=== PATIENT | male | born 1965 | race Caucasian/White ===

== ENCOUNTER 2016-08-01 14:42 | Emergency (ER) | payer OTHER ==
[~2016-08-01 14:42] MED LIST: ASPI1TAB PO; ASPI325T PO; AUGM875T27 PO; BACT2OIN2 TOP; BAYE325T12 PO; CEFA1INJ5 IV; DICL500C PO; DOKTAB2 PO; DRIS50002 PO; INSUDET SC; INSUH10VL INJ; INSUH10VL SC; INSULADS SC; JANU100T PO; KEFL500C7 PO; KEFLEX IV; LEVE1INJ5 SC; LISI-542 PO; LISI2.5T PO; LISI2.5T3 GT; LISI2.5T3 PO; NIAC1TAB PO; NICO21PAT EXT; NOVOINJ3 SC; PERCOCET PO; SALI0.9I2 IV; TRIC145T PO; TYLE325T5 PO; ZETI10TA2 PO
--- NOTE | 2016-08-01 15:43 | REP ---
CT Head without contrast HISTORY: Head injury COMPARISON: None There is no intraparenchymal hemorrhage, acute infarct, mass or midline shift. The ventricular system is normal in appearance. There is no extra cerebral collection. There is no fracture. Mucosal thickening is present in the right ethmoid and sphenoid sinuses. IMPRESSION: There is no intracranial lesion. Signed by Wilmer Rapp MD 08/01/2016 03:35 P
--- NOTE | 2016-08-01 16:04 | EDDOCDS ---
Physician Documentation [facility] Name: Kelby Rojo Age: 51 yrs Sex: Male : 1965 Arrival Date: 08/01/2016 Time: 14:42 Bed TR7 Private MD: Unknown, Family Dr Disposition: 08/01/16 15:40 Discharged to Home/Self Care. Impression: Superficial injury of head. - Condition is Stable. - Discharge Instructions: Head Injury, Adult. - Medication Reconciliation, Local Pharmacy Hours form. - Follow up: Emergency Department; When: As needed; Reason: Worsening of conditions. Follow [facility]: [facility]; When: Call to arrange an appointment; Reason: Recheck today's complaints, Continuance of care, To establish care. - Problem is new. - Symptoms are unchanged. Historical: - Allergies: No known drug Allergies; - Home Meds: 1. aspirin 81 mg oral tab once daily 2. Onglyza 5 mg oral tab 1 tab once daily 3. Toujeo SoloStar 300 unit/mL (1.5 mL) subcutaneous inpn 90 unit 4. lisinopril 2.5 mg oral tab 1 tab once daily - PMHx: Diabetes - IDDM: controlled; Hypertension; - PSHx: Hernia repair- Umbilical; right middle finger; - Social history: Smoking status: Patient uses tobacco products, light tobacco smoker. - : The pt / caregiver states he / she is not on anticoagulants. Home medication list is obtained from the patient, [employer] import data. - Exposure Risk Screening:: None identified. Vital Signs: 08/01 14:43 BP 144 / 70; Pulse 91; Resp 18; Temp 97.1; Pulse Ox 97% ; Weight 95.25 kg / 209.99 lbs; cmb Height 5 ft. 6 in. (167.64 cm); Pain 0/10; 14:43 Body Mass Index 33.89 (95.25 kg, 167.64 cm) cmb Funmilayo Coma Score: 14:48 Eye Response: spontaneous(4). Verbal Response: oriented(5). Motor Response: obeys kcs commands(6). Total: 15. MDM: 15:25 CT Head Without Contrast Ordered. EDMS 15:33 Financial registration complete. lg Signatures: Dispatcher [employer] EDMS Sleeman, ShantelleGREGG jorgensen RN, LoriLee, Reg Reg lg Dwight,GREGG Bansal RN rs3 Guerline Walker RN RN mk4 Elvia Rodrigues PA-C PA-C dt4 The chart was reviewed and I authenticate all verbal orders and agree with the evaluation and treatment provided.Corrections: (The following items were deleted from the chart) 15:01 14:52 Home Meds: Novolog 100 unit/mL Sub-Q soln 100 unit twice a day; heydi rs3 MTDD
--- NOTE | 2016-08-01 16:04 | EDDOCDS ---
Nurse's Notes [facility] Name: Kelby Rojo Age: 51 yrs Sex: Male : 1965 Arrival Date: 08/01/2016 Time: 14:42 Bed TR7 Private MD: Unknown, Family Dr Diagnosis: Superficial injury of head Presentation: 08/01 14:48 Presenting complaint: Patient states: he slipped on the sidewalk about 40 minutes ago kcs and hit his head - no loss of consciousness. Feels ok now. This patient has no additional risk factors. Mechanism of Injury: resulted from a fall. Adult Sepsis Screening: The patient does not have new or worsening altered mentation. Patient's respiratory rate is less than 22. Systolic blood pressure is greater than 100. Patient has a qSOFA score of 0- Negative Sepsis Screen. Suicide/Homicide risk assessment- the patient denies having any suicidal and/or homicidal ideations and does not present with any other emotional, behavioral or mental health complaints. 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 Transition of care: patient was not received from another setting of care. 14:48 Acuity: JOHN PAUL Level 4 kcs 14:48 Method Of Arrival: Walkin/Carried/Asstd kcs Triage Assessment: 14:52 General: Appears comfortable, obese, unkempt, well developed, well nourished, Behavior kcs is cooperative, pleasant. Pain: Denies pain. Location: head. HIV screening NA for this visit Offered previously. Neurological: Level of Consciousness is awake, alert. Respiratory: Airway is patent Respiratory effort is even, unlabored, Respiratory pattern is regular, symmetrical. Derm: Skin is intact, is healthy with good turgor, Skin is dry, Skin is normal. Historical: - Allergies: No known drug Allergies; - Home Meds: 1. aspirin 81 mg oral tab once daily 2. Onglyza 5 mg oral tab 1 tab once daily 3. Toujeo SoloStar 300 unit/mL (1.5 mL) subcutaneous inpn 90 unit 4. lisinopril 2.5 mg oral tab 1 tab once daily - PMHx: Diabetes - IDDM: controlled; Hypertension; - PSHx: Hernia repair- Umbilical; right middle finger; - Social history: Smoking status: Patient uses tobacco products, light tobacco smoker. - : The pt / caregiver states he / she is not on anticoagulants. Home medication list is obtained from the patient, [employer] import data. - Exposure Risk Screening:: None identified. Vital Signs: 14:43 BP 144 / 70; Pulse 91; Resp 18; Temp 97.1; Pulse Ox 97% ; Weight 95.25 kg; Height 5 ft. cmb 6 in. (167.64 cm); Pain 0/10; 14:43 Body Mass Index 33.89 (95.25 kg, 167.64 cm) cmb Vitals: 14:43 Log In Time: August 01, 2016 at 14:42. cmb Funmilayo Coma Score: 14:48 Eye Response: spontaneous(4). Verbal Response: oriented(5). Motor Response: obeys kcs commands(6). Total: 15. ED Course: 14:42 Patient visited by Jeana Guthrie. cmb 14:42 Patient moved to Waiting cmb 14:43 Unknown, Family Dr is Private Physician. cmb 14:43 Patient moved to Pre RCE cmb 14:50 Triage Initiated kcs 15:09 Patient moved to Triage 1 jrd 15:13 [facility] dt4 15:13 Jaspreet Miller MD is Attending Physician. dt4 15:13 Patient visited by Elvia Rodrigues PA-C. dt4 15:28 Patient moved to TR2 mk4 15:40 [facility] is Referral Physician. dt4 15:42 Patient moved to PR2 / 26 jrd 15:45 Patient moved to TR7 mk4 15:59 CT Head Without Contrast Returned. EDMS Order Results: Radiology Order: CT Head Without Contrast Test: CT Head Without Contrast REASON FOR EXAMINATION: HEAD INJURY, ON ASA; CT Head without contrast; ; HISTORY: Head injury; ; COMPARISON: None; ; There is no intraparenchymal hemorrhage, acute infarct, mass or midline shift.; The ventricular system is normal in appearance. There is no extra cerebral; collection. There is no fracture. Mucosal thickening is present in the right; ethmoid and sphenoid sinuses.; ; IMPRESSION: There is no intracranial lesion.; ; ; ; ; Signed by; Wilmer Rapp MD 08/01/2016 03:35 P; Outcome: 15:40 Discharge ordered by Provider. dt4 16:03 Patient left the ED. mk4 Signatures: Dispatcher [employer] EDMS Shantelle Wilson RN RN kcs Nimisha Quintanilla RN RN rs3 Jeana Guthrie Margaret, RN RN mk4 Elvia Rodrigues, PA-C PA-C dt4 Justin Hinojosa PCA HAM STRIPPER jrd Corrections: (The following items were deleted from the chart) 15:01 14:52 Home Meds: Novolog 100 unit/mL Sub-Q soln 100 unit twice a day; heydi rs3 MTDD
--- NOTE | 2016-08-03 17:04 | EDDOCDS ---
Nurse's Notes [facility] Name: Kelby Rojo Age: 51 yrs Sex: Male : 1965 Arrival Date: 08/01/2016 Time: 14:42 Bed TR7 Private MD: Unknown, Family Dr Diagnosis: Superficial injury of head Presentation: 08/01 14:48 Presenting complaint: Patient states: he slipped on the sidewalk about 40 minutes ago kcs and hit his head - no loss of consciousness. Feels ok now. This patient has no additional risk factors. Mechanism of Injury: resulted from a fall. Adult Sepsis Screening: The patient does not have new or worsening altered mentation. Patient's respiratory rate is less than 22. Systolic blood pressure is greater than 100. Patient has a qSOFA score of 0- Negative Sepsis Screen. Suicide/Homicide risk assessment- the patient denies having any suicidal and/or homicidal ideations and does not present with any other emotional, behavioral or mental health complaints. 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 Transition of care: patient was not received from another setting of care. 14:48 Acuity: JOHN PAUL Level 4 kcs 14:48 Method Of Arrival: Walkin/Carried/Asstd kcs Triage Assessment: 14:52 General: Appears comfortable, obese, unkempt, well developed, well nourished, Behavior kcs is cooperative, pleasant. Pain: Denies pain. Location: head. HIV screening NA for this visit Offered previously. Neurological: Level of Consciousness is awake, alert. Respiratory: Airway is patent Respiratory effort is even, unlabored, Respiratory pattern is regular, symmetrical. Derm: Skin is intact, is healthy with good turgor, Skin is dry, Skin is normal. Historical: - Allergies: No known drug Allergies; - Home Meds: 1. aspirin 81 mg oral tab once daily 2. Onglyza 5 mg oral tab 1 tab once daily 3. Toujeo SoloStar 300 unit/mL (1.5 mL) subcutaneous inpn 90 unit 4. lisinopril 2.5 mg oral tab 1 tab once daily - PMHx: Diabetes - IDDM: controlled; Hypertension; - PSHx: Hernia repair- Umbilical; right middle finger; - Social history: Smoking status: Patient uses tobacco products, light tobacco smoker. No barriers to communication noted, The patient speaks fluent American. - Family history: Not pertinent. - : The pt / caregiver states he / she is not on anticoagulants. Home medication list is obtained from the patient, [employer] import data. - Exposure Risk Screening:: None identified. Screenin:28 Screening information is obtained from the patient. Fall risk: No risks identified. mk4 Assistance ADL's: requires no assistance with activities of daily living. Abuse/DV Screen: The patient / caregiver reports he/she is: not in a situation that causes fear, pain or injury. Nutritional screening: No deficits noted. Advance Directives: Currently, there is no health care proxy. There is no active DNR order. There is no living will. There is no Power of Ethylbenzene Cracking Supervisor. Advance directive information has not previously been placed in an [facility] medical record. Further advance directive information is declined. home support is adequate. Assessment: 15:28 General: Appears in no apparent distress, Behavior is cooperative. Neurological: Level mk4 of Consciousness is awake, alert, Oriented to person, place, time, Reports no additional symptoms. Vital Signs: 14:43 BP 144 / 70; Pulse 91; Resp 18; Temp 97.1; Pulse Ox 97% ; Weight 95.25 kg; Height 5 ft. cmb 6 in. (167.64 cm); Pain 0/10; 14:43 Body Mass Index 33.89 (95.25 kg, 167.64 cm) cmb Vitals: 14:43 Log In Time: August 01, 2016 at 14:42. cmb Funmilayo Coma Score: 14:48 Eye Response: spontaneous(4). Verbal Response: oriented(5). Motor Response: obeys kcs commands(6). Total: 15. ED Course: 14:42 Patient visited by Jeana Guthrie. cmb 14:42 Patient moved to Waiting cmb 14:43 Unknown, Family Dr is Private Physician. cmb 14:43 Patient moved to Pre RCE cmb 14:50 Triage Initiated kcs 15:09 Patient moved to Triage 1 jrd 15:13 Elvia Rodrigues [facility]-C [facility] dt4 15:13 Jaspreet Miller MD is Attending Physician. dt4 15:13 Patient visited by Elvia Rodrigues PA-C. dt4 15:28 Patient moved to TR2 mk4 15:28 The patient / caregiver is instructed regarding the plan of care and ED course. mk4 15:28 No IV's were initiated during this patient's visit. No procedures done that require mk4 assistance. 15:40 [facility] is Referral Physician. dt4 15:42 Patient moved to PR2 / 26 jrd 15:45 Patient moved to TR7 mk4 15:59 CT Head Without Contrast Returned. EDWA 16:31 [facility] Payment Agreement was scanned into [employer] and attached to record. 08/02 11:14 T-Sheet-- Draft Copy was scanned into [employer] and attached to record. gb Order Results: Radiology Order: CT Head Without Contrast Test: CT Head Without Contrast REASON FOR EXAMINATION: HEAD INJURY, ON ASA; CT Head without contrast; ; HISTORY: Head injury; ; COMPARISON: None; ; There is no intraparenchymal hemorrhage, acute infarct, mass or midline shift.; The ventricular system is normal in appearance. There is no extra cerebral; collection. There is no fracture. Mucosal thickening is present in the right; ethmoid and sphenoid sinuses.; ; IMPRESSION: There is no intracranial lesion.; ; ; ; ; Signed by; Wilmer Rapp MD 08/01/2016 03:35 P; Outcome: 08/01 15:40 Discharge ordered by Provider. dt4 16:03 Patient left the ED. mk4 16:08 Discharge Assessment: Patient awake, alert and oriented x 3. No cognitive and/or mk4 functional deficits noted. Patient verbalized understanding of disposition instructions. Patient awake and alert. patient administered narcotics - no. The following High Risk Discharge criteria are identified: None. Condition: good Condition: stable. CT Study completed. Property sent home with patient. Signatures: Dispatcher [employer] EDWA Shantelle Wilson RN RN kcs Britta Martinez, Reg Reg gb Jose Roberto Mo, Reg Reg lg Nimisha Quintanilla RN RN rs3 Jeana Guthrie Margaret, RN RN mk4 Elvia Rodrigues, PA-C PA-C dt4 Justin Hinojosa PCA PROCEDURES RN jrd Corrections: (The following items were deleted from the chart) 15:01 14:52 Home Meds: Novolog 100 unit/mL Sub-Q soln 100 unit twice a day; kcs rs3 Chart Complete MTDD
--- NOTE | 2016-08-03 17:04 | EDDOCDS ---
Physician Documentation [facility] Name: Kelby Rojo Age: 51 yrs Sex: Male : 1965 Arrival Date: 08/01/2016 Time: 14:42 Bed TR7 Private MD: Unknown, Family Disposition: 08/01/16 15:40 Discharged to Home/Self Care. Impression: Superficial injury of head. - Condition is Stable. - Discharge Instructions: Head Injury, Adult. - Medication Reconciliation, Local Pharmacy Hours form. - Follow up: Emergency Department; When: As needed; Reason: Worsening of conditions. Follow up: [facility]; When: Call to arrange an appointment; Reason: Recheck today's complaints, Continuance of care, To establish care. - Problem is new. - Symptoms are unchanged. Historical: - Allergies: No known drug Allergies; - Home Meds: 1. aspirin 81 mg oral tab once daily 2. Onglyza 5 mg oral tab 1 tab once daily 3. Toujeo SoloStar 300 unit/mL (1.5 mL) subcutaneous inpn 90 unit 4. lisinopril 2.5 mg oral tab 1 tab once daily - PMHx: Diabetes - IDDM: controlled; Hypertension; - PSHx: Hernia repair- Umbilical; right middle finger; - Social history: Smoking status: Patient uses tobacco products, light tobacco smoker. No barriers to communication noted, The patient speaks fluent Emirati. - Family history: Not pertinent. - : The pt / caregiver states he / she is not on anticoagulants. Home medication list is obtained from the patient, [employer] import data. - Exposure Risk Screening:: None identified. Vital Signs: 08/01 14:43 BP 144 / 70; Pulse 91; Resp 18; Temp 97.1; Pulse Ox 97% ; Weight 95.25 kg / 209.99 lbs; cmb Height 5 ft. 6 in. (167.64 cm); Pain 0/10; 14:43 Body Mass Index 33.89 (95.25 kg, 167.64 cm) cmb [place] Coma Score: 14:48 Eye Response: spontaneous(4). Verbal Response: oriented(5). Motor Response: obeys kcs commands(6). Total: 15. MDM: 15:25 CT Head Without Contrast Ordered. EDMS 15:33 Financial registration complete. lg 16:31 [facility] Payment Agreement was scanned into [employer] and attached to record. lg 08/02 11:14 T-Sheet-- Draft Copy was scanned into [employer] and attached to record. gb Signatures: Dispatcher [employer] EDShantelle Duncan, RN RN kcs Britta Martinez, Reg Reg gb Jose Roberto Mo, Reg Reg lg Nimisha Quintanilla RN RN rs3 Guerline Walker RN RN mk4 Elvia Rodrigues, PANaomi PANaomi dt4 The chart was reviewed and I authenticate all verbal orders and agree with the evaluation and treatment provided.Corrections: (The following items were deleted from the chart) 08/01 15:01 14:52 Home Meds: Novolog 100 unit/mL Sub-Q soln 100 unit twice a day; heydi rs3 Attachments: 16:31 [facility] Payment Agreement lg 08/02 11:14 T-Sheet-- Draft Copy gb Chart Complete MTDD
--- NOTE | 2016-08-03 17:04 | EDDOCDS ---
Physician Documentation [facility] Name: Kelby Rojo Age: 51 yrs Sex: Male : 1965 Arrival Date: 08/01/2016 Time: 14:42 Bed TR7 Private MD: Unknown, Family Disposition: 08/01/16 15:40 Discharged to Home/Self Care. Impression: Superficial injury of head. - Condition is Stable. - Discharge Instructions: Head Injury, Adult. - Medication Reconciliation, Local Pharmacy Hours form. - Follow up: Emergency Department; When: As needed; Reason: Worsening of conditions. Follow up: [facility]; When: Call to arrange an appointment; Reason: Recheck today's complaints, Continuance of care, To establish care. - Problem is new. - Symptoms are unchanged. Historical: - Allergies: No known drug Allergies; - Home Meds: 1. aspirin 81 mg oral tab once daily 2. Onglyza 5 mg oral tab 1 tab once daily 3. Toujeo SoloStar 300 unit/mL (1.5 mL) subcutaneous inpn 90 unit 4. lisinopril 2.5 mg oral tab 1 tab once daily - PMHx: Diabetes - IDDM: controlled; Hypertension; - PSHx: Hernia repair- Umbilical; right middle finger; - Social history: Smoking status: Patient uses tobacco products, light tobacco smoker. No barriers to communication noted, The patient speaks fluent Armenian. - Family history: Not pertinent. - : The pt / caregiver states he / she is not on anticoagulants. Home medication list is obtained from the patient, [email or web address] import data. - Exposure Risk Screening:: None identified. Vital Signs: 08/01 14:43 BP 144 / 70; Pulse 91; Resp 18; Temp 97.1; Pulse Ox 97% ; Weight 95.25 kg / 209.99 lbs; cmb Height 5 ft. 6 in. (167.64 cm); Pain 0/10; 14:43 Body Mass Index 33.89 (95.25 kg, 167.64 cm) cmb [place] Coma Score: 14:48 Eye Response: spontaneous(4). Verbal Response: oriented(5). Motor Response: obeys kcs commands(6). Total: 15. MDM: 15:25 CT Head Without Contrast Ordered. EDMS 15:33 Financial registration complete. lg 16:31 [facility] Payment Agreement was scanned into [employer] and attached to record. lg 08/02 11:14 T-Sheet-- Draft Copy was scanned into [employer] and attached to record. gb Signatures: Dispatcher [employer] EDShantelle Duncan, RN RN kcs Britta Martinez, Reg Reg gb Jose Roberto Mo, Reg Reg lg Nimisha Quintanilla RN RN rs3 Guerline Walker RN RN mk4 Elvia Rodrigues, PANaomi PANaomi dt4 The chart was reviewed and I authenticate all verbal orders and agree with the evaluation and treatment provided.Corrections: (The following items were deleted from the chart) 08/01 15:01 14:52 Home Meds: Novolog 100 unit/mL Sub-Q soln 100 unit twice a day; heydi rs3 Attachments: 16:31 [facility] Payment Agreement lg 08/02 11:14 T-Sheet-- Draft Copy gb Chart Complete MTDD
== END 2016-08-01 16:03 | disposition home or self-care (01) ==
LOC: M ED 14:42
DX: S00.90XA Unspecified superficial injury of unspecified part of head, initial encounter (principal); W01.198A Fall on same level from slipping, tripping and stumbling with subsequent striking against other object, initial encounter; Y92.480 Sidewalk as the place of occurrence of the external cause; Y93.89 Activity, other specified; Y99.8 Other external cause status; I10 Essential (primary) hypertension; E10.9 Type 1 diabetes mellitus without complications; Z79.899 Other long term (current) drug therapy; F17.200 Nicotine dependence, unspecified, uncomplicated

== ENCOUNTER → 2016-08-07 | Outpatient (CLI) | payer OTHER | LOC: M HL 14:22 | PROVIDERS: ATTEND Family Medicine | DX: Z71.3 Dietary counseling and surveillance (principal); E11.29 Type 2 diabetes mellitus with other diabetic kidney complication ==

== ENCOUNTER → 2016-09-11 | Outpatient (REF) | payer OTHER ==
[2016-09-11 13:02] LABS: BASO # 0.1 K/mm3 (0.0-0.2); BASO % 0.9 % (0.0-1.0); EOS # 0.4 K/mm3 (0.0-0.50); EOS % 4.7 % (0.0-3.0); LARGE UNSTAINED CELL # 0.3 K/mm3 (0.0-0.4); LARGE UNSTAINED CELL % 2.8 % (0.0-4.0); LYMPH # 2.1 K/mm3 (1.5-4.5); LYMPH % 23.1 % (24.0-44.0); MEAN CORPUSCULAR HEMOGLOBIN 28.9 pg (27.0-33.0); MEAN CORPUSCULAR HGB CONC 33.1 g/dl (32.0-36.5); MEAN CORPUSCULAR VOLUME 87.3 fl (80.0-96.0); MONO # 0.5 K/mm3 (0.0-0.8); NEUTROPHILS # 5.7 K/mm3 (1.8-7.7); NEUTROPHILS % 63.5 % (36.0-66.0); PLATELET COUNT, AUTOMATED 188 k/mm3 (150-450); RED CELL DISTRIBUTION WIDTH 12.8 % (11.5-14.5)
[2016-09-11 13:50] LABS: ALBUMIN 3.7 GM/DL (3.2-5.2); BILIRUBIN,TOTAL 0.3 MG/DL (0.2-1.0); CALCIUM LEVEL 9.2 MG/DL (8.5-10.1); CREATININE FOR GFR 1.78 MG/DL (0.70-1.30); GLOMERULAR FILTRATION RATE 43.3 (>56); POTASSIUM SERUM 4.7 MEQ/L (3.5-5.1); TOTAL PROTEIN 7.4 GM/DL (6.4-8.2)
== END ==
LOC: M SFHCPLAZ 11:41
PROVIDERS: ATTEND Family Medicine
DX: E11.22 Type 2 diabetes mellitus with diabetic chronic kidney disease (principal)

== ENCOUNTER 2016-10-12 21:41 | Emergency (ER) | payer OTHER ==
[~2016-10-12] VITALS: Ht 167.6 cm; Wt 122.5 kg
[2016-10-13 02:15] VITALS: BP 123/77
[2016-10-13] MEDS ORDERED: TOUJ1.2I SC (15:05)
[2016-10-13] MEDS ORDERED: COLA100C PO (15:05)
[2016-10-13] MEDS ORDERED: ONGL1TAB9 PO (15:05)
[2016-10-13] MEDS ORDERED: LOSA25TA8 PO (15:05)
== END 2016-10-13 03:34 | disposition left against medical advice (07) ==
LOC: M ED 22:27
DX: R21 Rash and other nonspecific skin eruption (principal); Z53.21 Procedure and treatment not carried out due to patient leaving prior to being seen by health care provider

== ENCOUNTER 2016-10-13 10:33 | Inpatient (IN) | payer OTHER ==
[~2016-10-13] VITALS: Ht 167.6 cm; Wt 122.5 kg
[2016-10-13 13:01] LABS: BASO # 0.1 K/mm3 (0.0-0.2); BASO % 0.3 % (0.0-1.0); EOS # 0.1 K/mm3 (0.0-0.50); EOS % 0.4 % (0.0-3.0); LARGE UNSTAINED CELL # 0.1 K/mm3 (0.0-0.4); LARGE UNSTAINED CELL % 0.6 % (0.0-4.0); LYMPH % 4.1 % (24.0-44.0); MEAN CORPUSCULAR HEMOGLOBIN 28.7 pg (27.0-33.0); MEAN CORPUSCULAR HGB CONC 31.9 g/dl (32.0-36.5); MONO # 1.3 K/mm3 (0.0-0.8); NEUTROPHILS % 88.6 % (36.0-66.0); PLATELET COUNT, AUTOMATED 177 k/mm3 (150-450); RED CELL DISTRIBUTION WIDTH 12.4 % (11.5-14.5); WHITE BLOOD COUNT 21.4 K/mm3 (4.0-10.0)
[2016-10-13 13:09] LABS: ALBUMIN 2.8 GM/DL (3.2-5.2); ALBUMIN/GLOBULIN RATIO 0.57 (1.00-1.93); BILIRUBIN,DIRECT 0.2 MG/DL (0.0-0.2); BILIRUBIN,TOTAL 0.9 MG/DL (0.2-1.0); CALCIUM LEVEL 8.2 MG/DL (8.5-10.1); CREATININE FOR GFR 2.15 MG/DL (0.70-1.30); GLOMERULAR FILTRATION RATE 34.8 (>56); POTASSIUM SERUM 4.4 MEQ/L (3.5-5.1); TOTAL PROTEIN 7.7 GM/DL (6.4-8.2)
[2016-10-13] MEDS ORDERED: NS 1,000 ML IV ONE (13:30)
--- NOTE | 2016-10-13 13:39 | REP ---
Clinical: Right gluteal lesion. Evaluate for abscess. Technique: Real time dasilva scale and color evaluation using curved array transducer. Findings: Ultrasound examination of the right gluteal region demonstrates subcutaneous edema with a central 2.9 x 2.5 x 2.2 cm central hypoechoic area which may reflect phlegmon/forming abscess. Impression: Hypoechoic collection may represent phlegmon/forming abscess. Signed by Addy Roman MD 10/13/2016 01:31 P
[2016-10-13] MEDS ORDERED: PIPERACILLIN/TAZOBACTAM SOD 4.5 GM in D5W MINI-BAG PLUS 50 ML IV ONE (13:45)
--- NOTE | 2016-10-13 14:12 | REP ---
Clinical: Fever. Technique: PA and lateral. Comparison: 07/12/2014. Findings: Mediastinum and cardiac silhouette are normal. Lung root are relatively clear without focal consolidation, effusion, or pneumothorax. Trace basilar atelectasis cannot be excluded. Skeletal structures intact. Impression: No focal consolidation. Cannot exclude trace left basilar atelectasis. Signed by Addy Roman MD 10/13/2016 02:03 P
[2016-10-13] MEDS ORDERED: ACETAMINOPHEN 325 MG TAB PO ONE (15:00)
[2016-10-13] MEDS ORDERED: COLA100C PO (15:05)
[2016-10-13] MEDS ORDERED: LOSA25TA8 PO (15:05)
[2016-10-13] MEDS ORDERED: ONGL1TAB9 PO (15:05)
[2016-10-13] MEDS ORDERED: TOUJ1.2I SC (15:05)
[2016-10-13] MEDS ORDERED: VANCOMYCIN HCL 1,000 MG, VIAL MATE ADAPTER 1 EACH in D5W 250 ML IV ONE (15:15)
[2016-10-13] MEDS ORDERED: ONDANSETRON 4MG/2ML VIAL (J2405) IV PRN (15:45)
[2016-10-13] MEDS ORDERED: GLUCOSE 4 GM CHEW TABLET PO PRN (15:45)
[2016-10-13] MEDS ORDERED: DEXTROSE 50% 50 ML SYRINGE IV PRN (15:45)
[2016-10-13] MEDS ORDERED: GLUCAGON FOR INJ 1 MG VIAL (J1610) SC PRN (15:45)
--- NOTE | 2016-10-13 16:29 | HPEPDOC ---
General Date of Admission Oct 13, 2016 at 15:44 Chief Complaint The patient is a 51-year-old male admitted with a reason for visit of Abscess Of Skin And Subcutaneous Tissue. 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 The patient presents to the ER after he noticed an increase in pain and tenderness in the right buttock region. The patient states that this developed 2 days ago, and has persisted. He also notes associated subjective fevers, lethargy, and fatigue. He does report some drainage of blood noted on his clothing from the site. He denies any complaints of lightheadedness, dizziness, chest pain, shortness of breath, palpitations, abdominal pain, or any nausea/vomiting/ diarrhea. In the ER, an ultrasound of the right buttock was obtained which revealed a hypoechoic collection measuring 2.9 x 2.5 x 2.2 cm representing possible phlegmon versus forming abscess. Surgery was contacted in the ER, and has recommended antibiotic therapy at this time. The patient will be admitted under the service of Dr. Blanco for further evaluation and management. Home Medications Scheduled (Sarahi Junior) 300 Unit/Ml Inj 90 UNIT SC BID (Reported) Aspirin (Aspirin) 325 Mg Tab 325 MG PO DAILY (Reported) Docusate Sodium (Colace) 100 Mg Cap 100 MG PO BID (Reported) Losartan Potassium (Losartan Potassium) 25 Mg Tab 25 MG PO DAILY (Reported) Saxagliptin Hydrochloride (Onglyza) 5 Mg Tab 5 MG PO DAILY (Reported) Allergies Coded Allergies: No Known Drug Allergy (Verified Allergy, Unknown, 10/12/16) Past Medical History Medical History As noted in HPI. 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 Family History Significant for diabetes mellitus in multiple family members Social History * Smoker: other (smoked 1 pack per day for 30+ years, quit 2 years ago) Alcohol: Denies Drugs: denies Review of Symptoms Other systems 10 point review of systems negative unless otherwise specified in HPI. Physical Examination General Exam: Positive: Alert, Cooperative, No Acute Distress ENT Exam: Positive: Atraumatic, Mucous membr. moist/pink Neck Exam: Negative: JVD Chest Exam: Positive: Clear to auscultation, Normal air movement Heart Exam: Positive: Normal S1, Normal S2, Rate Normal, Regular Rhythm Telemetry: Positive: Sinus Abdomen Exam: Positive: Soft, Negative: Tenderness Extremity Exam: Positive: Other (patient noted to have amputation of the middle finger of the right hand, distal aspect of left greater toe) Skin Exam: Positive: Other skin issue (patient noted to have cellulitic changes on the inner side of the right buttock. No purulent or bloody discharge noted. Mild induration of the area. Mild tenderness to palpation.) Vital Signs As noted in EMR Laboratory Data Labs 24H Laboratory Tests 2 10/13/16 10:57: Aspartate Amino Transf (AST/SGOT) 27, Alanine Aminotransferase (ALT/SGPT) 44, Alkaline Phosphatase 90, Total Bilirubin 0.9, Direct Bilirubin 0.2, Albumin 2.8L , Albumin/Globulin Ratio 0.57L, Anion Gap 11, White Blood Count 21.4H, Red Blood Count 4.96, Hemoglobin 14.2, Hematocrit 44.6, Mean Corpuscular Volume 90.0 , Mean Corpuscular Hemoglobin 28.7, Mean Corpuscular Hemoglobin Concent 31.9L, Red Cell Distribution Width 12.4, Platelet Count 177, Neutrophils (%) (Auto) 88.6H, Lymphocytes (%) (Auto) 4.1L, Monocytes (%) (Auto) 6.0H, Eosinophils (%) ( Auto) 0.4, Basophils (%) (Auto) 0.3, Neutrophils # (Auto) 19.0H, Lymphocytes # ( Auto) 1.0L, Monocytes # (Auto) 1.3H, Eosinophils # (Auto) 0.1, Basophils # (Auto ) 0.1, Calcium Level 8.2L, Glomerular Filtration Rate 34.8L, Lactic Acid Level 2.4*H, Large Unclassified Cells # 0.1, Large Unclassified Cells % 0.6, Total Protein 7.7 CBC/BMP Laboratory Tests 10/13/16 10:57 Red Blood Count 4.96, Mean Corpuscular Volume 90.0, Mean Corpuscular Hemoglobin 28.7, Mean Corpuscular Hemoglobin Concent 31.9 L, Red Cell Distribution Width 12.4, Neutrophils (%) (Auto) 88.6 H, Lymphocytes (%) (Auto) 4.1 L, Monocytes (% ) (Auto) 6.0 H, Eosinophils (%) (Auto) 0.4, Basophils (%) (Auto) 0.3, Neutrophils # (Auto) 19.0 H, Lymphocytes # (Auto) 1.0 L, Monocytes # (Auto) 1.3 H, Eosinophils # (Auto) 0.1, Basophils # (Auto) 0.1 Microbiology Microbiology 10/13/16 Blood Culture, Received Pending Plan / VTE VTE Prophylaxis Ordered?: Yes Plan Plan Sepsis secondary to Right buttock phlegmon versus early abscess formation Admitted to the med/surge unit Ultrasound of the right buttock notable for 2.9 x 2.5 x 2.2 cm central hypoechoic area suggestive of possible phlegmon versus forming abscess Blood cultures, wound cultures ordered Patient empirically started on Cefaroline and Zosyn Surgery contacted in the ER, continue IV antibiotics for now, Dr. Gomes will see the patient in consultation for further delineation of management in the a.m. We will continue to monitor the patient's progress Lactic acidosis, Leukocytosis likely secondary to above Patient noted to be hemodynamically stable here IV fluid hydration Blood cultures ordered Empiric antibiotics ordered We'll follow-up with repeat lactic acid level Trend white blood cell count, ESR, CRP levels Acute kidney injury superimposed on chronic kidney injury Patient's baseline serum creatinine noted to be between 1.6 and 1.8 Serum creatinine on admission 2.15 Likely secondary to underlying sepsis Hold nephrotoxins IV fluid hydration We will recheck BMP in the a.m. Diabetes mellitus Hemoglobin A1c noted to be 10.0 last month 90 units of Toujeo subcutaneous twice a day at home, we will start him on 50 units of Levemir twice a day and supplement with insulin sliding scale Uptitrate Levemir dosing as needed Dyslipidemia Patient not on any statin therapy We will defer this to the patient's PCP DVT prophylaxis-heparin subcutaneous The patient will be admitted under the service of Dr. Blanco, who will begin to follow the patient on 10/14. FLACA DELUCA MD Oct 13, 2016 16:29
[2016-10-13] MEDS: HumaLOG INSULIN (NovoLOG) PER UNIT SC SCH ×2 (17:30→21:00)
[2016-10-13] MEDS: NS 1,000 ML IV SCH (18:52)
[2016-10-13] MEDS: CEFTAROLINE FOSAMIL 600 MG in D5W MINI-BAG PLUS 50 ML IV SCH (18:52)
[2016-10-13] MEDS: LEVEMIR (INSULIN DETEMIR) 1 UNITS/0.01ML SC SCH (21:00)
[2016-10-13] MEDS: HEPARIN SOD (PORCINE) 5000 UNITS/ML VIAL SC SCH (21:13)
[2016-10-13] MEDS: PIPERACILLIN/TAZOBACTAM SOD 3.375 GM in D5W MINI-BAG PLUS 50 ML IV SCH (21:13)
[2016-10-13] MEDS: ACETAMINOPHEN TAB 650MG DOSE (2X325MG) PO PRN (21:54)
[2016-10-13 22:00] VITALS: BP 142/63
[2016-10-14] MEDS: PIPERACILLIN/TAZOBACTAM SOD 3.375 GM in D5W MINI-BAG PLUS 50 ML IV SCH ×4 (02:09→20:06)
[2016-10-14] MEDS: ACETAMINOPHEN TAB 650MG DOSE (2X325MG) PO PRN ×2 (02:10→12:58)
[2016-10-14] MEDS: NS 1,000 ML IV SCH (02:10)
[2016-10-14 06:00] VITALS: BP 154/70
[2016-10-14] MEDS: CEFTAROLINE FOSAMIL 600 MG in D5W MINI-BAG PLUS 50 ML IV SCH ×2 (06:22→17:18)
[2016-10-14] MEDS: HEPARIN SOD (PORCINE) 5000 UNITS/ML VIAL SC SCH ×3 (06:22→21:02)
[2016-10-14 06:47] LABS: MEAN CORPUSCULAR HEMOGLOBIN 28.9 pg (27.0-33.0); MEAN CORPUSCULAR HGB CONC 33.5 g/dl (32.0-36.5); MEAN CORPUSCULAR VOLUME 86.2 fl (80.0-96.0); RED CELL DISTRIBUTION WIDTH 12.1 % (11.5-14.5)
[2016-10-14 07:08] LABS: CALCIUM LEVEL 7.5 MG/DL (8.5-10.1); CREATININE FOR GFR 1.88 MG/DL (0.70-1.30); GLOMERULAR FILTRATION RATE 40.6 (>56); MAGNESIUM LEVEL 2.2 MG/DL (1.8-2.4); POTASSIUM SERUM 3.8 MEQ/L (3.5-5.1)
[2016-10-14] MEDS: HumaLOG INSULIN (NovoLOG) PER UNIT SC SCH ×4 (07:44→21:00)
[2016-10-14] MEDS: LEVEMIR (INSULIN DETEMIR) 1 UNITS/0.01ML SC SCH ×2 (08:35→21:00)
[2016-10-14] MEDS ORDERED: LIDOCAINE 1% MDV 20ML VIAL As Ordered ONE (10:32)
[2016-10-14 12:45] VITALS: BP 157/68
[2016-10-14 14:00] VITALS: BP 121/56
--- NOTE | 2016-10-14 17:28 | REP ---
ULTRASOUND GUIDED RIGHT BUTTOCK ABSCESS DRAIN: The procedure was performed under the direct supervision of Dr. Vizcarra. The right buttock abscess was localized using ultrasound guidance. The skin was prepped and draped in a sterile fashion. 1% Xylocaine was used as a local anesthetic. Using ultrasound guidance a 5-[place] Skater centesis catheter was inserted using trocar technique. A few drops of red tinged fluid was withdrawn and sent to the lab. The patient tolerated the procedure well and there were no immediate complications. Reviewed by STEPHANIE David 10/15/2016 08:17 AEdited and Signed by Warner Vizcarra MD 10/15/2016 02:47 P
--- NOTE | 2016-10-14 19:48 | IPNPDOC ---
Date Seen The patient was seen on 10/14/16. Progress Note SUBJECTIVE: Mr. Rojo is a 51-year-old male was admitted to the hospital for a cutaneous abscess. Upon evaluation this morning he appears somewhat uncomfortable and after evaluation and physical exam patient is tearful. He reports no acute events. Denies chest pain, shortness of breath, nausea, vomiting, abdominal pain. Reports pain to his buttock area. Patient did have a febrile episode overnight with a temperature as high as 104. Was given Tylenol and packed with ice. Temperature resolved quickly. No febrile episodes since then. OBJECTIVE PHYSICAL EXAMINATION: VITAL SIGNS: Please see below. GENERAL: Obese male lying in the hospital bed, appears stated age, appears to be in a mild amount of distress, is tearful HEENT: Atraumatic, normocephalic, PERRL, EOMI, oral mucosa appears pink and moist, nasal septum appears midline, nares are patent CARDIOVASCULAR: Regular rate and rhythm, normal S1 and S2, no murmur, click, rub RESPIRATORY: Clear to auscultation bilaterally, adequate inspiratory and extremity airway excursion, no wheeze, rhonchi, crackles ABDOMINAL: Round, soft, nontender, nondistended EXTREMITIES: Peripheral pulses appreciated bilaterally in upper and lower extremities, equal, symmetrical, +2/4; induration and diffuse erythema noted around the right intergluteal cleft of the right buttock, several cream colored pustules noted in a linear distribution along the medial side of the intergluteal cleft of the right buttock, exquisitely tender to palpation, no visible drainage noted, nonfluctuant NEUROLOGICAL: Cranial nerves II through XII grossly intact, moving all four extremities appropriately PSYCHOLOGICAL: Quite tearful LABORATORY DATA: Please see below. MICROBIOLOGY: Please see below. IMAGING: Vascular ultrasound of the right buttock IMPRESSION: Hypoechoic collection may represent phlegmon/forming abscess. Chest x-ray IMPRESSION: No focal consolidation. Cannot exclude trace left basilar atelectasis. Ultrasound guided right buttock drain DVT prophylaxis ordered?: Heparin 5000 units subcutaneously every 8 hours ASSESSMENT AND PLAN: This is a 51-year-old male who presents with cutaneous abscess. PROBLEMS: 1. Right buttock cutaneous abscess: Patient has a white count of 20, ESR 66, CRP 22.9. Blood cultures are pending, but have been negative over the past 24 hours. General surgery was consulted. A drain was placed under ultrasound guidance this afternoon. Patient remains on Zosyn and Ceftaroline for broad- spectrum coverage. Culture of abscess initially reports gram-positive cocci, gram-positive rods, and gram-negative rods. 2. Febrile episode: Patient had a temperature of 104 overnight. Was given Tylenol and packed with ice. She resolved quickly. No further events since then. We'll monitor with vital signs. 3. Diabetes mellitus: Patient is on 50 units of Levemir twice a day, sliding scale insulin as needed, and hypoglycemic protocol. Blood glucose was 138. 4. Chronic kidney disease: Patient's BUN and creatinine are 24 and 1.88, respectively. Appears to be improving. We'll monitor with daily BMP. DISPOSITION: Patient did have a fever last evening of 104. Was given Tylenol and packed with ice. Temperature quickly resolved. No febrile episodes since then. Patient is currently admitted to the medical surgical unit. Vital signs have remained stable. Patient continues to have a white count secondary to cutaneous abscess of the right buttock. Ultrasound-guided drain draining. Broad- spectrum antibody coverage with Zosyn and Ceftaroline. [facility]/I&O Vital Signs Date Time Temp Pulse Resp B/P Pulse Ox O2 Delivery O2 Flow Rate FiO2 10/14/16 14:00 97.3 90 18 121/56 97 Room Air I&O- Last 24 Hours up to 6 AM 10/14/16 06:00 Intake Total 1240 ml Output Total 0 ml Balance 1240 ml Laboratory Data 24H LABS Laboratory Tests 2 10/13/16 18:52: Lactic Acid Followup at 4 Hours 1.1 10/13/16 21:34: Bedside Glucose (Misc Panel) 227H 10/14/16 06:21: Anion Gap 10, C-Reactive Protein, Quantitative 22.90H, Blood Urea Nitrogen 24H, Creatinine 1.88H, Sodium Level 137, Potassium Level 3.8, Chloride Level 106, Carbon Dioxide Level 21, Calcium Level 7.5L, Erythrocyte Sedimentation Rate 66H , Glomerular Filtration Rate 40.6L, Magnesium Level 2.2 10/14/16 12:51: Bedside Glucose (Misc Panel) 159H 10/14/16 16:45: Bedside Glucose (Misc Panel) 97 CBC/BMP Laboratory Tests 10/14/16 06:21 Calcium Level 7.5 L, Red Blood Count 4.97, Mean Corpuscular Volume 86.2, Mean Corpuscular Hemoglobin 28.9, Mean Corpuscular Hemoglobin Concent 33.5, Red Cell Distribution Width 12.1 Microbiology Microbiology 10/13/16 Blood Culture, Received Pending 10/13/16 Blood Culture - Preliminary, Resulted No growth after 24 hours . All specim... 10/14/16 Gram Stain - Final, Resulted 10/14/16 Abscess Culture, Resulted Pending 10/14/16 Anaerobic Culture, Resulted Pending AYAD BARDALES-Andry Oct 14, 2016 18:49
[2016-10-14 22:00] VITALS: BP 129/59
[2016-10-15] MEDS: ACETAMINOPHEN TAB 650MG DOSE (2X325MG) PO PRN ×2 (02:55→20:47)
[2016-10-15] MEDS: PIPERACILLIN/TAZOBACTAM SOD 3.375 GM in D5W MINI-BAG PLUS 50 ML IV SCH ×3 (02:55→17:38)
[2016-10-15] MEDS: CEFTAROLINE FOSAMIL 600 MG in D5W MINI-BAG PLUS 50 ML IV SCH (05:22)
[2016-10-15] MEDS: HEPARIN SOD (PORCINE) 5000 UNITS/ML VIAL SC SCH ×3 (05:23→20:45)
[2016-10-15 06:00] VITALS: BP 103/54
[2016-10-15 07:15] LABS: MEAN CORPUSCULAR HEMOGLOBIN 29.1 pg (27.0-33.0); MEAN CORPUSCULAR HGB CONC 33.3 g/dl (32.0-36.5); MEAN CORPUSCULAR VOLUME 87.4 fl (80.0-96.0); RED CELL DISTRIBUTION WIDTH 12.3 % (11.5-14.5)
[2016-10-15 07:41] LABS: CALCIUM LEVEL 7.6 MG/DL (8.5-10.1); CREATININE FOR GFR 2.16 MG/DL (0.70-1.30); GLOMERULAR FILTRATION RATE 34.6 (>56); POTASSIUM SERUM 3.9 MEQ/L (3.5-5.1)
[2016-10-15] MEDS: HumaLOG INSULIN (NovoLOG) PER UNIT SC SCH ×4 (07:48→20:48)
[2016-10-15] MEDS ORDERED: SODIUM CHLORIDE 0.9% 1000 ML IV ONE (08:00)
--- NOTE | 2016-10-15 08:06 | IPNPDOC ---
Date Seen The patient was seen on 10/15/16. Progress Note SUBJECTIVE: Mr. Rojo is a 51-year-old male who is evaluated bedside this morning. He denies chest pain, shortness of breath, nausea, vomiting. Has no acute complaints overnight. Denies fever overnight. Reports that his pain is currently 2/10. Ultrasound guided drainage of right buttock abscess was performed yesterday, but very minimal fluid was expressed. Abscess culture initially shows gram-positive rods, gram-positive cocci, and gram-negative rods. Patient remains on Zosyn and Ceftaroline. Patient reports that he has some mild discomfort to his right buttock. Reports that he did not sleep at all last night. Has no questions at the current time OBJECTIVE PHYSICAL EXAMINATION: VITAL SIGNS: Please see below. GENERAL: Obese male resting on his left side on the hospital bed upon evaluation this morning, appears stated age, appears tired, but in no apparent distress HEENT: Atraumatic, normocephalic, PERRL, EOMI, oral mucosa appears pink and moist, nasal septum is midline, nares are patent CARDIOVASCULAR: Regular rate and rhythm, normal S1 and S2, no murmur, rub, click RESPIRATORY: Clear to auscultation bilaterally, adequate inspiratory and expiratory airway excursion, no wheeze, crackle, rhonchi ABDOMINAL: Round, soft, nontender, nondistended, bowel sounds diminished throughout EXTREMITIES: Excoriations noted on upper extremities and lower extremities, third right digit amputation at the DIP, yellow discoloration of the fingertips the left hand; indurated and effusively erythematous right buttock with several yellow pustules noted along the medial intergluteal cleft, no drainage noted, 2 x 2 noted on the right buttock proximal to the gluteal sulcus NEUROLOGICAL: Cranial nerves II through XII grossly intact, moving all four extremities appropriately PSYCHOLOGICAL: Mood and affect appears appropriate, appears tired LABORATORY DATA: Please see below. MICROBIOLOGY: Please see below. DVT prophylaxis ordered?: Heparin 5000 units subcutaneously every 8 hours ASSESSMENT AND PLAN: This is a 51-year-old male who presents with cutaneous abscess. PROBLEMS: 1. Right buttock cutaneous abscess: We'll cut this morning is 18. CRP is 24.9. Blood cultures have been negative as a 4 hours. Abscess culture initially reveals gram-positive cocci, gram-positive rods, and gram-negative rods. Patient remains on Zosyn and Ceftaroline. 2. Acute kidney injury on top of chronic kidney disease: Patient's BUN and creatinine are 25 and 2.16, respectively. Patient's creatinine has increased from 1.88 yesterday. Have given patient 1L bolus of normal saline. Patient's blood pressure was also this morning of 103/54. Continue to monitor vital signs and BMP. 3. Diabetes mellitus: Patient is on 50 units of Levemir twice a day, sliding scale insulin as needed, and hypoglycemic protocol. Blood glucose was 103. DISPOSITION: Patient remains on Zosyn and Ceftaroline for cutaneous abscess. White count is improving and is 18 this morning. CRP is 24.9. Patient did appear to have a bump in his creatinine to 2.16. Have provided a 1 L normal saline bolus. Culture of abscess and she reports gram-positive cocci, gram- positive rods, and gram-negative rods. Blood cultures have remained negative after 24 hours. PFS recommended the patient can be discharged home once medically cleared. Anticipated discharge tomorrow. VS, I&O, 24H, [facility] Vital Signs/I&O Vital Signs Date Time Temp Pulse Resp B/P Pulse Ox O2 Delivery O2 Flow Rate FiO2 10/15/16 06:00 98.8 81 18 103/54 93 Room Air I&O- Last 24 Hours up to 6 AM 10/15/16 06:00 Intake Total 3450 ml Output Total 1100 ml Balance 2350 ml Laboratory Data 24H LABS Laboratory Tests 2 10/14/16 12:51: Bedside Glucose (Misc Panel) 159H 10/14/16 16:45: Bedside Glucose (Misc Panel) 97 10/14/16 20:03: Bedside Glucose (Misc Panel) 139H 10/15/16 06:29: Anion Gap 9, C-Reactive Protein, Quantitative 24.90H, Blood Urea Nitrogen 25H, Creatinine 2.16H, Sodium Level 137, Potassium Level 3.9, Chloride Level 104, Carbon Dioxide Level 24, Calcium Level 7.6L, Glomerular Filtration Rate 34.6L CBC/BMP Laboratory Tests 10/15/16 06:29 Calcium Level 7.6 L, Red Blood Count 4.47, Mean Corpuscular Volume 87.4, Mean Corpuscular Hemoglobin 29.1, Mean Corpuscular Hemoglobin Concent 33.3, Red Cell Distribution Width 12.3 Microbiology Microbiology 10/13/16 Blood Culture - Preliminary, Resulted No growth after 24 hours . All specim... 10/13/16 Blood Culture - Preliminary, Resulted No growth after 24 hours . All specim... 10/14/16 Gram Stain - Final, Resulted 10/14/16 Abscess Culture, Resulted Pending 10/14/16 Anaerobic Culture, Resulted Pending AYAD BARDALES-Andry Oct 15, 2016 08:06
[2016-10-15] MEDS: LEVEMIR (INSULIN DETEMIR) 1 UNITS/0.01ML SC SCH ×2 (08:12→20:48)
[2016-10-15] MEDS ORDERED: LEVEMIR (INSULIN DETEMIR) 1 UNITS/0.01ML SC ONE (08:15)
[2016-10-15] MEDS ORDERED: NS 1,000 ML IV ONE (08:15)
[2016-10-15] MEDS ORDERED: VANCOMYCIN HCL 750 MG, VIAL MATE ADAPTER 1 EACH in D5W 250 ML IV SCH (13:45)
[2016-10-15 14:00] VITALS: BP 132/60
--- NOTE | 2016-10-15 15:37 | PHACANCOPD ---
PHARMACY VANCOMYCIN DOSING Pt Demographics Demographics Patient Age:51 , Weight:122.470 , Gender: male Adjusted Body Weight Date: 10/15/16, Adjusted Body Weight: [87.68] Kg Events Past 24 Hours Events Past 24 Hours: NO: Change in CrCl, Dialysis, Diuretic Therapy, Elevation in WBC, Fever, Other, Pending Diagnostics, Pending Procedures Vancomycin Vancomycin indication: SEVERE SEPSIS, PNEUMONIA Vancomycin Target Ranges: 15-20 mcg/ml Vancomycin Load Y/N: Yes Load Dose Date Time Vancomycin Load Dose: 2G Date: 10/15/16 Time: 15:30 Vancomycin Dose Date: 10/15/16. Current Vancomycin Dose: [1G q24H] Intermittent Dosing?: No Labs Labs Item Value Date Time White Blood Count 20.0 K/mm3 H 10/14/16 0621 White Blood Count 18.0 K/mm3 H 10/15/16 0629 White Blood Count 21.4 K/mm3 H 10/13/16 1057 Creatinine 1.88 MG/DL H 10/14/16 0621 Creatinine 2.16 MG/DL H 10/15/16 0629 Vital Signs Label Value Date Time Patient Temperature 99.7 degrees F 10/14/16 2200 Temperature Source Skin 10/14/16 2200 Patient Temperature 99.7 degrees F 10/15/16 1400 Temperature Source Skin 10/15/16 1400 Micro Microbiology 10/13/16 Blood Culture - Preliminary, Resulted No growth after 24 hours . All specim... 10/13/16 Blood Culture - Preliminary, Resulted No Growth after 48 hours. All Specime... 10/14/16 Gram Stain - Final, Resulted 10/14/16 Abscess Culture, Resulted Pending 10/14/16 Anaerobic Culture, Resulted Pending Creatinine Clearance Date:10/15/16. Creatinine Clearance: [36.9ML/MIN.]. Assessment and Plan Maintaining Current Dose?: Yes Reason for dose change: No Dose Change Pharmacist Note Pharmacist Note Date: 10/15/16. Pharmacist note: PT is a 51 y/o male being treated for severe sepsis goal trough 15-20mcg/ml. Pt has a history of vancomycin therapy here at [facility] in the past. Pt adjusted body weight is 87.68. To achieve goal a 2g loading dose will be gave at 1600, maintenance therapy will begin tomorrow @16:00 with 1g q24h. We will continue to monitor and adjust dose as needed. ESPINOZA PARDO [facility]ARM[facility] Oct 15, 2016 15:37
[2016-10-15] MEDS: VANCOMYCIN HCL 1,000 MG, VIAL MATE ADAPTER 1 EACH in D5W 250 ML IV SCH (15:51)
[2016-10-15] MEDS ORDERED: VANCOMYCIN HCL 1,000 MG, VIAL MATE ADAPTER 1 EACH in D5W 250 ML IV ONE (17:00)
[2016-10-15 22:00] VITALS: BP 133/60
[2016-10-16] MEDS: PIPERACILLIN/TAZOBACTAM SOD 3.375 GM in D5W MINI-BAG PLUS 50 ML IV SCH ×3 (00:15→20:25)
[2016-10-16 06:00] VITALS: BP 127/69
[2016-10-16 06:23] LABS: MEAN CORPUSCULAR HGB CONC 33.5 g/dl (32.0-36.5); MEAN CORPUSCULAR VOLUME 86.8 fl (80.0-96.0); RED CELL DISTRIBUTION WIDTH 12.4 % (11.5-14.5); WHITE BLOOD COUNT 15.1 K/mm3 (4.0-10.0)
[2016-10-16] MEDS: HEPARIN SOD (PORCINE) 5000 UNITS/ML VIAL SC SCH ×3 (06:28→20:25)
[2016-10-16 06:33] LABS: CALCIUM LEVEL 7.4 MG/DL (8.5-10.1); CREATININE FOR GFR 1.73 MG/DL (0.70-1.30); GLOMERULAR FILTRATION RATE 44.7 (>56)
[2016-10-16] MEDS: HumaLOG INSULIN (NovoLOG) PER UNIT SC SCH ×4 (07:30→21:00)
[2016-10-16] MEDS: LACTOBACILLUS ACIDOPHILUS CAP (BACID) PO SCH ×3 (09:06→17:53)
[2016-10-16] MEDS: LEVEMIR (INSULIN DETEMIR) 1 UNITS/0.01ML SC SCH ×2 (09:06→20:26)
[2016-10-16] MEDS ORDERED: diphenhydrAMINE 25 MG CAP PO PRN (09:15)
--- NOTE | 2016-10-16 09:19 | IPNPDOC ---
Date Seen The patient was seen on 10/16/16. Progress Note SUBJECTIVE: Mr. Rojo is evaluated at bedside this morning. He is laying on his right side upon evaluation this morning. His quite frustrated with having to remain in the hospital. Patient did have a low-grade fever overnight of 100.3. Discussed with general surgery who recommended a follow-up ultrasound and possible ultrasound-guided needle drainage as they think that abscess is "coming to a head". Patient denies chest pain, nausea, vomiting, abdominal pain. Recommended that patient ambulates today. Patient does state that he had an episode of watery, nonbloody diarrhea this morning. This is new for him and has prior bowel movements have been hard and pebble-like. Patient also reports that he is not sleeping well. He reports that he did not sleep well two nights ago or last night. OBJECTIVE PHYSICAL EXAMINATION: VITAL SIGNS: Please see below. GENERAL: Obese male evaluated at bedside this morning, but his stated age, is frustrated with situation and needing to remain in the hospital HEENT: Atraumatic, normocephalic, PERRL, EOMI, oral mucosa appears pink and moist, nasal septum is midline CARDIOVASCULAR: Regular rate and rhythm, normal S1 and S2, no murmur, rub, click RESPIRATORY: Clear to auscultation bilaterally, adequate inspiratory and expiratory airway excursion, no wheeze, rhonchi, crackles ABDOMINAL: Round, soft, nontender, nondistended, bowel sounds appreciated EXTREMITIES: Amputated third digit on the right hand at the DIP, digits appear grubby, peripheral pulses appreciated bilaterally in upper extremities, equal, symmetrical, +2/4, peripheral pulses difficult to appreciated in lower extremities, no edema appreciated in lower extremities, no pain to palpation of the lower extremities NEUROLOGICAL: Cranial nerves II through XII grossly intact, moving all four extremities appropriately PSYCHOLOGICAL: Frustrated LABORATORY DATA: Please see below. MICROBIOLOGY: Please see below. DVT prophylaxis ordered?: Heparin subcutaneous every 8 hours ASSESSMENT AND PLAN: This is a 51-year-old male who presents with cutaneous abscess of the right intergluteal region. PROBLEMS: 1. Cutaneous abscess of the right into her gluteal region: Patient remains on vancomycin and Zosyn. White count continues to decrease and is 15.1 this morning. ESR is 69 and CRP is 23.6. Blood cultures have remained negative. Awaiting for abscess culture results. Discussed with general surgery and their recommendation is to repeat ultrasound with potential ultrasound-guided needle drainage. Tylenol for pain. 2. Diarrhea: Patient experienced an episode of watery, nonbloody diarrhea. Could likely be secondary to antibiotics. Started patient on probiotic, obtaining stool occult blood, and obtaining a gastrointestinal panel. Patient had low-grade fever of 100.3 last evening. 3. Acute renal failure superimposed on chronic kidney disease: Patient's BUN and creatinine 23 and 1.72, respectively. 4. Diabetes mellitus: Patient's blood glucose was 101. Continue patient on sliding scale insulin. DISPOSITION: She remains admitted to the medical surgical unit. Spearings in episode of watery, nonbloody diarrhea. Started patient on lactobacillus, obtaining stool occult blood and gastrointestinal panel. White count, ESR, and CRP decreasing appropriately. Patient remains on vancomycin and Zosyn. General surgery is recommended to repeat ultrasound with potential ultrasound-guided needle drainage of abscess. VS, I&O, 24H, [facility] Vital Signs/I&O Vital Signs Date Time Temp Pulse Resp B/P Pulse Ox O2 Delivery O2 Flow Rate FiO2 10/16/16 06:00 99.1 84 18 127/69 100 Room Air I&O- Last 24 Hours up to 6 AM 10/16/16 06:00 Intake Total 3300 ml Output Total 700 ml Balance 2600 ml Laboratory Data 24H LABS Laboratory Tests 2 10/15/16 11:49: Bedside Glucose (Misc Panel) 159H 10/15/16 16:37: Bedside Glucose (Misc Panel) 145H 10/15/16 19:42: Bedside Glucose (Misc Panel) 208H 10/16/16 06:03: Anion Gap 7L, C-Reactive Protein, Quantitative 23.60H, Blood Urea Nitrogen 23H, Creatinine 1.73H, Sodium Level 138, Potassium Level 4.0, Chloride Level 106, Carbon Dioxide Level 25, Calcium Level 7.4L, Erythrocyte Sedimentation Rate 69H , Glomerular Filtration Rate 44.7L CBC/BMP Laboratory Tests 10/16/16 06:03 Calcium Level 7.4 L, Red Blood Count 4.49, Mean Corpuscular Volume 86.8, Mean Corpuscular Hemoglobin 29.0, Mean Corpuscular Hemoglobin Concent 33.5, Red Cell Distribution Width 12.4 Microbiology Microbiology 10/13/16 Blood Culture - Preliminary, Resulted No Growth after 48 hours. All Specime... 10/13/16 Blood Culture - Preliminary, Resulted No Growth after 48 hours. All Specime... 10/14/16 Gram Stain - Final, Resulted 10/14/16 Abscess Culture, Resulted Pending 10/14/16 Anaerobic Culture, Resulted Pending AYAD BARDALES-Andry Oct 16, 2016 09:19
[2016-10-16] MEDS ORDERED: LIDOCAINE 1% MDV 20ML VIAL As Ordered ONE (13:39)
--- NOTE | 2016-10-16 16:07 | REP ---
SOFT-TISSUE ULTRASOUND RIGHT BUTTOCK AND ANTERIOR GLUTEAL CLEFT REGION: 10/16/2016. Comparison: 10/13/2016. Clinical history: Abscess or phlegmon, reevaluate and drain if appropriate. The gluteal cleft region on the right buttock there is a 2.2 x 0.9 x 10 cm subcutaneous hypoechoic heterogeneous focus with shadowing and "dirty" echoes. This has a very similar appearance to the previous study in its echogenic appearance represents a phlegmon and on previous attempts at aspiration/drainage 2 days ago, only trace amount of fluid obtained. Accordingly, this is phlegmon and not yet formal drainable abscess. Impression: 1. Large phlegmonous region in the right buttock and gluteal cleft about 10 x 2.2 x 0.9 cm, not a drainable collection at this time. Findings discussed by phone with our radiology special orthodontist assistant and the requesting physician. Signed by Warner Vizcarra MD 10/16/2016 05:14 P
[2016-10-16] MEDS: VANCOMYCIN HCL 1,000 MG, VIAL MATE ADAPTER 1 EACH in D5W 250 ML IV SCH (17:53)
[2016-10-16] MEDS: ACETAMINOPHEN TAB 650MG DOSE (2X325MG) PO PRN (20:25)
[2016-10-16 22:00] VITALS: BP 135/60
[2016-10-17] MEDS: PIPERACILLIN/TAZOBACTAM SOD 3.375 GM in D5W MINI-BAG PLUS 50 ML IV SCH ×2 (00:31→07:36)
[2016-10-17] MEDS: HEPARIN SOD (PORCINE) 5000 UNITS/ML VIAL SC SCH (05:10)
[2016-10-17 06:00] VITALS: BP 136/68
[2016-10-17 06:48] LABS: MEAN CORPUSCULAR VOLUME 87.9 fl (80.0-96.0); RED CELL DISTRIBUTION WIDTH 12.2 % (11.5-14.5); WHITE BLOOD COUNT 12.8 K/mm3 (4.0-10.0)
[2016-10-17 07:14] LABS: CALCIUM LEVEL 7.7 MG/DL (8.5-10.1); CREATININE FOR GFR 1.65 MG/DL (0.70-1.30); GLOMERULAR FILTRATION RATE 47.2 (>56)
[2016-10-17] MEDS: HumaLOG INSULIN (NovoLOG) PER UNIT SC SCH (07:30)
[2016-10-17] MEDS: LEVEMIR (INSULIN DETEMIR) 1 UNITS/0.01ML SC SCH (09:00)
[2016-10-17] MEDS: LACTOBACILLUS ACIDOPHILUS CAP (BACID) PO SCH (10:30)
[2016-10-17] MEDS ORDERED: FLAG500T PO (11:07)
[2016-10-17] MEDS ORDERED: CEFD300CAP PO (11:07)
--- NOTE | 2016-10-17 19:22 | DS.PDOC ---
Discharge Summary General Date of Admission Oct 13, 2016 at 15:44 Date of Discharge Oct 17, 2016 at 12:50 Primary Care Physician: PAOLA LONDON DO Attending Physician: YURY CURTIS MD Specialist/Consultants Involve: Gerardo Gomes Jr Specialist/Consultants Involve General surgery Discharge Summary PROCEDURES PERFORMED DURING STAY: None ADMITTING DIAGNOSES: 1. Sepsis 2. Leukocytosis 3. Acute kidney injury superimposed on chronic kidney disease 4. Diabetes mellitus 5. Dyslipidemia DISCHARGE DIAGNOSES: 1. Abscess of skin and subcutaneous tissue 2. Acute kidney failure superimposed on chronic kidney disease COMPLICATIONS/CHIEF COMPLAINT: Abscess Of Skin And Subcutaneous Tissue. HISTORY OF PRESENT ILLNESS: Mr. Rojo is a 51 year old male who presents to [facility]'s emergency department with increased pain and tenderness in the right buttock region. He states that this developed 2 days ago and has persisted. He also notes associated subjective fevers, lethargy , and fatigue. He does report some drainage of blood noted on his clothing from the site. He denies any complaints of lightheadedness, dizziness, chest pain, shortness of breath, palpitations, abdominal pain, or any nausea/vomiting/ diarrhea. The ED obtained an ultrasound which revealed a hypoechoic collection measuring 2.9 x 2.5 x 2.2 cm representing possible phlegmon versus forming abscess. Surgery was contacted and they recommended antibiotic therapy. Hospitalist service was consulted and patient was subsequently admitted for further medical management. 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 HOSPITAL COURSE: Patient was admitted to the medial-surgical unit, intravenous fluid resuscitation was initiated, blood and wound cultures were obtained, empiric antibiotic therapy was started with Ceftaroline and Zosyn, labs were monitored, nephrotoxins were held, and chronic underlying medical conditions were adequately controlled. Ultrasound guided drainage was performed, but did not yield much fluid. Patient developed a fever overnight which was controlled. A mild worsening of kidney function along with some hypotension occurred during the hospitalization, but it was corrected with intravenous fluid. Patient developed one episode of diarrhea during his hospitalization. A probiotic was added to his regimen. A low grade temperature developed and was adequately treated. A repeat ultrasound was performed, per general surgery' s request, as there was a question about the evolution of the abscess. Ultrasound revealed no significant change from prior study. General surgery recommended sitz baths for symptomatic relief. Abscess started freely draining after repeat ultrasound. Blood cultures remained negative. Wound culture returned Streptococcus pyogenes group A with anaerobic culture pending. Patient expressed his displeasure with having to remain in the hospital. Advised patient that secondary to abscess drainage and pending culture results it would be in the best interest of the patient to remain hospitalized for one more day. Patient adamantly refused repeated requests to remain in the hospital and insisted on leaving AGAINST MEDICAL ADVICE. Discussed with the patient the implications and consequences of leaving AGAINST MEDICAL ADVICE, but he continued to insist that he should "never have come to the hospital", he was "warned not to come to the hospital", and that he "should've gone to [facility]: as they are "much better than us." DISCHARGE MEDICATIONS: Please see below. ALLERGIES: Please see below. PHYSICAL EXAMINATION ON DISCHARGE: VITAL SIGNS: Please see below. GENERAL: Obese male sitting in a chair in his hospital room, not making eye contact, still in hospital gown, appears stated age, appears a little angry HEENT: Atraumatic, normocephalic, PERRL, EOMI, nasal septum appears midline, nares are patent NECK: Supple, trachea appears midline CARDIOVASCULAR EXAMINATION: Regular rate and rhythm, normal S1 and S2, no murmur , click, rub RESPIRATORY EXAMINATION: Clear to auscultation bilaterally, adequate inspiratory and expiratory airway excursion, no wheeze, rhonchi, crackles ABDOMINAL EXAMINATION: Round, soft, non-tender, non-distended EXTREMITIES: Moving all four extremities equally and appropriately, third digit on right hand amputated above DIP SKIN: Multiple healed excoriations noted on lower extremities bilaterally NEUROLOGICAL EXAMINATION: Cranial nerves II-XII appear grossly intact PSYCHIATRIC EXAMINATION: Angry, frustrated LABORATORY DATA: Please see below. IMAGING: Right extremity non-vascular ultrasound IMPRESSION: Hypoechoic collection may represent phlegmon/forming abscess. Chest x-ray IMPRESSION: No focal consolidation. Cannot exclude trace left basilar atelectasis. Ultrasound guided right buttock drain Right extremity non-vascular ultrasound IMPRESSION: 1. Large phlegmonous region in the right buttock and gluteal cleft about 10 x 2.2 x 0.9 cm, not a drainable collection at this time. Findings discussed by phone with our radiology special assistant pastry chef and the requesting physician. PROGNOSIS: Leaving AGAINST MEDICAL ADVICE ACTIVITY: As tolerated DIET: Consistent carbohydrate DISCHARGE PLAN: Leaving AGAINST MEDICAL ADVICE DISPOSITION: 07 Against Medical Advice. DISCHARGE INSTRUCTIONS: 1. Follow-up with Dr. Gomes on 10/23/16 at 1:10pm 2. Follow-up with Dr. London on 11/10/16 at 3:30pm ITEMS TO FOLLOWUP ON ON OUTPATIENT: 1. Continue antibiotic therapy for two weeks 2. Sitz baths for symptomatic relief 3. Return to ED if increased pain, swelling, or redness; temperature > 100.4 DISCHARGE CONDITION: AGAINST MEDICAL ADVICE TIME SPENT ON DISCHARGE: Greater than 30 minutes. Vital Signs/I&Os Vital Signs Date Time Temp Pulse Resp B/P Pulse Ox O2 Delivery O2 Flow Rate FiO2 10/17/16 07:18 Room Air 10/17/16 06:00 98.1 75 18 136/68 94 I&O- Last 24 Hours up to 6 AM 10/17/16 06:00 Intake Total 130 ml Output Total 200 ml Balance -70 ml Laboratory Data Labs 24H Laboratory Tests 2 10/16/16 19:55: Bedside Glucose (Misc Panel) 193H 10/17/16 06:39: Anion Gap 7L, C-Reactive Protein, Quantitative 18.30H, Blood Urea Nitrogen 20H, Creatinine 1.65H, Sodium Level 140, Potassium Level 4.0, Chloride Level 106, Carbon Dioxide Level 27, Calcium Level 7.7L, Erythrocyte Sedimentation Rate 93H , Glomerular Filtration Rate 47.2L CBC/BMP Laboratory Tests 10/17/16 06:39 Calcium Level 7.7 L, Red Blood Count 4.53, Mean Corpuscular Volume 87.9, Mean Corpuscular Hemoglobin 29.0, Mean Corpuscular Hemoglobin Concent 33.0, Red Cell Distribution Width 12.2 FSBS Laboratory Tests Test 10/16/16 19:55 Range/Units Bedside Glucose (Misc Panel) 193 70-105 MG/DL Microbiology Microbiology 10/13/16 Blood Culture - Preliminary, Resulted No Growth after 72 hours. All specime... 10/13/16 Blood Culture - Preliminary, Resulted No Growth after 72 hours. All specime... 10/14/16 Gram Stain - Final, Resulted 10/14/16 Abscess Culture - Preliminary, Resulted Streptococcus Pyogenes Grp A 10/14/16 Anaerobic Culture, Resulted Pending Discharge Medications Scheduled (Sarahi Junior) 300 Unit/Ml Inj 90 UNIT SC BID (Reported) Aspirin (Aspirin) 325 Mg Tab 325 MG PO DAILY (Reported) Cefdinir (Cefdinir) 300 Mg Cap 300 MG PO BID Docusate Sodium (Colace) 100 Mg Cap 100 MG PO BID (Reported) Losartan Potassium (Losartan Potassium) 25 Mg Tab 25 MG PO DAILY (Reported) Metronidazole (Flagyl) 500 Mg Tab 500 MG PO Q6H FOR 10 DAYS Saxagliptin Hydrochloride (Onglyza) 5 Mg Tab 5 MG PO DAILY (Reported) Allergies Coded Allergies: No Known Drug Allergy (Verified Allergy, Unknown, 10/12/16) AYAD BARDALES-Andry Oct 17, 2016 19:22
== END 2016-10-17 12:50 | disposition left against medical advice (07) | DRG 720 ==
LOC: EDBD 10:33 → M ED 12:32 → M ED INP 15:44 → M MS5PR 16:34 → UNDODISIN 10-17 11:30
PROVIDERS: ADMIT Internal Medicine; ATTEND General Practice
PROC: 0H98XZZ Drainage of Buttock Skin, External Approach (ICD-10-PCS; principal; 2016-10-14)
DX: A41.9 Sepsis, unspecified organism (principal); E87.2 Acidosis; N17.9 Acute kidney failure, unspecified; L02.31 Cutaneous abscess of buttock; E11.9 Type 2 diabetes mellitus without complications; E78.5 Hyperlipidemia, unspecified; E66.9 Obesity, unspecified; R19.7 Diarrhea, unspecified; N18.9 Chronic kidney disease, unspecified; Z89.021 Acquired absence of right finger(s); Z87.891 Personal history of nicotine dependence; Z89.422 Acquired absence of other left toe(s); Z79.82 Long term (current) use of aspirin; Z79.899 Other long term (current) drug therapy; Z79.4 Long term (current) use of insulin; B95.5 Unspecified streptococcus as the cause of diseases classified elsewhere; R65.20 Severe sepsis without septic shock

== ENCOUNTER → 2016-12-20 | Outpatient (CLI) | payer OTHER ==
[~2016-12-20] MED LIST changes: +ASPI81TA7 PO; +CEFD300CAP PO; +COLA100C3 PO; +FLAG500T PO; +LOSA25TA8 PO; +NOVOINJ3; +ONGL1TAB9 PO; +SILV50CR TOP; +TOUJ1.2I SC
== END ==
LOC: M LAB 10:39
PROVIDERS: ATTEND Family Medicine
DX: E11.8 Type 2 diabetes mellitus with unspecified complications (principal)

== ENCOUNTER → 2016-12-30 | Outpatient (CLI) | payer OTHER ==
--- NOTE | 2016-12-31 01:45 | REP ---
Clinical: Chronic ulceration. Technique: AP, lateral, bilateral oblique views left fourth digit. Findings: Subtle soft tissue abnormality overlies the distal phalanx and consistent with area of ulceration. No subcutaneous emphysema or radiodense foreign body. The osseous structures and joint spaces are intact and normal. There is no evidence for acute fracture or dislocation. Impression: Soft tissue injury without subcutaneous emphysema. Underlying osseous structures appear normal. Signed by Addy Roman MD 12/31/2016 01:37 A
== END ==
LOC: M RAD 14:22
PROVIDERS: ATTEND Surgery
DX: M79.645 Pain in left finger(s) (principal); L98.499 Non-pressure chronic ulcer of skin of other sites with unspecified severity

== ENCOUNTER → 2017-01-09 | Outpatient (CLI) | payer OTHER ==
[~2017-01-09] VITALS: Ht 167.6 cm; Wt 112.0 kg
[~2017-01-09] MED LIST changes: +NS 1,000 ML IV ONE; +PROPOFOL 200 MG/20 ML VIAL As Ordered ONE
--- NOTE | 2017-01-09 12:29 | ROOR ---
Patient Name: Kelby Rojo Procedure Date: 01/09/2017 12:06 PM Date of : 1965 Age: 51 Room: [facility] Gender: Male Note Status: Finalized Procedure: Colonoscopy Indications: Screening for colorectal malignant neoplasm Providers: Gerardo Gomes Jr, MD Referring MD: Juliet Weston [facility] Requesting Provider: Medicines: Propofol per Anesthesia Complications: No immediate complications. Procedure: Pre-Anesthesia Assessment: - Prior to the procedure, a History and Physical was performed, and patient medications and allergies were reviewed. The patient is competent. The risks and benefits of the procedure and the sedation options and risks were discussed with the patient. All questions were answered and informed consent was obtained. Patient identification and proposed procedure were verified by the physician and the nurse in the pre-procedure area and in the procedure room. Mental Status Examination: alert and oriented. Airway Examination: normal oropharyngeal airway and neck mobility. Respiratory Examination: clear to auscultation. CV Examination: normal. ASA Grade Assessment: II - A patient with mild systemic disease. After reviewing the risks and benefits, the patient was deemed in satisfactory condition to undergo the procedure. The anesthesia plan was to use moderate sedation / analgesia (conscious sedation). Immediately prior to administration of medications, the patient was re-assessed for adequacy to receive sedatives. The heart rate, respiratory rate, oxygen saturations, blood pressure, adequacy of pulmonary ventilation, and response to care were monitored throughout the procedure. The physical status of the patient was re-assessed after the procedure. The Colonoscope was introduced through the anus and advanced to the cecum, identified by appendiceal orifice and ileocecal valve. The colonoscopy was performed without difficulty. The patient tolerated the procedure well. The quality of the bowel preparation was adequate and fair. Findings: The perianal exam findings include non-thrombosed external hemorrhoids, non-thrombosed internal hemorrhoids, internal hemorrhoids that prolapse with straining, but spontaneously regress to the resting position (Grade II) and internal hemorrhoids that prolapse with straining, but require manual replacement into the anal canal (Grade III). A diminutive polyp was found in the rectum. The polyp was removed with a jumbo cold forceps. Resection and retrieval were complete. The recto-sigmoid colon, sigmoid colon, descending colon, transverse colon, ascending colon, cecum, appendiceal orifice and ileocecal valve appeared normal. Impression: - Preparation of the colon was fair. - Non-thrombosed external hemorrhoids, non-thrombosed internal hemorrhoids, internal hemorrhoids that prolapse with straining, but spontaneously regress to the resting position (Grade II) and internal hemorrhoids that prolapse with straining, but require manual replacement into the anal canal (Grade III) found on perianal exam. - One diminutive polyp in the rectum, removed with a jumbo cold forceps. Resected and retrieved. - The recto-sigmoid colon, sigmoid colon, descending colon, transverse colon, ascending colon, cecum, appendiceal orifice and ileocecal valve are normal. Recommendation: - Discharge patient to home (ambulatory). - Repeat colonoscopy in 5-10 years for surveillance based on pathology results. Gerardo Gomes MD Gerardo Gomes Jr, MD 01/09/2017 12:29:13 PM This report has been signed electronically. Number of Addenda: 0 Note Initiated On: 01/09/2017 12:06 PM Estimated Blood Loss: Estimated blood loss: none.
[2017-01-09 12:45] VITALS: BP 149/73
== END | disposition home or self-care (01) ==
LOC: M OPP 11:15
PROVIDERS: ATTEND Surgery
DX: Z12.11 Encounter for screening for malignant neoplasm of colon (principal); K64.8 Other hemorrhoids; K64.4 Residual hemorrhoidal skin tags; K64.1 Second degree hemorrhoids; K64.2 Third degree hemorrhoids; K62.1 Rectal polyp; E11.9 Type 2 diabetes mellitus without complications; M86.9 Osteomyelitis, unspecified; F17.210 Nicotine dependence, cigarettes, uncomplicated; Z79.82 Long term (current) use of aspirin; Z79.4 Long term (current) use of insulin

== ENCOUNTER → 2017-04-07 | Outpatient (CLI) | payer OTHER ==
[~2017-04-07] MED LIST changes: +ASPI1TAB15 PO; -ASPI81TA7 PO; +BACT2OIN10 TOP; -BACT2OIN2 TOP; -COLA100C3 PO; +COLA100C5 PO; +KEFL500C17 PO; -KEFL500C7 PO; -NS 1,000 ML IV ONE; -PROPOFOL 200 MG/20 ML VIAL As Ordered ONE; -TRIC145T PO; +TRIC145T22 PO; -ZETI10TA2 PO; +ZETI10TA30 PO
[2017-04-07 17:24] LABS: CALCIUM LEVEL 8.9 MG/DL (8.5-10.1); CREATININE FOR GFR 1.94 MG/DL (0.70-1.30); GLOMERULAR FILTRATION RATE 39.2 (>56); POTASSIUM SERUM 4.6 MEQ/L (3.5-5.1)
== END ==
LOC: M WUC 12:18
PROVIDERS: ATTEND Family Medicine
DX: E11.8 Type 2 diabetes mellitus with unspecified complications (principal)

== ENCOUNTER → 2017-06-30 | Outpatient (CLI) | payer OTHER | LOC: M LAB 10:19 | PROVIDERS: ATTEND Nurse Practitioner Women's Health | DX: R31.29 Other microscopic hematuria (principal) ==

== ENCOUNTER → 2017-07-07 | Outpatient (REF) | payer OTHER | LOC: M SMT 16:59 | PROVIDERS: ATTEND Urology | DX: R31.29 Other microscopic hematuria (principal) ==

== ENCOUNTER → 2017-07-09 | Outpatient (CLI) | payer OTHER ==
[~2017-07-09] MED LIST changes: +ISOVUE-370 76% 100ML VIAL (Q9967) As Ordered ONE
[2017-07-09 13:16] LABS: CREATININE FOR GFR 1.65 MG/DL (0.70-1.30); GLOMERULAR FILTRATION RATE 47.1 (>56); POTASSIUM SERUM 4.5 MEQ/L (3.5-5.1)
--- NOTE | 2017-07-09 19:18 | REP ---
Clinical: Microscopic hematuria. Technique: Axial precontrast, contrast enhanced, and delayed images of the abdomen and pelvis using 100 ml Isovue 370 intravenous contrast material with coronal and sagittal re-formations as well as CT MIP urogram. Findings: Moderate chronic-appearing perinephric stranding is appreciated bilaterally without evidence for nephroureterolithiasis, hydroureteronephrosis, cystic or renal mass lesion. Symmetric enhancement to the renal parenchyma as well as symmetric excretion into normal collecting system is appreciated. The bladder is under distended and may warrant cystoscopy for further evaluation if necessary. Liver, spleen, pancreas, gallbladder, and bilateral adrenal glands are normal. The enteric system is without obstruction or acute inflammatory process. Few scattered sigmoid diverticula noted without acute diverticulitis. Small hiatal hernia cannot be excluded at the gastroesophageal junction. Pelvis demonstrates collapsed bladder and age appropriate prostate/seminal vesicles. No ascites. No adenopathy. No obvious mass lesion. Abdominal aorta and vasculature without aneurysm or dissection. Surrounding musculoskeletal structures demonstrate age-related changes without focal osseous abnormality. Lung bases are clear. Impression: 1. Moderate chronic-appearing perinephric stranding without further urinary tract pathology appreciated. The bladder is under distended and further investigation including cystoscopy may be warranted if necessary. 2. Small hiatal hernia and few scattered sigmoid diverticula. 3. No further acute abdominopelvic pathology appreciated. Signed by Addy Roman MD 07/09/2017 04:10 P
== END ==
LOC: M RAD 12:42
PROVIDERS: ATTEND Nurse Practitioner Women's Health
DX: R31.29 Other microscopic hematuria (principal); K44.9 Diaphragmatic hernia without obstruction or gangrene
CPT/HCPCS: 36415; 74178; 80048; Q9967

== ENCOUNTER → 2017-07-25 | Outpatient (CLI) | payer OTHER ==
[2017-07-25 18:20] LABS: APPEARANCE, URINE CLEAR (CLEAR); BACTERIA, URINE AUTO NEGATIVE (NEGATIVE); BILIRUBIN, URINE AUTO NEGATIVE (NEGATIVE); BLOOD, URINE BLOOD 1+ (NEGATIVE); COLOR, URINE YELLOW (YELLOW); GLUCOSE, URINE (UA) AUTO NEGATIVE (NEGATIVE); KETONE, URINE AUTO NEGATIVE (NEGATIVE); LEUKOCYTE ESTERASE, URINE AUTO NEGATIVE (NEGATIVE); MUCUS, URINE SMALL (NEGATIVE); NITRITE, URINE AUTO NEGATIVE (NEGATIVE); PROTEIN, URINE AUTO 2+ mg/dL (NEGATIVE); RBC, URINE AUTO 5 /HPF (0-3); SPECIFIC GRAVITY URINE AUTO 1.018 (1.002-1.035); SQUAMOUS EPITHELIAL CELL UR AU 1 /HPF (0-6); UROBILINOGEN, URINE AUTO 0.2 mg/dL (0.0-2.0); WBC, URINE AUTO 1 /HPF (0-3)
[2017-07-29 08:10] LABS: PSA TOTAL 0.3 ng/mL (0.0-4.0)
== END ==
LOC: M SMT 11:31
DX: R31.29 Other microscopic hematuria (principal)
CPT/HCPCS: 84154

== ENCOUNTER → 2017-08-22 | Outpatient (REF) | payer OTHER ==
[2017-08-22 18:13] LABS: APPEARANCE, URINE HAZY (CLEAR); BACTERIA, URINE AUTO NEGATIVE (NEGATIVE); BILIRUBIN, URINE AUTO NEGATIVE (NEGATIVE); BLOOD, URINE BLOOD 2+ (NEGATIVE); COLOR, URINE YELLOW (YELLOW); GLUCOSE, URINE (UA) AUTO 2+ mg/dL (NEGATIVE); KETONE, URINE AUTO NEGATIVE (NEGATIVE); LEUKOCYTE ESTERASE, URINE AUTO NEGATIVE (NEGATIVE); MUCUS, URINE SMALL (NEGATIVE); NITRITE, URINE AUTO NEGATIVE (NEGATIVE); PROTEIN, URINE AUTO 3+ mg/dL (NEGATIVE); RBC, URINE AUTO 4 /HPF (0-3); SPECIFIC GRAVITY URINE AUTO 1.027 (1.002-1.035); SQUAMOUS EPITHELIAL CELL UR AU 2 /HPF (0-6); UROBILINOGEN, URINE AUTO 0.2 mg/dL (0.0-2.0); WBC, URINE AUTO 2 /HPF (0-3)
[2017-08-22 18:35] LABS: ANION GAP 6 MEQ/L (8-16); BLOOD UREA NITROGEN 28 MG/DL (7-18); CALCIUM LEVEL 8.5 MG/DL (8.5-10.1); CARBON DIOXIDE LEVEL 25 MEQ/L (21-32); CHLORIDE LEVEL 111 MEQ/L (98-107); CREATININE FOR GFR 1.82 MG/DL (0.70-1.30); GLUCOSE, FASTING 101 MG/DL (70-100); POTASSIUM SERUM 4.5 MEQ/L (3.5-5.1); SODIUM LEVEL 142 MEQ/L (136-145)
[2017-08-22 19:30] LABS: MAU/CREAT RATIO 1068.4 MCG/MG (0.0-30.0)
[2017-08-22 19:35] LABS: ESTIMATED AVERAGE GLUCOSE 229 MG/DL (60-110); HEMOGLOBIN A1c 9.6 %
== END ==
LOC: M SFHCPLAZ 15:14
DX: E11.8 Type 2 diabetes mellitus with unspecified complications (principal)

== ENCOUNTER → 2017-11-26 | Outpatient (REF) | payer OTHER ==
[2017-11-26 13:13] LABS: ESTIMATED AVERAGE GLUCOSE 237 MG/DL (60-110); HEMOGLOBIN A1c 9.9 %
== END ==
LOC: M SFHCPLAZ 09:26
DX: E11.8 Type 2 diabetes mellitus with unspecified complications (principal)

== ENCOUNTER 2018-02-19 16:40 | Inpatient (IN) | payer OTHER ==
[2018-02-19] MEDS: ONDANSETRON 4MG/2ML VIAL (J2405) IV (18:11)
[2018-02-19] MEDS: NS 1,000 ML IV ×2 (18:11→23:21)
[2018-02-19] MEDS: ACETAMINOPHEN 325 MG TAB PO (18:11)
[2018-02-19 18:15] LABS: BASO % 0.2 % (0.0-1.0); EOS # 0.2 10^3/uL (0.0-0.50); HEMATOCRIT 45.6 % (42.0-52.0); HEMOGLOBIN 15.2 g/dl (13.5-17.5); IMMATURE GRANULOCYTE % 0.8 % (0-3.0); LYMPH # 0.8 10^3/uL (1.5-4.5); MEAN CORPUSCULAR HEMOGLOBIN 29.5 pg (27.0-33.0); MEAN CORPUSCULAR HGB CONC 33.3 g/dl (32.0-36.5); MEAN CORPUSCULAR VOLUME 88.4 fl (80.0-96.0); MONO # 1.3 10^3/uL (0.0-0.8); MONO % 7.7 % (0.0-5.0); NEUTROPHILS # 14.3 10^3/uL (1.8-7.7); NEUTROPHILS % 85.3 % (36.0-66.0); PLATELET COUNT, AUTOMATED 181 10^3/uL (150-450); RED BLOOD COUNT 5.16 10^6/uL (4.30-6.10); RED CELL DISTRIBUTION WIDTH 13.2 % (11.5-14.5); WHITE BLOOD COUNT 16.8 10^3/uL (4.0-10.0)
[2018-02-19] MEDS: MORPHINE 4 MG/ML 1ML VIAL/SYRINGE (J2270) IV (18:17)
[2018-02-19 18:24] LABS: VENOUS BASE EXCESS 0.2 (-2.0-2.0); VENOUS HCO3 25.6 MEQ/L (23.0-27.0); VENOUS O2 SATURATION 52.4 % (60.0-80.0); VENOUS PARTIAL PRESSURE O2 28.2 mmHg (30.0-50.0); VENOUS PH 7.383 UNITS (7.330-7.430); VENOUS STANDARD HCO3 23.5 MEQ/L
[2018-02-19 18:27] LABS: INR 1.19; PROTHROMBIN TIME 15.2 SECONDS (12.1-14.4)
[2018-02-19 18:28] LABS: PARTIAL THROMBOPLASTIN TIME 31.7 SECONDS (25.4-37.6)
[2018-02-19 18:47] LABS: LACTIC ACID SEPSIS PROTOCOL 2.6 MMOL/L (0.4-2.0)
[2018-02-19 18:49] LABS: ESTIMATED AVERAGE GLUCOSE 186 MG/DL (60-110); HEMOGLOBIN A1c 8.1 %
[2018-02-19 19:14] LABS: ACETONE/KETONE 0.76 MG/DL (<2.81); ALBUMIN 2.8 GM/DL (3.2-5.2); ALBUMIN/GLOBULIN RATIO 0.64 (1.00-1.93); ALT/SGPT 54 U/L (12-78); ANION GAP 12 MEQ/L (8-16); AST/SGOT 45 U/L (7-37); BILIRUBIN,DIRECT 0.6 MG/DL (0.0-0.2); BILIRUBIN,TOTAL 1.1 MG/DL (0.2-1.0); BLOOD UREA NITROGEN 39 MG/DL (7-18); CALCIUM LEVEL 8.2 MG/DL (8.5-10.1); CARBON DIOXIDE LEVEL 24 MEQ/L (21-32); CHLORIDE LEVEL 99 MEQ/L (98-107); CREATININE FOR GFR 2.41 MG/DL (0.70-1.30); GLOMERULAR FILTRATION RATE 30.4 (>56); GLUCOSE, FASTING 167 MG/DL (70-100); LIPASE 84 U/L (73-393); MAGNESIUM LEVEL 1.7 MG/DL (1.8-2.4); PHOSPHORUS LEVEL 1.9 MG/DL (2.5-4.9); POTASSIUM SERUM 3.9 MEQ/L (3.5-5.1); SODIUM LEVEL 135 MEQ/L (136-145); TOTAL PROTEIN 7.2 GM/DL (6.4-8.2); TROPONIN I < 0.02 NG/ML (< 0.10)
[2018-02-19 19:15] LABS: ALKALINE PHOSPHATASE 95 U/L (45-117); CK-MB VALUE MASS 1.8 NG/ML (<3.6); CPK CREATINE PHOSPHOKINASE 250 U/L (39-308); MB/CK RELATIVE INDEX 0.72 (< OR =4)
[2018-02-19 19:23] LABS: OSMOLALITY SERUM 296 MOSM/KG (275-295)
[2018-02-19] MEDS: DILUENT IV (19:23)
[2018-02-19] MEDS: NS IV (19:23)
[2018-02-19 21:24] LABS: PROTEIN, URINE MANUAL REFLEX 3+ mg/dL (NEGATIVE)
[2018-02-19 21:25] LABS: BILIRUBIN, URINE MANUAL NEGATIVE (NEGATIVE); BLOOD URINE MANUAL RFX POSITIVE (NEGATIVE); GLUCOSE, URINE (UA) MANUAL NEGATIVE (NEGATIVE); KETONE, URINE MANUAL NEGATIVE (NEGATIVE); MICROSCOPIC INDICATED? RFX YES (NO); NITRITE, URINE MANUAL RFX NEGATIVE (NEGATIVE); UROBILINOGEN, URINE MANUAL 4 MG mg/dl (NORMAL)
[2018-02-19 21:46] LABS: RBC, URINE TNTC /hpf (0-3); WBC, URINE MAN RFX 15-20 /hpf (0-3)
[2018-02-19 21:47] LABS: BACTERIA, URINE SMALL AMOUNT; SQUAMOUS EPITHELIAL CELL URINE LARGE AMOUNT /hpf (SMALL AMT); TRANSITIONAL EPI CELLS, URINE MOD AMOUNT /hpf
[2018-02-19 21:48] LABS: RENAL EPITHELIAL CELLS, URINE SMALL AMOUNT /hpf
[2018-02-19 21:49] LABS: WHITE BLOOD CELL CAST, URINE 0-1 /lpf
[2018-02-19 21:50] LABS: AMORPHOUS SEDIMENT, URINE SMALL AMOUNT (NEGATIVE); HYALINE CAST, URINE 0-1 /lpf (0-1); MUCUS, URINE MOD AMOUNT (NEGATIVE)
[2018-02-19 21:51] LABS: MICROSCOPIC EXAM PERFORMED
[2018-02-19] MEDS ORDERED: GLUCAGON FOR INJ 1 MG VIAL (J1610) SC (23:30)
[2018-02-19] MEDS ORDERED: DOCUSATE SODIUM 100 MG CAP PO (23:30)
[2018-02-19] MEDS ORDERED: ONDANSETRON 4 MG TAB (S0181) PO (23:30)
[2018-02-19] MEDS ORDERED: GLUCOSE 4 GM CHEW TABLET PO (23:30)
[2018-02-19] MEDS ORDERED: DEXTROSE 50% 50 ML SYRINGE IV (23:30)
[2018-02-19] MEDS ORDERED: BISACODYL 10 MG SUPP PR (23:30)
[2018-02-19] MEDS: LEVEMIR (INSULIN DETEMIR) 1 UNITS/0.01ML SC (23:38)
[2018-02-19] MEDS: cefTRIAXone SOD 2 GM in D5W MINI-BAG PLUS 50 ML IV (23:38)
[2018-02-19 23:43] LABS: BEDSIDE GLUCOSE 141 MG/DL (70-105)
[2018-02-20] MEDS: NS 1,000 ML IV ×2 (00:44→13:57)
[2018-02-20] MEDS: VANCOMYCIN HCL 1,000 MG, VIAL MATE ADAPTER 1 EACH in D5W 250 ML IV ×4 (02:21→22:38)
[2018-02-20 05:51] LABS: HEMATOCRIT 40.9 % (42.0-52.0); HEMOGLOBIN 13.5 g/dl (13.5-17.5); MEAN CORPUSCULAR HEMOGLOBIN 29.1 pg (27.0-33.0); MEAN CORPUSCULAR VOLUME 88.1 fl (80.0-96.0); PLATELET COUNT, AUTOMATED 160 10^3/uL (150-450); RED BLOOD COUNT 4.64 10^6/uL (4.30-6.10); RED CELL DISTRIBUTION WIDTH 13.3 % (11.5-14.5); WHITE BLOOD COUNT 15.6 10^3/uL (4.0-10.0)
[2018-02-20] MEDS: HEPARIN SOD (PORCINE) 5000 UNITS/ML VIAL SC (06:00)
[2018-02-20 06:10] LABS: ESTIMATED AVERAGE GLUCOSE 197 MG/DL (60-110); HEMOGLOBIN A1c 8.5 %
[2018-02-20 06:11] LABS: LACTIC ACID SEPSIS PROTOCOL 1.8 MMOL/L (0.4-2.0)
[2018-02-20 06:16] LABS: ALBUMIN 2.2 GM/DL (3.2-5.2); ALBUMIN/GLOBULIN RATIO 0.45 (1.00-1.93); ALKALINE PHOSPHATASE 79 U/L (45-117); ALT/SGPT 40 U/L (12-78); ANION GAP 9 MEQ/L (8-16); AST/SGOT 27 U/L (7-37); BILIRUBIN,TOTAL 0.9 MG/DL (0.2-1.0); BLOOD UREA NITROGEN 40 MG/DL (7-18); CALCIUM LEVEL 7.7 MG/DL (8.5-10.1); CARBON DIOXIDE LEVEL 26 MEQ/L (21-32); CHLORIDE LEVEL 103 MEQ/L (98-107); GLOMERULAR FILTRATION RATE 32.1 (>56); GLUCOSE, FASTING 166 MG/DL (70-100); POTASSIUM SERUM 4.2 MEQ/L (3.5-5.1); SODIUM LEVEL 138 MEQ/L (136-145); TOTAL PROTEIN 7.1 GM/DL (6.4-8.2)
[2018-02-20] MEDS: HumaLOG INSULIN (NovoLOG) PER UNIT SC ×4 (08:45→21:20)
[2018-02-20] MEDS: ATORVASTATIN 20 MG TAB PO (08:46)
[2018-02-20] MEDS: ASPIRIN 81 MG ENTERIC TAB PO (08:46)
[2018-02-20] MEDS: LEVEMIR (INSULIN DETEMIR) 1 UNITS/0.01ML SC ×2 (08:46→20:48)
[2018-02-20] MEDS: metroNIDAZOLE 500 MG in APPROPRIATE DILUENT 1 EA IV ×2 (08:46→15:49)
[2018-02-20 11:54] LABS: BEDSIDE GLUCOSE 94 MG/DL (70-105)
[2018-02-20] MEDS: ACETAMINOPHEN TAB 650MG DOSE (2X325MG) PO ×2 (12:06→21:20)
[2018-02-20 14:25] LABS: BEDSIDE GLUCOSE 186 MG/DL (70-105)
[2018-02-20] MEDS: MEROPENEM INJ 1 GM in APPROPRIATE DILUENT 1 EA IV (17:25)
[2018-02-20 17:58] LABS: BEDSIDE GLUCOSE 108 MG/DL (70-105)
[2018-02-20 21:27] LABS: BEDSIDE GLUCOSE 123 MG/DL (70-105)
[2018-02-20 21:41] LABS: VANCOMYCIN LEVEL TROUGH 18.1 UG/ML (10.0-20.0)
[2018-02-21] MEDS: NS 1,000 ML IV ×2 (00:26→17:39)
[2018-02-21] MEDS: MEROPENEM INJ 1 GM in APPROPRIATE DILUENT 1 EA IV ×2 (04:31→17:39)
[2018-02-21] MEDS: ACETAMINOPHEN TAB 650MG DOSE (2X325MG) PO (04:32)
[2018-02-21 05:38] LABS: HEMATOCRIT 36.4 % (42.0-52.0); MEAN CORPUSCULAR HEMOGLOBIN 28.8 pg (27.0-33.0); MEAN CORPUSCULAR VOLUME 87.3 fl (80.0-96.0); PLATELET COUNT, AUTOMATED 153 10^3/uL (150-450); RED BLOOD COUNT 4.17 10^6/uL (4.30-6.10); RED CELL DISTRIBUTION WIDTH 13.1 % (11.5-14.5)
[2018-02-21 06:01] LABS: ANION GAP 9 MEQ/L (8-16); BLOOD UREA NITROGEN 29 MG/DL (7-18); CALCIUM LEVEL 7.3 MG/DL (8.5-10.1); CARBON DIOXIDE LEVEL 23 MEQ/L (21-32); CHLORIDE LEVEL 107 MEQ/L (98-107); CREATININE FOR GFR 1.75 MG/DL (0.70-1.30); GLUCOSE, FASTING 57 MG/DL (70-100); POTASSIUM SERUM 3.6 MEQ/L (3.5-5.1); SODIUM LEVEL 139 MEQ/L (136-145)
[2018-02-21] MEDS: VANCOMYCIN HCL 1,000 MG, VIAL MATE ADAPTER 1 EACH in D5W 250 ML IV ×3 (06:06→21:30)
[2018-02-21 08:41] LABS: BEDSIDE GLUCOSE 77 MG/DL (70-105)
[2018-02-21] MEDS: HumaLOG INSULIN (NovoLOG) PER UNIT SC ×4 (08:55→21:00)
[2018-02-21] MEDS: LEVEMIR (INSULIN DETEMIR) 1 UNITS/0.01ML SC ×2 (09:00→21:31)
[2018-02-21 09:39] LABS: MAGNESIUM LEVEL 1.9 MG/DL (1.8-2.4)
[2018-02-21] MEDS ORDERED: LIDOCAINE 2% INJ 100 MG/5 ML SDV (FOR ANES.) As Ordered (09:41)
[2018-02-21] MEDS ORDERED: fentaNYL 100 MCG/2 ML INJECTION (J3010) As Ordered (09:41)
[2018-02-21] MEDS ORDERED: PROPOFOL 200 MG/20 ML VIAL As Ordered (09:41)
[2018-02-21] MEDS ORDERED: MIDAZOLAM INJ 2 MG/2 ML VIAL (J2250) As Ordered (09:42)
[2018-02-21] MEDS: LIDOCAINE 2% MDV 20 ML VIAL As Ordered (10:11)
[2018-02-21] MEDS: BUPIVACAINE HCL 0.5% 30 ML VIAL As Ordered (10:11)
[2018-02-21] MEDS: GENTAMICIN SULF INJ 80MG/2ML VIAL (J1580) As Ordered (10:20)
[2018-02-21] MEDS ORDERED: KETOROLAC 60 MG/2 ML VIAL (J1885) As Ordered (10:38)
[2018-02-21] MEDS ORDERED: ONDANSETRON 4MG/2ML VIAL (J2405) As Ordered (10:38)
[2018-02-21 11:11] LABS: BEDSIDE GLUCOSE 68 MG/DL (70-105)
[2018-02-21] MEDS ORDERED: ONDANSETRON 4MG/2ML VIAL (J2405) IV (11:15)
[2018-02-21] MEDS ORDERED: MEPERIDINE INJ 25 MG/ML VIAL (J2175) IV (11:15)
[2018-02-21] MEDS ORDERED: fentaNYL 100 MCG/2 ML INJECTION (J3010) IV (11:15)
[2018-02-21] MEDS: ATORVASTATIN 20 MG TAB PO (12:50)
[2018-02-21] MEDS: ASPIRIN 81 MG ENTERIC TAB PO (12:50)
[2018-02-21 17:58] LABS: BEDSIDE GLUCOSE 199 MG/DL (70-105)
[2018-02-21 20:32] LABS: BEDSIDE GLUCOSE 231 MG/DL (70-105)
[2018-02-22] MEDS: NS 1,000 ML IV ×2 (03:15→13:15)
[2018-02-22] MEDS: MEROPENEM INJ 1 GM in APPROPRIATE DILUENT 1 EA IV ×2 (04:03→16:28)
[2018-02-22] MEDS: VANCOMYCIN HCL 1,000 MG, VIAL MATE ADAPTER 1 EACH in D5W 250 ML IV ×2 (05:01→18:16)
[2018-02-22] MEDS: ACETAMINOPHEN TAB 650MG DOSE (2X325MG) PO (05:01)
[2018-02-22 05:24] LABS: HEMATOCRIT 34.9 % (42.0-52.0); HEMOGLOBIN 11.4 g/dl (13.5-17.5); MEAN CORPUSCULAR HEMOGLOBIN 28.9 pg (27.0-33.0); MEAN CORPUSCULAR HGB CONC 32.7 g/dl (32.0-36.5); MEAN CORPUSCULAR VOLUME 88.4 fl (80.0-96.0); PLATELET COUNT, AUTOMATED 166 10^3/uL (150-450); RED BLOOD COUNT 3.95 10^6/uL (4.30-6.10); RED CELL DISTRIBUTION WIDTH 13.3 % (11.5-14.5); WHITE BLOOD COUNT 10.5 10^3/uL (4.0-10.0)
[2018-02-22 05:41] LABS: ANION GAP 7 MEQ/L (8-16); BLOOD UREA NITROGEN 34 MG/DL (7-18); CALCIUM LEVEL 7.2 MG/DL (8.5-10.1); CARBON DIOXIDE LEVEL 25 MEQ/L (21-32); CHLORIDE LEVEL 107 MEQ/L (98-107); GLOMERULAR FILTRATION RATE 37.7 (>56); GLUCOSE, FASTING 156 MG/DL (70-100); POTASSIUM SERUM 3.6 MEQ/L (3.5-5.1); SODIUM LEVEL 139 MEQ/L (136-145)
[2018-02-22 06:07] LABS: VANCOMYCIN LEVEL TROUGH 27.2 UG/ML (10.0-20.0)
[2018-02-22] MEDS: HumaLOG INSULIN (NovoLOG) PER UNIT SC ×4 (09:33→21:00)
[2018-02-22] MEDS: LEVEMIR (INSULIN DETEMIR) 1 UNITS/0.01ML SC ×2 (09:34→21:41)
[2018-02-22] MEDS: ASPIRIN 81 MG ENTERIC TAB PO (09:34)
[2018-02-22 12:21] LABS: BEDSIDE GLUCOSE 130 MG/DL (70-105)
[2018-02-22 17:29] LABS: VANCOMYCIN LEVEL TROUGH 19.2 UG/ML (10.0-20.0)
[2018-02-22 17:57] LABS: BEDSIDE GLUCOSE 138 MG/DL (70-105)
[2018-02-22 20:25] LABS: BEDSIDE GLUCOSE 118 MG/DL (70-105)
[2018-02-22] MEDS: ATORVASTATIN 20 MG TAB PO (21:40)
[2018-02-22] MEDS: HEPARIN SOD (PORCINE) 5000 UNITS/ML VIAL SC (22:25)
[2018-02-23] MEDS: ACETAMINOPHEN TAB 650MG DOSE (2X325MG) PO (00:47)
[2018-02-23] MEDS: MEROPENEM INJ 1 GM in APPROPRIATE DILUENT 1 EA IV ×2 (04:19→16:53)
[2018-02-23] MEDS: HEPARIN SOD (PORCINE) 5000 UNITS/ML VIAL SC ×3 (05:04→21:18)
[2018-02-23] MEDS: VANCOMYCIN HCL 1,000 MG, VIAL MATE ADAPTER 1 EACH in D5W 250 ML IV ×2 (05:05→17:36)
[2018-02-23 07:23] LABS: BEDSIDE GLUCOSE 97 MG/DL (70-105)
[2018-02-23] MEDS: HumaLOG INSULIN (NovoLOG) PER UNIT SC ×4 (07:26→21:00)
[2018-02-23 08:52] LABS: HEMATOCRIT 37.6 % (42.0-52.0); HEMOGLOBIN 12.3 g/dl (13.5-17.5); MEAN CORPUSCULAR HEMOGLOBIN 28.8 pg (27.0-33.0); MEAN CORPUSCULAR HGB CONC 32.7 g/dl (32.0-36.5); MEAN CORPUSCULAR VOLUME 88.1 fl (80.0-96.0); PLATELET COUNT, AUTOMATED 220 10^3/uL (150-450); RED BLOOD COUNT 4.27 10^6/uL (4.30-6.10); RED CELL DISTRIBUTION WIDTH 13.5 % (11.5-14.5); WHITE BLOOD COUNT 9.6 10^3/uL (4.0-10.0)
[2018-02-23] MEDS: ASPIRIN 81 MG ENTERIC TAB PO (09:19)
[2018-02-23] MEDS: LEVEMIR (INSULIN DETEMIR) 1 UNITS/0.01ML SC ×2 (09:21→21:19)
[2018-02-23 09:27] LABS: ANION GAP 8 MEQ/L (8-16); BLOOD UREA NITROGEN 25 MG/DL (7-18); CALCIUM LEVEL 7.6 MG/DL (8.5-10.1); CARBON DIOXIDE LEVEL 26 MEQ/L (21-32); CHLORIDE LEVEL 110 MEQ/L (98-107); CREATININE FOR GFR 1.65 MG/DL (0.70-1.30); GLOMERULAR FILTRATION RATE 47.1 (>56); GLUCOSE, FASTING 119 MG/DL (70-100); POTASSIUM SERUM 4.3 MEQ/L (3.5-5.1); SODIUM LEVEL 144 MEQ/L (136-145)
[2018-02-23 11:39] LABS: BEDSIDE GLUCOSE 139 MG/DL (70-105)
[2018-02-23] MEDS: SLF 3 ML SYR IV ×3 (14:37→21:19)
[2018-02-23 16:52] LABS: BEDSIDE GLUCOSE 228 MG/DL (70-105)
[2018-02-23] MEDS: amLODIPine 5 MG TAB PO (17:33)
[2018-02-23] MEDS: **hydrALAZINE HCL** 25 MG TAB PO (17:35)
[2018-02-23 20:01] LABS: BEDSIDE GLUCOSE 208 MG/DL (70-105)
[2018-02-23] MEDS: ATORVASTATIN 20 MG TAB PO (21:18)
[2018-02-24] MEDS: **hydrALAZINE HCL** 25 MG TAB PO ×4 (00:10→17:23)
[2018-02-24] MEDS: MEROPENEM INJ 1 GM in APPROPRIATE DILUENT 1 EA IV ×2 (04:33→16:39)
[2018-02-24] MEDS: VANCOMYCIN HCL 1,000 MG, VIAL MATE ADAPTER 1 EACH in D5W 250 ML IV (05:29)
[2018-02-24] MEDS: HEPARIN SOD (PORCINE) 5000 UNITS/ML VIAL SC ×4 (05:30→23:55)
[2018-02-24] MEDS: SLF 3 ML SYR IV ×4 (05:33→21:19)
[2018-02-24 05:41] LABS: HEMATOCRIT 36.4 % (42.0-52.0); MEAN CORPUSCULAR HEMOGLOBIN 29.2 pg (27.0-33.0); MEAN CORPUSCULAR VOLUME 88.6 fl (80.0-96.0); PLATELET COUNT, AUTOMATED 242 10^3/uL (150-450); RED BLOOD COUNT 4.11 10^6/uL (4.30-6.10); RED CELL DISTRIBUTION WIDTH 13.6 % (11.5-14.5); WHITE BLOOD COUNT 10.6 10^3/uL (4.0-10.0)
[2018-02-24 06:01] LABS: ANION GAP 8 MEQ/L (8-16); BLOOD UREA NITROGEN 20 MG/DL (7-18); C REACTIVE PROTEIN QUANTITATIV 9.68 MG/DL (0.00-0.30); CALCIUM LEVEL 7.8 MG/DL (8.5-10.1); CARBON DIOXIDE LEVEL 22 MEQ/L (21-32); CHLORIDE LEVEL 112 MEQ/L (98-107); CREATININE FOR GFR 1.34 MG/DL (0.70-1.30); GLOMERULAR FILTRATION RATE 59.8 (>56); GLUCOSE, FASTING 61 MG/DL (70-100); POTASSIUM SERUM 3.8 MEQ/L (3.5-5.1); SODIUM LEVEL 142 MEQ/L (136-145); VANCOMYCIN LEVEL TROUGH 16.4 UG/ML (10.0-20.0)
[2018-02-24 06:57] LABS: BEDSIDE GLUCOSE 86 MG/DL (70-105)
[2018-02-24] MEDS: HumaLOG INSULIN (NovoLOG) PER UNIT SC ×4 (07:30→21:00)
[2018-02-24] MEDS: LEVEMIR (INSULIN DETEMIR) 1 UNITS/0.01ML SC ×3 (09:00→21:19)
[2018-02-24] MEDS: ASPIRIN 81 MG ENTERIC TAB PO (09:01)
[2018-02-24] MEDS: amLODIPine 5 MG TAB PO (09:01)
[2018-02-24 09:12] LABS: BEDSIDE GLUCOSE 96 MG/DL (70-105)
[2018-02-24 11:34] LABS: BEDSIDE GLUCOSE 65 MG/DL (70-105)
[2018-02-24 17:03] LABS: BEDSIDE GLUCOSE 266 MG/DL (70-105)
[2018-02-24 20:29] LABS: BEDSIDE GLUCOSE 235 MG/DL (70-105)
[2018-02-24] MEDS: ATORVASTATIN 20 MG TAB PO (21:18)
[2018-02-25] MEDS: **hydrALAZINE HCL** 25 MG TAB PO ×4 (00:42→18:00)
[2018-02-25] MEDS: SLF 3 ML SYR IV ×3 (05:37→22:03)
[2018-02-25] MEDS: LevoFLOXacin 750 MG TABLET PO (05:37)
[2018-02-25 06:45] LABS: HEMATOCRIT 38.1 % (42.0-52.0); HEMOGLOBIN 12.5 g/dl (13.5-17.5); MEAN CORPUSCULAR HEMOGLOBIN 28.9 pg (27.0-33.0); MEAN CORPUSCULAR HGB CONC 32.8 g/dl (32.0-36.5); PLATELET COUNT, AUTOMATED 281 10^3/uL (150-450); RED BLOOD COUNT 4.33 10^6/uL (4.30-6.10); RED CELL DISTRIBUTION WIDTH 13.2 % (11.5-14.5); WHITE BLOOD COUNT 12.2 10^3/uL (4.0-10.0)
[2018-02-25 07:16] LABS: ANION GAP 7 MEQ/L (8-16); BLOOD UREA NITROGEN 19 MG/DL (7-18); C REACTIVE PROTEIN QUANTITATIV 7.83 MG/DL (0.00-0.30); CALCIUM LEVEL 8.2 MG/DL (8.5-10.1); CARBON DIOXIDE LEVEL 28 MEQ/L (21-32); CHLORIDE LEVEL 106 MEQ/L (98-107); CREATININE FOR GFR 1.45 MG/DL (0.70-1.30); GLOMERULAR FILTRATION RATE 54.6 (>56); GLUCOSE, FASTING 51 MG/DL (70-100); POTASSIUM SERUM 3.3 MEQ/L (3.5-5.1); SODIUM LEVEL 141 MEQ/L (136-145)
[2018-02-25] MEDS: HumaLOG INSULIN (NovoLOG) PER UNIT SC ×4 (07:30→21:00)
[2018-02-25 07:48] LABS: BEDSIDE GLUCOSE 75 MG/DL (70-105)
[2018-02-25] MEDS: LEVEMIR (INSULIN DETEMIR) 1 UNITS/0.01ML SC ×2 (07:50→23:26)
[2018-02-25] MEDS: amLODIPine 5 MG TAB PO (09:01)
[2018-02-25] MEDS: ASPIRIN 81 MG ENTERIC TAB PO (09:02)
[2018-02-25] MEDS: D5W/0.9% SODIUM CHLORIDE 1,000 ML IV ×2 (10:30→22:02)
[2018-02-25 12:00] LABS: BEDSIDE GLUCOSE 163 MG/DL (70-105)
[2018-02-25] MEDS: HEPARIN SOD (PORCINE) 5000 UNITS/ML VIAL SC ×2 (14:00→22:02)
[2018-02-25] MEDS ORDERED: PROPOFOL 200 MG/20 ML VIAL As Ordered ×4 (17:02→18:27)
[2018-02-25] MEDS ORDERED: LIDOCAINE 2% INJ 100 MG/5 ML SDV (FOR ANES.) As Ordered (17:04)
[2018-02-25] MEDS ORDERED: MIDAZOLAM INJ 2 MG/2 ML VIAL (J2250) As Ordered (17:04)
[2018-02-25] MEDS ORDERED: fentaNYL 100 MCG/2 ML INJECTION (J3010) As Ordered (17:05)
[2018-02-25] MEDS: LIDOCAINE 2% MDV 20 ML VIAL As Ordered (17:53)
[2018-02-25] MEDS: BUPIVACAINE HCL 0.5% 30 ML VIAL As Ordered (17:53)
[2018-02-25] MEDS: TOBRAMYCIN SULF 1.2 GM VIAL As Ordered (18:26)
[2018-02-25 18:58] LABS: BEDSIDE GLUCOSE 92 MG/DL (70-105)
[2018-02-25] MEDS ORDERED: PERCOCET 5MG/325MG TAB PO (19:15)
[2018-02-25] MEDS ORDERED: fentaNYL 100 MCG/2 ML INJECTION (J3010) IV (19:15)
[2018-02-25] MEDS ORDERED: ONDANSETRON 4MG/2ML VIAL (J2405) IV (19:15)
[2018-02-25] MEDS ORDERED: LR 1,000 ML IV (19:15)
[2018-02-25 21:35] LABS: BEDSIDE GLUCOSE 139 MG/DL (70-105)
[2018-02-25] MEDS: ATORVASTATIN 20 MG TAB PO (22:03)
[2018-02-26 01:47] LABS: BEDSIDE GLUCOSE 254 MG/DL (70-105)
[2018-02-26] MEDS: LEVEMIR (INSULIN DETEMIR) 1 UNITS/0.01ML SC ×5 (02:31→21:24)
[2018-02-26] MEDS: **hydrALAZINE HCL** 25 MG TAB PO ×4 (06:00→18:00)
[2018-02-26 06:10] LABS: HEMATOCRIT 34.5 % (42.0-52.0); HEMOGLOBIN 11.2 g/dl (13.5-17.5); MEAN CORPUSCULAR HEMOGLOBIN 29.1 pg (27.0-33.0); MEAN CORPUSCULAR HGB CONC 32.5 g/dl (32.0-36.5); MEAN CORPUSCULAR VOLUME 89.6 fl (80.0-96.0); PLATELET COUNT, AUTOMATED 265 10^3/uL (150-450); RED BLOOD COUNT 3.85 10^6/uL (4.30-6.10); RED CELL DISTRIBUTION WIDTH 13.5 % (11.5-14.5); WHITE BLOOD COUNT 9.7 10^3/uL (4.0-10.0)
[2018-02-26 06:26] LABS: ANION GAP 9 MEQ/L (8-16); BLOOD UREA NITROGEN 21 MG/DL (7-18); C REACTIVE PROTEIN QUANTITATIV 6.24 MG/DL (0.00-0.30); CALCIUM LEVEL 7.7 MG/DL (8.5-10.1); CARBON DIOXIDE LEVEL 25 MEQ/L (21-32); CHLORIDE LEVEL 108 MEQ/L (98-107); CREATININE FOR GFR 1.43 MG/DL (0.70-1.30); GLOMERULAR FILTRATION RATE 55.5 (>56); GLUCOSE, FASTING 274 MG/DL (70-100); POTASSIUM SERUM 4.1 MEQ/L (3.5-5.1); SODIUM LEVEL 142 MEQ/L (136-145)
[2018-02-26] MEDS: LevoFLOXacin 750 MG TABLET PO (06:32)
[2018-02-26] MEDS: HEPARIN SOD (PORCINE) 5000 UNITS/ML VIAL SC ×3 (06:32→21:25)
[2018-02-26] MEDS: SLF 3 ML SYR IV ×3 (06:33→21:25)
[2018-02-26] MEDS: ASPIRIN 81 MG ENTERIC TAB PO (08:05)
[2018-02-26] MEDS: HumaLOG INSULIN (NovoLOG) PER UNIT SC ×4 (08:06→21:25)
[2018-02-26] MEDS: amLODIPine 5 MG TAB PO (08:06)
[2018-02-26 11:52] LABS: BEDSIDE GLUCOSE 149 MG/DL (70-105)
[2018-02-26 16:31] LABS: BEDSIDE GLUCOSE 199 MG/DL (70-105)
[2018-02-26 20:45] LABS: BEDSIDE GLUCOSE 191 MG/DL (70-105)
[2018-02-26] MEDS: ATORVASTATIN 20 MG TAB PO (21:24)
[2018-02-27] MEDS: **hydrALAZINE HCL** 25 MG TAB PO ×5 (00:18→23:27)
[2018-02-27] MEDS: HEPARIN SOD (PORCINE) 5000 UNITS/ML VIAL SC ×3 (05:24→21:15)
[2018-02-27] MEDS: LevoFLOXacin 750 MG TABLET PO (05:24)
[2018-02-27] MEDS: SLF 3 ML SYR IV ×3 (05:25→21:16)
[2018-02-27 06:07] LABS: HEMATOCRIT 34.7 % (42.0-52.0); HEMOGLOBIN 11.3 g/dl (13.5-17.5); MEAN CORPUSCULAR HGB CONC 32.6 g/dl (32.0-36.5); PLATELET COUNT, AUTOMATED 288 10^3/uL (150-450); RED CELL DISTRIBUTION WIDTH 13.5 % (11.5-14.5)
[2018-02-27 06:28] LABS: ANION GAP 8 MEQ/L (8-16); BLOOD UREA NITROGEN 21 MG/DL (7-18); CALCIUM LEVEL 8.1 MG/DL (8.5-10.1); CARBON DIOXIDE LEVEL 28 MEQ/L (21-32); CHLORIDE LEVEL 108 MEQ/L (98-107); CREATININE FOR GFR 1.48 MG/DL (0.70-1.30); GLOMERULAR FILTRATION RATE 53.3 (>56); GLUCOSE, FASTING 63 MG/DL (70-100); SODIUM LEVEL 144 MEQ/L (136-145)
[2018-02-27] MEDS: HumaLOG INSULIN (NovoLOG) PER UNIT SC ×4 (07:30→21:07)
[2018-02-27] MEDS: ASPIRIN 81 MG ENTERIC TAB PO (08:04)
[2018-02-27] MEDS: amLODIPine 5 MG TAB PO (08:07)
[2018-02-27] MEDS: LEVEMIR (INSULIN DETEMIR) 1 UNITS/0.01ML SC ×2 (08:24→21:16)
[2018-02-27 11:39] LABS: BEDSIDE GLUCOSE 190 MG/DL (70-105)
[2018-02-27 20:47] LABS: BEDSIDE GLUCOSE 195 MG/DL (70-105)
[2018-02-27 20:47] LABS: BEDSIDE GLUCOSE 244 MG/DL (70-105)
[2018-02-27] MEDS: ATORVASTATIN 20 MG TAB PO (21:14)
[2018-02-28] MEDS: **hydrALAZINE HCL** 25 MG TAB PO ×4 (05:35→23:37)
[2018-02-28] MEDS: LevoFLOXacin 750 MG TABLET PO (05:37)
[2018-02-28] MEDS: HEPARIN SOD (PORCINE) 5000 UNITS/ML VIAL SC ×3 (05:37→21:29)
[2018-02-28] MEDS: SLF 3 ML SYR IV ×4 (05:38→22:00)
[2018-02-28 06:14] LABS: BEDSIDE GLUCOSE 204 MG/DL (70-105)
[2018-02-28] MEDS: HumaLOG INSULIN (NovoLOG) PER UNIT SC ×4 (08:18→21:28)
[2018-02-28] MEDS: ASPIRIN 81 MG ENTERIC TAB PO (08:19)
[2018-02-28] MEDS: LEVEMIR (INSULIN DETEMIR) 1 UNITS/0.01ML SC ×2 (08:19→21:29)
[2018-02-28] MEDS: amLODIPine 5 MG TAB PO (08:19)
[2018-02-28 12:00] LABS: BEDSIDE GLUCOSE 147 MG/DL (70-105)
[2018-02-28 20:52] LABS: BEDSIDE GLUCOSE 228 MG/DL (70-105)
[2018-02-28 20:52] LABS: BEDSIDE GLUCOSE 170 MG/DL (70-105)
[2018-02-28] MEDS: ATORVASTATIN 20 MG TAB PO (21:28)
[2018-03-01] MEDS: LevoFLOXacin 750 MG TABLET PO (05:31)
[2018-03-01] MEDS: **hydrALAZINE HCL** 25 MG TAB PO ×3 (05:31→16:56)
[2018-03-01] MEDS: SLF 3 ML SYR IV ×3 (05:32→20:49)
[2018-03-01] MEDS: HEPARIN SOD (PORCINE) 5000 UNITS/ML VIAL SC ×3 (05:32→20:48)
[2018-03-01 06:01] LABS: BEDSIDE GLUCOSE 130 MG/DL (70-105)
[2018-03-01 06:19] LABS: BASO % 0.5 % (0.0-1.0); EOS # 0.4 10^3/uL (0.0-0.50); EOS % 4.3 % (0.0-3.0); HEMATOCRIT 33.8 % (42.0-52.0); HEMOGLOBIN 11.2 g/dl (13.5-17.5); IMMATURE GRANULOCYTE % 0.8 % (0-3.0); LYMPH # 1.6 10^3/uL (1.5-4.5); LYMPH % 18.1 % (24.0-44.0); MEAN CORPUSCULAR HEMOGLOBIN 29.3 pg (27.0-33.0); MEAN CORPUSCULAR HGB CONC 33.1 g/dl (32.0-36.5); MEAN CORPUSCULAR VOLUME 88.5 fl (80.0-96.0); MONO # 0.5 10^3/uL (0.0-0.8); MONO % 5.6 % (0.0-5.0); NEUTROPHILS # 6.1 10^3/uL (1.8-7.7); NEUTROPHILS % 70.7 % (36.0-66.0); PLATELET COUNT, AUTOMATED 301 10^3/uL (150-450); RED BLOOD COUNT 3.82 10^6/uL (4.30-6.10); RED CELL DISTRIBUTION WIDTH 13.2 % (11.5-14.5); WHITE BLOOD COUNT 8.6 10^3/uL (4.0-10.0)
[2018-03-01 06:28] LABS: ANION GAP 7 MEQ/L (8-16); BLOOD UREA NITROGEN 23 MG/DL (7-18); CALCIUM LEVEL 8.1 MG/DL (8.5-10.1); CARBON DIOXIDE LEVEL 29 MEQ/L (21-32); CHLORIDE LEVEL 107 MEQ/L (98-107); CREATININE FOR GFR 1.49 MG/DL (0.70-1.30); GLOMERULAR FILTRATION RATE 52.9 (>56); GLUCOSE, FASTING 143 MG/DL (70-100); POTASSIUM SERUM 4.1 MEQ/L (3.5-5.1); SODIUM LEVEL 143 MEQ/L (136-145)
[2018-03-01] MEDS: HumaLOG INSULIN (NovoLOG) PER UNIT SC ×4 (07:36→20:48)
[2018-03-01] MEDS: LEVEMIR (INSULIN DETEMIR) 1 UNITS/0.01ML SC ×2 (08:43→20:49)
[2018-03-01] MEDS: amLODIPine 5 MG TAB PO (08:43)
[2018-03-01] MEDS: ASPIRIN 81 MG ENTERIC TAB PO (08:43)
[2018-03-01 11:51] LABS: BEDSIDE GLUCOSE 155 MG/DL (70-105)
[2018-03-01 16:35] LABS: BEDSIDE GLUCOSE 192 MG/DL (70-105)
[2018-03-01 20:34] LABS: BEDSIDE GLUCOSE 261 MG/DL (70-105)
[2018-03-01] MEDS: ATORVASTATIN 20 MG TAB PO (20:47)
[2018-03-02] MEDS: **hydrALAZINE HCL** 25 MG TAB PO ×2 (00:08→06:00)
[2018-03-02] MEDS: SLF 3 ML SYR IV ×2 (06:00→06:08)
[2018-03-02] MEDS: LevoFLOXacin 750 MG TABLET PO (06:07)
[2018-03-02] MEDS: HEPARIN SOD (PORCINE) 5000 UNITS/ML VIAL SC (06:07)
[2018-03-02 06:14] LABS: BASO % 0.3 % (0.0-1.0); EOS # 0.4 10^3/uL (0.0-0.50); EOS % 3.8 % (0.0-3.0); HEMATOCRIT 35.1 % (42.0-52.0); HEMOGLOBIN 11.5 g/dl (13.5-17.5); IMMATURE GRANULOCYTE % 0.5 % (0-3.0); LYMPH # 1.7 10^3/uL (1.5-4.5); LYMPH % 16.6 % (24.0-44.0); MEAN CORPUSCULAR HGB CONC 32.8 g/dl (32.0-36.5); MEAN CORPUSCULAR VOLUME 88.4 fl (80.0-96.0); MONO # 0.5 10^3/uL (0.0-0.8); MONO % 4.8 % (0.0-5.0); NEUTROPHILS # 7.4 10^3/uL (1.8-7.7); PLATELET COUNT, AUTOMATED 290 10^3/uL (150-450); RED BLOOD COUNT 3.97 10^6/uL (4.30-6.10); RED CELL DISTRIBUTION WIDTH 13.2 % (11.5-14.5)
[2018-03-02 06:29] LABS: ANION GAP 6 MEQ/L (8-16); BLOOD UREA NITROGEN 24 MG/DL (7-18); CALCIUM LEVEL 8.1 MG/DL (8.5-10.1); CARBON DIOXIDE LEVEL 30 MEQ/L (21-32); CHLORIDE LEVEL 108 MEQ/L (98-107); CREATININE FOR GFR 1.47 MG/DL (0.70-1.30); GLOMERULAR FILTRATION RATE 53.8 (>56); GLUCOSE, FASTING 93 MG/DL (70-100); POTASSIUM SERUM 4.1 MEQ/L (3.5-5.1); SODIUM LEVEL 144 MEQ/L (136-145)
[2018-03-02] MEDS: HumaLOG INSULIN (NovoLOG) PER UNIT SC (07:30)
[2018-03-02] MEDS: ASPIRIN 81 MG ENTERIC TAB PO (08:31)
[2018-03-02] MEDS: amLODIPine 5 MG TAB PO (08:34)
[2018-03-02] MEDS: LEVEMIR (INSULIN DETEMIR) 1 UNITS/0.01ML SC (08:35)
[2018-03-02 11:41] LABS: BEDSIDE GLUCOSE 138 MG/DL (70-105)
== END 2018-03-02 12:26 | disposition home health service (06) | DRG 710 ==
LOC: M PCU 02-20 00:24 → M MS4PR 02-24 22:46 → M MSPAV 02-25 15:54 → M ED 16:40 → M ED INP 23:21
PROVIDERS: Internal Medicine
PROC: 0Y6R0Z0 Detachment at Right 2nd Toe, Complete, Open Approach (ICD-10-PCS; principal; 2018-02-21 10:04)
PROC: 0LDV0ZZ Extraction of Right Foot Tendon, Open Approach (ICD-10-PCS; 2018-02-21 10:04)
PROC: 0KDV0ZZ Extraction of Right Foot Muscle, Open Approach (ICD-10-PCS; 2018-02-21 10:04)
DX: A41.9 Sepsis, unspecified organism (principal); E87.2 Acidosis; E11.52 Type 2 diabetes mellitus with diabetic peripheral angiopathy with gangrene; N17.9 Acute kidney failure, unspecified; E11.22 Type 2 diabetes mellitus with diabetic chronic kidney disease; N18.3 Chronic kidney disease, stage 3 (moderate); E11.621 Type 2 diabetes mellitus with foot ulcer; E11.40 Type 2 diabetes mellitus with diabetic neuropathy, unspecified; L97.519 Non-pressure chronic ulcer of other part of right foot with unspecified severity; E66.01 Morbid (severe) obesity due to excess calories; N39.0 Urinary tract infection, site not specified; I12.9 Hypertensive chronic kidney disease with stage 1 through stage 4 chronic kidney disease, or unspecified chronic kidney disease; L02.611 Cutaneous abscess of right foot; E78.5 Hyperlipidemia, unspecified; F17.210 Nicotine dependence, cigarettes, uncomplicated; Z79.4 Long term (current) use of insulin; Z79.82 Long term (current) use of aspirin; Z79.899 Other long term (current) drug therapy; Z89.422 Acquired absence of other left toe(s); B95.61 Methicillin susceptible Staphylococcus aureus infection as the cause of diseases classified elsewhere; B95.2 Enterococcus as the cause of diseases classified elsewhere; B96.4 Proteus (mirabilis) (morganii) as the cause of diseases classified elsewhere; B96.1 Klebsiella pneumoniae [K. pneumoniae] as the cause of diseases classified elsewhere; B96.89 Other specified bacterial agents as the cause of diseases classified elsewhere

== ENCOUNTER → 2018-04-06 | Outpatient (REF) | payer OTHER | LOC: M LAB REF 16:45 | DX: E11.621 Type 2 diabetes mellitus with foot ulcer (principal) | CPT/HCPCS: 88304 ==

== ENCOUNTER → 2018-04-15 | Outpatient (REF) | payer OTHER ==
[2018-04-15 18:59] LABS: HEMATOCRIT 41.3 % (42.0-52.0); HEMOGLOBIN 13.2 g/dl (13.5-17.5); MEAN CORPUSCULAR HEMOGLOBIN 28.9 pg (27.0-33.0); MEAN CORPUSCULAR VOLUME 90.4 fl (80.0-96.0); PLATELET COUNT, AUTOMATED 238 10^3/uL (150-450); RED BLOOD COUNT 4.57 10^6/uL (4.30-6.10); RED CELL DISTRIBUTION WIDTH 13.5 % (11.5-14.5); WHITE BLOOD COUNT 9.3 10^3/uL (4.0-10.0)
[2018-04-15 19:22] LABS: ALBUMIN 2.9 GM/DL (3.2-5.2); ALBUMIN/GLOBULIN RATIO 0.74 (1.00-1.93); ALKALINE PHOSPHATASE 85 U/L (45-117); ALT/SGPT 17 U/L (12-78); ANION GAP 12 MEQ/L (8-16); AST/SGOT 12 U/L (7-37); BILIRUBIN,TOTAL 0.4 MG/DL (0.2-1.0); BLOOD UREA NITROGEN 23 MG/DL (7-18); CALCIUM LEVEL 8.8 MG/DL (8.5-10.1); CARBON DIOXIDE LEVEL 24 MEQ/L (21-32); CHLORIDE LEVEL 106 MEQ/L (98-107); GLOMERULAR FILTRATION RATE 45.5 (>56); GLUCOSE, FASTING 156 MG/DL (70-100); POTASSIUM SERUM 4.5 MEQ/L (3.5-5.1); SODIUM LEVEL 142 MEQ/L (136-145); TOTAL PROTEIN 6.8 GM/DL (6.4-8.2)
== END ==
LOC: M LAB REF 17:19
DX: E11.621 Type 2 diabetes mellitus with foot ulcer (principal)
CPT/HCPCS: 80053

== ENCOUNTER → 2018-05-15 | Outpatient (REF) | payer OTHER ==
[2018-05-15 16:47] LABS: ESTIMATED AVERAGE GLUCOSE 189 MG/DL (60-110); HEMOGLOBIN A1c 8.2 %
== END ==
LOC: M SFHCPLAZ 13:00
DX: E11.22 Type 2 diabetes mellitus with diabetic chronic kidney disease (principal)
CPT/HCPCS: 83036

== ENCOUNTER → 2018-06-26 | Outpatient (CLI) | payer OTHER ==
[2018-06-26 10:23] LABS: VITAMIN B12 LEVEL 277 PG/ML (247-911)
== END ==
LOC: M LAB 07:48
DX: E11.22 Type 2 diabetes mellitus with diabetic chronic kidney disease (principal); N18.3 Chronic kidney disease, stage 3 (moderate); Z79.4 Long term (current) use of insulin
CPT/HCPCS: 82607

== ENCOUNTER → 2018-08-07 | Outpatient (REF) | payer OTHER ==
[~2018-08-07] MED LIST changes: +ADME100I SC; +AMLO5TAB6 PO; +ASPI81TAEC PO; +ATOR80TA59; +ATOR80TA59 PO; +CEFD1CAP8 PO; +CRES20TA PO; +DOCU100C16; +DOCU100C16 PO; -DRIS50002 PO; +DRIS50003 PO; +GLIP5TAB8; +GLIP5TAB8 PO; -ISOVUE-370 76% 100ML VIAL (Q9967) As Ordered ONE; +LEVA750T7 PO; -LISI2.5T3 GT; -LISI2.5T3 PO; +LISI2.5T5 GT; +LISI2.5T5 PO; +LOSA25TA14 PO; -LOSA25TA8 PO; +METF-877 PO; +METF500T13; +METF500T13 PO; -NIAC1TAB PO; +NIAC500T64 PO; +PATIENT COMMENTS; +TAB-TAB PO; +TOUJ300I2; +TOUJ300I2 SC; +VITA-122 PO; +[UNRECOGNIZED DRUG - CODE] PO; +patient comments
== END ==
LOC: M SFHCPLAZ 11:23
PROVIDERS: ATTEND Family Medicine
DX: E11.22 Type 2 diabetes mellitus with diabetic chronic kidney disease (principal)

== ENCOUNTER 2018-08-09 23:45 | Inpatient (IN) | payer OTHER ==
[~2018-08-09] VITALS: Ht 167.6 cm; Wt 110.9 kg
[~2018-08-09 23:45] MED LIST changes: -ADME100I SC; -CEFD1CAP8 PO; -CRES20TA PO; -METF-877 PO; -PATIENT COMMENTS; -TAB-TAB PO; -VITA-122 PO; -[UNRECOGNIZED DRUG - CODE] PO; -patient comments
[2018-08-10] MEDS ORDERED: NS 500 ML IV ONE ×3 (00:30→08:00)
[2018-08-10] MEDS ORDERED: ACETAMINOPHEN 325 MG TAB PO ONE (00:30)
[2018-08-10 00:37] LABS: BASO # 0.1 10^3/uL (0.0-0.2); BASO % 0.4 % (0.0-1.0); EOS # 0.1 10^3/uL (0.0-0.50); EOS % 0.6 % (0.0-3.0); HEMATOCRIT 51.5 % (42.0-52.0); LYMPH # 0.4 10^3/uL (1.5-4.5); LYMPH % 3.3 % (24.0-44.0); MEAN CORPUSCULAR HEMOGLOBIN 28.5 pg (27.0-33.0); MEAN CORPUSCULAR VOLUME 86.3 fl (80.0-96.0); MONO # 0.6 10^3/uL (0.0-0.8); MONO % 4.3 % (0.0-5.0); NEUTROPHILS % 91.1 % (36.0-66.0); PLATELET COUNT, AUTOMATED 156 10^3/uL (150-450); RED BLOOD COUNT 5.97 10^6/uL (4.30-6.10); WHITE BLOOD COUNT 13.1 10^3/uL (4.0-10.0)
[2018-08-10 01:08] LABS: ALBUMIN 3.2 GM/DL (3.2-5.2); ALT/SGPT 26 U/L (12-78); BILIRUBIN,DIRECT < 0.1 MG/DL (0.0-0.2); BILIRUBIN,TOTAL 0.5 MG/DL (0.2-1.0); BLOOD UREA NITROGEN 26 MG/DL (7-18); CALCIUM LEVEL 8.3 MG/DL (8.5-10.1); CARBON DIOXIDE LEVEL 18 MEQ/L (21-32); CHLORIDE LEVEL 102 MEQ/L (98-107); GLOMERULAR FILTRATION RATE 37.5 (>56); GLUCOSE, FASTING 238 MG/DL (70-100); LIPASE 179 U/L (73-393); POTASSIUM SERUM 5.3 MEQ/L (3.5-5.1); SODIUM LEVEL 134 MEQ/L (136-145); TOTAL PROTEIN 7.5 GM/DL (6.4-8.2)
[2018-08-10] MEDS ORDERED: HumuLIN R (REGULAR) INSULIN (NovoLIN R) **100U/ML** PER UNIT IV ONE (01:30)
[2018-08-10] MEDS ORDERED: METOCLOPRAMIDE INJ 10MG/2ML VIAL (J2765) IV ONE (01:30)
[2018-08-10] MEDS ORDERED: PIPERACILLIN/TAZOBACTAM SOD 3.375 GM in D5W MINI-BAG PLUS 50 ML IV ONE (01:45)
[2018-08-10 01:47] LABS: INFLUENZA A AMPLIFICATION NEGATIVE (NEGATIVE); INFLUENZA B AMPLIFICATION NEGATIVE (NEGATIVE)
[2018-08-10] MEDS ORDERED: ASPI1TAB PO (02:37)
[2018-08-10] MEDS ORDERED: METF500T13 PO (02:37)
[2018-08-10] MEDS ORDERED: TOUJ300I2 SC (02:37)
[2018-08-10] MEDS ORDERED: CRES20TA PO (02:44)
[2018-08-10] MEDS ORDERED: LISI2.5T5 PO (02:44)
[2018-08-10] MEDS ORDERED: [UNRECOGNIZED DRUG - CODE] PO (02:44)
[2018-08-10] MEDS ORDERED: TRIC145T22 PO (02:44)
[2018-08-10] MEDS ORDERED: patient comments (02:47)
[2018-08-10] MEDS ORDERED: PATIENT COMMENTS (02:47)
--- NOTE | 2018-08-10 03:28 | REPVR ---
EXAM: CT Abdomen and Pelvis Without Contrast EXAM DATE/TIME: 08/10/2018 2:11 AM CLINICAL HISTORY: 53 years old, male; Pain and abnormal findings; Abnormal lab test; Abnormal kidney function lab tests; Abdominal pain; Generalized; Additional info: Pain / creat elev TECHNIQUE: Axial computed tomography images of the abdomen and pelvis without contrast. All CT scans at this facility use at least one of these dose optimization techniques: automated exposure control; mA and/or kV adjustment per patient size (includes targeted exams where dose is matched to clinical indication); or iterative reconstruction. Coronal and sagittal reformatted images were created and reviewed. COMPARISON: CT ABD PELVIS W/O CONTRAST 02/19/2018 7:18 PM FINDINGS: Limitations: Examination is limited by motion artifact. Lower thorax: No acute findings. ABDOMEN: Liver: Normal. No mass. Gallbladder and bile ducts: Normal. No calcified stones. No biliary ductal dilatation. Pancreas: Normal. No ductal dilation. Spleen: Normal. No splenomegaly. Adrenals: Normal. No mass. Kidneys and ureters: Nonspecific perinephric stranding bilaterally. No hydronephrosis bilaterally. No renal stones. Stomach and bowel: Diffuse thickening of the distal ileum. Diffuse thickening of the right colon and proximal transverse colon. No abnormal bowel dilatation. Appendix: Appendix is normal. PELVIS: Bladder: Unremarkable as visualized. Reproductive: Prostate is normal in size. ABDOMEN and PELVIS: Intraperitoneal space: Normal. No free air. No significant fluid collection. Bones/joints: No acute fracture. No dislocation. Mild degenerative spine. Soft tissues: Status post ventral abdominal surgery. Findings consistent with subcutaneous injections. Vasculature: Mild calcified atherosclerotic disease. No aortic aneurysm. Lymph nodes: Normal. No enlarged lymph nodes. IMPRESSION: No hydronephrosis bilaterally. Nonspecific perinephric stranding bilaterally. Diffuse thickening of the distal ileum and colon as described. Suspicious for enterocolitis. Additional findings as described. Electronically signed by: Wilfrido Sam On 08/10/2018 03:27:22 AM
--- NOTE | 2018-08-10 03:48 | REP ---
Clinical: Fever . Comparison: 02/19/2018 . Technique: PA and lateral. Findings: The mediastinum and cardiac silhouette are normal. Right basilar atelectasis noted. No effusion or pneumothorax. The skeletal structures are intact and normal. Impression: 1. Mild right basilar atelectasis. Electronically Signed by Addy Roman MD 08/10/2018 03:39 A
[2018-08-10 04:19] LABS: APPEARANCE, URINE HAZY (CLEAR); BACTERIA, URINE AUTO NEGATIVE (NEGATIVE); BILIRUBIN, URINE AUTO NEGATIVE (NEGATIVE); BLOOD, URINE BLOOD 1+ (NEGATIVE); COLOR, URINE YELLOW (YELLOW); GLUCOSE, URINE (UA) AUTO NEGATIVE (NEGATIVE); KETONE, URINE AUTO NEGATIVE (NEGATIVE); LEUKOCYTE ESTERASE, URINE AUTO NEGATIVE (NEGATIVE); MUCUS, URINE SMALL (NEGATIVE); NITRITE, URINE AUTO NEGATIVE (NEGATIVE); PROTEIN, URINE AUTO 3+ mg/dL (NEGATIVE); RBC, URINE AUTO 7 /HPF (0-3); SPECIFIC GRAVITY URINE AUTO 1.019 (1.002-1.035); SQUAMOUS EPITHELIAL CELL UR AU 1 /HPF (0-6); UROBILINOGEN, URINE AUTO 0.2 mg/dL (0.0-2.0); WBC, URINE AUTO 2 /HPF (0-3)
[2018-08-10] MEDS ORDERED: ONDANSETRON 4MG/2ML VIAL (J2405) IV PRN (05:00)
[2018-08-10] MEDS ORDERED: GLUCOSE 4 GM CHEW TABLET PO PRN (05:00)
[2018-08-10] MEDS ORDERED: DEXTROSE 50% 50 ML SYRINGE IV PRN (05:00)
[2018-08-10] MEDS ORDERED: GLUCAGON FOR INJ 1 MG VIAL (J1610) SC PRN (05:00)
[2018-08-10] MEDS: NS 1,000 ML IV SCH ×2 (05:34→17:21)
[2018-08-10] MEDS: metroNIDAZOLE 500 MG in APPROPRIATE DILUENT 1 EA IV SCH ×3 (06:10→21:48)
[2018-08-10] MEDS: HEPARIN SOD (PORCINE) 5000 UNITS/ML VIAL SC SCH ×3 (06:13→21:48)
--- NOTE | 2018-08-10 06:38 | ECGEPIP ---
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
[2018-08-10 07:10] LABS: C REACTIVE PROTEIN QUANTITATIV 8.22 MG/DL (0.00-0.30); CALCIUM LEVEL 8.1 MG/DL (8.5-10.1); CREATININE FOR GFR 3.06 MG/DL (0.70-1.30); POTASSIUM SERUM 4.9 MEQ/L (3.5-5.1)
[2018-08-10] MEDS: HumaLOG INSULIN (NovoLOG) PER UNIT SC SCH ×3 (07:30→17:22)
[2018-08-10 08:00] VITALS: BP 130/65
[2018-08-10] MEDS ORDERED: LevoFLOXacin IV 500 MG in APPROPRIATE DILUENT 1 EA IV ONE (08:00)
[2018-08-10] MEDS: ATORVASTATIN 20 MG TAB PO SCH (10:29)
[2018-08-10] MEDS: ROSUVASTATIN 10 MG TAB (CRESTOR) PO SCH (10:29)
[2018-08-10] MEDS: FENOFIBRATE 145 MG TAB (TRICOR) PO SCH (10:29)
[2018-08-10] MEDS: ASPIRIN 81 MG ENTERIC TAB PO SCH (10:32)
--- NOTE | 2018-08-10 11:05 | HPE ---
DATE OF ADMISSION: 08/10/2018 CHIEF COMPLAINT: Diarrhea, vomiting abdominal pain. HISTORY OF PRESENT ILLNESS: Patient is a 53-year-old male with significant past medical history of diabetes, hypertension, hyperlipidemia, obesity, chronic kidney disease (CKD), chronic lower extremity wound on the great right toe, which he follows at the wound care center. He presented to the emergency room with a 1-day history of multiple episodes of nonbloody, nonbilious vomiting, nonbloody, non-mucoid diarrhea, three loose stools and some diffuse lower crampy abdominal pain. He denies any history of recent hospitalizations or antibiotic use. He denies any cough, fevers, chills, chest pain, shortness of breath, urinary symptoms. The wound on his right great toe; no foul smell, no drainage, no surrounding erythema. On admission, he creatinine is slightly elevated from his baseline and he has a potassium of 5.3 with no EKG changes. PAST MEDICAL HISTORY: See history of present illness (HPI). PAST SURGICAL HISTORY: Amputation of the toe and finger. Hernia repair. Appendectomy. HOME MEDICATIONS INCLUDE: - Toujeo - Crestor - metformin - lisinopril - fenofibrate - Lipitor - aspirin - Colace ALLERGIES: No known drug allergies. SOCIAL HISTORY: His is current smoker. Smokes two cigarettes per day. Denies alcohol or illicit drug use. FAMILY HISTORY: Hypertension, diabetes and heart disease. REVIEW OF SYSTEMS: 12-point review of system was completed. All are negative except those listed in the HPI. ADMISSION VITAL SIGNS: Temperature 101.4, pulse 122, respirations 20, saturating at 90% in room air, blood pressure 134/72. PHYSICAL EXAMINATION: GENERAL: He is disheveled but in no apparent distress. HEAD: Normocephalic, atraumatic. EYES: Extraocular movements are intact. Pupils equal, round, and reactive to light. NECK: Supple. No jugular venous pulse (JVP). LUNGS: Good air entry in the anterior chest. No crackles or wheezing. CARDIOVASCULAR: Regular rate and rhythm. Normal S1, S2. No murmurs, gallops or rubs. ABDOMEN: Soft, nontender , nondistended. Positive bowel sounds. No rebound or guarding. EXTREMITIES: No edema. On the right great toe, there is an ulceration on the lateral aspect as well as the medial aspect, approximately 3 x 3 cm. No erythema, no foul drainage. Not painful. Not warm. He follows with the wound care center. NEURO: Alert and oriented times three. No focal deficit appreciated on exam. LABS AND IMAGING DONE IN THE EMERGENCY ROOM: White count 13.1, hemoglobin and hematocrit 17/51, platelet count 156. Chemistry shows a sodium of 134, potassium 5.2, with no EKG changes. BUN and creatinine of 26/2. Baseline creatinine around 1.7. True baseline not known as no creatinine over the last 3 months. Lactate 3.1. Imaging: CT of the abdomen and pelvis shows no hydronephrosis, nonspecific perinephric stranding bilaterally. Diffuse thickening of the distal ilium in the colon. Chest x-ray shows mild right basilar atelectasis. UA is also unremarkable. Rapid flu was negative. Fingerstick is 187. ASSESSMENT/PLAN: Sepsis secondary to colitis likely infectious colitis. Much less likely inflammatory. Will send stool workup culture, C difficile, the entire GI panel. Will send an ESR, CRP. Will also do a x-ray of the foot, however, the ulceration on the toe does not appear to be the source of infection, so daily wound dressing changes as per nursing. Zofran as needed nausea. Repeat the BMP to ensure resolution of his hyperkalemia. IV fluids. Hold all nephrotoxic medications. The patient to be on Levaquin and Flagyl. Acute kidney injury (ONEAL): Likely on chronic kidney disease (CKD). Fluid hydration. Hold nephrotoxic medications. Trend renal function. Hypertension: Hold lisinopril it the setting of ONEAL. Diabetes: Hold oral hypoglycemics. Insulin sliding scale. Hyperlipidemia: Continue Crestor. Obesity: Patient was consulted. Supportive deep venous thrombosis (DVT) prophylaxis: Heparin subcutaneous. Gastrointestinal (GI) prophylaxis: Not indicated. DIET: Cardiac/diabetic diet.
[2018-08-10 12:13] LABS: BASO % 0.3 % (0.0-1.0); EOS % 0.1 % (0.0-3.0); HEMATOCRIT 42.1 % (42.0-52.0); LYMPH # 0.5 10^3/uL (1.5-4.5); LYMPH % 4.4 % (24.0-44.0); MEAN CORPUSCULAR HEMOGLOBIN 28.6 pg (27.0-33.0); MEAN CORPUSCULAR HGB CONC 33.5 g/dl (32.0-36.5); MEAN CORPUSCULAR VOLUME 85.4 fl (80.0-96.0); MONO # 0.5 10^3/uL (0.0-0.8); MONO % 4.7 % (0.0-5.0); NEUTROPHILS # 9.3 10^3/uL (1.8-7.7); NEUTROPHILS % 90.1 % (36.0-66.0); PLATELET COUNT, AUTOMATED 140 10^3/uL (150-450); RED BLOOD COUNT 4.93 10^6/uL (4.30-6.10); WHITE BLOOD COUNT 10.3 10^3/uL (4.0-10.0)
[2018-08-10 12:21] LABS: HEMOGLOBIN 14.1 g/dl (13.5-17.5)
[2018-08-10 12:44] LABS: ALBUMIN 2.7 GM/DL (3.2-5.2); BILIRUBIN,TOTAL 0.5 MG/DL (0.2-1.0); CALCIUM LEVEL 7.6 MG/DL (8.5-10.1); CREATININE FOR GFR 2.4 MG/DL (0.70-1.30); GLOMERULAR FILTRATION RATE 30.4 (>56); POTASSIUM SERUM 4.5 MEQ/L (3.5-5.1); TOTAL PROTEIN 5.9 GM/DL (6.4-8.2)
[2018-08-10 14:00] VITALS: BP 132/63
[2018-08-10] MEDS ORDERED: ACETAMINOPHEN TAB 650MG DOSE (2X325MG) PO PRN (14:00)
[2018-08-10 20:00] VITALS: BP 152/86
[2018-08-11] MEDS: NS 1,000 ML IV SCH (03:14)
[2018-08-11] MEDS: HEPARIN SOD (PORCINE) 5000 UNITS/ML VIAL SC SCH ×3 (05:23→22:26)
[2018-08-11] MEDS: metroNIDAZOLE 500 MG in APPROPRIATE DILUENT 1 EA IV SCH ×3 (05:23→22:27)
[2018-08-11 06:00] VITALS: BP 126/74
[2018-08-11 06:17] LABS: HEMATOCRIT 40.9 % (42.0-52.0); HEMOGLOBIN 13.8 g/dl (13.5-17.5); MEAN CORPUSCULAR HEMOGLOBIN 28.8 pg (27.0-33.0); MEAN CORPUSCULAR HGB CONC 33.7 g/dl (32.0-36.5); MEAN CORPUSCULAR VOLUME 85.2 fl (80.0-96.0); PLATELET COUNT, AUTOMATED 114 10^3/uL (150-450); WHITE BLOOD COUNT 6.9 10^3/uL (4.0-10.0)
[2018-08-11 06:40] LABS: CALCIUM LEVEL 7.6 MG/DL (8.5-10.1); CREATININE FOR GFR 1.97 MG/DL (0.70-1.30); GLOMERULAR FILTRATION RATE 38.2 (>56); POTASSIUM SERUM 3.8 MEQ/L (3.5-5.1)
--- NOTE | 2018-08-11 07:55 | IPNPDOC ---
Date Seen The patient was seen on 08/11/18. Progress Note SUBJECTIVE: Patient is a 53-year-old male was seen and examined this morning laying at bedside. His diarrhea has gotten better for they are less frequent. They will sent a stool sample after his next bowl movement. He does not appear in acute distress and states that he is feeling better this AM. His abdominal pain has gotten better as well. OBJECTIVE PHYSICAL EXAMINATION: VITAL SIGNS: Please see below. GENERAL: no apparent distress. disheveled HEENT: : Normocephalic, atraumatic. Extraocular movements are intact. Pupils equal, round, and reactive to light. CARDIOVASCULAR: Regular rate and rhythm. Normal S1, S2. No murmurs, gallops or rubs. RESPIRATORY: Good air entry in the anterior chest. No crackles or wheezing. ABDOMINAL: Soft, nontender , nondistended. Positive bowel sounds. No rebound or guarding. EXTREMITIES: No edema. Right great toe is covered with a dressing and gauze. No erythema, no foul drainage. Not painful. Not warm. He follows with the wound care center. NEUROLOGICAL: : Alert and oriented times three. No focal deficit appreciated LABORATORY DATA, IMAGING STUDIES, MICROBIOLOGY: Please see below. DVT prophylaxis ordered?: Yes. 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 He presented to the emergency room with a 1-day history of multiple episodes of nonbloody, nonbilious vomiting, nonbloody, non-mucoid diarrhea, three loose stools and some diffuse lower crampy abdominal pain PROBLEMS: 1. Sepsis secondary to colitis likely infectious colitis. -symptoms improving -CT abdomen and pelvis: Diffuse thickening of the distal ilium in the colon -GI panel pending -Trend CRP -c/w Zofran, Levaquin and Flagyl. 2. Acute kidney injury (ONEAL) on CKD Stage 3?. -Baseline creatine 1.4-1.6 -Improving -Continue with IV fluids -Continue to hold nephrotoxic medications (Home lisinopril) 3. Hypertension: -Currently stable -will continue to monitor and hold lisnopril. 4. Diabetes - held home oral hypoglycemics - Held home 65 units toujeo - will monitor and if need will add levemir? -c/w Insulin sliding scale. 5. Hyperlipidemia -c/w Home Crestor Liptor and Tricor 6. Obesity -BMI:39.6 7. DVT prophylaxis: Heparin subcutaneous. 8. DIET: Cardiac/diabetic diet. Disposition possible D.C in the AM. VS, I&O, 24H, Fishbone Vital Signs/I&O Vital Signs Date Time Temp Pulse Resp B/P (MAP) Pulse Ox O2 Delivery O2 Flow Rate FiO2 08/10/18 20:00 98.9 112 18 152/86 (108) 92 Room Air I&O- Last 24 Hours up to 6 AM 08/11/18 06:00 Intake Total 3320 ml Output Total 0 ml Balance 3320 ml Laboratory Data 24H LABS Laboratory Tests 2 08/10/18 07:49: Bedside Glucose (Misc Panel) 197H 08/10/18 11:14: Bedside Glucose (Misc Panel) 191H 08/10/18 11:57: Immature Granulocyte % (Auto) 0.4, White Blood Count 10.3H, Red Blood Count 4.93, Hemoglobin 14.1#, Hematocrit 42.1, Mean Corpuscular Volume 85.4, Mean Corpuscular Hemoglobin 28.6, Mean Corpuscular Hemoglobin Concent 33.5, Red Cell Distribution Width 13.1, Platelet Count 140L, Neutrophils (%) (Auto) 90.1H, Lymphocytes (%) (Auto) 4.4L, Monocytes (%) (Auto) 4.7, Eosinophils (%) (Auto) 0.1, Basophils (%) (Auto) 0.3, Neutrophils # (Auto) 9.3H, Lymphocytes # (Auto) 0.5L, Monocytes # (Auto) 0.5, Eosinophils # (Auto) 0.0, Basophils # (Auto) 0.0, Nucleated Red Blood Cells % (auto) 0.0, Anion Gap 8, Glomerular Filtration Rate 30.4L, Blood Urea Nitrogen 31H, Creatinine 2.40H, Sodium Level 134L, Potassium Level 4.5, Chloride Level 104, Carbon Dioxide Level 22, Calcium Level 7.6L, Aspartate Amino Transf (AST/SGOT) 23, Alanine Aminotransferase (ALT/SGPT) 25, Alkaline Phosphatase 62, Total Bilirubin 0.5, Total Protein 5.9#L, Albumin 2.7L, Albumin/Globulin Ratio 0.84L 08/10/18 16:47: Bedside Glucose (Misc Panel) 156H 08/10/18 20:54: Bedside Glucose (Misc Panel) 149H 08/11/18 05:37: Nucleated Red Blood Cells % (auto) 0.0, Anion Gap 9, Glomerular Filtration Rate 38.2L, Blood Urea Nitrogen 26H, Creatinine 1.97H, Sodium Level 135L, Potassium Level 3.8, Chloride Level 106, Carbon Dioxide Level 20L, Calcium Level 7.6L 08/11/18 06:19: Bedside Glucose (Misc Panel) 112H CBC/BMP Laboratory Tests 08/10/18 11:57 Red Blood Count 4.93, Mean Corpuscular Volume 85.4, Mean Corpuscular Hemoglobin 28.6, Mean Corpuscular Hemoglobin Concent 33.5, Red Cell Distribution Width 13.1, Neutrophils (%) (Auto) 90.1 H, Lymphocytes (%) (Auto) 4.4 L, Monocytes (%) (Auto) 4.7, Eosinophils (%) (Auto) 0.1, Basophils (%) (Auto) 0.3, Neutrophils # (Auto) 9.3 H, Lymphocytes # (Auto) 0.5 L, Monocytes # (Auto) 0.5, Eosinophils # (Auto) 0.0, Basophils # (Auto) 0.0, Calcium Level 7.6 L, Aspartate Amino Transf (AST/SGOT) 23, Alanine Aminotransferase (ALT/SGPT) 25, Alkaline Phosphatase 62, Total Bilirubin 0.5, Total Protein 5.9 #L, Albumin 2.7 L 08/11/18 05:37 Red Blood Count 4.80, Mean Corpuscular Volume 85.2, Mean Corpuscular Hemoglobin 28.8, Mean Corpuscular Hemoglobin Concent 33.7, Red Cell Distribution Width 13.2, Calcium Level 7.6 L Microbiology Microbiology 08/10/18 Blood Culture, Received Pending 08/10/18 Blood Culture - Preliminary, Resulted No growth after 24 hours . All specim... 08/10/18 Urine Culture, Received Pending GME ATTESTATION GME ATTESTATION My faculty preceptor for this patient encounter was physically present during the encounter and was fully available. All aspects of the patient interview, examination, medical decision making process, and medical care plan development were reviewed and approved by the faculty preceptor. The faculty preceptor is aware and concurs with the plan as stated in the body of this note and will attest to such by his/her cosignature. TRUMAN BULL DO Aug 11, 2018 07:55
[2018-08-11 08:15] LABS: C REACTIVE PROTEIN QUANTITATIV 16.5 MG/DL (0.00-0.30)
[2018-08-11] MEDS: LevoFLOXacin IV 250 MG in APPROPRIATE DILUENT 1 EA IV SCH (08:39)
[2018-08-11] MEDS: FENOFIBRATE 145 MG TAB (TRICOR) PO SCH (08:40)
[2018-08-11] MEDS: ROSUVASTATIN 10 MG TAB (CRESTOR) PO SCH (08:40)
[2018-08-11] MEDS: ASPIRIN 81 MG ENTERIC TAB PO SCH (08:40)
[2018-08-11] MEDS: HumaLOG INSULIN (NovoLOG) PER UNIT SC SCH ×3 (08:40→17:57)
[2018-08-11] MEDS: ATORVASTATIN 20 MG TAB PO SCH (08:40)
[2018-08-11 14:00] VITALS: BP 122/72
[2018-08-11 22:00] VITALS: BP 128/69
[2018-08-12] MEDS: HEPARIN SOD (PORCINE) 5000 UNITS/ML VIAL SC SCH (05:42)
[2018-08-12] MEDS: metroNIDAZOLE 500 MG in APPROPRIATE DILUENT 1 EA IV SCH (05:42)
[2018-08-12 06:00] VITALS: BP 117/63
[2018-08-12 06:20] LABS: HEMATOCRIT 40.9 % (42.0-52.0); HEMOGLOBIN 13.4 g/dl (13.5-17.5); MEAN CORPUSCULAR HEMOGLOBIN 28.6 pg (27.0-33.0); MEAN CORPUSCULAR HGB CONC 32.8 g/dl (32.0-36.5); MEAN CORPUSCULAR VOLUME 87.2 fl (80.0-96.0); PLATELET COUNT, AUTOMATED 108 10^3/uL (150-450); RED BLOOD COUNT 4.69 10^6/uL (4.30-6.10); WHITE BLOOD COUNT 5.1 10^3/uL (4.0-10.0)
[2018-08-12 06:36] LABS: CREATININE FOR GFR 1.58 MG/DL (0.70-1.30); GLOMERULAR FILTRATION RATE 49.3 (>56); POTASSIUM SERUM 3.9 MEQ/L (3.5-5.1)
[2018-08-12] MEDS ORDERED: FLAG500T PO (07:48)
[2018-08-12] MEDS ORDERED: CEFD300CAP PO (07:48)
--- NOTE | 2018-08-12 08:30 | REP ---
Clinical: Ulceration first toe.' Technique: AP and Lateral views of the right foot. Comparison: Findings: Postopertaive changes related to partial amputation of the second midmetatarsal bone appears smooth and well healed. There has been subsequent resorbtive changes involving the third metatarsophalangeal level. Osseous structures of the first toe appear intact and without perisoteal reaction or fracture. Impression: 1. Osseous structures of the first toe appear intact and relatively normal / stable without radiographic evidence to suggest osteomyelitis. The overlying soft tissues demonstrate subtle irregularity and vague density consistent with a history of nonhealing ulceration. 2. Partial amputation to the second toe without obvious acute process. 3. Resorptive changes involving the osseous structures of the third MTP joint including the head of the third metatarsal and base of the proximal phalanx represent an obvious change when compared to 02/22/2018 and require correlation. Electronically Signed by Addy Roman MD 08/12/2018 08:22 A
--- NOTE | 2018-08-12 08:49 | REP ---
Right foot series: Two views. History: Ulcer left great toe. Comparison study: August 10, 2018. Findings: The soft tissues both medially and laterally about the great toe distal phalanx are irregular. There is some opaque debris along the medial side and volar aspect, similar to the earlier study. There is no evidence of soft tissue gas elsewhere in the forefoot. There are large plantar and Achilles calcaneal spurs. The second digit has been amputated at the level of the distal diaphysis of the metatarsal. The third digit shows old bony changes consistent with resection of the distal third metatarsal and a portion of the proximal phalanx of the third digit. No acute bony erosive abnormality. Impression: No acute bony erosion. Irregularity of the soft tissues about the great toe. Similar findings from August 10, 2018. Electronically Signed by Mac Erickson MD 08/12/2018 09:37 A
[2018-08-12] MEDS: ROSUVASTATIN 10 MG TAB (CRESTOR) PO SCH (09:06)
[2018-08-12] MEDS: FENOFIBRATE 145 MG TAB (TRICOR) PO SCH (09:06)
[2018-08-12] MEDS: ATORVASTATIN 20 MG TAB PO SCH (09:06)
[2018-08-12] MEDS: LevoFLOXacin IV 250 MG in APPROPRIATE DILUENT 1 EA IV SCH (09:06)
[2018-08-12] MEDS: HumaLOG INSULIN (NovoLOG) PER UNIT SC SCH (09:06)
[2018-08-12] MEDS: ASPIRIN 81 MG ENTERIC TAB PO SCH (09:06)
--- NOTE | 2018-08-12 11:32 | DS.PDOC ---
Discharge Summary General Date of Admission Aug 10, 2018 at 04:49 Date of Discharge 08/12/18 Discharge Summary PROCEDURES PERFORMED DURING STAY: None. ADMITTING/DISCHARGE DIAGNOSES: Acute kidney injury (ONEAL) on CKD Stage 3?. Hypertension: Diabetes Hyperlipidemia Obesity: BMI:39.6 COMPLICATIONS/CHIEF COMPLAINT: Colitis,Sepsis. 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 He presented to the emergency room with a 1-day history of multiple episodes of nonbloody, nonbilious vomiting, nonbloody, non-mucoid diarrhea, three loose stools and some diffuse lower crampy abdominal pain. He denies any history of recent hospitalizations or antibiotic use. He denies any cough, fevers, chills, chest pain, shortness of breath, urinary symptoms. The wound on his right great toe; no foul smell, no drainage, no surrounding erythema. On admission, he creatinine is slightly elevated from his baseline and he has a potassium of 5.3 with no EKG changes. He was admitted to med/surg and was started on IV antibiotics as well as fluids. Symptoms improved with medical therapy. He was adviced to follow up with his PCP in 7-10 days. And to keep his appointment with wound care this upcoming Friday. DISCHARGE MEDICATIONS: Please see below. ALLERGIES: Please see below. PHYSICAL EXAMINATION ON DISCHARGE: VITAL SIGNS: Please see below. GENERAL: no apparent distress. disheveled HEENT: Normocephalic, atraumatic. Extraocular movements are intact. Pupils equal, round, and reactive to light. CARDIOVASCULAR: Regular rate and rhythm. Normal S1, S2. No murmurs, gallops or rubs. RESPIRATORY: Good air entry in the anterior chest. No crackles or wheezing. ABDOMINAL: Soft, nontender , nondistended. Positive bowel sounds. No rebound or guarding. EXTREMITIES: No edema. Right great toe is covered with a dressing and gauze. No erythema, no foul drainage. Not painful. Not warm. He follows with the wound care center. NEUROLOGICAL: : Alert and oriented times three. No focal deficit appreciated LABORATORY DATA: Please see below. IMAGING: Chest Xray- 08/10/18 Impression: 1. Mild right basilar atelectasis. Abdominal /Pelvis CT 08/10/18 : IMPRESSION: No hydronephrosis bilaterally. Nonspecific perinephric stranding bilaterally. Diffuse thickening of the distal ileum and colon as described. Suspicious for enterocolitis. PROGNOSIS: Fair ACTIVITY: As tolerated DIET: 2 GRAM Sodium + Consistent Carbohydrate DISPOSITION: Home DISCHARGE INSTRUCTIONS: 1. Follow with pcp in 7-10 days. 2. Complete antibiotics as proscribe. 3. Keep upcoming wound clinic appointment. 4. If symptoms return or worsen call PCP or return to the ER. DISCHARGE CONDITION: Stable. TIME SPENT ON DISCHARGE: Greater than 35 minutes. Vital Signs/I&Os Vital Signs Date Time Temp Pulse Resp B/P (MAP) Pulse Ox O2 Delivery O2 Flow Rate FiO2 08/12/18 06:00 97.7 74 18 117/63 (81) 96 Room Air I&O- Last 24 Hours up to 6 AM 08/12/18 06:00 Intake Total 1880 ml Output Total 1200 ml Balance 680 ml Laboratory Data Labs 24H Laboratory Tests 2 08/11/18 11:54: Bedside Glucose (Misc Panel) 177H 08/11/18 16:56: Bedside Glucose (Misc Panel) 157H 08/11/18 21:51: Bedside Glucose (Misc Panel) 157H 08/12/18 05:52: Nucleated Red Blood Cells % (auto) 0.0, Anion Gap 8, Glomerular Filtration Rate 49.3L, Blood Urea Nitrogen 22H, Creatinine 1.58H, Sodium Level 138, Potassium Le angus 3.9, Chloride Level 108H, Carbon Dioxide Level 22, Calcium Level 8.0L CBC/BMP Laboratory Tests 08/12/18 05:52 Red Blood Count 4.69, Mean Corpuscular Volume 87.2, Mean Corpuscular Hemoglobin 28.6, Mean Corpuscular Hemoglobin Concent 32.8, Red Cell Distribution Width 13.1, Calcium Level 8.0 L FSBS Laboratory Tests Test 08/11/18 11:54 08/11/18 16:56 08/11/18 21:51 Range/Units Bedside Glucose (Misc Panel) 177 157 157 70-105 MG/DL Microbiology Microbiology 08/10/18 Blood Culture - Preliminary, Resulted No growth after 24 hours . All specim... 08/10/18 Blood Culture - Preliminary, Resulted No Growth after 48 hours. All Specime... 08/11/18 Gastrointestinal Tract Panel (PCR) - Final, Complete 08/10/18 Urine Culture - Final, Complete Discharge Medications Scheduled (Sarahi Junior) 300 Unit/Ml Inj, 65 UNIT SC BID, (Reported) Aspirin (Aspirin 81) 81 Mg Tab, 81 MG PO DAILY, (Reported) Atorvastatin Calcium (Atorvastatin Calcium) 80 Mg Tab, 80 MG PO DAILY, (R eported) Cefdinir (Cefdinir) 300 Mg Cap, 1 CAP PO BID Fenofibrate (Tricor) 145 Mg Tab, 145 MG PO DAILY, (Reported) Lisinopril (Lisinopril) 2.5 Mg Tab, 2.5 MG PO DAILY, (Reported) Metformin Hydrochloride (Metformin HCl) 500 Mg Tab, 1,000 MG PO BID, (Reported) Metronidazole (Flagyl) 500 Mg Tab, 1 TAB PO BID Niacin (Niaspan) 750 Mg Tab, 750 MG PO DAILY, (Reported) Rosuvastatin Calcium (Crestor) 20 Mg Tab, 20 MG PO DAILY, (Reported) Scheduled PRN Docusate Sodium (Docusate Sodium) 100 Mg Cap, 100 MG PO BID PRN for CONSTIPATION, (Reported) Miscellaneous Medications [Patient Comments] , (Reported) UNABLE TO VERIFY SIGS ON LISINOPRIL, TRICOR, CRESTOR, AND NIASAN. WILL CALL PHARMACY WHEN IT OPENS. Allergies Coded Allergies: No Known Drug Allergy (Verified Allergy, Unknown, 10/12/16) GME ATTESTATION GME ATTESTATION My faculty preceptor for this patient encounter was physically present during the encounter and was fully available. All aspects of the patient interview, examination, medical decision making process, and medical care plan development were reviewed and approved by the faculty preceptor. The faculty preceptor is aware and concurs with the plan as stated in the body of this note and will attest to such by his/her cosignature. TRUMAN BULL DO Aug 12, 2018 07:51
== END 2018-08-12 11:50 | disposition home health service (06) | DRG 720 ==
LOC: M ED 23:45 → EDSEX 23:45 → EDBD 23:45 → M ED INP 08-10 04:49 → M MS5PR 08-10 08:05
PROVIDERS: ADMIT Internal Medicine; ATTEND Internal Medicine
DX: A41.9 Sepsis, unspecified organism (principal); E11.22 Type 2 diabetes mellitus with diabetic chronic kidney disease; N17.9 Acute kidney failure, unspecified; E87.5 Hyperkalemia; N18.3 Chronic kidney disease, stage 3 (moderate); A09 Infectious gastroenteritis and colitis, unspecified; I12.9 Hypertensive chronic kidney disease with stage 1 through stage 4 chronic kidney disease, or unspecified chronic kidney disease; E78.5 Hyperlipidemia, unspecified; E66.9 Obesity, unspecified; F17.210 Nicotine dependence, cigarettes, uncomplicated; Z90.49 Acquired absence of other specified parts of digestive tract; Z79.4 Long term (current) use of insulin; Z79.82 Long term (current) use of aspirin; Z79.899 Other long term (current) drug therapy; Z68.39 Body mass index [BMI] 39.0-39.9, adult

== ENCOUNTER → 2018-08-18 | Outpatient (REF) | payer OTHER ==
[~2018-08-18] MED LIST changes: +CRES20TA PO; +PATIENT COMMENTS; +[UNRECOGNIZED DRUG - CODE] PO; +patient comments
== END ==
LOC: M LAB REF 16:16
PROVIDERS: ATTEND Physician Assistant
DX: E11.621 Type 2 diabetes mellitus with foot ulcer (principal)

== ENCOUNTER → 2018-08-24 | Outpatient (REF) | payer OTHER ==
[2018-08-24 12:29] LABS: HEMATOCRIT 49.4 % (42.0-52.0); MEAN CORPUSCULAR HEMOGLOBIN 28.4 pg (27.0-33.0); MEAN CORPUSCULAR HGB CONC 32.4 g/dl (32.0-36.5); MEAN CORPUSCULAR VOLUME 87.7 fl (80.0-96.0); PLATELET COUNT, AUTOMATED 270 10^3/uL (150-450); RED BLOOD COUNT 5.63 10^6/uL (4.30-6.10); WHITE BLOOD COUNT 12.2 10^3/uL (4.0-10.0)
[2018-08-24 12:36] LABS: ALBUMIN 3.4 GM/DL (3.2-5.2); BILIRUBIN,TOTAL 0.4 MG/DL (0.2-1.0); C REACTIVE PROTEIN QUANTITATIV 1.6 MG/DL (0.00-0.30); CALCIUM LEVEL 9.3 MG/DL (8.5-10.1); CREATININE FOR GFR 1.8 MG/DL (0.70-1.30); GLOMERULAR FILTRATION RATE 42.4 (>56); POTASSIUM SERUM 5.2 MEQ/L (3.5-5.1); TOTAL PROTEIN 7.9 GM/DL (6.4-8.2)
[2018-08-24 13:24] LABS: ERYTHROCYTE SEDIMENTATION RATE 11 mm/hr (0-20)
== END ==
LOC: M LAB REF 11:53
PROVIDERS: ATTEND Surgery
DX: E11.621 Type 2 diabetes mellitus with foot ulcer (principal)

== ENCOUNTER → 2018-08-24 | Outpatient (REF) | payer OTHER ==
[2018-08-24 19:17] LABS: TOTAL PROTEIN,RANDOM URINE 173.5 MG/DL (0.0-12.0)
[2018-08-24 19:20] LABS: BACTERIA, URINE AUTO NEGATIVE (NEGATIVE); RBC, URINE AUTO 8 /HPF (0-3); SQUAMOUS EPITHELIAL CELL UR AU 2 /HPF (0-6); WBC, URINE AUTO 1 /HPF (0-3)
[2018-08-24 19:46] LABS: COMPLEMENT C3 120 MG/DL (90-180); COMPLEMENT C4 32 MG/DL (10-40); HEPATITIS B SURFACE ANTIGEN NEGATIVE (NEGATIVE)
[2018-08-24 20:14] LABS: HIV 1&2 SCREEN CENTAUR NEGATIVE (NEGATIVE)
[2018-08-26 09:46] LABS: HEPATITIS B SURFACE ANTIBODY NEGATIVE (POSITIVE)
[2018-08-28 00:07] LABS: ANCA-ATYPICAL <1:20 titer (Neg:<1:20); ANTI DOUBLE STRAND-DNA AB <1 IU/mL (0-9); ANTINUCLEAR ANTIBODIES DIRECT Negative (Negative); CYTOPLASMIC NEUTROP AB ANCA-C <1:20 titer (Neg:<1:20); PERINUCLEAR AB ANCA-P <1:20 titer (Neg:<1:20)
== END ==
LOC: M LAB REF 16:56
PROVIDERS: ATTEND Internal Medicine Nephrology
DX: R80.9 Proteinuria, unspecified (principal); N18.3 Chronic kidney disease, stage 3 (moderate); R31.9 Hematuria, unspecified; R31.29 Other microscopic hematuria

== ENCOUNTER 2018-08-28 15:29 | Inpatient (IN) | payer OTHER ==
[~2018-08-28] VITALS: Ht 175.3 cm; Wt 120.0 kg
[2018-08-28] MEDS ORDERED: VANCOMYCIN HCL 500 MG in D5W MINI-BAG PLUS 100 ML IV ONE (16:00)
[2018-08-28] MEDS ORDERED: NS 1,000 ML IV SCH ×2 (16:00→18:05)
[2018-08-28 16:24] LABS: HEMATOCRIT 44.9 % (42.0-52.0); HEMOGLOBIN 14.8 g/dl (13.5-17.5); MEAN CORPUSCULAR HEMOGLOBIN 28.5 pg (27.0-33.0); MEAN CORPUSCULAR VOLUME 86.3 fl (80.0-96.0); PLATELET COUNT, AUTOMATED 160 10^3/uL (150-450); WHITE BLOOD COUNT 8.7 10^3/uL (4.0-10.0)
[2018-08-28 16:59] LABS: BILIRUBIN,DIRECT 0.2 MG/DL (0.0-0.2); BILIRUBIN,TOTAL 0.8 MG/DL (0.2-1.0); CALCIUM LEVEL 8.1 MG/DL (8.5-10.1); CREATININE FOR GFR 1.95 MG/DL (0.70-1.30); GLOMERULAR FILTRATION RATE 38.7 (>56); POTASSIUM SERUM 4.9 MEQ/L (3.5-5.1); TOTAL PROTEIN 7.7 GM/DL (6.4-8.2)
--- NOTE | 2018-08-28 17:01 | REP ---
Right great toe series: Four views. History: Osteo. Findings: Four views right great toe demonstrate a soft tissue deficit extending apparently down to the bone along the medial aspect of the great toe. There is fragmentation of the proximal metaphysis of the distal phalanx of the great toe adjacent to this. There is some cortical erosion. Findings are indicative of osteomyelitis. No soft tissue gas is seen apart from this apparent deep ulcer. There is mild osteoarthritis at the first MTP joint. The second digit has been amputated across the mid metatarsal. There is evidence of a previous resection of the distal end of the third metatarsal and the proximal end of the proximal phalanx of the third toe. Impression: Osteomyelitis changes right great toe distal phalanx. Electronically Signed by Mac Erickson MD 08/28/2018 05:55 P
--- NOTE | 2018-08-28 18:04 | ER ---
DATE OF CONSULTATION: 08/28/2018 CHIEF COMPLAINT: Patient seen today for evaluation on referral from the emergency department for a wound on his right foot. Patient states he has been seeing Dr. Villalobos at the wound center for an ulceration on his right foot. He states that the wound has progressed and worsened since July, and he has had fever and chills and a red toe with drainage, and he presents today to the emergency room. PAST SURGICAL HISTORY: 1. Amputation of the 2nd ray on the right foot. 2. An amputation of finger. 3. Hernia repair. 4. Appendectomy. HOME MEDICATIONS: Include Toujeo, Crestor, metformin, lisinopril, fenofibrate, Lipitor, aspirin, and Colace. ALLERGIES: No known drug allergies. Evaluation of the patient's foot reveals erythema extending from his toe onto the dorsal aspect of his foot. There is an open wound with bone directly visible. This ulceration on the toe measures 3.5 cm from distal to proximal and 1.9 cm from dorsal to plantar. There are erosions of the distal phalanx and a pathologic fracture at the medial base of the distal phalanx. There has been a 2nd ray amputation in the past noted as well as some osteolysis of the 3rd metatarsal head and base of the proximal phalanx of the 2nd toe. The bone is dark along the medial cortex. There is an odor and discharge from the toe itself. The dorsalis pedis and posterior tibialis pulses are palpable. Patient does have neuropathy of the right foot. ASSESSMENT: Osteomyelitis, distal phalanx, right foot. PLAN: We discussed with the patient antibiotics and a partial right hallux amputation. This is tentatively scheduled for Friday. His questions were answered. Thank you for this consultation.
[2018-08-28] MEDS ORDERED: VITA-122 PO (18:13)
[2018-08-28] MEDS ORDERED: ADME100I SC (18:13)
[2018-08-28] MEDS ORDERED: TAB-TAB PO (18:13)
[2018-08-28] MEDS ORDERED: METF-877 PO (18:13)
[2018-08-28] MEDS ORDERED: GLUCAGON FOR INJ 1 MG VIAL (J1610) SC PRN (18:15)
[2018-08-28] MEDS ORDERED: DEXTROSE 50% 50 ML SYRINGE IV PRN (18:15)
[2018-08-28] MEDS ORDERED: GLUCOSE 4 GM CHEW TABLET PO PRN (18:15)
[2018-08-28] MEDS ORDERED: ONDANSETRON 4MG/2ML VIAL (J2405) IV PRN (18:15)
--- NOTE | 2018-08-28 18:29 | HPEPDOC ---
[facility] Medical History & Physical Date of Admission Aug 28, 2018 History and Physical PRIMARY CARE PROVIDER: Claudia Gross ATTENDING: Dr. Lamine López CHIEF COMPLAINT: Right toe wound HISTORY OF PRESENT ILLNESS: This is a 53-year-old male past medical history of insulin-dependent diabetes mellitus, hypertension, hyperlipidemia, morbid obesity, CKD stage III who presents complaining of right toe infection. Patient notes that he has been following with Dr. Villalobos for this chronic toe wound, and had recently seen Dr. Villalobos on Friday, who performed debridement, however notes that the toe looked much worse today when the home health aide came to check up on him. Patient has subjective fevers and chills. No nausea or vomiting. No abdominal pain. No chest shortness of breath. No diarrhea. No cough. Otherwise feels well. 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 He refused a tetanus shot. Otherwise, patient feels well. PAST MEDICAL HISTORY: As per HPI PAST SURGICAL HISTORY: Appendectomy, hernia repair, toe/finger amputation. SOCIAL HISTORY: Smokes 1-2 cigarettes daily. Denies any alcohol use. Counseled on tobacco cessation however states he would not like to quit at this time. He refuses nicotine patch. FAMILY HISTORY: Noncontributory ALLERGIES: Please see below. REVIEW OF SYSTEMS: HEENT: Denies sore throat/headache CARDIOVASCULAR: Denies chest pain/palpitations RESPIRATORY: Denies shortness of breath/cough GASTROINTESTINAL: denies nausea/vomiting GENITOURINARY: Denies dysuria/urinary urgency. MUSCULOSKELETAL: Denies myalgias/arthralgias NEUROLOGICAL: Denies any focal weakness HOME MEDICATIONS: Please see below. PHYSICAL EXAMINATION: Vitals: (see below) General: No acute distress, laying comfortably in bed. HEENT: Moist mucous membranes. Neck: No JVD or lymphadenopathy Cardiac: RRR, No murmurs Pulm: Clear to auscultation b/l. No wheezing, rhonchi Abd: NT/ND + BS. obese Ext: No edema or cyanosis. Distal pulses intact. Right great toe ulceration, mild drainage, foul-smelling. There does not appear to be extending cellulitis. LABORATORY DATA: See below. IMAGING: Right foot x-ray 08/28/18 Impression: Osteomyelitis changes right great toe distal phalanx. ASSESSMENT/PLAN: 1. Right great toe osteomyelitis, in a diabetic patient. Patient has been started on IV vancomycin, blood/wound culture pending. Gentle IV fluid hydration. No signs of sepsis at this time. Evaluated by Dr. Greer with plan for amputation. 2. Insulin-dependent diabetes mellitus- restarted on Levemir. Sliding scale insulin. Consistent carb diet. 3. Chronic kidney disease stage III. Mild elevation of creatinine likely secondary to the underlying infection. Started on IV fluids. We'll continue to monitor. Hold lisinopril for now. 4. Hypertension controlled 5. Tobacco abuse counseled cessation. Refuses nicotine patch. DVT prophylaxis heparin subcutaneous Vital Signs Vital Signs Date Time Temp Pulse Resp B/P (MAP) Pulse Ox O2 Delivery O2 Flow Rate FiO2 08/28/18 16:10 08/28/18 15:30 96.9 105 18 98 Room Air Laboratory Data Labs 24H Laboratory Tests 2 08/28/18 16:05: Nucleated Red Blood Cells % (auto) 0.0, Anion Gap 8, Glomerular Filtration Rate 38.7L, Calcium Level 8.1L, Aspartate Amino Transf (AST/SGOT) 32, Alanine Aminotransferase (ALT/SGPT) 38, Alkaline Phosphatase 74, Total Bilirubin 0.8, Direct Bilirubin 0.2, Total Protein 7.7, Albumin 3.0L, Albumin/Globulin Ratio 0.64L 08/28/18 16:27: Lactic Acid Level 2.1*H CBC/BMP Laboratory Tests 08/28/18 16:05 Red Blood Count 5.20, Mean Corpuscular Volume 86.3, Mean Corpuscular Hemoglobin 28.5, Mean Corpuscular Hemoglobin Concent 33.0, Red Cell Distribution Width 13.2 Microbiology Microbiology 08/28/18 Blood Culture, Received Pending 08/28/18 Wound Culture, Received Pending Home Medications Scheduled (Sarahi Junior) 300 Unit/Ml Inj, 65 UNIT SC BID (Metformin Hydrochloride) 1,000 Mg Tab, 1,000 MG PO BID (Admelog) 100 Unit/Ml Inj, 20 UNIT SC ACHS (Tab-A-Derik) 1 Tab Tab, 1 TAB PO DAILY Aspirin (Aspirin 81) 81 Mg Tab, 81 MG PO DAILY Atorvastatin Calcium (Atorvastatin Calcium) 80 Mg Tab, 80 MG PO DAILY LAST FILLED 05/27/18 FOR 30 DAY Cholecalciferol (Vitamin D3) 1,000 Unit Tab, 1,000 UNIT PO DAILY Fenofibrate (Tricor) 145 Mg Tab, 145 MG PO DAILY Lisinopril (Lisinopril) 2.5 Mg Tab, 2.5 MG PO DAILY Scheduled PRN Docusate Sodium (Docusate Sodium) 100 Mg Cap, 100 MG PO BID PRN for CONSTIPATION Allergies Coded Allergies: No Known Drug Allergy (Verified Allergy, Unknown, 10/12/16) LAMINE LÓPEZ MD Aug 28, 2018 18:29
[2018-08-28] MEDS ORDERED: DOCUSATE SODIUM 100 MG CAP PO PRN (18:30)
[2018-08-28] MEDS: ACETAMINOPHEN TAB 650MG DOSE (2X325MG) PO PRN (18:58)
[2018-08-28 20:25] VITALS: BP 116/66
--- NOTE | 2018-08-28 20:38 | PHACANCOPD ---
PHARMACY VANCOMYCIN DOSING Pt Demographics Demographics Patient Age:53 , Weight:115.450 , Gender: male Adjusted Body Weight Date: 08/28/18, Adjusted Body Weight: [88.6] Kg Events Past 24 Hours Events Past 24 Hours: YES: Fever Vancomycin Vancomycin indication: osteomyelitis Vancomycin Target Ranges: 15-20 mcg/ml Vancomycin Load Y/N: Yes Load Dose Date Time Vancomycin Load Dose: 500mg Date: 08/28 Time: ~16:30 Vancomycin Dose Date: 08/28/18. Current Vancomycin Dose: [1g IV q12h @21] Intermittent Dosing?: No Labs Labs Item Value Date Time Creatinine 1.95 MG/DL H 08/28/18 1605 Vital Signs Label Value Date Time Patient Temperature 101.5 degrees F 08/28/18 1940 Temperature Source Oral 08/28/181939 Patient Temperature 101.7 degrees F 08/28/18 184 Temperature Source Oral 08/28/181848 Micro Microbiology 08/28/18 Blood Culture, Received Pending 08/28/18 Wound Culture, Received Pending Creatinine Clearance Date:08/28/18. Creatinine Clearance: [55 ml/min]. Assessment and Plan Maintaining Current Dose?: Yes Reason for dose change: No Dose Change Pharmacist Note Pharmacist Note Date: 08/28/18. Pharmacist note: pt has been started on vancomycin for osteomyelitis of the R great toe. He received vancomycin IV 500mg in the ER this afternoon, followed by 1g IV q12h to begin ~4.5 hours later. He was last on vancomycin here in February 2018, SCr is about at his baseline and I have resumed similar dosing. Previous cultures notable for MSSA and Strep grp B, current cultures are pending. Pt was evaluated by Dr. Villalobos with plans for likely amputation. We will continue to monitor and follow up with a level in a few days. Graham Baker Pharm.D. Aug 28, 2018 20:38
[2018-08-28] MEDS: VANCOMYCIN HCL 1,000 MG, VIAL MATE ADAPTER 1 EACH in D5W 250 ML IV SCH (21:33)
[2018-08-28] MEDS: HumaLOG INSULIN (NovoLOG) PER UNIT SC SCH (22:25)
[2018-08-28] MEDS: HEPARIN SOD (PORCINE) 5000 UNITS/ML VIAL SQ SCH (22:26)
[2018-08-28] MEDS: LEVEMIR (INSULIN DETEMIR) 1 UNITS/0.01ML SC SCH (22:26)
[2018-08-29 02:00] VITALS: BP 118/67
[2018-08-29] MEDS: HEPARIN SOD (PORCINE) 5000 UNITS/ML VIAL SQ SCH ×3 (05:07→20:55)
[2018-08-29 06:00] VITALS: BP 130/75
[2018-08-29 06:26] LABS: BASO % 0.5 % (0.0-1.0); EOS # 0.2 10^3/uL (0.0-0.50); EOS % 2.6 % (0.0-3.0); HEMATOCRIT 37.9 % (42.0-52.0); LYMPH # 1.5 10^3/uL (1.5-4.5); LYMPH % 17.7 % (24.0-44.0); MEAN CORPUSCULAR HEMOGLOBIN 28.3 pg (27.0-33.0); MEAN CORPUSCULAR VOLUME 85.7 fl (80.0-96.0); MONO % 12.2 % (0.0-5.0); NEUTROPHILS # 5.7 10^3/uL (1.8-7.7); NEUTROPHILS % 66.6 % (36.0-66.0); PLATELET COUNT, AUTOMATED 153 10^3/uL (150-450); RED BLOOD COUNT 4.42 10^6/uL (4.30-6.10); WHITE BLOOD COUNT 8.5 10^3/uL (4.0-10.0)
[2018-08-29 06:38] LABS: HEMOGLOBIN 12.5 g/dl (13.5-17.5)
[2018-08-29 06:49] LABS: ALBUMIN 2.4 GM/DL (3.2-5.2); BILIRUBIN,TOTAL 0.6 MG/DL (0.2-1.0); C REACTIVE PROTEIN QUANTITATIV 17.8 MG/DL (0.00-0.30); CALCIUM LEVEL 7.3 MG/DL (8.5-10.1); CREATININE FOR GFR 1.88 MG/DL (0.70-1.30); GLOMERULAR FILTRATION RATE 40.3 (>56); POTASSIUM SERUM 3.9 MEQ/L (3.5-5.1); TOTAL PROTEIN 6.2 GM/DL (6.4-8.2)
[2018-08-29] MEDS: ASPIRIN 81 MG ENTERIC TAB PO SCH (09:12)
[2018-08-29] MEDS: LEVEMIR (INSULIN DETEMIR) 1 UNITS/0.01ML SC SCH (09:12)
[2018-08-29] MEDS: HumaLOG INSULIN (NovoLOG) PER UNIT SC SCH ×4 (09:12→20:29)
[2018-08-29] MEDS: VITAMIN D 1,000 INTERNATIONAL UNITS TABLET PO SCH (09:12)
[2018-08-29] MEDS: VANCOMYCIN HCL 1,000 MG, VIAL MATE ADAPTER 1 EACH in D5W 250 ML IV SCH ×2 (09:13→20:54)
[2018-08-29 10:00] VITALS: BP 103/52
--- NOTE | 2018-08-29 11:39 | IPNPDOC ---
Text Note Date of Service The patient was seen on 08/29/18. NOTE Subjective: Feels well. denies any complaints. Had fevers overnight. PHYSICAL EXAMINATION: Vitals: (see below) General: No acute distress, laying comfortably in bed. HEENT: Moist mucous membranes. Neck: No JVD or lymphadenopathy Cardiac: RRR, No murmurs Pulm: Clear to auscultation b/l. No wheezing, rhonchi Abd: NT/ND + BS. obese Ext: No edema or cyanosis. Distal pulses intact. Right great toe ulceration, mild drainage, foul-smelling. There does not appear to be extending cellulitis. LABORATORY DATA: See below. IMAGING: Right foot x-ray 08/28/18 Impression: Osteomyelitis changes right great toe distal phalanx. ASSESSMENT/PLAN: 1. Right great toe osteomyelitis, in a diabetic patient. Patient has been started on IV vancomycin, blood/wound culture pending. Gentle IV fluid hydration. No signs of sepsis at this time. Evaluated by Dr. Greer with plan for amputation, likely Friday. 2. Insulin-dependent diabetes mellitus- restarted on Levemir. Sliding scale ins ulin. Consistent carb diet. 3. Chronic kidney disease stage III. Mild elevation of creatinine likely secondary to the underlying infection. Started on IV fluids. We'll continue to monitor. Hold lisinopril for now. 4. Hypertension controlled 5. Tobacco abuse counseled cessation. Refuses nicotine patch. DVT prophylaxis heparin subcutaneous VS,Fishbone, I+O VS, Fishbone, I+O Laboratory Tests 08/28/18 16:05 Red Blood Count 5.20, Mean Corpuscular Volume 86.3, Mean Corpuscular Hemoglobin 28.5, Mean Corpuscular Hemoglobin Concent 33.0, Red Cell Distribution Width 13.2 08/29/18 05:32 Red Blood Count 4.42, Mean Corpuscular Volume 85.7, Mean Corpuscular Hemoglobin 28.3, Mean Corpuscular Hemoglobin Concent 33.0, Red Cell Distribution Width 13.2, Neutrophils (%) (Auto) 66.6 H, Lymphocytes (%) (Auto) 17.7 L, Monocytes (%) (Auto) 12.2 H, Eosinophils (%) (Auto) 2.6, Basophils (%) (Auto) 0.5, Neutrophils # (Auto) 5.7, Lymphocytes # (Auto) 1.5, Monocytes # (Auto) 1.0 H, Eosinophils # (Auto) 0.2, Basophils # (Auto) 0.0, Calcium Level 7.3 L, Aspartate Amino Transf (AST/SGOT) 22, Alanine Aminotransferase (ALT/SGPT) 32, Alkaline Phosphatase 61, Total Bilirubin 0.6, Total Protein 6.2 L, Albumin 2.4 L Vital Signs Date Time Temp Pulse Resp B/P (MAP) Pulse Ox O2 Delivery O2 Flow Rate FiO2 08/29/18 10:00 98.9 68 24 103/52 (69) 93 08/28/18 20:18 Room Air I&O- Last 24 Hours up to 6 AM 08/29/18 06:00 Intake Total 1520 ml Output Total 400 ml Balance 1120 ml LAMINE SIEGEL MD Aug 29, 2018 11:39
[2018-08-29 14:00] VITALS: BP 126/68
[2018-08-29 18:00] VITALS: BP 166/62
[2018-08-29] MEDS ORDERED: LEVEMIR (INSULIN DETEMIR) 1 UNITS/0.01ML SC ONE (20:45)
[2018-08-29] MEDS: ACETAMINOPHEN TAB 650MG DOSE (2X325MG) PO PRN (21:14)
[2018-08-29 22:00] VITALS: BP 143/61
[2018-08-30 02:00] VITALS: BP 140/67
[2018-08-30 06:00] VITALS: BP 140/80
[2018-08-30] MEDS: HEPARIN SOD (PORCINE) 5000 UNITS/ML VIAL SQ SCH ×3 (06:20→20:49)
[2018-08-30 06:32] LABS: BASO % 0.5 % (0.0-1.0); EOS # 0.3 10^3/uL (0.0-0.50); EOS % 5.2 % (0.0-3.0); HEMOGLOBIN 12.9 g/dl (13.5-17.5); LYMPH # 1.6 10^3/uL (1.5-4.5); LYMPH % 23.7 % (24.0-44.0); MEAN CORPUSCULAR HEMOGLOBIN 28.2 pg (27.0-33.0); MEAN CORPUSCULAR HGB CONC 32.3 g/dl (32.0-36.5); MEAN CORPUSCULAR VOLUME 87.5 fl (80.0-96.0); MONO # 0.7 10^3/uL (0.0-0.8); MONO % 10.2 % (0.0-5.0); NEUTROPHILS % 60.2 % (36.0-66.0); PLATELET COUNT, AUTOMATED 142 10^3/uL (150-450); RED BLOOD COUNT 4.57 10^6/uL (4.30-6.10); WHITE BLOOD COUNT 6.6 10^3/uL (4.0-10.0)
[2018-08-30 06:50] LABS: ALBUMIN 2.2 GM/DL (3.2-5.2); BILIRUBIN,TOTAL 0.3 MG/DL (0.2-1.0); C REACTIVE PROTEIN QUANTITATIV 15.5 MG/DL (0.00-0.30); CALCIUM LEVEL 7.8 MG/DL (8.5-10.1); CREATININE FOR GFR 1.75 MG/DL (0.70-1.30); GLOMERULAR FILTRATION RATE 43.8 (>56); MAGNESIUM LEVEL 2.4 MG/DL (1.8-2.4); POTASSIUM SERUM 3.9 MEQ/L (3.5-5.1)
[2018-08-30] MEDS: VITAMIN D 1,000 INTERNATIONAL UNITS TABLET PO SCH (08:46)
[2018-08-30] MEDS: ASPIRIN 81 MG ENTERIC TAB PO SCH (08:46)
[2018-08-30] MEDS: VANCOMYCIN HCL 1,000 MG, VIAL MATE ADAPTER 1 EACH in D5W 250 ML IV SCH ×2 (08:47→20:48)
[2018-08-30] MEDS: HumaLOG INSULIN (NovoLOG) PER UNIT SC SCH ×4 (08:47→21:05)
[2018-08-30] MEDS: LEVEMIR (INSULIN DETEMIR) 1 UNITS/0.01ML SC SCH ×2 (08:48→21:05)
--- NOTE | 2018-08-30 09:01 | PHACANCOPD ---
PHARMACY VANCOMYCIN DOSING Pt Demographics Demographics Patient Age:53 , Weight:121.900 , Gender: male Adjusted Body Weight Date: 08/28/18, Adjusted Body Weight: [88.6] Kg Events Past 24 Hours Events Past 24 Hours: YES: Change in CrCl, Fever; NO: Dialysis, Diuretic Therapy, Elevation in WBC, Pending Diagnostics, Pending Procedures, Other Vancomycin Vancomycin indication: osteomyelitis Vancomycin Target Ranges: 15-20 mcg/ml Vancomycin Load Y/N: Yes Load Dose Date Time Vancomycin Load Dose: 500mg Date: 08/28 Time: ~16:30 Vancomycin Dose Date: 08/28/18. Current Vancomycin Dose: [1g IV q12h @21] Intermittent Dosing?: No Labs Labs Vital Signs Label Value Date Time Patient Temperature 96.5 degrees F 08/30/18 0600 Temperature Source Temporal 08/30/18 0600 Patient Temperature 97.5 degrees F 08/30/18 0200 Temperature Source Temporal 08/30/18 0200 Patient Temperature 97.6 degrees F 08/29/18 2330 Temperature Source Temporal 08/29/18 2330 Patient Temperature 100.2 degrees F 08/29/18 2200 Temperature Source Temporal 08/29/18 2200 Item Value Date Time White Blood Count 6.6 10^3/uL 08/30/18 0541 White Blood Count 8.5 10^3/uL 08/29/18 0532 White Blood Count 8.7 10^3/uL 08/28/18 1605 Creatinine 1.75 MG/DL H 08/30/18 0541 Creatinine 1.88 MG/DL H 08/29/18 0532 Creatinine 1.95 MG/DL H 08/28/18 1605 Lactic Acid Level 2.1 MMOL/L *H 08/28/18 1627 C-Reactive Protein, Quantitative 15.50 MG/DL H 08/30/18 0541 C-Reactive Protein, Quantitative 17.80 MG/DL H 08/29/18 0532 Vancomycin Level Trough 13.8 UG/ML 08/30/18 0754 Micro Microbiology 08/28/18 Blood Culture - Preliminary, Resulted No growth after 24 hours . All specim... 08/28/18 Wound Culture - Preliminary, Resulted Staphylococcus Aureus Strep Agalactiae Group B Creatinine Clearance Date:08/28/18. Creatinine Clearance: [55 ml/min]. Assessment and Plan Maintaining Current Dose?: Yes Reason for dose change: No Dose Change Pharmacist Note Pharmacist Note 08/29/18: Trough today resulted at 13.8mcg/ml. This pt has a hx of his CRCL fluctuating. He also will likely continue to accumulate. At this time we will continue the current dose of Vanco 1G IV Q12H@21. We will continue to monitor and adjust dose as needed. Date: 08/28/18. Pharmacist note: pt has been started on vancomycin for osteomyelitis of the R great toe. He received vancomycin IV 500mg in the ER this afternoon, followed by 1g IV q12h to begin ~4.5 hours later. He was last on vancomycin here in February 2018, SCr is about at his baseline and I have resumed similar dosing. Previous cultures notable for MSSA and Strep grp B, current cultures are pending. Pt was evaluated by Dr. Villalobos with plans for likely amputation. We will continue to monitor and follow up with a level in a few days. [facility]OR[facility] Aug 30, 2018 09:01
[2018-08-30 10:00] VITALS: BP 131/73
--- NOTE | 2018-08-30 10:32 | IPNPDOC ---
Text Note Date of Service The patient was seen on 08/30/18. NOTE Subjective: No fevers overnight. No CP/SOB/palpitations. Looking forward for OR tomorrow. PHYSICAL EXAMINATION: Vitals: (see below) General: No acute distress, laying comfortably in bed. HEENT: Moist mucous membranes. Neck: No JVD or lymphadenopathy Cardiac: RRR, No murmurs Pulm: Clear to auscultation b/l. No wheezing, rhonchi Abd: NT/ND + BS. obese Ext: No edema or cyanosis. Distal pulses intact. Right great toe ulceration, mild drainage, foul-smelling. There does not appear to be extending cellulitis. LABORATORY DATA: See below. IMAGING: Right foot x-ray 08/28/18 Impression: Osteomyelitis changes right great toe distal phalanx. ASSESSMENT/PLAN: 1. Right great toe osteomyelitis, in a diabetic patient. Patient has been started on IV vancomycin, blood/wound culture final pending; preliminary with staph and strep agal. Gentle IV fluid hydration. No signs of sepsis at this time. Evaluated by Dr. Greer with plan for amputation, likely Friday. 2. Insulin-dependent diabetes mellitus- restarted on Levemir. Sliding scale insulin. Consistent carb diet. 3. Chronic kidney disease stage III. Cr improving s/p IVF. We'll continue to monitor. Hold lisinopril for now. 4. Hypertension controlled 5. Tobacco abuse counseled cessation. Refuses nicotine patch. DVT prophylaxis heparin subcutaneous VS,Fishbone, I+O VS, Fishbone, I+O Laboratory Tests 08/30/18 05:41 Red Blood Count 4.57, Mean Corpuscular Volume 87.5, Mean Corpuscular Hemoglobin 28.2, Mean Corpuscular Hemoglobin Concent 32.3, Red Cell Distribution Width 13.0, Neutrophils (%) (Auto) 60.2, Lymphocytes (%) (Auto) 23.7 L, Monocytes (%) (Auto) 10.2 H, Eosinophils (%) (Auto) 5.2 H, Basophils (%) (Auto) 0.5, Neutrophils # (Auto) 4.0, Lymphocytes # (Auto) 1.6, Monocytes # (Auto) 0.7, Eosinophils # (Auto) 0.3, Basophils # (Auto) 0.0, Calcium Level 7.8 L, Aspartate Amino Transf (AST/SGOT) 33, Alanine Aminotransferase (ALT/SGPT) 48, Alkaline Phosphatase 79, Total Bilirubin 0.3, Total Protein 7.0, Albumin 2.2 L Vital Signs Date Time Temp Pulse Resp B/P (MAP) Pulse Ox O2 Delivery O2 Flow Rate FiO2 08/30/18 06:00 96.5 63 17 140/80 (100) 99 08/28/18 20:18 Room Air I&O- Last 24 Hours up to 6 AM 08/30/18 06:00 Intake Total 1770 ml Output Total 800 ml Balance 970 ml LAMINE SIEGEL MD Aug 30, 2018 10:32
[2018-08-30 14:00] VITALS: BP 131/67
[2018-08-30 18:00] VITALS: BP 129/70
[2018-08-30 22:00] VITALS: BP 157/66
[2018-08-31] VITALS (10 sets, daily range): BP systolic 108–146; BP diastolic 55–78
[2018-08-31] MEDS: HEPARIN SOD (PORCINE) 5000 UNITS/ML VIAL SQ SCH ×2 (05:30→12:57)
[2018-08-31 06:08] LABS: BASO % 0.5 % (0.0-1.0); EOS # 0.5 10^3/uL (0.0-0.50); EOS % 6.2 % (0.0-3.0); HEMATOCRIT 37.7 % (42.0-52.0); HEMOGLOBIN 12.4 g/dl (13.5-17.5); LYMPH # 1.6 10^3/uL (1.5-4.5); LYMPH % 22.4 % (24.0-44.0); MEAN CORPUSCULAR HEMOGLOBIN 28.5 pg (27.0-33.0); MEAN CORPUSCULAR HGB CONC 32.9 g/dl (32.0-36.5); MEAN CORPUSCULAR VOLUME 86.7 fl (80.0-96.0); MONO # 0.6 10^3/uL (0.0-0.8); MONO % 7.5 % (0.0-5.0); NEUTROPHILS # 4.6 10^3/uL (1.8-7.7); NEUTROPHILS % 63.1 % (36.0-66.0); PLATELET COUNT, AUTOMATED 170 10^3/uL (150-450); RED BLOOD COUNT 4.35 10^6/uL (4.30-6.10); WHITE BLOOD COUNT 7.3 10^3/uL (4.0-10.0)
[2018-08-31 06:36] LABS: ALBUMIN 2.2 GM/DL (3.2-5.2); BILIRUBIN,TOTAL 0.2 MG/DL (0.2-1.0); C REACTIVE PROTEIN QUANTITATIV 11.4 MG/DL (0.00-0.30); CALCIUM LEVEL 8.1 MG/DL (8.5-10.1); CREATININE FOR GFR 1.56 MG/DL (0.70-1.30); MAGNESIUM LEVEL 2.1 MG/DL (1.8-2.4); POTASSIUM SERUM 3.8 MEQ/L (3.5-5.1); TOTAL PROTEIN 6.8 GM/DL (6.4-8.2)
[2018-08-31] MEDS: HumaLOG INSULIN (NovoLOG) PER UNIT SC SCH ×4 (07:30→21:00)
[2018-08-31] MEDS: LEVEMIR (INSULIN DETEMIR) 1 UNITS/0.01ML SC SCH ×2 (09:00→21:18)
[2018-08-31] MEDS: ASPIRIN 81 MG ENTERIC TAB PO SCH (09:00)
[2018-08-31] MEDS: VITAMIN D 1,000 INTERNATIONAL UNITS TABLET PO SCH (09:20)
[2018-08-31] MEDS: VANCOMYCIN HCL 1,000 MG, VIAL MATE ADAPTER 1 EACH in D5W 250 ML IV SCH (09:21)
--- NOTE | 2018-08-31 14:13 | IPNPDOC ---
Text Note Date of Service The patient was seen on 08/31/18. NOTE Subjective: Denies any complaints overnight. Looking forward to go to the OR. PHYSICAL EXAMINATION: Vitals: (see below) General: No acute distress, laying comfortably in bed. HEENT: Moist mucous membranes. Neck: No JVD or lymphadenopathy Cardiac: RRR, No murmurs Pulm: Clear to auscultation b/l. No wheezing, rhonchi Abd: NT/ND + BS. obese Ext: No edema or cyanosis. Distal pulses intact. Right great toe ulceration, mild drainage, non foul-smelling. There does not appear to be extending cellulitis. LABORATORY DATA: See below. IMAGING: Right foot x-ray 08/28/18 Impression: Osteomyelitis changes right great toe distal phalanx. ASSESSMENT/PLAN: 1. Right great toe osteomyelitis, in a diabetic patient. Patient has been started on IV vancomycin, blood/wound culture final pending; preliminary with staph and strep agal. Gentle IV fluid hydration. No signs of sepsis at this time. Evaluated by Dr. Greer with plan for amputation, likely Today. 2. Insulin-dependent diabetes mellitus- restarted on Levemir. Sliding scale insulin. Consistent carb diet. 3. Chronic kidney disease stage III. Cr improving s/p IVF. We'll continue to monitor. Hold lisinopril for now. 4. Hypertension controlled 5. Tobacco abuse counseled cessation. Refuses nicotine patch. DVT prophylaxis heparin subcutaneous VS,Fishbone, I+O VS, Fishbone, I+O Laboratory Tests 08/31/18 05:39 Red Blood Count 4.35, Mean Corpuscular Volume 86.7, Mean Corpuscular Hemoglobin 28.5, Mean Corpuscular Hemoglobin Concent 32.9, Red Cell Distribution Width 12.8, Neutrophils (%) (Auto) 63.1, Lymphocytes (%) (Auto) 22.4 L, Monocytes (%) (Auto) 7.5 H, Eosinophils (%) (Auto) 6.2 H, Basophils (%) (Auto) 0.5, Neutrophils # (Auto) 4.6, Lymphocytes # (Auto) 1.6, Monocytes # (Auto) 0.6, Eosinophils # (Auto) 0.5, Basophils # (Auto) 0.0, Calcium Level 8.1 L, Aspartate Amino Transf (AST/SGOT) 34, Alanine Aminotransferase (ALT/SGPT) 51, Alkaline Phosphatase 78, Total Bilirubin 0.2, Total Protein 6.8, Albumin 2.2 L Vital Signs Date Time Temp Pulse Resp B/P (MAP) Pulse Ox O2 Delivery O2 Flow Rate FiO2 08/31/18 14:00 97.1 60 18 128/72 (90) 96 08/28/18 20:18 Room Air I&O- Last 24 Hours up to 6 AM 08/31/18 06:00 Intake Total 2655 ml Output Total 2250 ml Balance 405 ml LAMINE SIEGEL MD Aug 31, 2018 14:13
[2018-08-31] MEDS ORDERED: PROPOFOL 200 MG/20 ML VIAL As Ordered ONE (17:38)
[2018-08-31] MEDS ORDERED: fentaNYL 100 MCG/2 ML INJECTION (J3010) As Ordered ONE (17:38)
[2018-08-31] MEDS ORDERED: MIDAZOLAM INJ 2 MG/2 ML VIAL (J2250) As Ordered ONE (17:39)
[2018-08-31] MEDS ORDERED: LIDOCAINE 2% INJ 100 MG/5 ML SDV (FOR ANES.) As Ordered ONE (17:40)
--- NOTE | 2018-08-31 18:06 | IPN ---
DATE: 08/30/2018 CHIEF COMPLAINT: Patient seen today for evaluation of an infected right big toe with osteomyelitis of the distal phalanx. The patient states he feels better today. He is not having any fever or chills. No shortness of breath or chest pain. There is a bandage present on the patient's right foot. Review of x-rays is positive for osteomyelitis. His wound cultures are pending. Pedal pulses are palpable to his right foot. ASSESSMENT: Osteomyelitis of the right big toe. PLAN: We discussed a partial right hallux amputation of the right foot tomorrow. The patient is to be nothing by mouth (n.p.o.) after breakfast. The patient can have his 6:00 a.m. heparin dose and then hold after that for surgery. His questions were answered.
[2018-08-31] MEDS ORDERED: BUPIVACAINE HCL 0.5% 30 ML VIAL As Ordered ONE (18:10)
[2018-08-31] MEDS ORDERED: GENTAMICIN SULF INJ 80MG/2ML VIAL (J1580) As Ordered ONE (18:10)
[2018-08-31] MEDS ORDERED: LIDOCAINE 2% MDV 20 ML VIAL As Ordered ONE (18:10)
[2018-08-31] MEDS ORDERED: PERCOCET 5MG/325MG TAB PO PRN (20:00)
[2018-08-31] MEDS ORDERED: LR 1,000 ML IV SCH (20:00)
[2018-08-31] MEDS ORDERED: ONDANSETRON 4MG/2ML VIAL (J2405) IV PRN (20:00)
[2018-09-01] VITALS (7 sets, daily range): BP systolic 120–139; BP diastolic 63–75
[2018-09-01] MEDS: HEPARIN SOD (PORCINE) 5000 UNITS/ML VIAL SQ SCH ×3 (06:17→21:55)
[2018-09-01 06:59] LABS: BASO % 0.5 % (0.0-1.0); EOS # 0.4 10^3/uL (0.0-0.50); EOS % 6.4 % (0.0-3.0); HEMOGLOBIN 12.6 g/dl (13.5-17.5); LYMPH # 1.1 10^3/uL (1.5-4.5); LYMPH % 18.8 % (24.0-44.0); MEAN CORPUSCULAR HEMOGLOBIN 28.4 pg (27.0-33.0); MEAN CORPUSCULAR HGB CONC 32.3 g/dl (32.0-36.5); MEAN CORPUSCULAR VOLUME 87.8 fl (80.0-96.0); MONO # 0.4 10^3/uL (0.0-0.8); MONO % 7.9 % (0.0-5.0); NEUTROPHILS # 3.7 10^3/uL (1.8-7.7); PLATELET COUNT, AUTOMATED 189 10^3/uL (150-450); RED BLOOD COUNT 4.44 10^6/uL (4.30-6.10); WHITE BLOOD COUNT 5.6 10^3/uL (4.0-10.0)
--- NOTE | 2018-09-01 07:20 | REP ---
Right foot three views post foot surgery: The great toe as been amputated at the base of the proximal phalange . The second digit has been amputated at the midshaft of the metatarsal. There is a fracture of the third digit proximal phalange. The base of the third digit proximal phalange appears fused to the head of the metatarsal. No fracture, dislocation or amputation of the fourth or fifth digits are identified. There are large calcaneal plantar and Achilles spurs. Electronically Signed by Rd Mcgowan MD 09/01/2018 07:12 A
[2018-09-01 07:27] LABS: ALBUMIN 2.1 GM/DL (3.2-5.2); BILIRUBIN,TOTAL 0.3 MG/DL (0.2-1.0); C REACTIVE PROTEIN QUANTITATIV 10.3 MG/DL (0.00-0.30); CREATININE FOR GFR 1.63 MG/DL (0.70-1.30); GLOMERULAR FILTRATION RATE 47.5 (>56); MAGNESIUM LEVEL 1.9 MG/DL (1.8-2.4); POTASSIUM SERUM 4.4 MEQ/L (3.5-5.1); TOTAL PROTEIN 6.7 GM/DL (6.4-8.2)
[2018-09-01] MEDS: ASPIRIN 81 MG ENTERIC TAB PO SCH (08:24)
[2018-09-01] MEDS: LEVEMIR (INSULIN DETEMIR) 1 UNITS/0.01ML SC SCH ×2 (08:24→21:55)
[2018-09-01] MEDS: VITAMIN D 1,000 INTERNATIONAL UNITS TABLET PO SCH (08:24)
[2018-09-01] MEDS: HumaLOG INSULIN (NovoLOG) PER UNIT SC SCH ×4 (08:24→21:55)
--- NOTE | 2018-09-01 19:19 | IPN ---
DATE: 09/01/2018 Patient seen and examined status-post right big toe hallux amputation of right foot. Currently comfortable and afebrile. Denies any chest pain, pressure or discomfort. Denies any fevers or chills. VITAL SIGNS: Temperature 97.4, pulse 62, respirations 17, blood pressure 137/68, pulse ox 95% on room air. LABORATORY: WBC 5.6, hemoglobin and hematocrit 12.6 over 39, platelets 189. Chemistry: Sodium 135, potassium 4.4, chloride 102, bicarbonate 26, BUN 20, creatine 1.6, C-reactive protein 10.3. PHYSICAL EXAMINATION: GENERAL: Patient is comfortable in no acute distress. HEENT: Moist mucous membranes. NECK: Supple. CARDIAC: Regular S1, S2. PULMONARY: Bilateral clear. No wheeze, rales or rhonchi. ABDOMEN: Soft, obese and nontender. Positive bowel sounds. EXTREMITIES: Right lower extremity, dressing clean, dry and intact. DP PT pulses intact. Left lower extremity history of old stump well healed, status-post first digit amputation. ASSESSMENT AND PLAN: This is a 53-year-old male patient with underlying medical history insulin dependant diabetes mellitus, hypertension, dyslipidemia, morbid obesity, CKD stage 3 who presented with right 1st toe infection. PROBLEMS: 1. Right 1st toe osteomyelitis status-post amputation by Dr. Greer. Currently on Ancef for antibiotics. Sending bone culture. Further recommendation and wound care as per podiatry. 2. Insulin dependant type 2 diabetes. Continue basal bolus insulin. Followup fingersticks. 3. Chronic kidney disease stage 3, currently at baseline, initially given IV fluids. We will continue to monitor. 4. Hypertension. Lisinopril on hold given elevated creatinine. Monitor blood pressure, adjust medication as needed. 5. Tobacco abuse, refused nicotine patch, counseling provided. 6. Obesity complicating care. 7. DVT prophylaxis. Heparin subcu. DISPOSITION: Pending cultures. We will get A1c to assess patient's diabetic control, pending bone cultures.
[2018-09-02 02:00] VITALS: BP 132/63
[2018-09-02] MEDS: HEPARIN SOD (PORCINE) 5000 UNITS/ML VIAL SQ SCH ×3 (05:50→21:34)
[2018-09-02 06:00] VITALS: BP 134/70
[2018-09-02 06:29] LABS: BASO % 0.6 % (0.0-1.0); EOS # 0.4 10^3/uL (0.0-0.50); EOS % 6.8 % (0.0-3.0); HEMATOCRIT 37.9 % (42.0-52.0); HEMOGLOBIN 12.7 g/dl (13.5-17.5); LYMPH # 1.2 10^3/uL (1.5-4.5); LYMPH % 22.2 % (24.0-44.0); MEAN CORPUSCULAR HEMOGLOBIN 28.7 pg (27.0-33.0); MEAN CORPUSCULAR HGB CONC 33.5 g/dl (32.0-36.5); MEAN CORPUSCULAR VOLUME 85.7 fl (80.0-96.0); MONO # 0.4 10^3/uL (0.0-0.8); NEUTROPHILS # 3.3 10^3/uL (1.8-7.7); PLATELET COUNT, AUTOMATED 206 10^3/uL (150-450); RED BLOOD COUNT 4.42 10^6/uL (4.30-6.10); WHITE BLOOD COUNT 5.3 10^3/uL (4.0-10.0)
[2018-09-02 06:47] LABS: HEMOGLOBIN A1c 9.9 %
[2018-09-02 06:54] LABS: ALBUMIN 2.3 GM/DL (3.2-5.2); BILIRUBIN,TOTAL 0.2 MG/DL (0.2-1.0); C REACTIVE PROTEIN QUANTITATIV 5.98 MG/DL (0.00-0.30); CALCIUM LEVEL 8.6 MG/DL (8.5-10.1); CREATININE FOR GFR 1.49 MG/DL (0.70-1.30); GLOMERULAR FILTRATION RATE 52.7 (>56); MAGNESIUM LEVEL 1.8 MG/DL (1.8-2.4); POTASSIUM SERUM 4.3 MEQ/L (3.5-5.1); TOTAL PROTEIN 6.7 GM/DL (6.4-8.2)
[2018-09-02] MEDS: HumaLOG INSULIN (NovoLOG) PER UNIT SC SCH ×4 (08:30→21:34)
[2018-09-02] MEDS: VITAMIN D 1,000 INTERNATIONAL UNITS TABLET PO SCH (08:31)
[2018-09-02] MEDS: ASPIRIN 81 MG ENTERIC TAB PO SCH (08:31)
[2018-09-02] MEDS: LEVEMIR (INSULIN DETEMIR) 1 UNITS/0.01ML SC SCH ×2 (08:31→21:34)
[2018-09-02 10:00] VITALS: BP 126/72
--- NOTE | 2018-09-02 11:06 | RO ---
DATE OF PROCEDURE: 08/31/2018 PREOPERATIVE DIAGNOSIS: Osteomyelitis, right big toe. POSTOPERATIVE DIAGNOSIS: Osteomyelitis, right big toe. SURGEON: Tyler Greer DPM TIME MOTION ANALYST: None. ANESTHESIA: Local monitored anesthesia care (MAC). IRRIGATION: DIlute gentamicin solution 1 liter low-pressure pulse lavage system. SURGERY PERFORMED: Partial right hallux amputation. ESTIMATED BLOOD LOSS: 10 mL. HEMOSTASIS: None. DESCRIPTION OF OPERATION: On 08/31/2018, this 53-year-old white male was taken from his hospital room to the operating room and placed on the operating table in a supine position. Following the induction of intravenous (IV) sedation and local and regional anesthesia, the right lower extremity was prepped and draped in the usual aseptic manner. Attention was directed to the patient's right foot, where there was noted to be drainage coming from the right hallux, a full-thickness ulceration down to bone, which was directly visible in the wound on the right foot. The following procedure was performed: RIGHT PARTIAL HALLUX AMPUTATION Attention was directed to the patient's right hallux, and a modified fishmouth incision was placed on the patient's right foot. Dissection was carried straight to bone. The toe was disarticulated. The distal phalanx was sent for aerobic and anaerobic culture. The skin flap was elevated in dorsal direction; and utilizing a power saw, an osteotomy was performed at the neck of the proximal phalanx from dorsal to plantar through and through and extirpated from the wound. All bleeders as encountered were electrocoagulated utilizing a low-pressure pulse lavage system. 1 liter of dilute gentamicin was irrigated through the wound. Utilizing 3-0 nylon, the wound was closed with simple interrupted and horizontal mattress-type sutures. A sterile dressing was applied to the patient's right foot, consisting of Adaptic, 4 x 4's, and Kerlix. The patient having apparently tolerated the surgical procedure well was taken from the operating room (OR) to the recovery room for further monitoring by the anesthesia department.
[2018-09-02 14:00] VITALS: BP 141/80
[2018-09-02 18:00] VITALS: BP 143/78
--- NOTE | 2018-09-02 19:52 | IPNPDOC ---
Text Note Date of Service The patient was seen on 09/02/18. NOTE Patient seen and examined. Currently comfortable and afebrile. Denies any chest pain, pressure or discomfort. Denies any fevers or chills. wanting to be discharged PHYSICAL EXAMINATION: GENERAL: Patient is comfortable in no acute distress. HEENT: Moist mucous membranes. NECK: Supple. CARDIAC: Regular S1, S2. PULMONARY: Bilateral clear. No wheeze, rales or rhonchi. ABDOMEN: Soft, obese and nontender. Positive bowel sounds. EXTREMITIES: Right lower extremity, dressing clean, dry and intact. DP PT pulses intact. Left lower extremity history of old stump well healed, status-post first digit amputation. ASSESSMENT AND PLAN: This is a 53-year-old male patient with underlying medical history insulin dependant diabetes mellitus, hypertension, dyslipidemia, morbid obesity, CKD stage 3 who presented with right 1st toe infection. PROBLEMS: 1. Right 1st toe osteomyelitis status-post amputation by Dr. Greer. Currently on Ancef for antibiotics. Sending bone culture. Further recommendation and wound care as per podiatry. 2. Insulin dependant type 2 diabetes. Continue basal bolus insulin. Followup fingersticks. insulin dose increased 3. Chronic kidney disease stage 3, currently at baseline, initially given IV fluids. We will continue to monitor. 4. Hypertension. Lisinopril on hold given elevated creatinine. Monitor blood pressure, adjust medication as needed. 5. Tobacco abuse, refused nicotine patch, counseling provided. 6. Obesity complicating care. 7. DVT prophylaxis. Heparin subcu. DISPOSITION: pending bone cultures. Passed PT VS,Fishbone, I+O VS, Fishbone, I+O Laboratory Tests 09/02/18 06:09 Red Blood Count 4.42, Mean Corpuscular Volume 85.7, Mean Corpuscular Hemoglobin 28.7, Mean Corpuscular Hemoglobin Concent 33.5, Red Cell Distribution Width 12.7, Neutrophils (%) (Auto) 63.0, Lymphocytes (%) (Auto) 22.2 L, Monocytes (%) (Auto) 7.0 H, Eosinophils (%) (Auto) 6.8 H, Basophils (%) (Auto) 0.6, Neutrophi ls # (Auto) 3.3, Lymphocytes # (Auto) 1.2 L, Monocytes # (Auto) 0.4, Eosinophils # (Auto) 0.4, Basophils # (Auto) 0.0, Calcium Level 8.6, Aspartate Amino Transf (AST/SGOT) 24, Alanine Aminotransferase (ALT/SGPT) 32, Alkaline Phosphatase 85, Total Bilirubin 0.2, Total Protein 6.7, Albumin 2.3 L Vital Signs Date Time Temp Pulse Resp B/P (MAP) Pulse Ox O2 Delivery O2 Flow Rate FiO2 09/02/18 18:00 97.1 64 17 143/78 (99) 98 08/31/18 19:58 Room Air I&O- Last 24 Hours up to 6 AM 09/02/18 06:00 Intake Total 3850 ml Output Total 2375 ml Balance 1475 ml YURY CURTIS MD Sep 02, 2018 19:52
[2018-09-02 22:00] VITALS: BP 154/87
[2018-09-03 02:00] VITALS: BP 137/79
[2018-09-03] MEDS: HEPARIN SOD (PORCINE) 5000 UNITS/ML VIAL SQ SCH (05:29)
[2018-09-03 06:00] VITALS: BP 139/89
[2018-09-03 06:23] LABS: BASO % 0.7 % (0.0-1.0); EOS # 0.3 10^3/uL (0.0-0.50); EOS % 5.8 % (0.0-3.0); HEMATOCRIT 38.4 % (42.0-52.0); HEMOGLOBIN 12.7 g/dl (13.5-17.5); LYMPH # 1.4 10^3/uL (1.5-4.5); LYMPH % 23.3 % (24.0-44.0); MEAN CORPUSCULAR HEMOGLOBIN 28.5 pg (27.0-33.0); MEAN CORPUSCULAR HGB CONC 33.1 g/dl (32.0-36.5); MEAN CORPUSCULAR VOLUME 86.3 fl (80.0-96.0); MONO # 0.4 10^3/uL (0.0-0.8); MONO % 7.5 % (0.0-5.0); NEUTROPHILS # 3.6 10^3/uL (1.8-7.7); NEUTROPHILS % 62.4 % (36.0-66.0); PLATELET COUNT, AUTOMATED 236 10^3/uL (150-450); RED BLOOD COUNT 4.45 10^6/uL (4.30-6.10); WHITE BLOOD COUNT 5.8 10^3/uL (4.0-10.0)
[2018-09-03 06:51] LABS: ALBUMIN 2.2 GM/DL (3.2-5.2); BILIRUBIN,TOTAL 0.1 MG/DL (0.2-1.0); C REACTIVE PROTEIN QUANTITATIV 3.01 MG/DL (0.00-0.30); CALCIUM LEVEL 8.3 MG/DL (8.5-10.1); CREATININE FOR GFR 1.42 MG/DL (0.70-1.30); GLOMERULAR FILTRATION RATE 55.7 (>56); MAGNESIUM LEVEL 1.8 MG/DL (1.8-2.4); POTASSIUM SERUM 3.9 MEQ/L (3.5-5.1); TOTAL PROTEIN 6.8 GM/DL (6.4-8.2)
[2018-09-03] MEDS: ASPIRIN 81 MG ENTERIC TAB PO SCH (08:22)
[2018-09-03] MEDS: VITAMIN D 1,000 INTERNATIONAL UNITS TABLET PO SCH (08:22)
[2018-09-03] MEDS: HumaLOG INSULIN (NovoLOG) PER UNIT SC SCH (08:23)
[2018-09-03] MEDS: LEVEMIR (INSULIN DETEMIR) 1 UNITS/0.01ML SC SCH (08:23)
[2018-09-03] MEDS ORDERED: HumaLOG INSULIN (NovoLOG) PER UNIT SC SCH (12:00)
[2018-09-03] MEDS ORDERED: CEFD1CAP8 PO (12:57)
[2018-09-03] MEDS ORDERED: TOUJ300I2 SC (12:57)
[2018-09-03 14:00] VITALS: BP 148/73
[2018-09-03] MEDS ORDERED: KEFL500C17 PO (14:09)
[2018-09-03] MEDS ORDERED: LEVEMIR (INSULIN DETEMIR) 1 UNITS/0.01ML SC SCH (21:00)
--- NOTE | 2018-09-03 21:45 | DSES ---
DATE OF ADMISSION: 08/28/2018 DATE OF DISCHARGE: 09/03/2018 PRIMARY CARE PROVIDER: Claudia Gross FORENSIC ARTIST: Dr. Greer FINAL DIAGNOSES: 1. Right first toe osteomyelitis, status post amputation. 2. Insulin dependent diabetes type 2, poorly controlled. 3. Chronic kidney disease, stage III. 4. Hypertension. 5. Tobacco abuse. 6. Obesity. HISTORY OF PRESENT ILLNESS: This is a 53-year-old male patient with underlying medical history of insulin-dependent diabetes type 2, hypertension, dyslipidemia, morbid obesity, chronic kidney disease stage III, who presented with complaints of right toe infection. The patient notes that he has been following with Dr. Villalobos for the chronic toe wound and had recently seen Dr. Villalobos on Friday, who performed debridement; however, notes that the toe looked much worse when the patient's home health aide came to assess the patient. Reports subjective fever and chills. No nausea or vomiting. No abdominal pain. No chest pain. HOSPITAL COURSE: The patient was admitted to the hospital and started on broad-spectrum antibiotics. Culture was sent. Status post right first toe amputation by Dr. Greer. Wound care as recommended by Dr. Greer. Basal bolus insulin provided for diabetes. Kidney function was monitored. Initially given IV fluids. Lisinopril was initially on hold given elevated kidney function and active infection. Counseling provided for smoking. The patient is currently tolerating oral and able to ambulate, participating with physical therapy (PT) with improving wounds. Ready to be discharged for further care as an outpatient. VITAL SIGNS: Temperature 96.3, pulse 66, respirations 17, blood pressure 148/73, pulse oximetry 99% on room air. GENERAL: The patient is alert, comfortable and in no acute distress. HEENT: Moist mucous membranes. NECK: Supple. CARDIAC: Regular. S1, S2. PULMONARY: Bilaterally clear. ABDOMEN: Soft and nontender. EXTREMITIES: Right lower extremity dressing is clean, dry and intact. Dorsalis pedis and posterior tibialis pulses intact. Left lower extremity first digit stump is well healed. DISCHARGE MEDICATIONS: - Keflex 500 mg by mouth three times a day times 14 days - Admelog 20 units subcutaneously before food and nightly - aspirin 81 mg by mouth daily - Lipitor 80 mg by mouth daily - vitamin D 1000 units by mouth daily - Colace 100 mg by mouth twice a day as needed - Tricor 145 mg by mouth daily - Lisinopril 2.5 mg by mouth daily - metformin 1000 mg by mouth twice a day - Toujeo 70 units subcutaneously twice a day DISCHARGE INSTRUCTIONS: Please followup with primary care provider in 7 days. Needs improved glycemic control. Adjust diuretic medications per primary. Please see Dr. Greer in 7 to 10 days. Return if symptoms worsen. Followup with Dr. Villalobos for further wound care.
== END 2018-09-03 15:07 | disposition home or self-care (01) | DRG 314 ==
LOC: M ED 15:29 → M ED INP 18:05 → M MSPAV 20:25
PROVIDERS: ADMIT Internal Medicine; ATTEND Hospitalist
PROC: 0Y6P0Z2 Detachment at Right 1st Toe, Mid, Open Approach (ICD-10-PCS; principal; 2018-08-31 17:30)
DX: E11.69 Type 2 diabetes mellitus with other specified complication (principal); E11.22 Type 2 diabetes mellitus with diabetic chronic kidney disease; N18.3 Chronic kidney disease, stage 3 (moderate); M86.671 Other chronic osteomyelitis, right ankle and foot; E66.01 Morbid (severe) obesity due to excess calories; E11.42 Type 2 diabetes mellitus with diabetic polyneuropathy; E11.621 Type 2 diabetes mellitus with foot ulcer; I12.9 Hypertensive chronic kidney disease with stage 1 through stage 4 chronic kidney disease, or unspecified chronic kidney disease; E78.5 Hyperlipidemia, unspecified; F17.210 Nicotine dependence, cigarettes, uncomplicated; Z79.4 Long term (current) use of insulin; Z79.82 Long term (current) use of aspirin; Z79.899 Other long term (current) drug therapy; Z89.421 Acquired absence of other right toe(s); Z90.49 Acquired absence of other specified parts of digestive tract; Z68.39 Body mass index [BMI] 39.0-39.9, adult

== ENCOUNTER → 2018-10-22 | Outpatient (REF) | payer OTHER ==
[~2018-10-22] MED LIST changes: +ADME100I SC; +ASPI-1 PO; -ASPI1TAB PO; -ASPI325T PO; +ASPI81TA26 PO; +CEFD1CAP8 PO; +CEFD300C41 PO; -CRES20TA PO; +CRES20TA2 PO; +LISI-1046 GT; +LISI-1046 PO; -LISI2.5T5 GT; -LISI2.5T5 PO; +METF-877 PO; +NICO21DI3 EXT; -NICO21PAT EXT; +TAB-TAB PO; +VITA-122 PO
[2018-10-22 17:46] LABS: HEMOGLOBIN A1c 7.9 %
== END ==
LOC: M SFHCPLAZ 12:55
PROVIDERS: ATTEND Student in an Organized Health Care Education/Training Program
DX: E11.8 Type 2 diabetes mellitus with unspecified complications (principal)

== ENCOUNTER → 2019-02-02 | Outpatient (REF) | payer OTHER ==
[~2019-02-02] MED LIST changes: -DOKTAB2 PO; +SENN1TAB84 PO; +ZETI10TA16 PO; -ZETI10TA30 PO
[2019-02-02 18:15] LABS: HEMOGLOBIN A1c 8.4 %
== END ==
LOC: M SFHCPLAZ 14:07
PROVIDERS: ATTEND Family Medicine
DX: E11.22 Type 2 diabetes mellitus with diabetic chronic kidney disease (principal)

== ENCOUNTER → 2019-04-27 | Outpatient (REF) | payer OTHER | LOC: M SFHCPLAZ 15:06 | PROVIDERS: ATTEND Family Medicine | DX: E11.22 Type 2 diabetes mellitus with diabetic chronic kidney disease (principal) ==

== ENCOUNTER 2019-07-06 18:32 | Emergency (ER) | payer OTHER ==
[~2019-07-06] VITALS: Ht 167.6 cm; Wt 105.9 kg
[2019-07-06 18:32] VITALS: BP 163/85
== END 2019-07-06 19:27 | disposition home or self-care (01) ==
LOC: M ED 18:32
DX: S76.111A Strain of right quadriceps muscle, fascia and tendon, initial encounter (principal); W18.49XA Other slipping, tripping and stumbling without falling, initial encounter; Y92.481 Parking lot as the place of occurrence of the external cause; I12.9 Hypertensive chronic kidney disease with stage 1 through stage 4 chronic kidney disease, or unspecified chronic kidney disease; N18.3 Chronic kidney disease, stage 3 (moderate); E11.9 Type 2 diabetes mellitus without complications; Z79.899 Other long term (current) drug therapy; Z79.82 Long term (current) use of aspirin; Z79.4 Long term (current) use of insulin

== ENCOUNTER → 2019-07-16 | Outpatient (CLI) | payer OTHER ==
[2019-07-16 17:27] LABS: HEMOGLOBIN A1c 8.6 %
== END ==
LOC: M WUC 13:38
PROVIDERS: ATTEND Student in an Organized Health Care Education/Training Program
DX: E11.22 Type 2 diabetes mellitus with diabetic chronic kidney disease (principal)

== ENCOUNTER → 2019-09-28 | Outpatient (REF) | payer OTHER ==
[2019-09-28 16:31] LABS: HEMOGLOBIN A1c 8.6 %
== END ==
LOC: M SFHCPLAZ 11:49
PROVIDERS: ATTEND Student in an Organized Health Care Education/Training Program
DX: E11.22 Type 2 diabetes mellitus with diabetic chronic kidney disease (principal)

== ENCOUNTER → 2020-01-21 | Outpatient (CLI) | payer OTHER ==
[~2020-01-21] MED LIST changes: -LISI-1046 GT; -LISI-1046 PO; +LISI2.5T2 GT; +LISI2.5T2 PO
[2020-01-21 16:17] LABS: HEMOGLOBIN A1c 9.5 %
== END ==
LOC: M WUC 13:42
PROVIDERS: ATTEND Student in an Organized Health Care Education/Training Program
DX: E11.22 Type 2 diabetes mellitus with diabetic chronic kidney disease (principal)

== ENCOUNTER → 2020-05-15 | Outpatient (REF) | payer OTHER ==
[~2020-05-15] MED LIST changes: +AMLO1TAB24 PO; -AMLO5TAB6 PO; +ASPI-546 PO; -ASPI1TAB15 PO; -TAB-TAB PO; +TAB-TAB2 PO
[2020-05-15 14:13] LABS: HEMATOCRIT 47.8 % (42.0-52.0); HEMOGLOBIN 15.1 g/dl (13.5-17.5); MEAN CORPUSCULAR HEMOGLOBIN 28.6 pg (27.0-33.0); MEAN CORPUSCULAR HGB CONC 31.6 g/dl (32.0-36.5); MEAN CORPUSCULAR VOLUME 90.5 fl (80.0-96.0); PLATELET COUNT, AUTOMATED 267 10^3/uL (150-450); RED BLOOD COUNT 5.28 10^6/uL (4.30-6.10); WHITE BLOOD COUNT 10.6 10^3/uL (4.0-10.0)
[2020-05-15 14:31] LABS: HEMOGLOBIN A1c 9.7 %
[2020-05-15 15:11] LABS: BILIRUBIN,TOTAL 0.3 MG/DL (0.2-1.0); CALCIUM LEVEL 8.6 MG/DL (8.5-10.1); CREATININE FOR GFR 1.59 MG/DL (0.70-1.30); GLOMERULAR FILTRATION RATE 48.7 (>56); PHOSPHORUS LEVEL 2.7 MG/DL (2.5-4.9); TOTAL PROTEIN 6.9 GM/DL (6.4-8.2)
[2020-05-15 15:15] LABS: MAU/CREAT RATIO 222.2 MCG/MG (0.0-30.0)
== END ==
LOC: M SFHCPLAZ 10:18
PROVIDERS: ATTEND Internal Medicine
DX: M79.662 Pain in left lower leg (principal); E11.22 Type 2 diabetes mellitus with diabetic chronic kidney disease

== ENCOUNTER → 2020-05-15 | Outpatient (CLI) | payer OTHER ==
--- NOTE | 2020-05-15 11:34 | REP ---
INDICATION: M79.662 PAIN LT LOWER LEG COMPARISON: None. TECHNIQUE: Real time compression and duplex Doppler interrogation of the left lower extremity deep venous system is performed. FINDINGS: The left common femoral, superficial femoral and popliteal veins are fully compressible with transducer pressure and demonstrate normal spontaneous and phasic flow, without evidence of deep venous thrombosis. IMPRESSION: No evidence of deep venous thrombosis of the left lower extremity femoral popliteal venous system. <Electronically signed by Rd Moreira > 05/15/20 [id number]
== END ==
LOC: M WHC 10:41
PROVIDERS: ATTEND Student in an Organized Health Care Education/Training Program
DX: M79.662 Pain in left lower leg (principal)

== ENCOUNTER → 2020-05-25 | Outpatient (REF) | payer OTHER | LOC: M LAB REF 15:30 | PROVIDERS: ATTEND Podiatrist | DX: L03.032 Cellulitis of left toe (principal); M79.672 Pain in left foot ==

== ENCOUNTER → 2020-08-16 | Outpatient (REF) | payer OTHER ==
[~2020-08-16] MED LIST changes: -LISI-542 PO; +LISI-898 PO
[2020-08-16 14:08] LABS: HEMATOCRIT 43.3 % (42.0-52.0); HEMOGLOBIN 13.6 g/dl (13.5-17.5); MEAN CORPUSCULAR HEMOGLOBIN 27.5 pg (27.0-33.0); MEAN CORPUSCULAR HGB CONC 31.4 g/dl (32.0-36.5); MEAN CORPUSCULAR VOLUME 87.5 fl (80.0-96.0); PLATELET COUNT, AUTOMATED 282 10^3/uL (150-450); RED BLOOD COUNT 4.95 10^6/uL (4.30-6.10); WHITE BLOOD COUNT 8.9 10^3/uL (4.0-10.0)
[2020-08-16 14:28] LABS: HEMOGLOBIN A1c 10.8 %
[2020-08-16 14:46] LABS: ALBUMIN 3.1 GM/DL (3.2-5.2); BILIRUBIN,TOTAL 0.4 MG/DL (0.2-1.0); CALCIUM LEVEL 9.5 MG/DL (8.5-10.1); CHOLESTEROL RISK RATIO 3.642 (<5); CREATININE FOR GFR 1.55 MG/DL (0.70-1.30); POTASSIUM SERUM 5.1 MEQ/L (3.5-5.1); TOTAL PROTEIN 7.3 GM/DL (6.4-8.2)
== END ==
LOC: M SFHCPLAZ 11:27
PROVIDERS: ATTEND Family Medicine
DX: E11.22 Type 2 diabetes mellitus with diabetic chronic kidney disease (principal); I10 Essential (primary) hypertension; N18.31 Chronic kidney disease, stage 3a; E78.2 Mixed hyperlipidemia

== ENCOUNTER → 2020-10-18 | Outpatient (REF) | payer OTHER ==
[~2020-10-18] MED LIST changes: +ASPI-569 PO; -ASPI81TAEC PO
== END ==
LOC: M LAB REF 15:13 → EEVIPCON 15:13
PROVIDERS: ATTEND Podiatrist
DX: L03.126 Acute lymphangitis of left lower limb (principal); M79.671 Pain in right foot

== ENCOUNTER 2020-11-03 16:51 | Inpatient (IN) | payer OTHER ==
[~2020-11-03] VITALS: Ht 167.6 cm; Wt 114.3 kg
[2020-11-03] MEDS ORDERED: SULF1TAB93 PO (17:30)
[2020-11-03] MEDS ORDERED: ONDANSETRON 4MG/2ML VIAL IV ONE (19:50)
[2020-11-03] MEDS ORDERED: NS 1,000 ML IV ONE (19:50)
[2020-11-03] MEDS ORDERED: PANTOPRAZOLE 40MG VIAL (C9113 PER 1) IV ONE (19:50)
[2020-11-03] MEDS ORDERED: ACETAMINOPHEN 325 MG TAB PO ONE (19:55)
[2020-11-03] MEDS ORDERED: TRUL10IN SC (20:12)
--- NOTE | 2020-11-03 20:49 | REPVR ---
PROCEDURE INFORMATION: Exam: XR Complete Acute Abdomen Series Exam date and time: 11/03/2020 8:33 PM Age: 55 years old Clinical indication: Abdominal pain TECHNIQUE: Imaging protocol: XR complete acute abdomen series, including 2 or more views of the abdomen and a single view chest. COMPARISON: CR Chest, 2 view PA, Lat 08/10/2018 12:47 AM FINDINGS: Lungs: Normal. No consolidation. Pleural spaces: Normal. No pleural effusions. No pneumothorax. Heart/Mediastinum: Normal. No cardiomegaly. Gastrointestinal tract: Mild dilatation of the right hemicolon. Otherwise unremarkable bowel gas pattern. Intraperitoneal space: Multiple surgical clips demonstrated in the right lower quadrant. Bones/joints: Normal. No acute fracture. Soft tissues: Normal. IMPRESSION: Mild dilatation of the right hemicolon. Otherwise unremarkable bowel gas pattern. Electronically signed by: Giovanni Pritchett On 11/03/2020 20:50:32 PM
[2020-11-03] MEDS ORDERED: VANCOMYCIN HCL 750 MG, VIAL MATE ADAPTER 1 EACH in NS 250 ML IV SCH (21:05)
[2020-11-03 21:06] LABS: BASO # 0.1 10^3/uL (0.0-0.2); BASO % 0.4 % (0.0-1.0); EOS # 0.2 10^3/uL (0.0-0.5); EOS % 1.8 % (0.0-3.0); HEMATOCRIT 39.5 % (42.0-52.0); HEMOGLOBIN 12.8 g/dl (13.5-17.5); LYMPH # 1.4 10^3/uL (1.5-5.0); LYMPH % 10.5 % (24.0-44.0); MEAN CORPUSCULAR HEMOGLOBIN 27.7 pg (27.0-33.0); MEAN CORPUSCULAR HGB CONC 32.4 g/dl (32.0-36.5); MEAN CORPUSCULAR VOLUME 85.5 fl (80.0-96.0); MONO # 0.6 10^3/uL (0.0-0.8); MONO % 4.8 % (2.0-8.0); NEUTROPHILS # 10.6 10^3/uL (1.5-8.5); NEUTROPHILS % 82.1 % (36.0-66.0); PLATELET COUNT, AUTOMATED 325 10^3/uL (150-450); RED BLOOD COUNT 4.62 10^6/uL (4.30-6.10); WHITE BLOOD COUNT 12.9 10^3/uL (4.0-10.0)
[2020-11-03] MEDS ORDERED: ACET1TAB55 PO (21:11)
[2020-11-03] MEDS ORDERED: TOUJ300I2 SC (21:11)
[2020-11-03 21:34] LABS: ALBUMIN 2.4 GM/DL (3.2-5.2); ALT/SGPT 80 U/L (12-78); AMYLASE 85 U/L (25-115); BILIRUBIN,DIRECT 0.2 MG/DL (0.0-0.2); BILIRUBIN,TOTAL 0.4 MG/DL (0.2-1.0); BLOOD UREA NITROGEN 35 MG/DL (7-18); CALCIUM LEVEL 8.7 MG/DL (8.5-10.1); CARBON DIOXIDE LEVEL 23 MEQ/L (21-32); CHLORIDE LEVEL 105 MEQ/L (98-107); CK-MB VALUE MASS 2.2 NG/ML (<3.6); CPK CREATINE PHOSPHOKINASE 93 U/L (39-308); CREATININE FOR GFR 2.02 MG/DL (0.70-1.30); GLOMERULAR FILTRATION RATE 36.8 (>56); GLUCOSE, FASTING 194 MG/DL (70-100); LIPASE 469 U/L (73-393); MB/CK RELATIVE INDEX 2.37 (< OR =4); POTASSIUM SERUM 5.6 MEQ/L (3.5-5.1); SODIUM LEVEL 134 MEQ/L (136-145); TOTAL PROTEIN 7.1 GM/DL (6.4-8.2); TROPONIN I < 0.02 NG/ML (< 0.10)
[2020-11-03] MEDS ORDERED: VANCOMYCIN HCL 1,000 MG, VIAL MATE ADAPTER 1 EACH in NS 250 ML IV ONE ×3 (22:00→23:00)
[2020-11-03] MEDS ORDERED: GLUCAGON INJ 1MG VIAL SC PRN (22:05)
[2020-11-03] MEDS ORDERED: VANCOMYCIN HCL 1,500 MG in D5W 250 ML IV SCH (22:05)
[2020-11-03] MEDS ORDERED: ACETAMINOPHEN TAB 650MG DOSE (2X325MG) PO PRN (22:05)
[2020-11-03] MEDS ORDERED: DEXTROSE 50% 50 ML SYRINGE IV PRN (22:05)
[2020-11-03] MEDS ORDERED: MAALOX 30 ML SUSP *UDC PO PRN (22:05)
[2020-11-03] MEDS ORDERED: GLUCOSE 4GM CHEW TABLET PO PRN (22:05)
[2020-11-03] MEDS ORDERED: MOM 30ML SUSPENSION UDC PO PRN (22:05)
--- NOTE | 2020-11-03 22:11 | HPEPDOC ---
[facility] Medical History & Physical Date of Admission Nov 04, 2020 Date of Service: Nov 04, 2020 Primary Care Physician: Chinmay Deutsch M.D. Attending Physician: ASIF VICTORIA MD History and Physical TIME OF SERVICE: 1140PM CHIEF COMPLAINT: weakness HISTORY OF PRESENT ILLNESS: This 55 yr old M was last admitted on Aug 2018 for right first toe amputation to manage osteomyelitis. Today he presented w c/o malaise, weakness, nausea, vomiting fever, chills and poor appetite. He denied having any chest pain, dyspnea, cough or abdominal pain. The patient was not concerned about his foot but Tino Tellez was concerned that the left foot had malodorous discharge and started abx for a possible infection. REVIEW OF SYSTEMS: 12-point review of systems negative except as listed in HPI PAST MEDICAL/ SURGICAL HISTORY: Insulin-dependent diabetes mellitus HTN DLP CKD stage III Class 3 obesity SOCIAL HISTORY: he smokes FAMILY HISTORY: HTN, DM, CAD ALLERGIES: Please see below. HOME MEDICATIONS: Please see below. PHYSICAL EXAMINATION: Vital Signs Date Time Temp Pulse Resp B/P (MAP) Pulse Ox O2 Delivery O2 Flow Rate FiO2 11/03/20 17:18 100.4 101 18 125/57 98 Room Air GENERAL APPEARANCE: well nourished and developed / NAD HEENT: EOMI CARDIOVASCULAR: RRR/NMRG LUNGS: CTAB on RA ABDOMEN: obese MUSCULOSKELETAL: NCAT / left lower foot wrapped in clean and dry bandages INTEGUMENT: he is not pale, flushed or diaphoretic/ extremities are warm and well perfused NEUROLOGICAL: CN 2-12 grossly intact /speech not dysarthric PSYCHIATRIC: A&Ox 3/ able to understand and follow all commands LABORATORY DATA: 11/03/20 20:45 11/03/20 20:45: Immature Granulocyte % (Auto) 0.4, Neutrophils (%) (Auto) 82.1H, Lymphocytes (%) (Auto) 10.5L, Monocytes (%) (Auto) 4.8, Eosinophils (%) (Auto) 1.8, Basophils (%) (Auto) 0.4, Neutrophils # (Auto) 10.6H, Lymphocytes # (Auto) 1.4L, Monocytes # (Auto) 0.6, Eosinophils # (Auto) 0.2, Basophils # (Auto) 0.1, Nucleated Red Blood Cells % (auto) 0.0, Anion Gap 6L, Glomerular Filtration Rate 36.8L, Lactic Acid Level 1.7, Calcium Level 8.7, Total Bilirubin 0.4, Direct Bilirubin 0.2, Aspartate Amino Transf (AST/SGOT) 51H, Alanine Aminotransferase (ALT/SGPT) 80H, Alkaline Phosphatase 96, Total Creatine Kinase 93, Creatine Kinase MB 2.2, Creatine Kinase MB Relative Index 2.37, Troponin I < 0.02, Total Protein 7.1, Albumin 2.4L, Albumin/Globulin Ratio 0.5, Amylase Level 85, Lipase 469H IMAGING: Abdominal xray IMPRESSION: Mild dilatation of the right hemicolon. Otherwise unremarkable bowel gas pattern. Foot xray IMPRESSION: Findings are suggestive of osteomyelitis involving the residual great toe proximal phalanx and probably the distal metatarsal of the great toe with overlying soft tissue defect extending down to bone MICROBIOLOGY: 11/03/20 Wound Culture, Received Pending 11/03/20 Respiratory Virus Panel (PCR) ([facility]) - Final, Complete 11/03/20 Blood Culture, Received Pending ASSESSMENT: is a 55 yr old m w a hx of insulin-dependent diabetes mellitus, hypertension, hyperlipidemia, morbid obesity, CKD stage III and recent right toe amputation who will be admitted for management of Sepsis 2/2 left toe osteomyelitis. PLAN: 1 Sepsis 2/2 left toe Osteomyelitis The patient has fever, tachycardia and xray findings c/w osteo Plan: admit to medical floor / f/u blood cx / start Vancomycin / will defer contacting to the daytime team 2 ONEAL on CKD 3 Plan: monitor UOP / IVF / f/u renal panel, Ulytes for FENa or FEUrea / renal US / hold nephrotoxic drugs Bacitracin, Lisinopril and metformin 3. Hyperkalemia 2/2 ONEAL Plan: Telemetry / repeat K / hold Lisinopril 4 NN Anemia Plan: f/u stool occult and iron panel /will need out pt GI eval for c-scope 5 Transaminitis Likely 2/2 fatty liver Plan: f/u liver US and Hepatitis panel 6 DM2 Plan: diabetic diet / f/u accuchecks / hypoglycemia protocol / c/w long acting insulin 60 units BID + sliding scale insulin (he also takes 20 units of short acting insulin TID & Trulicity)/ hold oral anti-glycemic / f/u A1C (target A1C is <7 to 6.5% 7. HTN Plan: Lisinopril on hold / the day time team may start amlodipine or another anti-HTN if needed 8 DLP Plan: Atorvastatin 9 Obesity -complicates care - since the patients BMI >35 with co-existing DM OR BMI > 40 s/he is a candidate for bariatric surgery Plan: the patient can f/u w his PCP for sleep apnea screening, transmission systems operator consult, to discuss staring Saxenda (or Victoza), which is indicated in patients with a BMI >27 with co-existing DM, HTN or dyslipidemia to help with weight control as an adjunct to exercise & referral to a Bariatric Surgeon / recommend cardiovascular exercise for 40 min 4-5 days a week DVT px w Heparin (can be held 6 hours before surgery) Dispo: home after at least 2 midnights stay Home Medications Scheduled Aspirin (Aspirin EC) 81 Mg Tab, 81 MG PO DAILY Atorvastatin Calcium (Atorvastatin Calcium) 80 Mg Tab, 80 MG PO DAILY Dulaglutide (Trulicity) 0.75 Mg/0.5 Ml Pen.injctr, 0.75 MG SC QWEEK FRIDAY Insulin Glargine,Hum.rec.anlog (Toujeo Max Solostar) 300 Unit/1 Ml Insuln.pen, 60 UNIT SC BID STATES TAKES IN AM AND AT NOON Insulin Lispro (Admelog) 100 Unit/Ml Inj, 20 UNIT SC TID TAKES BEFORE MEALS Lisinopril (Lisinopril) 2.5 Mg Tab, 2.5 MG PO DAILY Metformin HCl (Metformin HCl) 1,000 Mg Tab, 1,000 MG PO BID Sulfamethoxazole/Trimethoprim (Sulfamethoxazole-Tmp Ds Tablet) 1 Each Tablet, 1 TAB PO BID Scheduled PRN Acetaminophen (Acetaminophen) 325 Mg Tablet, 325 MG PO Q4-6HP PRN for PAIN / FEVER Docusate Sodium (Docusate Sodium) 100 Mg Cap, 100 MG PO BID PRN for CONSTIPATION Allergies Coded Allergies: No Known Allergies (Unverified , 07/06/19) A-FIB/CHADSVASC A-FIB History Current/History of A-Fib/PAF?: No Current PO Anticoag Therapy: No ASIF VICTORIA MD Nov 03, 2020 22:11
[2020-11-03 22:42] LABS: ERYTHROCYTE SEDIMENTATION RATE 75 mm/hr (0-20)
[2020-11-03] MEDS: NS 1,000 ML IV SCH (22:50)
[2020-11-03 22:54] LABS: HEMOGLOBIN A1c 8.8 %
[2020-11-03 22:56] LABS: FERRITIN 565 NG/ML (26-388); IRON (FE) 24 UG/DL (65-175); PERCENT SATURATION 12.6 % (19.7-50.0); TOTAL IRON BINDING CAPACITY 190 UG/DL (250-450)
[2020-11-03 23:30] VITALS: BP 125/61
--- NOTE | 2020-11-03 23:38 | REPVR ---
PROCEDURE INFORMATION: Exam: XR Left Foot Exam date and time: 11/03/2020 11:12 PM Age: 55 years old Clinical indication: Other: Cellulitia; Additional info: Cellulitis TECHNIQUE: Imaging protocol: XR Left foot. Views: 3 or more views. COMPARISON: CR Foot, complete 08/31/2018 8:06 PM FINDINGS: Soft tissue defect of the distal great toe is present and the patient has undergone prior partial amputation. There does appear to be osseous irregularity of the residual proximal phalanx, with exposed bone. Irregular margins suggest active osseous resorption. Osseous cortical irregularity of the distal aspect of the great toe metatarsal head is also present. Second through 5th rays appear intact. Mid foot alignment is maintained. Hindfoot is unremarkable aside from Achilles and plantar aponeurosis and these 0 fights. IMPRESSION: Findings are suggestive of osteomyelitis involving the residual great toe proximal phalanx and probably the distal metatarsal of the great toe with overlying soft tissue defect extending down to bone Electronically signed by: Carlito Wilson On 11/03/2020 23:38:36 PM
[2020-11-04] MEDS: HumaLOG INSULIN (NovoLOG) PER UNIT SC SCH ×4 (01:44→17:29)
[2020-11-04] MEDS ORDERED: DOCUSATE SODIUM 100MG CAPSULE PO PRN (03:55)
[2020-11-04 04:00] VITALS: BP 112/55
[2020-11-04] MEDS: HEPARIN SOD (PORCINE) 5000UNITS/ML 1ML VIAL/SYRINGE SC SCH ×3 (05:37→21:04)
[2020-11-04 06:41] LABS: HEMATOCRIT 40.5 % (42.0-52.0); HEMOGLOBIN 12.6 g/dl (13.5-17.5); MEAN CORPUSCULAR HEMOGLOBIN 27.2 pg (27.0-33.0); MEAN CORPUSCULAR HGB CONC 31.1 g/dl (32.0-36.5); MEAN CORPUSCULAR VOLUME 87.5 fl (80.0-96.0); PLATELET COUNT, AUTOMATED 266 10^3/uL (150-450); RED BLOOD COUNT 4.63 10^6/uL (4.30-6.10); WHITE BLOOD COUNT 8.9 10^3/uL (4.0-10.0)
[2020-11-04 06:59] LABS: HEMOGLOBIN A1c 8.7 %
[2020-11-04 07:15] LABS: BLOOD UREA NITROGEN 30 MG/DL (7-18); CALCIUM LEVEL 8.2 MG/DL (8.5-10.1); CARBON DIOXIDE LEVEL 24 MEQ/L (21-32); CHLORIDE LEVEL 110 MEQ/L (98-107); CREATININE FOR GFR 1.67 MG/DL (0.70-1.30); FERRITIN 582 NG/ML (26-388); GLOMERULAR FILTRATION RATE 45.9 (>56); GLUCOSE, FASTING 94 MG/DL (70-100); IRON (FE) 59 UG/DL (65-175); PERCENT SATURATION 33.3 % (19.7-50.0); POTASSIUM SERUM 4.6 MEQ/L (3.5-5.1); SODIUM LEVEL 140 MEQ/L (136-145); TOTAL IRON BINDING CAPACITY 177 UG/DL (250-450)
[2020-11-04] MEDS ORDERED: HumaLOG INSULIN (NovoLOG) PER UNIT SC SCH (07:30)
[2020-11-04 08:00] VITALS: BP 151/79
[2020-11-04] MEDS: LEVEMIR (INSULIN DETEMIR) 1 UNITS/0.01ML SC SCH ×2 (08:23→21:05)
[2020-11-04] MEDS: ASPIRIN 81MG ENTERIC TABLET PO SCH (08:27)
[2020-11-04] MEDS: ATORVASTATIN 20 MG TAB PO SCH (08:28)
--- NOTE | 2020-11-04 09:52 | REP ---
INDICATION: hosea and transamintis. COMPARISON: Comparison CT study August 10, 2018.. TECHNIQUE: Complete abdominal sonography. FINDINGS: Scanning through the right upper quadrant the abdomen demonstrates a normal sized and walled gallbladder without evidence of stone or polyp. Common bile duct is normal measuring 0.6 cm in greatest diameter. There is increased echogenicity in the liver consistent with fatty infiltration of the liver but no focal liver lesion is seen. Liver is not felt to be enlarged. Pancreas is obscured by abdominal gas. The spleen appears enlarged with a greatest transverse dimension of 15.4 cm. No focal splenic lesion is seen. No free fluid is noted. Renal cortical echogenicity pattern is normal in contours are smooth bilaterally. There is no evidence hydronephrosis, cyst or mass in either kidney. Right renal dimensions are 13.4 x 5.6 x 5.7 cm. Left kidney measures 13.2 by 5.0 x 5.3 cm. IMPRESSION: Evidence of fatty infiltration of the liver. Splenomegaly. Otherwise negative complete abdominal sonography. <Electronically signed by Brien Erickson > 11/04/20 0949
[2020-11-04] MEDS: VANCOMYCIN HCL 750 MG, VIAL MATE ADAPTER 1 EACH in NS 250 ML IV SCH ×2 (11:55→12:56)
[2020-11-04 12:00] VITALS: BP 141/84
--- NOTE | 2020-11-04 12:31 | IPNPDOC ---
Subjective Date Seen The patient was seen on 11/04/20. Subjective Chief Complaint/HPI Mr. Rojo is a 55 year old male with IDDM and amputation of right first toe in Aug 2018 who presents with malaise, nausea, vomiting, fever and chills. No events overnight, this morning, he denies any chest pain or dyspnea. Nausea improved. Imaging did demonstrate left osteomyelitis. Patient's previous ambulation was performed by Dr. Thayer, and his current podiatries is Dr. Thayer. He is out of town currently. Will reach out to him on Friday. Objective Physical Examination General Exam: Positive: Alert, Cooperative Eye Exam: Positive: EOMI; Negative: Sclera icteric ENT Exam: Positive: Atraumatic Neck Exam: Positive: Supple Chest Exam: Positive: Clear to auscultation; Negative: Rales, Rhonchi, Wheezing Heart Exam: Positive: Rate Normal, Regular Rhythm Abdomen Exam: Positive: Normal bowel sounds, Soft; Negative: Tenderness Extremity Exam: Negative: Edema Neuro Exam: Positive: Normal Speech Psych Exam: Positive: Mental status NL, Mood NL Assessment /Plan Assessment Mr. Rojo is a 55 year old male with IDDM and amputation of right first toe in Aug 2018 who is here with sepsis 2/2 left toe osteomyelitis. He is on Vancomycin for right toe osteomyelitis. His property site manager is Dr. Thayer, will reach out to him on Friday. Plan/VTE VTE Prophylaxis Ordered?: Yes Plan 1. Sepsis 2/2 left toe osteomyelitis -Met 2/4 SIRS criteria (Fever and tachycardia) -On IV vancomycin for left toe osteomyelitis -Pending blood culture and wound culture results 2. Left toe osteomyelitis -Seen on XR of left foot -Dr. Thayer is his property site manager and has worked on his feet in the past -Continue IV vancomycin -Pending wound culture results -Will reach out to Dr. Thayer on Friday 3. ONEAL on CKD -Improved -Baseline creatinine 1.59. On admission, creatinine 2 -Hold lisinopril and metformin -Supportive care -Monitor BMP 4. Normocytic anemia -Stable -Ferritin elevated. Possibly anemia of chronic disease 2/2 osteomyelitis and CKD -Monitor CBC 5. IDDM -HbA1c 8.7 (on 11/04/2020) -Hold metformin while inpatient -Continue Levemir and sliding scale insulin 6. Hypertension -Hold lisinopril -Cautious with antihypertensive due to sepsis -If blood continues to increase, can consider other BP med 7. Dyslipidemia -Continue atorvastatin 8. DVT ppx -Heparin Disposition: Pending recommendations from podiatry VS, I&O, 24H, Kemi Vital Signs/I&O Vital Signs Date Time Temp Pulse Resp B/P (MAP) Pulse Ox O2 Delivery O2 Flow Rate FiO2 11/04/20 08:00 98.7 67 17 151/79 (103) 96 Room Air I&O- Last 24 Hours up to 6 AM 11/04/20 06:00 Intake Total 1805 ml Output Total 0 ml Balance 1805 ml Laboratory Data 24H LABS Laboratory Tests 2 11/03/20 20:45: Immature Granulocyte % (Auto) 0.4, Neutrophils (%) (Auto) 82.1H, Lymphocytes (%) (Auto) 10.5L, Monocytes (%) (Auto) 4.8, Eosinophils (%) (Auto) 1.8, Basophils (%) (Auto) 0.4, Neutrophils # (Auto) 10.6H, Lymphocytes # (Auto) 1.4L, Monocytes # (Auto) 0.6, Eosinophils # (Auto) 0.2, Basophils # (Auto) 0.1, Nucleated Red Blood Cells % (auto) 0.0, Erythrocyte Sedimentation Rate 75H, Anion Gap 6L, Glomerular Filtration Rate 36.8L, Estimated Mean Plasma Glucose 206H, Hemoglobin A1c 8.8, Lactic Acid Level 1.7, Calcium Level 8.7, Iron Level 24L, Total Iron Binding Capacity 190L, Transferrin % Saturation 12.6L, Ferritin 565H, Total Bilirubin 0.4, Direct Bilirubin 0.2, Aspartate Amino Transf (AST/SGOT) 51H, Alanine Aminotransferase (ALT/SGPT) 80H, Alkaline Phosphatase 96, Total Creatine Kinase 93, Creatine Kinase MB 2.2, Creatine Kinase MB Relative Index 2.37, Troponin I < 0.02, C-Reactive Protein, Quantitative 12.70H, Total Protein 7.1, Albumin 2.4L, Albumin/Globulin Ratio 0.5, Amylase Level 85, Lipase 469H 11/04/20 01:40: Bedside Glucose (Misc Panel) 241H 11/04/20 05:36: Bedside Glucose (Misc Panel) 102 11/04/20 06:24: Nucleated Red Blood Cells % (auto) 0.0, Anion Gap 6L, Glomerular Filtration Rate 45.9L, Estimated Mean Plasma Glucose 203H, Hemoglobin A1c 8.7, Calcium Level 8.2L, Iron Level 59L, Total Iron Binding Capacity 177L, Transferrin % Saturation 33.3, Ferritin 582H 11/04/20 11:42: Bedside Glucose (Misc Panel) 241H CBC/BMP Laboratory Tests 11/03/20 20:45 11/04/20 06:24 Microbiology Microbiology 11/03/20 Wound Culture, Received Pending 11/03/20 Respiratory Virus Panel (PCR) ([facility]) - Final, Complete 11/03/20 Blood Culture, Received Pending LIZZY LOWRY DO Nov 04, 2020 12:31
[2020-11-04] MEDS: NS 1,000 ML IV SCH (12:56)
[2020-11-04 16:00] VITALS: BP 118/70
[2020-11-04 20:00] VITALS: BP 143/68
[2020-11-05] MEDS: HumaLOG INSULIN (NovoLOG) PER UNIT SC SCH ×4 (00:12→18:20)
[2020-11-05] MEDS: NS 1,000 ML IV SCH ×3 (02:50→23:16)
[2020-11-05 04:00] VITALS: BP 151/73
[2020-11-05] MEDS: VANCOMYCIN HCL 750 MG, VIAL MATE ADAPTER 1 EACH in NS 250 ML IV SCH ×3 (04:55→23:16)
[2020-11-05] MEDS: HEPARIN SOD (PORCINE) 5000UNITS/ML 1ML VIAL/SYRINGE SC SCH ×3 (05:03→21:59)
[2020-11-05 06:30] LABS: HEMATOCRIT 38.3 % (42.0-52.0); HEMOGLOBIN 12.3 g/dl (13.5-17.5); MEAN CORPUSCULAR HEMOGLOBIN 28.1 pg (27.0-33.0); MEAN CORPUSCULAR HGB CONC 32.1 g/dl (32.0-36.5); MEAN CORPUSCULAR VOLUME 87.6 fl (80.0-96.0); PLATELET COUNT, AUTOMATED 287 10^3/uL (150-450); RED BLOOD COUNT 4.37 10^6/uL (4.30-6.10)
[2020-11-05 06:56] LABS: ALBUMIN 2.1 GM/DL (3.2-5.2); ALT/SGPT 103 U/L (12-78); BILIRUBIN,DIRECT < 0.1 MG/DL (0.0-0.2); BILIRUBIN,TOTAL 0.2 MG/DL (0.2-1.0); BLOOD UREA NITROGEN 23 MG/DL (7-18); CALCIUM LEVEL 8.1 MG/DL (8.5-10.1); CARBON DIOXIDE LEVEL 24 MEQ/L (21-32); CHLORIDE LEVEL 108 MEQ/L (98-107); CREATININE FOR GFR 1.39 MG/DL (0.70-1.30); GLOMERULAR FILTRATION RATE 56.7 (>56); GLUCOSE, FASTING 195 MG/DL (70-100); POTASSIUM SERUM 4.7 MEQ/L (3.5-5.1); SODIUM LEVEL 137 MEQ/L (136-145); TOTAL PROTEIN 6.4 GM/DL (6.4-8.2)
[2020-11-05 08:00] VITALS: BP 137/77
[2020-11-05] MEDS: ASPIRIN 81MG ENTERIC TABLET PO SCH (09:22)
[2020-11-05] MEDS: LEVEMIR (INSULIN DETEMIR) 1 UNITS/0.01ML SC SCH ×2 (09:22→21:59)
[2020-11-05] MEDS: ATORVASTATIN 20 MG TAB PO SCH (09:22)
--- NOTE | 2020-11-05 11:49 | IPNPDOC ---
Subjective Date Seen The patient was seen on 11/05/20. Subjective Chief Complaint/HPI Mr. Rojo is a 55 year old male with IDDM and amputation of right first toe in Aug 2018 who presents with malaise, nausea, vomiting, fever and chills. No fever overnight. Denies any chest pain or dyspnea this morning. Objective Physical Examination General Exam: Positive: Alert, Cooperative Eye Exam: Positive: EOMI; Negative: Sclera icteric ENT Exam: Positive: Atraumatic Neck Exam: Positive: Supple Chest Exam: Positive: Clear to auscultation; Negative: Rales, Rhonchi, Wheezing Heart Exam: Positive: Rate Normal, Regular Rhythm Abdomen Exam: Positive: Normal bowel sounds, Soft; Negative: Tenderness Extremity Exam: Negative: Edema Neuro Exam: Positive: Normal Speech Psych Exam: Positive: Mental status NL, Mood NL Assessment /Plan Assessment Mr. Rojo is a 55 year old male with IDDM and amputation of right first toe in Aug 2018 who is here with sepsis 2/2 left toe osteomyelitis. He is on Vancomycin for right toe osteomyelitis. His director of regional sales is Dr. Thayer, will reach out to him on Friday. Plan/VTE VTE Prophylaxis Ordered?: Yes Plan 1. Sepsis 2/2 left toe osteomyelitis -Met 2/4 SIRS criteria (Fever and tachycardia) -On IV vancomycin for left toe osteomyelitis -Pending blood culture and wound culture results 2. Left toe osteomyelitis -Seen on XR of left foot -Dr. Thayer is his director of regional sales and has worked on his feet in the past -Continue IV vancomycin -Pending wound culture results -Will reach out to Dr. Thayer on Friday 3. ONEAL on CKD -Improved -Baseline creatinine 1.59. On admission, creatinine 2 -Hold lisinopril and metformin -Supportive care -Monitor BMP 4. Normocytic anemia -Stable -Ferritin elevated. Possibly anemia of chronic disease 2/2 osteomyelitis and CKD -Monitor CBC 5. IDDM -HbA1c 8.7 (on 11/04/2020) -Hold metformin while inpatient -Continue Levemir and sliding scale insulin 6. Hypertension -Hold lisinopril -Cautious with antihypertensive due to sepsis -If blood continues to increase, can consider other BP med 7. Dyslipidemia -Continue atorvastatin 8. DVT ppx -Heparin Disposition: Pending recommendations from podiatry VS, I&O, 24H, Fishbone Vital Signs/I&O Vital Signs Date Time Temp Pulse Resp B/P (MAP) Pulse Ox O2 Delivery O2 Flow Rate FiO2 11/05/20 08:00 97.8 71 18 137/77 (97) 99 Room Air I&O- Last 24 Hours up to 6 AM 11/05/20 05:59 Intake Total 1860 ml Output Total 0 ml Balance 1860 ml Laboratory Data 24H LABS Laboratory Tests 2 11/04/20 17:18: Bedside Glucose (Misc Panel) 228H 11/05/20 00:07: Bedside Glucose (Misc Panel) 399H 11/05/20 05:05: Bedside Glucose (Misc Panel) 205H 11/05/20 05:40: Nucleated Red Blood Cells % (auto) 0.0, Anion Gap 5L, Glomerular Filtration Rate 56.7, Calcium Level 8.1L, Total Bilirubin 0.2, Direct Bilirubin < 0.1, Aspartate Amino Transf (AST/SGOT) 79H, Alanine Aminotransferase (ALT/SGPT) 103H, Alkaline Phosphatase 94, Total Protein 6.4, Albumin 2.1L, Albumin/Globulin Ratio 0.5 CBC/BMP Laboratory Tests 11/05/20 05:40 Microbiology Microbiology 11/03/20 Wound Culture, Received Pending 11/03/20 Respiratory Virus Panel (PCR) ([facility]) - Final, Complete 11/03/20 Blood Culture - Preliminary, Resulted No growth after 24 hours . All specim... LIZZY LOWRY DO Nov 05, 2020 11:49
[2020-11-05 12:00] VITALS: BP 131/73
[2020-11-05 16:00] VITALS: BP 134/65
[2020-11-05 17:25] VITALS: BP 154/84
[2020-11-05 22:00] VITALS: BP 142/78
[2020-11-06] VITALS (8 sets, daily range): BP systolic 130–151; BP diastolic 72–87
[2020-11-06] MEDS: VANCOMYCIN HCL 750 MG, VIAL MATE ADAPTER 1 EACH in NS 250 ML IV SCH ×4 (00:10→23:19)
[2020-11-06] MEDS: HumaLOG INSULIN (NovoLOG) PER UNIT SC SCH ×5 (00:26→21:35)
[2020-11-06] MEDS: HEPARIN SOD (PORCINE) 5000UNITS/ML 1ML VIAL/SYRINGE SC SCH ×3 (06:18→21:35)
[2020-11-06 06:23] LABS: HEMATOCRIT 36.8 % (42.0-52.0); HEMOGLOBIN 11.6 g/dl (13.5-17.5); MEAN CORPUSCULAR HEMOGLOBIN 27.5 pg (27.0-33.0); MEAN CORPUSCULAR HGB CONC 31.5 g/dl (32.0-36.5); MEAN CORPUSCULAR VOLUME 87.2 fl (80.0-96.0); PLATELET COUNT, AUTOMATED 259 10^3/uL (150-450); RED BLOOD COUNT 4.22 10^6/uL (4.30-6.10)
[2020-11-06 06:26] LABS: CALCIUM LEVEL 8.6 MG/DL (8.5-10.1); CREATININE FOR GFR 1.35 MG/DL (0.70-1.30); GLOMERULAR FILTRATION RATE 58.6 (>56); POTASSIUM SERUM 4.1 MEQ/L (3.5-5.1)
[2020-11-06] MEDS: LEVEMIR (INSULIN DETEMIR) 1 UNITS/0.01ML SC SCH ×2 (08:24→21:35)
[2020-11-06] MEDS: ASPIRIN 81MG ENTERIC TABLET PO SCH (08:24)
[2020-11-06] MEDS: ATORVASTATIN 20 MG TAB PO SCH (08:33)
--- NOTE | 2020-11-06 09:23 | IPN ---
PROGRESS NOTE DATE: 11/06/2020 TIME: Approximately 8:45 a.m. CHIEF COMPLAINT: Patient is seen for evaluation of an infection of his left foot. SUBJECTIVE: The patient has had a longstanding ulceration of his left foot, he initially had a left hallux amputation in the past which healed well and then most recently he had an ulceration form and has been treated several times with oral antibiotics which resolved his infection. He has gotten worse, weak and presented to the hospital for infection of his left foot and he is seen today at bedside. PAST MEDICAL HISTORY: Hypertension, insulin dependent diabetes, Stage III kidney disease, obesity. SOCIAL HISTORY: Patient is a smoker. HOME MEDICATIONS: Aspirin 81 mg p.o. daily, atorvastatin 80 mg p.o. daily, Trulicity 0.75 mg subcutaneously q. week, insulin Toujeo 80 units subcutaneously b.i.d., Lisinopril 20 units subcutaneously t.i.d., Lisinopril 2.5 mg daily, metformin 1000 mg p.o. b.i.d. ALLERGIES: None listed. OBJECTIVE: Evaluation of the patient's foot reveals an ulceration on the plantar aspect of his left foot measuring 3 cm from distal to proximal, 3.5 cm from medial to lateral, 0.1 to 0.2 cm in depth. The flexor tendon is visible in the wound. X-rays were reviewed revealing erosive changes of the first metatarsal as well as the residual base of the proximal phalanx consistent with osteomyelitis, erythema extends onto the dorsal aspect of the foot, approximately 5 cm. The dorsalis pedis pulse is palpable. The posterior tibial pulse is not appreciated. No other ulcerations are noted on his left extremity. ASSESSMENT: Osteomyelitis, residual base of the proximal phalanx of the left foot and first metatarsal head. PLAN: Patient is NPO today. He is scheduled at approximately 5 p.m. for a first ray amputation of the left foot with closure over Vancomycin impregnated beads. Patient's last culture was reviewed and was staphylococcus species coag negative, resistant to oxacillin but sensitive to Vancomycin.
[2020-11-06 14:43] LABS: FOLATE 8.1 NG/ML (>5.4); VITAMIN B12 LEVEL 442 PG/ML (247-911)
[2020-11-06 15:23] LABS: VITAMIN B12 LEVEL 345 PG/ML
[2020-11-06 15:24] LABS: FOLATE 9.1 NG/ML
[2020-11-06 15:33] LABS: HEPATITIS B SURFACE ANTIGEN NEGATIVE (NEGATIVE)
[2020-11-06 16:00] LABS: HEPATITIS B CORE ANTIBODY IGM NEGATIVE (NEGATIVE); HEPATITIS C VIRUS ABY INDEX 0.1 INDEX (<0.8)
[2020-11-06 16:03] LABS: HEPATITIS A ANTIBODY IGM NEGATIVE (NEGATIVE)
[2020-11-06] MEDS ORDERED: LIDOCAINE 2% MDV 20ML VIAL As Ordered ONE (16:06)
[2020-11-06] MEDS ORDERED: BUPIVACAINE HCL 0.5% 10ML VIAL As Ordered ONE (16:06)
[2020-11-06] MEDS ORDERED: VANCOMYCIN 500MG/10ML VIAL As Ordered ONE (16:07)
[2020-11-06] MEDS ORDERED: MIDAZOLAM INJ 2MG/2ML VIAL (J2250 PER 1MG) As Ordered ONE (16:53)
[2020-11-06] MEDS ORDERED: fentaNYL 100 MCG/2 ML INJECTION (J3010) As Ordered ONE (16:54)
[2020-11-06] MEDS ORDERED: propofoL 200 MG/20 ML VIAL As Ordered ONE (16:54)
[2020-11-06] MEDS ORDERED: LIDOCAINE 2% 100MG/5ML SDV (FOR ANES.) As Ordered ONE (16:54)
[2020-11-06] MEDS ORDERED: ONDANSETRON 4MG/2ML VIAL IV PRN (18:50)
[2020-11-06] MEDS ORDERED: fentaNYL 100 MCG/2 ML INJECTION (J3010) IV PRN (18:50)
[2020-11-06] MEDS ORDERED: LR 1,000 ML IV SCH (18:50)
[2020-11-06] MEDS ORDERED: oxyCODONE 5MG TAB PO PRN (18:50)
--- NOTE | 2020-11-06 18:52 | REP ---
INDICATION: POST OP IN PACU COMPARISON: 11/03/2020 TECHNIQUE: AP, lateral, oblique views of the left foot FINDINGS: Patient is status post partial amputation of the 1st toe at the level of the distal metatarsal shaft with adjacent antibiotic pellets and overlying postsurgical changes to the soft tissue. Remainder of the osseous structures appear relatively intact and normal. IMPRESSION: Postoperative changes related to partial amputation at the 1st toe. <Electronically signed by Addy Roman > 11/06/20 [id number]
--- NOTE | 2020-11-06 20:44 | IPNPDOC ---
Subjective Date Seen The patient was seen on 11/06/20. Subjective Chief Complaint/HPI Mr. Rojo is a 55 year old male with IDDM and amputation of right first toe in Aug 2018 who presents with malaise, nausea, vomiting, fever and chills. He was seen this morning. Denies chest pain or dyspnea. Spoke with Dr. Thayer this morning who plans to take him to the OR today. Objective Physical Examination General Exam: Positive: Alert, Cooperative Eye Exam: Positive: EOMI; Negative: Sclera icteric ENT Exam: Positive: Atraumatic Neck Exam: Positive: Supple Chest Exam: Positive: Clear to auscultation; Negative: Rales, Rhonchi, Wheezing Heart Exam: Positive: Rate Normal, Regular Rhythm Abdomen Exam: Positive: Normal bowel sounds, Soft; Negative: Tenderness Extremity Exam: Negative: Edema Neuro Exam: Positive: Normal Speech Psych Exam: Positive: Mental status NL, Mood NL Assessment /Plan Assessment Mr. Rojo is a 55 year old male with IDDM and amputation of right first toe in Aug 2018 who is here with sepsis 2/2 left toe osteomyelitis. He is on Vancomycin for right toe osteomyelitis. Consulted podiatry, Dr. Thayer. Recommendations appreciated Plan/VTE VTE Prophylaxis Ordered?: Yes Plan 1. Sepsis 2/2 left toe osteomyelitis -Met 2/4 SIRS criteria (Fever and tachycardia) -On IV vancomycin for left toe osteomyelitis -Pending blood culture -Wound culture grew Oxacillin resistant coagulase negative staph, sensitive to Vancomycin 2. Left toe osteomyelitis -Seen on XR of left foot -Dr. Thayer is his joint supervisor and has worked on his feet in the past -Continue IV vancomycin -Wound culture grew Oxacillin resistant coagulase negative staph, sensitive to Vancomycin 3. ONEAL on CKD -Improved -Baseline creatinine 1.59. On admission, creatinine 2 -Hold lisinopril and metformin -Supportive care -Monitor BMP 4. Normocytic anemia -Stable -Ferritin elevated. Possibly anemia of chronic disease 2/2 osteomyelitis and CKD -Monitor CBC 5. IDDM -HbA1c 8.7 (on 11/04/2020) -Hold metformin while inpatient -Continue Levemir and sliding scale insulin 6. Hypertension -Hold lisinopril -Cautious with antihypertensive due to sepsis -If blood continues to increase, can consider other BP med 7. Dyslipidemia -Continue atorvastatin 8. DVT ppx -Heparin Disposition: Pending recommendations from podiatry VS, I&O, 24H, Fishbone Vital Signs/I&O Vital Signs Date Time Temp Pulse Resp B/P (MAP) Pulse Ox O2 Delivery O2 Flow Rate FiO2 11/06/20 18:55 97.7 62 14 151/87 (108) 98 Room Air I&O- Last 24 Hours up to 6 AM 11/06/20 06:00 Intake Total 2055 ml Output Total 500 ml Balance 1555 ml Laboratory Data 24H LABS Laboratory Tests 2 11/05/20 22:15: Vancomycin Level Trough 11.2 11/06/20 00:12: Bedside Glucose (Misc Panel) 301H 11/06/20 05:29: Nucleated Red Blood Cells % (auto) 0.0, Anion Gap 8, Glomerular Filtration Rate 58.6, Calcium Level 8.6 11/06/20 06:16: Bedside Glucose (Misc Panel) 145H 11/06/20 11:39: Bedside Glucose (Misc Panel) 88 11/06/20 18:23: Bedside Glucose (Misc Panel) 86 CBC/BMP Laboratory Tests 11/06/20 05:29 Microbiology Microbiology 11/03/20 Wound Culture - Final, Complete Staphylococcus Sp Coag Neg Corynebacterium Species 11/03/20 Respiratory Virus Panel (PCR) ([facility]) - Final, Complete 11/03/20 Blood Culture - Preliminary, Resulted No Growth after 48 hours. All Specime... LIZZY LOWRY DO Nov 06, 2020 20:44
[2020-11-06] MEDS: NS 1,000 ML IV SCH (23:19)
[2020-11-07] MEDS: VANCOMYCIN HCL 750 MG, VIAL MATE ADAPTER 1 EACH in NS 250 ML IV SCH ×3 (01:04→13:23)
[2020-11-07 02:00] VITALS: BP 134/70
[2020-11-07 05:58] LABS: HEMATOCRIT 35.3 % (42.0-52.0); HEMOGLOBIN 11.4 g/dl (13.5-17.5); MEAN CORPUSCULAR HEMOGLOBIN 28.1 pg (27.0-33.0); MEAN CORPUSCULAR HGB CONC 32.3 g/dl (32.0-36.5); MEAN CORPUSCULAR VOLUME 87.2 fl (80.0-96.0); PLATELET COUNT, AUTOMATED 270 10^3/uL (150-450); RED BLOOD COUNT 4.05 10^6/uL (4.30-6.10); WHITE BLOOD COUNT 7.4 10^3/uL (4.0-10.0)
[2020-11-07 06:00] VITALS: BP 141/72
[2020-11-07] MEDS: HEPARIN SOD (PORCINE) 5000UNITS/ML 1ML VIAL/SYRINGE SC SCH ×3 (06:23→21:28)
[2020-11-07 06:28] LABS: CALCIUM LEVEL 8.3 MG/DL (8.5-10.1); CREATININE FOR GFR 1.34 MG/DL (0.70-1.30); GLOMERULAR FILTRATION RATE 59.1 (>56); POTASSIUM SERUM 4.3 MEQ/L (3.5-5.1)
[2020-11-07] MEDS: ATORVASTATIN 20 MG TAB PO SCH (08:09)
[2020-11-07] MEDS: ASPIRIN 81MG ENTERIC TABLET PO SCH (08:09)
[2020-11-07] MEDS: HumaLOG INSULIN (NovoLOG) PER UNIT SC SCH ×4 (08:10→21:29)
[2020-11-07] MEDS: LEVEMIR (INSULIN DETEMIR) 1 UNITS/0.01ML SC SCH ×2 (08:10→21:29)
--- NOTE | 2020-11-07 09:02 | RO ---
OPERATIVE NOTE DATE OF OPERATION: 11/06/2020 PREOPERATIVE DIAGNOSIS: Osteomyelitis 1st metatarsal and remnant of proximal phalanx left foot. POSTOPERATIVE DIAGNOSIS: Osteomyelitis 1st metatarsal and remnant of proximal phalanx left foot. PROCEDURE: Partial left ray amputation with insertion of Vancomycin-impregnated beads left foot. SURGEON: Tyler Greer DPM VASCULAR TECH: None. ESTIMATED BLOOD LOSS: Less than 20 mL. HEMOSTASIS: None. IRRIGATION: Dilute Vancomycin solution 3 liters low pressure pulse lavage system. ANESTHESIA: Local MAC DESCRIPTION OF PROCEDURE: On 11/06/2020 this 55-year-old male was taken from hospital room to the operating room and placed on the operating table in the supine position. Following the induction of IV sedation and local regional anesthesia the left lower extremity was prepped and draped in usual aseptic manner. Attention was directed to the plantar surface of the patient's foot where there was noted to be a draining ulcer plantar surface of the left foot. The ulcer extended to bone. At this time a 4 cm incision was placed at the 11 o'clock position of the ulcer extending along the medial shaft of the 1st metatarsal. Utilizing Hohmann retractor flap was created on the dorsal surface. Utilizing a sagittal saw an osteotomy was performed obliquely across the 1st metatarsal at the 1st metatarsal neck with more bone being taken on the medial and plantar surfaces. This head of the 1st metatarsal was then removed from the operative site. Medial and lateral sesamoids were dissected from the inferior soft tissue and the proximal phalanx was dissected free from the surrounding soft tissue. The bone was sent to micro bacteriology for aerobic and anaerobic culture. All bleeders as encountered with electrocoagulated. 3 liters of dilute Vancomycin solution was then instilled to the operative wound for the low pressure pulse lavage system. Six 5 mm Vancomycin-impregnated beads were then placed in the wound and the wound was closed with simple interrupted suture of 2-0 nylon. Sterile dressing was then applied consisting of Adaptic, 4 x 4s, ABDs and 4 inch Kerlix followed by Coban with light compression. The patient having apparently tolerated the surgical procedure well was taken from the OR to the recovery room for further monitoring by the anesthesia department. Postoperative instructions will be given upon discharge. RICK
[2020-11-07 10:00] VITALS: BP 133/63
[2020-11-07 14:00] VITALS: BP 142/68
[2020-11-07] MEDS: NS 1,000 ML IV SCH (17:22)
[2020-11-07 18:00] VITALS: BP 145/78
--- NOTE | 2020-11-07 20:52 | IPNPDOC ---
Subjective Date Seen The patient was seen on 11/07/20. Subjective Chief Complaint/HPI Mr. Rojo is a 55 year old male with IDDM and amputation of right first toe in Aug 2018 who presents with malaise, nausea, vomiting, fever and chills. Last night, he was taken to the OR. This morning, the patient feels well. Denies chest pain or dyspnea. Spoke with Dr. Greer, will need to wait for bone culture results before considering antibiotic choice. Objective Physical Examination General Exam: Positive: Alert, Cooperative Eye Exam: Positive: EOMI; Negative: Sclera icteric ENT Exam: Positive: Atraumatic Neck Exam: Positive: Supple Chest Exam: Positive: Clear to auscultation; Negative: Rales, Rhonchi, Wheezing Heart Exam: Positive: Rate Normal, Regular Rhythm Abdomen Exam: Positive: Normal bowel sounds, Soft; Negative: Tenderness Extremity Exam: Negative: Edema Neuro Exam: Positive: Normal Speech Psych Exam: Positive: Mental status NL, Mood NL Assessment /Plan Assessment Mr. Rojo is a 55 year old male with IDDM and amputation of right first toe in Aug 2018 who is here with sepsis 2/2 left toe osteomyelitis. He is on Vancomycin for left toe osteomyelitis. Consulted podiatry, Dr. Greer. Dr. Greer performed partial left ray amputation with insertion of vancomycin beds into left foot on 11/06/2020. Pending bone tissue culture results Plan/VTE VTE Prophylaxis Ordered?: Yes Plan 1. Sepsis 2/2 left toe osteomyelitis -Met 2/4 SIRS criteria (Fever and tachycardia) -On IV vancomycin for left toe osteomyelitis -Pending bone tissue culture results 2. 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 ONEAL on CKD -Improved -Baseline creatinine 1.59. On admission, creatinine 2 -Hold lisinopril and metformin -Supportive care -Monitor BMP 4. Normocytic anemia -Stable -Ferritin elevated. Possibly anemia of chronic disease 2/2 osteomyelitis and CKD -Monitor CBC 5. IDDM -HbA1c 8.7 (on 11/04/2020) -Hold metformin while inpatient -Continue Levemir and sliding scale insulin 6. Hypertension -Hold lisinopril -Cautious with antihypertensive due to sepsis -If blood continues to increase, can consider other BP med 7. Dyslipidemia -Continue atorvastatin 8. DVT ppx -Heparin Disposition: Pending bone tissue culture results VS, I&O, 24H, Fishbone Vital Signs/I&O Vital Signs Date Time Temp Pulse Resp B/P (MAP) Pulse Ox O2 Delivery O2 Flow Rate FiO2 11/07/20 18:00 97.6 60 14 145/78 (100) 98 Room Air I&O- Last 24 Hours up to 6 AM 11/07/20 06:00 Intake Total 3170 ml Output Total 721 ml Balance 2449 ml Laboratory Data 24H LABS Laboratory Tests 2 11/07/20 05:31: Nucleated Red Blood Cells % (auto) 0.0, Anion Gap 4L, Glomerular Filtration Rate 59.1, Calcium Level 8.3L 11/07/20 12:32: Bedside Glucose (Misc Panel) 276H 11/07/20 17:15: Bedside Glucose (Misc Panel) 405H 11/07/20 19:39: Bedside Glucose (Misc Panel) 320H CBC/BMP Laboratory Tests 11/07/20 05:31 Microbiology Microbiology 11/06/20 Wound Culture, Received Pending 11/06/20 Anaerobic Culture, Received Pending 11/03/20 Wound Culture - Final, Complete Staphylococcus Sp Coag Neg Corynebacterium Species 11/03/20 Respiratory Virus Panel (PCR) ([facility]) - Final, Complete 11/03/20 Blood Culture - Preliminary, Resulted No Growth after 72 hours. All specime... LIZZY LOWRY DO Nov 07, 2020 20:52
[2020-11-07] MEDS ORDERED: HumaLOG INSULIN (NovoLOG) PER UNIT SC SCH (21:00)
[2020-11-07 22:00] VITALS: BP 153/82
[2020-11-08] MEDS ORDERED: VANCOMYCIN HCL 1,000 MG, VIAL MATE ADAPTER 1 EACH in NS 250 ML IV SCH ×3
[2020-11-08] MEDS: HEPARIN SOD (PORCINE) 5000UNITS/ML 1ML VIAL/SYRINGE SC SCH ×3 (05:15→21:02)
[2020-11-08 06:00] VITALS: BP 136/81
[2020-11-08 06:15] LABS: HEMATOCRIT 36.4 % (42.0-52.0); HEMOGLOBIN 11.8 g/dl (13.5-17.5); MEAN CORPUSCULAR HEMOGLOBIN 27.8 pg (27.0-33.0); MEAN CORPUSCULAR HGB CONC 32.4 g/dl (32.0-36.5); MEAN CORPUSCULAR VOLUME 85.8 fl (80.0-96.0); PLATELET COUNT, AUTOMATED 257 10^3/uL (150-450); RED BLOOD COUNT 4.24 10^6/uL (4.30-6.10); WHITE BLOOD COUNT 6.1 10^3/uL (4.0-10.0)
[2020-11-08 06:43] LABS: BLOOD UREA NITROGEN 17 MG/DL (7-18); CALCIUM LEVEL 8.1 MG/DL (8.5-10.1); CARBON DIOXIDE LEVEL 27 MEQ/L (21-32); CHLORIDE LEVEL 108 MEQ/L (98-107); CREATININE FOR GFR 1.28 MG/DL (0.70-1.30); GLOMERULAR FILTRATION RATE > 60.0 (>56); GLUCOSE, FASTING 241 MG/DL (70-100); SODIUM LEVEL 140 MEQ/L (136-145)
[2020-11-08] MEDS: NS 1,000 ML IV SCH ×4 (08:13→21:04)
[2020-11-08] MEDS: ASPIRIN 81MG ENTERIC TABLET PO SCH (08:13)
[2020-11-08] MEDS: ATORVASTATIN 20 MG TAB PO SCH (08:13)
[2020-11-08] MEDS: LEVEMIR (INSULIN DETEMIR) 1 UNITS/0.01ML SC SCH ×2 (08:13→21:03)
[2020-11-08] MEDS: HumaLOG INSULIN (NovoLOG) PER UNIT SC SCH ×4 (08:14→21:02)
--- NOTE | 2020-11-08 10:07 | IPNPDOC ---
Subjective Date Seen The patient was seen on 11/08/20. Subjective Chief Complaint/HPI Mr. Rojo is a 55 year old male with IDDM and amputation of right first toe in Aug 2018 who presents with malaise, nausea, vomiting, fever and chills. He was taken to the OR on 11/06/2020 for partial left ray amputation. This morning denies any symptoms. He is anxious for home. Pending pathology and culture results. Objective Physical Examination General Exam: Positive: Alert, Cooperative Eye Exam: Positive: EOMI; Negative: Sclera icteric ENT Exam: Positive: Atraumatic Neck Exam: Positive: Supple Chest Exam: Positive: Clear to auscultation; Negative: Rales, Rhonchi, Wheezing Heart Exam: Positive: Rate Normal, Regular Rhythm Abdomen Exam: Positive: Normal bowel sounds, Soft; Negative: Tenderness Extremity Exam: Negative: Edema Neuro Exam: Positive: Normal Speech Psych Exam: Positive: Mental status NL, Mood NL Assessment /Plan Assessment Mr. Rojo is a 55 year old male with IDDM and amputation of right first toe in Aug 2018 who is here with sepsis 2/2 left toe osteomyelitis. He is on Vancomycin for left toe osteomyelitis. Consulted podiatry, Dr. Greer. Dr. Greer performed partial left ray amputation with insertion of vancomycin beds into left foot on 11/06/2020. Pending bone tissue culture results Plan/VTE VTE Prophylaxis Ordered?: Yes Plan 1. Sepsis 2/2 left toe osteomyelitis -Met 2/4 SIRS criteria (Fever and tachycardia) -On IV vancomycin for left toe osteomyelitis -Pending bone tissue culture results 2. 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 ONEAL on CKD -Improved -Baseline creatinine 1.59. On admission, creatinine 2 -Hold lisinopril and metformin -Supportive care -Monitor BMP 4. Normocytic anemia -Stable -Ferritin elevated. Possibly anemia of chronic disease 2/2 osteomyelitis and CKD -Monitor CBC 5. IDDM -HbA1c 8.7 (on 11/04/2020) -Hold metformin while inpatient -Continue Levemir and sliding scale insulin 6. Hypertension -Hold lisinopril -If renal function remains stable, can restart lisinopril tomorrow 7. Dyslipidemia -Continue atorvastatin 8. DVT ppx -Heparin Disposition: Pending bone tissue culture results VS, I&O, 24H, Fishbone Vital Signs/I&O Vital Signs Date Time Temp Pulse Resp B/P (MAP) Pulse Ox O2 Delivery O2 Flow Rate FiO2 11/08/20 06:00 97.6 65 19 136/81 (99) 99 Room Air I&O- Last 24 Hours up to 6 AM 11/08/20 06:00 Intake Total 4450 ml Output Total 901 ml Balance 3549 ml Laboratory Data 24H LABS Laboratory Tests 2 11/07/20 12:32: Bedside Glucose (Misc Panel) 276H 11/07/20 17:15: Bedside Glucose (Misc Panel) 405H 11/07/20 19:39: Bedside Glucose (Misc Panel) 320H 11/07/20 22:30: Vancomycin Level Trough 24.4H 11/08/20 05:30: Nucleated Red Blood Cells % (auto) 0.0, Anion Gap 5L, Glomerular Filtration Rate > 60.0, Calcium Level 8.1L CBC/BMP Laboratory Tests 11/08/20 05:30 Microbiology Microbiology 11/06/20 Wound Culture, Received Pending 11/06/20 Anaerobic Culture, Received Pending 11/03/20 Wound Culture - Final, Complete Staphylococcus Sp Coag Neg Corynebacterium Species 11/03/20 Respiratory Virus Panel (PCR) ([facility]) - Final, Complete 11/03/20 Blood Culture - Preliminary, Resulted No Growth after 72 hours. All specime... LIZZY LOWRY DO Nov 08, 2020 10:07
[2020-11-08] MEDS: VANCOMYCIN HCL 1,000 MG, VIAL MATE ADAPTER 1 EACH in NS 250 ML IV SCH (14:45)
[2020-11-08 22:00] VITALS: BP 148/81
[2020-11-09] MEDS: VANCOMYCIN HCL 1,000 MG, VIAL MATE ADAPTER 1 EACH in NS 250 ML IV SCH (02:51)
[2020-11-09 06:00] VITALS: BP 151/80
[2020-11-09 06:08] LABS: HEMATOCRIT 35.5 % (42.0-52.0); HEMOGLOBIN 11.4 g/dl (13.5-17.5); MEAN CORPUSCULAR HEMOGLOBIN 27.9 pg (27.0-33.0); MEAN CORPUSCULAR HGB CONC 32.1 g/dl (32.0-36.5); PLATELET COUNT, AUTOMATED 264 10^3/uL (150-450); RED BLOOD COUNT 4.08 10^6/uL (4.30-6.10); WHITE BLOOD COUNT 6.9 10^3/uL (4.0-10.0)
[2020-11-09] MEDS: HEPARIN SOD (PORCINE) 5000UNITS/ML 1ML VIAL/SYRINGE SC SCH (06:08)
[2020-11-09 06:31] LABS: BLOOD UREA NITROGEN 17 MG/DL (7-18); CALCIUM LEVEL 7.8 MG/DL (8.5-10.1); CARBON DIOXIDE LEVEL 28 MEQ/L (21-32); CHLORIDE LEVEL 109 MEQ/L (98-107); CREATININE FOR GFR 1.29 MG/DL (0.70-1.30); GLOMERULAR FILTRATION RATE > 60.0 (>56); GLUCOSE, FASTING 266 MG/DL (70-100); POTASSIUM SERUM 4.1 MEQ/L (3.5-5.1); SODIUM LEVEL 142 MEQ/L (136-145)
[2020-11-09] MEDS: ASPIRIN 81MG ENTERIC TABLET PO SCH (08:06)
[2020-11-09] MEDS: LEVEMIR (INSULIN DETEMIR) 1 UNITS/0.01ML SC SCH (08:07)
[2020-11-09] MEDS: ATORVASTATIN 20 MG TAB PO SCH (08:07)
[2020-11-09] MEDS: HumaLOG INSULIN (NovoLOG) PER UNIT SC SCH ×2 (08:07→12:00)
[2020-11-09] MEDS ORDERED: AUGM875T28 PO (10:14)
[2020-11-09] MEDS ORDERED: CVS1CAP2 PO (10:14)
[2020-11-09] MEDS ORDERED: SILV1CRE60 TOP (10:33)
--- NOTE | 2020-11-09 23:05 | DS.PDOC ---
Discharge Summary General Date of Admission Nov 03, 2020 at 22:04 Date of Discharge Nov 09, 2020 Specialist/[facility]ultants [facility], Dr. Greer Discharge Summary PROCEDURES PERFORMED DURING STAY: Partial left ray amputation with insertion of vancomycin beds into left foot on 11/06/2020 ADMITTING DIAGNOSES: 1. Sepsis 2/2 left toe osteomyelitis 2. ONEAL on CKD stage 3 3. Hyperkalemia 2/2 ONEAL 4. Normocytic anemia 5. Transaminitis 6. Diabetes mellitus type 2 7. Hypertension 8. Dyslipidemia 9. Obesity DISCHARGE DIAGNOSES: 1. Sepsis 2/2 left toe osteomyelitis 2. ONEAL on CKD stage 3 3. Hyperkalemia 2/2 ONEAL 4. Normocytic anemia 5. Transaminitis 6. Diabetes mellitus type 2 7. Hypertension 8. Dyslipidemia 9. Obesity COMPLICATIONS/CHIEF COMPLAINT: Arf,Cellulitis. HISTORY OF PRESENT ILLNESS: Mr. Rojo is a 55 year old male with diabetes mellitus who presents iwth malaise, weakness, nausea, vomiting, fever/chills, and poor appetite. Patient was not concerned about his foot, but the ED provider was concerned. The left foot had a malodorous discharge and started antibiotics for possible infection. Patient was admitted for sepsis 2/2 left toe osteomyelitis. Patient was started on Vancomycin for antibiotics HOSPITAL COURSE: Podiatry, Dr. Greer, was consulted. He took the patient to the OR on on 11/06/2020 for partial left ray amputation with insertion of vancomycin beds into left foot. Bone was sent to pathology and returned consistent for osteomyelitis. I called the pathologist, Dr. Lux, who told me the margins were clear. Today, the bone cultures grew 2 different Corynebacterium species and anaerobic cultures were still pending. Patient was ready to go today, so I touch base with ID. Recommended Augmentin for now and follow up outpatient. Patient felt well and was anxious to go home. He was discharged home with instruction for partial weight bearing on left foot and wound care (with silvadene). DISCHARGE MEDICATIONS: Please see below. ALLERGIES: Please see below. PHYSICAL EXAMINATION ON DISCHARGE: VITAL SIGNS: Please see below. GENERAL: Comfortable, in no apparent distress HEENT: Head normocephalic, atraumatic NECK: Supple CARDIOVASCULAR EXAMINATION: Regular rate and rhythm RESPIRATORY EXAMINATION: Lungs clear to auscultation bilaterally ABDOMINAL EXAMINATION: Soft, non-tender, normal bowel sounds EXTREMITIES: No pitting edema bilaterally SKIN: Warm and dry NEUROLOGICAL EXAMINATION: CN 3-12 grossly intact PSYCHIATRIC EXAMINATION: Normal mood and affect LABORATORY DATA: Please see below. IMAGING: Radiologist interpretation XR foot Findings are suggestive of osteomyelitis involving the residual great toe proximal phalanx and probably the distal metatarsal of the great toe with overlying soft tissue defect extending down to bone XR abdomen Mild dilatation of the right hemicolon. Otherwise unremarkable bowel gas pattern. US abdoEvidence of fatty infiltration of the liver. Splenomegaly. Otherwise negative complete abdominal sonography. men PROGNOSIS: Home ACTIVITY: Partial weight bearing on left leg. DIET: Carbohydrate consistent diet DISCHARGE PLAN: Home DISPOSITION: Home, Self-Care. DISCHARGE INSTRUCTIONS: 1. Follow up with PCP within 1 week 2. Follow up with Podiatry in 1 week 3. Follow up with ID in 1 to 2 weeks ITEMS TO FOLLOWUP ON ON OUTPATIENT: 1. Anaerobic culture DISCHARGE CONDITION: Stable. Total time spent on discharge planning, discharge summary, and medication reconciliation: 60 minutes Vital Signs/I&Os Vital Signs Date Time Temp Pulse Resp B/P (MAP) Pulse Ox O2 Delivery O2 Flow Rate FiO2 11/09/20 06:00 97.6 68 20 151/80 (103) 95 11/08/20 06:00 Room Air I&O- Last 24 Hours up to 6 AM 11/09/20 06:00 Intake Total 3200 ml Output Total 2325 ml Balance 875 ml Laboratory Data Labs 24H Laboratory Tests 2 11/09/20 05:25: Nucleated Red Blood Cells % (auto) 0.0, Anion Gap 5L, Glomerular Filtration Rate > 60.0, Calcium Level 7.8L 11/09/20 11:46: Bedside Glucose (Misc Panel) 274H CBC/BMP Laboratory Tests 11/09/20 05:25 FSBS Laboratory Tests Test 11/09/20 11:46 Range/Units Bedside Glucose (Misc Panel) 274 70-105 MG/DL Microbiology Microbiology 11/06/20 Wound Culture - Final, Resulted Corynebacterium Species Corynebacterium Species#2 11/06/20 Anaerobic Culture, Resulted Pending 11/03/20 Wound Culture - Final, Complete Staphylococcus Sp Coag Neg Corynebacterium Species 11/03/20 Respiratory Virus Panel (PCR) ([facility]) - Final, Complete 11/03/20 Blood Culture - Final, Complete NO GROWTH AFTER 5 DAYS Discharge Medications Scheduled Amoxicillin/Potassium Clav (Augmentin 875-125 Tablet) 1 Each Tablet, 875 MG PO BID Aspirin (Aspirin EC) 81 Mg Tab, 81 MG PO DAILY, (Reported) Atorvastatin Calcium (Atorvastatin Calcium) 80 Mg Tab, 80 MG PO DAILY, (Reported) Dulaglutide (Trulicity) 0.75 Mg/0.5 Ml Pen.injctr, 0.75 MG SC QWEEK, (Reported) FRIDAY Insulin Glargine,Hum.rec.anlog (Toujeo Max Solostar) 300 Unit/1 Ml Insuln.pen, 60 UNIT SC BID, (Reported) STATES TAKES IN AM AND AT NOON Insulin Lispro (Admelog) 100 Unit/Ml Inj, 20 UNIT SC TID, (Reported) TAKES BEFORE MEALS Lactobacillus Combo No.10 (Probiotic) 1 Each Capsule, 1 TAB PO DAILY Lisinopril (Lisinopril) 2.5 Mg Tab, 2.5 MG PO DAILY, (Reported) Metformin HCl (Metformin HCl) 1,000 Mg Tab, 1,000 MG PO BID, (Reported) Silver Sulfadiazine (Silvadene) 20 Gm Cream..g., 1 APLCT TOP BID apply to affected area(s) Scheduled PRN Acetaminophen (Acetaminophen) 325 Mg Tablet, 325 MG PO Q4-6HP PRN for PAIN / FEVER, (Reported) Docusate Sodium (Docusate Sodium) 100 Mg Cap, 100 MG PO BID PRN for CONSTIPATION, (Reported) Allergies Coded Allergies: No Known Allergies (Unverified , 07/06/19) LIZZY LOWRY DO Nov 09, 2020 23:05
== END 2020-11-09 13:12 | disposition home health service (06) | DRG 710 ==
LOC: EDBD 16:51 → M ED 16:51 → M ED INP 22:04 → ENRESERV 22:30 → M PCU 23:24 → M MSPAV 11-05 17:21
PROVIDERS: ADMIT Internal Medicine; ATTEND Internal Medicine
PROC: 0Y6N0Z9 Detachment at Left Foot, Partial 1st Ray, Open Approach (ICD-10-PCS; principal; 2020-11-06 16:00)
DX: A41.9 Sepsis, unspecified organism (principal); E11.22 Type 2 diabetes mellitus with diabetic chronic kidney disease; N17.9 Acute kidney failure, unspecified; M86.172 Other acute osteomyelitis, left ankle and foot; E11.621 Type 2 diabetes mellitus with foot ulcer; N18.30 Chronic kidney disease, stage 3 unspecified; E11.69 Type 2 diabetes mellitus with other specified complication; E87.5 Hyperkalemia; Z68.41 Body mass index [BMI] 40.0-44.9, adult; L97.528 Non-pressure chronic ulcer of other part of left foot with other specified severity; I12.9 Hypertensive chronic kidney disease with stage 1 through stage 4 chronic kidney disease, or unspecified chronic kidney disease; E78.5 Hyperlipidemia, unspecified; E66.9 Obesity, unspecified; F17.200 Nicotine dependence, unspecified, uncomplicated; D64.9 Anemia, unspecified; Z79.82 Long term (current) use of aspirin; Z79.4 Long term (current) use of insulin; Z79.899 Other long term (current) drug therapy; Z89.411 Acquired absence of right great toe

== ENCOUNTER → 2020-11-21 | Outpatient (REF) | payer OTHER ==
[~2020-11-21] MED LIST changes: +ACET1TAB55 PO; +AUGM875T28 PO; +CVS1CAP2 PO; +SILV1CRE60 TOP; +SULF1TAB93 PO; +TRUL10IN SC
[2020-11-21 13:47] LABS: BASO # 0.1 10^3/uL (0.0-0.2); BASO % 0.9 % (0.0-1.0); EOS # 0.5 10^3/uL (0.0-0.5); EOS % 5.8 % (0.0-3.0); HEMATOCRIT 46.7 % (42.0-52.0); HEMOGLOBIN 14.6 g/dl (13.5-17.5); LYMPH # 2.1 10^3/uL (1.5-5.0); LYMPH % 26.9 % (24.0-44.0); MEAN CORPUSCULAR HEMOGLOBIN 28.1 pg (27.0-33.0); MEAN CORPUSCULAR HGB CONC 31.3 g/dl (32.0-36.5); MEAN CORPUSCULAR VOLUME 89.8 fl (80.0-96.0); MONO # 0.4 10^3/uL (0.0-0.8); MONO % 5.7 % (2.0-8.0); NEUTROPHILS # 4.7 10^3/uL (1.5-8.5); NEUTROPHILS % 60.4 % (36.0-66.0); PLATELET COUNT, AUTOMATED 268 10^3/uL (150-450); WHITE BLOOD COUNT 7.7 10^3/uL (4.0-10.0)
[2020-11-21 14:12] LABS: ERYTHROCYTE SEDIMENTATION RATE 24 mm/hr (0-20)
== END ==
LOC: M SFHCPLAZ 11:19
PROVIDERS: ATTEND Internal Medicine Infectious Disease
DX: M86.172 Other acute osteomyelitis, left ankle and foot (principal)

== ENCOUNTER → 2020-12-11 | Outpatient (REF) | payer OTHER ==
[~2020-12-11] MED LIST changes: +BACTDSTA PO; -SULF1TAB93 PO
[2020-12-11 13:12] LABS: BASO # 0.1 10^3/uL (0.0-0.2); EOS # 0.2 10^3/uL (0.0-0.5); EOS % 3.3 % (0.0-3.0); HEMATOCRIT 47.2 % (42.0-52.0); HEMOGLOBIN 14.9 g/dl (13.5-17.5); LYMPH # 1.7 10^3/uL (1.5-5.0); LYMPH % 22.8 % (24.0-44.0); MEAN CORPUSCULAR HEMOGLOBIN 27.9 pg (27.0-33.0); MEAN CORPUSCULAR HGB CONC 31.6 g/dl (32.0-36.5); MEAN CORPUSCULAR VOLUME 88.4 fl (80.0-96.0); MONO # 0.6 10^3/uL (0.0-0.8); MONO % 8.7 % (2.0-8.0); NEUTROPHILS # 4.6 10^3/uL (1.5-8.5); NEUTROPHILS % 63.9 % (36.0-66.0); PLATELET COUNT, AUTOMATED 207 10^3/uL (150-450); RED BLOOD COUNT 5.34 10^6/uL (4.30-6.10); WHITE BLOOD COUNT 7.2 10^3/uL (4.0-10.0)
[2020-12-11 13:41] LABS: ERYTHROCYTE SEDIMENTATION RATE 7 mm/hr (0-20)
== END ==
LOC: M SFHCPLAZ 10:50
PROVIDERS: ATTEND Internal Medicine Infectious Disease
DX: M86.172 Other acute osteomyelitis, left ankle and foot (principal)

== ENCOUNTER → 2021-02-22 | Outpatient (REF) | payer OTHER ==
[2021-02-22 17:26] LABS: HEP C VIRUS AB INDEX SOURCE PT 0.1 INDEX (0.0-0.8); HEPATITIS B SURFACE ANTIGEN NEGATIVE (NEGATIVE); HIV SCREEN CENTAUR SOURCE NEGATIVE (NEGATIVE)
== END ==
LOC: M SHH 15:13
PROVIDERS: ATTEND Student in an Organized Health Care Education/Training Program
DX: Z77.21 Contact with and (suspected) exposure to potentially hazardous body fluids (principal); W46.1XXA Contact with contaminated hypodermic needle, initial encounter; Y92.9 Unspecified place or not applicable; X58.XXXA Exposure to other specified factors, initial encounter

== ENCOUNTER → 2021-04-05 | Outpatient (REF) | payer OTHER ==
[~2021-04-05] MED LIST changes: -LISI2.5T2 GT; -LISI2.5T2 PO; +LISI2.5T9 GT; +LISI2.5T9 PO
[2021-04-05 13:43] LABS: BACTERIA, URINE AUTO NEGATIVE (NEGATIVE); RBC, URINE AUTO 2 /HPF (0-3); SQUAMOUS EPITHELIAL CELL UR AU 0 /HPF (0-6); WBC, URINE AUTO 1 /HPF (0-3)
== END ==
LOC: M LAB REF 13:17
PROVIDERS: ATTEND Nurse Practitioner Family
DX: R31.9 Hematuria, unspecified (principal)

== ENCOUNTER → 2021-06-28 | Outpatient (REF) | payer OTHER ==
[~2021-06-28] MED LIST changes: +ADME100I2 SC; +AMOX875T2; -CEFD1CAP8 PO; -LISI-898 PO; +LISI5TAB11 PO; +LOSA25TA13 PO; -LOSA25TA14 PO; +TRAM50TA2 PO
== END ==
LOC: M LAB REF 15:49
PROVIDERS: ATTEND Podiatrist
DX: M79.672 Pain in left foot (principal); L97.529 Non-pressure chronic ulcer of other part of left foot with unspecified severity

== ENCOUNTER 2021-07-09 11:31 | Inpatient (IN) | payer OTHER ==
[~2021-07-09] VITALS: Ht 167.6 cm; Wt 107.0 kg
[2021-07-09] VITALS (9 sets, daily range): BP systolic 100–128; BP diastolic 57–92
[~2021-07-09 11:31] MED LIST changes: -ADME100I2 SC; -AMOX875T2; -TRAM50TA2 PO
[2021-07-09] MEDS ORDERED: ACETAMINOPHEN TAB 650MG DOSE (2X325MG) PO PRN (13:40)
[2021-07-09 13:55] LABS: BASO % 0.4 % (0.0-1.0); EOS # 0.1 10^3/uL (0.0-0.5); EOS % 1.4 % (0.0-3.0); HEMATOCRIT 46.8 % (42.0-52.0); HEMOGLOBIN 15.4 g/dl (13.5-17.5); LYMPH # 0.9 10^3/uL (1.5-5.0); LYMPH % 18.1 % (24.0-44.0); MEAN CORPUSCULAR HEMOGLOBIN 28.6 pg (27.0-33.0); MEAN CORPUSCULAR HGB CONC 32.9 g/dl (32.0-36.5); MONO # 0.3 10^3/uL (0.0-0.8); MONO % 6.1 % (2.0-8.0); NEUTROPHILS # 3.6 10^3/uL (1.5-8.5); NEUTROPHILS % 73.6 % (36.0-66.0); PLATELET COUNT, AUTOMATED 182 10^3/uL (150-450); RED BLOOD COUNT 5.38 10^6/uL (4.30-6.10); WHITE BLOOD COUNT 4.9 10^3/uL (4.0-10.0)
[2021-07-09 14:14] LABS: INR 1.15; PROTHROMBIN TIME 15.1 SECONDS (12.7-14.5)
[2021-07-09 14:15] LABS: PARTIAL THROMBOPLASTIN TIME 36.1 SECONDS (25.9-37.0)
[2021-07-09 14:25] LABS: ALBUMIN 2.8 GM/DL (3.2-5.2); BILIRUBIN,TOTAL 0.5 MG/DL (0.2-1.0); CALCIUM LEVEL 7.9 MG/DL (8.5-10.1); CREATININE FOR GFR 2.35 MG/DL (0.70-1.30); GLOMERULAR FILTRATION RATE 30.8 (>56); POTASSIUM SERUM 5.2 MEQ/L (3.5-5.1); TOTAL PROTEIN 7.1 GM/DL (6.4-8.2)
[2021-07-09] MEDS ORDERED: BUPIVACAINE HCL 0.5% 30 ML VIAL As Ordered ONE (15:57)
[2021-07-09] MEDS ORDERED: LIDOCAINE 2% MDV 20ML VIAL As Ordered ONE (15:57)
[2021-07-09] MEDS ORDERED: ROPIvacaine 0.5% 30ML INJECTION (J2795 PER 1MG) As Ordered ONE (15:57)
[2021-07-09] MEDS: NS 1,000 ML IV SCH (16:36)
[2021-07-09 16:41] LABS: C REACTIVE PROTEIN QUANTITATIV 3.76 MG/DL (0.00-0.30); MAGNESIUM LEVEL 1.9 MG/DL (1.8-2.4)
[2021-07-09] MEDS ORDERED: GENTAMICIN SULF 80MG/2ML VIAL As Ordered ONE (16:45)
[2021-07-09] MEDS ORDERED: VANCOMYCIN HCL 1,000 MG, VIAL MATE ADAPTER 1 EACH in NS 250 ML IV ONE (17:00)
[2021-07-09] MEDS ORDERED: SILV50CR TOP (17:01)
[2021-07-09] MEDS ORDERED: HOME MED LIST COMPLETE! XX SCH (17:05)
[2021-07-09 17:16] LABS: APPEARANCE, URINE HAZY (CLEAR); BACTERIA, URINE AUTO NEGATIVE (NEGATIVE); BILIRUBIN, URINE AUTO NEGATIVE (NEGATIVE); BLOOD, URINE BLOOD 1+ (NEGATIVE); COLOR, URINE AMBER (YELLOW); GLUCOSE, URINE (UA) AUTO 1+ mg/dL (NEGATIVE); KETONE, URINE AUTO NEGATIVE (NEGATIVE); LEUKOCYTE ESTERASE, URINE AUTO NEGATIVE (NEGATIVE); MUCUS, URINE SMALL (NEGATIVE); NITRITE, URINE AUTO NEGATIVE (NEGATIVE); PROTEIN, URINE AUTO 3+ mg/dL (NEGATIVE); RBC, URINE AUTO 3 /HPF (0-3); SPECIFIC GRAVITY URINE AUTO 1.022 (1.002-1.035); SQUAMOUS EPITHELIAL CELL UR AU 1 /HPF (0-6); UROBILINOGEN, URINE AUTO 0.2 mg/dL (0.0-2.0); WBC, URINE AUTO 2 /HPF (0-3)
[2021-07-09] MEDS ORDERED: DOCUSATE SODIUM 100MG CAPSULE PO PRN (17:20)
[2021-07-09] MEDS ORDERED: fentaNYL 100 MCG/2 ML INJECTION As Ordered ONE (17:33)
[2021-07-09] MEDS ORDERED: MIDAZOLAM INJ 2MG/2ML VIAL (J2250 PER 1MG) As Ordered ONE (17:33)
[2021-07-09] MEDS ORDERED: ETOMIDATE INJ 20MG/10ML VIAL As Ordered ONE (17:33)
[2021-07-09] MEDS ORDERED: propofoL 200 MG/20 ML VIAL As Ordered ONE (17:33)
[2021-07-09 17:39] LABS: D-DIMER QUANT 1430.96 ng/ml (<500)
[2021-07-09] MEDS: PIPERACILLIN/TAZOBACTAM SOD 3.375 GM in D5W MINI-BAG PLUS 50 ML IV SCH (18:52)
[2021-07-09] MEDS: ASPIRIN 81MG ENTERIC TABLET PO SCH (18:52)
[2021-07-09] MEDS: ATORVASTATIN 20 MG TAB PO SCH (18:52)
[2021-07-09] MEDS ORDERED: PERCOCET 5MG/325MG TAB PO PRN ×2 (19:40)
[2021-07-09] MEDS: LEVEMIR (INSULIN DETEMIR) 1 UNITS/0.01ML SC SCH (19:57)
[2021-07-09] MEDS ORDERED: GLUCAGON INJ 1MG VIAL SC PRN (20:20)
[2021-07-09] MEDS ORDERED: DEXTROSE 50% 50 ML SYRINGE IV PRN (20:20)
[2021-07-09] MEDS ORDERED: GLUCOSE 4GM CHEW TABLET PO PRN (20:20)
[2021-07-09] MEDS: HumaLOG INSULIN (NovoLOG) PER UNIT SC SCH (20:39)
[2021-07-10] VITALS (8 sets, daily range): BP systolic 105–137; BP diastolic 55–78; O2SAT 97
[2021-07-10] MEDS: NS 1,000 ML IV SCH ×3 (02:55→16:11)
[2021-07-10] MEDS: PIPERACILLIN/TAZOBACTAM SOD 3.375 GM in D5W MINI-BAG PLUS 50 ML IV SCH ×3 (03:56→17:26)
[2021-07-10 06:45] LABS: BASO % 0.3 % (0.0-1.0); EOS # 0.1 10^3/uL (0.0-0.5); EOS % 2.9 % (0.0-3.0); HEMOGLOBIN 14.5 g/dl (13.5-17.5); LYMPH % 26.7 % (24.0-44.0); MEAN CORPUSCULAR HEMOGLOBIN 28.5 pg (27.0-33.0); MEAN CORPUSCULAR HGB CONC 32.2 g/dl (32.0-36.5); MEAN CORPUSCULAR VOLUME 88.6 fl (80.0-96.0); MONO # 0.3 10^3/uL (0.0-0.8); MONO % 6.7 % (2.0-8.0); NEUTROPHILS # 2.4 10^3/uL (1.5-8.5); NEUTROPHILS % 63.1 % (36.0-66.0); PLATELET COUNT, AUTOMATED 166 10^3/uL (150-450); RED BLOOD COUNT 5.08 10^6/uL (4.30-6.10); WHITE BLOOD COUNT 3.7 10^3/uL (4.0-10.0)
[2021-07-10 07:09] LABS: CALCIUM LEVEL 7.7 MG/DL (8.5-10.1); CREATININE FOR GFR 2.09 MG/DL (0.70-1.30); GLOMERULAR FILTRATION RATE 35.3 (>56); MAGNESIUM LEVEL 1.7 MG/DL (1.8-2.4); POTASSIUM SERUM 4.6 MEQ/L (3.5-5.1)
[2021-07-10 07:11] LABS: HEMOGLOBIN A1c 10.3 %
[2021-07-10] MEDS: ATORVASTATIN 20 MG TAB PO SCH (08:59)
[2021-07-10] MEDS: HumaLOG INSULIN (NovoLOG) PER UNIT SC SCH ×4 (09:00→21:00)
[2021-07-10] MEDS: LEVEMIR (INSULIN DETEMIR) 1 UNITS/0.01ML SC SCH ×2 (09:00→21:00)
[2021-07-10] MEDS ORDERED: VANCOMYCIN HCL 1,000 MG, VIAL MATE ADAPTER 1 EACH in NS 250 ML IV SCH (09:00)
[2021-07-10] MEDS: ASPIRIN 81MG ENTERIC TABLET PO SCH (09:00)
[2021-07-10] MEDS ORDERED: methylPREDNISolone 125MG 2ML VIAL IV PRN (09:35)
[2021-07-10] MEDS ORDERED: ALBUTEROL SULFATE 2.5 MG/0.5 ML INH NEB SOLN INH PRN (09:35)
[2021-07-10] MEDS ORDERED: diphenhydrAMINE 50MG/ML VIAL (J1200) IV PRN (09:35)
[2021-07-10] MEDS ORDERED: NS 1,000 ML IV SCH (09:35)
[2021-07-10] MEDS ORDERED: EPINEPHrine INJ 1 MG/ML 1ML AMP IM PRN (09:35)
[2021-07-10] MEDS ORDERED: ALBUTEROL 90 MCG/ACT 8GM HFA INHALER INH PRN (09:35)
[2021-07-10] MEDS ORDERED: VANCOMYCIN HCL 500 MG in D5W MINI-BAG PLUS 100 ML IV ONE (10:00)
[2021-07-10] MEDS ORDERED: CASIRIVIMAB/IMDEVIMAB 1,200 MG in NS 250 ML IV ONE (11:00)
[2021-07-10] MEDS: HEPARIN SOD (PORCINE) 5000UNITS/ML 1ML VIAL/SYRINGE SQ SCH ×2 (14:26→22:17)
[2021-07-10] MEDS: MAG SULF 1GM/100ML (MAG RUN) 1 GM in IV 1 EA IV SCH ×2 (14:26→15:46)
[2021-07-11] VITALS: O2SAT 97
[2021-07-11] MEDS: PIPERACILLIN/TAZOBACTAM SOD 3.375 GM in D5W MINI-BAG PLUS 50 ML IV SCH (02:09)
[2021-07-11 04:00] VITALS: BP 116/50
[2021-07-11] MEDS: NS 1,000 ML IV SCH ×2 (04:02→09:21)
[2021-07-11] MEDS: HEPARIN SOD (PORCINE) 5000UNITS/ML 1ML VIAL/SYRINGE SQ SCH ×2 (05:46→13:01)
[2021-07-11 07:15] LABS: BASO % 0.3 % (0.0-1.0); EOS # 0.1 10^3/uL (0.0-0.5); EOS % 2.8 % (0.0-3.0); HEMATOCRIT 39.7 % (42.0-52.0); LYMPH # 1.2 10^3/uL (1.5-5.0); LYMPH % 29.5 % (24.0-44.0); MEAN CORPUSCULAR HEMOGLOBIN 28.3 pg (27.0-33.0); MEAN CORPUSCULAR HGB CONC 32.7 g/dl (32.0-36.5); MEAN CORPUSCULAR VOLUME 86.3 fl (80.0-96.0); MONO # 0.3 10^3/uL (0.0-0.8); MONO % 8.2 % (2.0-8.0); NEUTROPHILS # 2.3 10^3/uL (1.5-8.5); NEUTROPHILS % 58.9 % (36.0-66.0); PLATELET COUNT, AUTOMATED 151 10^3/uL (150-450); WHITE BLOOD COUNT 3.9 10^3/uL (4.0-10.0)
[2021-07-11] MEDS: HumaLOG INSULIN (NovoLOG) PER UNIT SC SCH ×2 (07:30→13:01)
[2021-07-11 07:53] LABS: BILIRUBIN,DIRECT 0.2 MG/DL (0.0-0.2); BILIRUBIN,TOTAL 0.5 MG/DL (0.2-1.0); CALCIUM LEVEL 7.4 MG/DL (8.5-10.1); CREATININE FOR GFR 1.63 MG/DL (0.70-1.30); MAGNESIUM LEVEL 2.1 MG/DL (1.8-2.4); POTASSIUM SERUM 4.2 MEQ/L (3.5-5.1); TOTAL PROTEIN 6.5 GM/DL (6.4-8.2)
[2021-07-11 08:00] VITALS: O2SAT 97
[2021-07-11] MEDS: ASPIRIN 81MG ENTERIC TABLET PO SCH (08:15)
[2021-07-11] MEDS: ATORVASTATIN 20 MG TAB PO SCH (08:15)
[2021-07-11] MEDS: LEVEMIR (INSULIN DETEMIR) 1 UNITS/0.01ML SC SCH (08:16)
[2021-07-11] MEDS ORDERED: VANCOMYCIN HCL 750 MG, VIAL MATE ADAPTER 1 EACH in NS 250 ML IV SCH ×2 (09:00→21:00)
[2021-07-11 10:00] VITALS: BP 118/58
[2021-07-11] MEDS ORDERED: PIPERACILLIN/TAZOBACTAM SOD 3.375 GM in D5W MINI-BAG PLUS 50 ML IV SCH (10:00)
[2021-07-11] MEDS ORDERED: VANCOMYCIN HCL 500 MG in D5W MINI-BAG PLUS 100 ML IV SCH (10:00)
[2021-07-11] MEDS ORDERED: PERCOCET PO (12:04)
== END 2021-07-11 14:30 | disposition home health service (06) | DRG 314 ==
LOC: M MSPAV 12:13 → M 4MAIN 15:27
PROVIDERS: ADMIT Internal Medicine; ATTEND Family Medicine
PROC: 0Y6Y0Z0 Detachment at Left 5th Toe, Complete, Open Approach (ICD-10-PCS; principal; 2021-07-09 16:00)
PROC: XW033G6 Introduction of REGN-COV2 Monoclonal Antibody into Peripheral Vein, Percutaneous Approach, New Technology Group 6 (ICD-10-PCS; 2021-07-10)
DX: E11.69 Type 2 diabetes mellitus with other specified complication (principal); U07.1 COVID-19; N17.9 Acute kidney failure, unspecified; M86.172 Other acute osteomyelitis, left ankle and foot; R19.7 Diarrhea, unspecified; E83.42 Hypomagnesemia; R74.01 Elevation of levels of liver transaminase levels; E11.51 Type 2 diabetes mellitus with diabetic peripheral angiopathy without gangrene; I10 Essential (primary) hypertension; Z89.411 Acquired absence of right great toe; Z89.412 Acquired absence of left great toe; Z89.021 Acquired absence of right finger(s); Z87.891 Personal history of nicotine dependence

== ENCOUNTER → 2021-08-07 | Outpatient (REF) | payer OTHER ==
[~2021-08-07] MED LIST changes: +ADME100I2 SC; +AMOX875T2
== END ==
LOC: M LAB REF 15:44
PROVIDERS: ATTEND Podiatrist
DX: L03.032 Cellulitis of left toe (principal); M79.672 Pain in left foot

== ENCOUNTER 2021-08-08 15:29 | Inpatient (IN) | payer OTHER ==
[~2021-08-08] VITALS: Ht 167.6 cm; Wt 117.8 kg
[~2021-08-08 15:29] MED LIST changes: -ADME100I2 SC; -AMOX875T2
[2021-08-08] MEDS ORDERED: NS 1,000 ML IV ONE (15:45)
[2021-08-08] MEDS ORDERED: ACETAMINOPHEN TAB 650MG DOSE (2X325MG) PO ONE (15:45)
[2021-08-08] MEDS ORDERED: TOUJ1.2I SC (15:53)
[2021-08-08] MEDS ORDERED: AMOX875T2 (15:53)
[2021-08-08 16:21] LABS: BASO % 0.4 % (0.0-1.0); EOS # 0.3 10^3/uL (0.0-0.5); EOS % 2.4 % (0.0-3.0); HEMATOCRIT 46.4 % (42.0-52.0); HEMOGLOBIN 15.1 g/dl (13.5-17.5); LYMPH # 0.9 10^3/uL (1.5-5.0); LYMPH % 8.2 % (24.0-44.0); MEAN CORPUSCULAR HEMOGLOBIN 28.7 pg (27.0-33.0); MEAN CORPUSCULAR HGB CONC 32.5 g/dl (32.0-36.5); MEAN CORPUSCULAR VOLUME 88.2 fl (80.0-96.0); MONO # 0.5 10^3/uL (0.0-0.8); NEUTROPHILS # 9.4 10^3/uL (1.5-8.5); NEUTROPHILS % 84.3 % (36.0-66.0); PLATELET COUNT, AUTOMATED 268 10^3/uL (150-450); RED BLOOD COUNT 5.26 10^6/uL (4.30-6.10); WHITE BLOOD COUNT 11.2 10^3/uL (4.0-10.0)
[2021-08-08 16:24] LABS: ALBUMIN 3.1 GM/DL (3.2-5.2); BILIRUBIN,DIRECT 0.2 MG/DL (0.0-0.2); BILIRUBIN,TOTAL 0.5 MG/DL (0.2-1.0); CALCIUM LEVEL 9.7 MG/DL (8.5-10.1); CREATININE FOR GFR 1.95 MG/DL (0.70-1.30); GLOMERULAR FILTRATION RATE 38.2 (>56); POTASSIUM SERUM 4.7 MEQ/L (3.5-5.1)
[2021-08-08] MEDS ORDERED: NS 3,130 ML in IV 1 EA IV ONE (16:30)
[2021-08-08] MEDS ORDERED: CEFEPIME HCL 2 GM in D5W MINI-BAG PLUS 50 ML IV ONE (16:30)
[2021-08-08 16:41] LABS: C REACTIVE PROTEIN QUANTITATIV 6.63 MG/DL (0.00-0.30)
[2021-08-08] MEDS ORDERED: MOM 30ML SUSPENSION UDC PO PRN (17:05)
[2021-08-08] MEDS ORDERED: GLUCAGON INJ 1MG VIAL SC PRN (17:05)
[2021-08-08] MEDS ORDERED: MAALOX 30 ML SUSP *UDC PO PRN (17:05)
[2021-08-08] MEDS ORDERED: GLUCOSE 4GM CHEW TABLET PO PRN (17:05)
[2021-08-08] MEDS ORDERED: DEXTROSE 50% 50 ML SYRINGE IV PRN (17:05)
[2021-08-08] MEDS ORDERED: ACETAMINOPHEN TAB 650MG DOSE (2X325MG) PO PRN (17:05)
[2021-08-08] MEDS ORDERED: ADME100I2 SC (17:45)
[2021-08-08] MEDS ORDERED: HOME MED LIST COMPLETE! XX SCH (17:50)
[2021-08-08] MEDS ORDERED: DOCUSATE SODIUM 100MG CAPSULE PO PRN (17:50)
[2021-08-08] MEDS: HumaLOG INSULIN (NovoLOG) PER UNIT SC SCH ×2 (18:10→22:42)
[2021-08-08] MEDS: NS 1,000 ML IV SCH (22:37)
[2021-08-09] VITALS (9 sets, daily range): BP systolic 119–156; BP diastolic 58–80
[2021-08-09] MEDS: LEVEMIR (INSULIN DETEMIR) 1 UNITS/0.01ML SC SCH ×3 (00:11→21:00)
[2021-08-09] MEDS: NS 1,000 ML IV SCH ×2 (01:51→15:47)
[2021-08-09 04:07] LABS: BASO % 0.5 % (0.0-1.0); EOS # 0.2 10^3/uL (0.0-0.5); EOS % 2.6 % (0.0-3.0); HEMATOCRIT 40.1 % (42.0-52.0); LYMPH % 14.8 % (24.0-44.0); MEAN CORPUSCULAR HEMOGLOBIN 28.5 pg (27.0-33.0); MEAN CORPUSCULAR HGB CONC 32.2 g/dl (32.0-36.5); MEAN CORPUSCULAR VOLUME 88.7 fl (80.0-96.0); MONO # 0.4 10^3/uL (0.0-0.8); MONO % 6.2 % (2.0-8.0); NEUTROPHILS % 75.6 % (36.0-66.0); PLATELET COUNT, AUTOMATED 200 10^3/uL (150-450); RED BLOOD COUNT 4.52 10^6/uL (4.30-6.10); WHITE BLOOD COUNT 6.6 10^3/uL (4.0-10.0)
[2021-08-09 04:14] LABS: HEMOGLOBIN 12.9 g/dl (13.5-17.5)
[2021-08-09 04:32] LABS: ERYTHROCYTE SEDIMENTATION RATE 82 mm/hr (0-20)
[2021-08-09 04:33] LABS: ALBUMIN 2.5 GM/DL (3.2-5.2); BILIRUBIN,TOTAL 0.3 MG/DL (0.2-1.0); C REACTIVE PROTEIN QUANTITATIV 5.15 MG/DL (0.00-0.30); CALCIUM LEVEL 8.2 MG/DL (8.5-10.1); CREATININE FOR GFR 1.77 MG/DL (0.70-1.30); GLOMERULAR FILTRATION RATE 42.7 (>56); MAGNESIUM LEVEL 1.8 MG/DL (1.8-2.4); POTASSIUM SERUM 4.4 MEQ/L (3.5-5.1); TOTAL PROTEIN 7.1 GM/DL (6.4-8.2)
[2021-08-09] MEDS: CEFEPIME HCL 2 GM in D5W MINI-BAG PLUS 50 ML IV SCH ×2 (07:44→18:36)
[2021-08-09] MEDS: HumaLOG INSULIN (NovoLOG) PER UNIT SC SCH ×4 (09:02→21:00)
[2021-08-09] MEDS: ATORVASTATIN 20 MG TAB PO SCH (09:02)
[2021-08-09] MEDS: ASPIRIN 81MG ENTERIC TABLET PO SCH (09:05)
[2021-08-09] MEDS ORDERED: BUPIVACAINE HCL 0.5% 10ML VIAL As Ordered ONE (19:19)
[2021-08-09] MEDS ORDERED: LIDOCAINE 2% MDV 20ML VIAL As Ordered ONE (19:19)
[2021-08-09] MEDS ORDERED: GENTAMICIN SULF 80MG/2ML VIAL As Ordered ONE ×2 (19:19→19:26)
[2021-08-09] MEDS ORDERED: fentaNYL 100 MCG/2 ML INJECTION As Ordered ONE (19:47)
[2021-08-09] MEDS ORDERED: MIDAZOLAM INJ 2MG/2ML VIAL (J2250 PER 1MG) As Ordered ONE (19:47)
[2021-08-09] MEDS ORDERED: propofoL 200 MG/20 ML VIAL As Ordered ONE (19:47)
[2021-08-09] MEDS ORDERED: LIDOCAINE 2% 100MG/5ML SDV (FOR ANES.) As Ordered ONE (19:47)
[2021-08-09] MEDS ORDERED: PERCOCET 5MG/325MG TAB PO PRN (20:30)
[2021-08-09] MEDS ORDERED: fentaNYL 100 MCG/2 ML INJECTION IV PRN (20:30)
[2021-08-09] MEDS ORDERED: LR 1,000 ML IV SCH (20:30)
[2021-08-09] MEDS ORDERED: ONDANSETRON 4MG/2ML VIAL IV PRN (20:30)
[2021-08-10] VITALS: BP 121/58
[2021-08-10] MEDS: NS 1,000 ML IV SCH (01:39)
[2021-08-10 01:40] VITALS: BP 138/65
[2021-08-10 04:00] VITALS: BP 144/77
[2021-08-10] MEDS: CEFEPIME HCL 2 GM in D5W MINI-BAG PLUS 50 ML IV SCH ×2 (06:28→19:14)
[2021-08-10 07:30] VITALS: BP 131/76
[2021-08-10] MEDS: HumaLOG INSULIN (NovoLOG) PER UNIT SC SCH ×4 (08:47→21:41)
[2021-08-10] MEDS: ASPIRIN 81MG ENTERIC TABLET PO SCH (08:48)
[2021-08-10] MEDS: ATORVASTATIN 20 MG TAB PO SCH (08:48)
[2021-08-10] MEDS: LEVEMIR (INSULIN DETEMIR) 1 UNITS/0.01ML SC SCH ×2 (08:48→21:41)
[2021-08-10 09:07] LABS: BASO % 0.6 % (0.0-1.0); EOS # 0.3 10^3/uL (0.0-0.5); EOS % 4.5 % (0.0-3.0); HEMATOCRIT 38.9 % (42.0-52.0); HEMOGLOBIN 12.9 g/dl (13.5-17.5); LYMPH # 1.4 10^3/uL (1.5-5.0); LYMPH % 21.6 % (24.0-44.0); MEAN CORPUSCULAR HEMOGLOBIN 28.7 pg (27.0-33.0); MEAN CORPUSCULAR HGB CONC 33.2 g/dl (32.0-36.5); MEAN CORPUSCULAR VOLUME 86.6 fl (80.0-96.0); MONO # 0.6 10^3/uL (0.0-0.8); NEUTROPHILS # 4.1 10^3/uL (1.5-8.5); NEUTROPHILS % 63.8 % (36.0-66.0); PLATELET COUNT, AUTOMATED 182 10^3/uL (150-450); RED BLOOD COUNT 4.49 10^6/uL (4.30-6.10); WHITE BLOOD COUNT 6.5 10^3/uL (4.0-10.0)
[2021-08-10 09:47] LABS: ALBUMIN 2.5 GM/DL (3.2-5.2); BILIRUBIN,TOTAL 0.6 MG/DL (0.2-1.0); CALCIUM LEVEL 8.2 MG/DL (8.5-10.1); CREATININE FOR GFR 1.49 MG/DL (0.70-1.30); GLOMERULAR FILTRATION RATE 52.1 (>56); MAGNESIUM LEVEL 1.8 MG/DL (1.8-2.4); POTASSIUM SERUM 4.4 MEQ/L (3.5-5.1); TOTAL PROTEIN 7.1 GM/DL (6.4-8.2)
[2021-08-10 13:00] VITALS: BP 116/68
[2021-08-10 21:04] VITALS: BP 129/66
[2021-08-11 04:57] VITALS: BP 124/66
[2021-08-11] MEDS: CEFEPIME HCL 2 GM in D5W MINI-BAG PLUS 50 ML IV SCH ×2 (06:26→18:10)
[2021-08-11 06:33] LABS: BASO % 0.6 % (0.0-1.0); EOS # 0.3 10^3/uL (0.0-0.5); EOS % 5.2 % (0.0-3.0); HEMATOCRIT 39.6 % (42.0-52.0); HEMOGLOBIN 12.9 g/dl (13.5-17.5); LYMPH # 1.4 10^3/uL (1.5-5.0); LYMPH % 27.4 % (24.0-44.0); MEAN CORPUSCULAR HEMOGLOBIN 28.4 pg (27.0-33.0); MEAN CORPUSCULAR HGB CONC 32.6 g/dl (32.0-36.5); MONO # 0.5 10^3/uL (0.0-0.8); MONO % 9.2 % (2.0-8.0); NEUTROPHILS % 57.2 % (36.0-66.0); PLATELET COUNT, AUTOMATED 175 10^3/uL (150-450); RED BLOOD COUNT 4.55 10^6/uL (4.30-6.10); WHITE BLOOD COUNT 5.2 10^3/uL (4.0-10.0)
[2021-08-11 06:53] LABS: CALCIUM LEVEL 8.3 MG/DL (8.5-10.1); CREATININE FOR GFR 1.53 MG/DL (0.70-1.30); GLOMERULAR FILTRATION RATE 50.6 (>56); MAGNESIUM LEVEL 2.1 MG/DL (1.8-2.4); POTASSIUM SERUM 4.3 MEQ/L (3.5-5.1)
[2021-08-11] MEDS: HumaLOG INSULIN (NovoLOG) PER UNIT SC SCH ×4 (07:57→20:11)
[2021-08-11] MEDS: LEVEMIR (INSULIN DETEMIR) 1 UNITS/0.01ML SC SCH ×2 (08:26→20:09)
[2021-08-11] MEDS: ASPIRIN 81MG ENTERIC TABLET PO SCH (08:26)
[2021-08-11] MEDS: ATORVASTATIN 20 MG TAB PO SCH (08:27)
[2021-08-11] MEDS ORDERED: VANCOMYCIN HCL 1,000 MG, VIAL MATE ADAPTER 1 EACH in NS 250 ML IV ONE (13:00)
[2021-08-11 14:00] VITALS: BP 139/75
[2021-08-11] MEDS: VANCOMYCIN HCL 1,000 MG, VIAL MATE ADAPTER 1 EACH in NS 250 ML IV SCH (19:48)
[2021-08-11 22:00] VITALS: BP 142/76
[2021-08-12] MEDS: CEFEPIME HCL 2 GM in D5W MINI-BAG PLUS 50 ML IV SCH (05:48)
[2021-08-12 06:00] VITALS: BP 136/78
[2021-08-12 06:00] LABS: BASO # 0.1 10^3/uL (0.0-0.2); BASO % 0.9 % (0.0-1.0); EOS # 0.4 10^3/uL (0.0-0.5); EOS % 5.8 % (0.0-3.0); HEMATOCRIT 39.8 % (42.0-52.0); HEMOGLOBIN 13.1 g/dl (13.5-17.5); LYMPH # 1.5 10^3/uL (1.5-5.0); LYMPH % 22.7 % (24.0-44.0); MEAN CORPUSCULAR HEMOGLOBIN 28.6 pg (27.0-33.0); MEAN CORPUSCULAR HGB CONC 32.9 g/dl (32.0-36.5); MEAN CORPUSCULAR VOLUME 86.9 fl (80.0-96.0); MONO # 0.4 10^3/uL (0.0-0.8); MONO % 6.3 % (2.0-8.0); NEUTROPHILS # 4.3 10^3/uL (1.5-8.5); NEUTROPHILS % 63.9 % (36.0-66.0); PLATELET COUNT, AUTOMATED 186 10^3/uL (150-450); RED BLOOD COUNT 4.58 10^6/uL (4.30-6.10); WHITE BLOOD COUNT 6.8 10^3/uL (4.0-10.0)
[2021-08-12 06:23] LABS: CALCIUM LEVEL 8.6 MG/DL (8.5-10.1); CREATININE FOR GFR 1.47 MG/DL (0.70-1.30); GLOMERULAR FILTRATION RATE 52.9 (>56); MAGNESIUM LEVEL 1.9 MG/DL (1.8-2.4); POTASSIUM SERUM 3.8 MEQ/L (3.5-5.1)
[2021-08-12] MEDS: LEVEMIR (INSULIN DETEMIR) 1 UNITS/0.01ML SC SCH (07:31)
[2021-08-12] MEDS: HumaLOG INSULIN (NovoLOG) PER UNIT SC SCH ×2 (07:32→12:42)
[2021-08-12] MEDS: ATORVASTATIN 20 MG TAB PO SCH (07:32)
[2021-08-12] MEDS: VANCOMYCIN HCL 1,000 MG, VIAL MATE ADAPTER 1 EACH in NS 250 ML IV SCH (07:33)
[2021-08-12] MEDS: ASPIRIN 81MG ENTERIC TABLET PO SCH (07:33)
[2021-08-12 14:00] VITALS: BP 112/61
[2021-08-12] MEDS ORDERED: AUGM875T28 PO (15:27)
[2021-08-12] MEDS ORDERED: TRAM50TA2 PO (15:31)
[2021-08-12] MEDS ORDERED: AUGMENTIN 875 MG TAB PO ONE (16:00)
== END 2021-08-12 16:35 | disposition home health service (06) | DRG 314 ==
LOC: M ED 15:29 → EDBD 15:29 → M ED INP 17:01 → ENRESERV 08-09 00:19 → M PCU 08-09 01:41 → M MSPAV 08-10 12:51
PROVIDERS: ADMIT Family Medicine; ATTEND Family Medicine
PROC: 0QBP0ZZ Excision of Left Metatarsal, Open Approach (ICD-10-PCS; principal; 2021-08-09 17:30)
DX: E11.69 Type 2 diabetes mellitus with other specified complication (principal); A41.9 Sepsis, unspecified organism; E87.2 Acidosis; M86.172 Other acute osteomyelitis, left ankle and foot; I73.9 Peripheral vascular disease, unspecified; Z86.16 Personal history of COVID-19; Z89.422 Acquired absence of other left toe(s); Z89.411 Acquired absence of right great toe; Z89.412 Acquired absence of left great toe; Z87.891 Personal history of nicotine dependence; Z79.82 Long term (current) use of aspirin; Z79.84 Long term (current) use of oral hypoglycemic drugs; Z79.2 Long term (current) use of antibiotics; Z79.899 Other long term (current) drug therapy; Z91.14 Patient's other noncompliance with medication regimen

== ENCOUNTER → 2021-08-14 | Outpatient (POV) | payer OTHER ==
[~2021-08-14] VITALS: Ht 167.6 cm; Wt 114.5 kg
[~2021-08-14] MED LIST changes: +ADME100I2 SC; +AMOX875T2; +TRAM50TA2 PO
[2021-08-14 14:45] VITALS: BP 137/75
== END ==
LOC: M IRPOV 14:40
PROVIDERS: ATTEND Radiology Diagnostic Radiology
DX: I70.201 Unspecified atherosclerosis of native arteries of extremities, right leg (principal); E11.59 Type 2 diabetes mellitus with other circulatory complications; I73.9 Peripheral vascular disease, unspecified; F17.210 Nicotine dependence, cigarettes, uncomplicated; Z79.4 Long term (current) use of insulin; Z79.82 Long term (current) use of aspirin; Z79.899 Other long term (current) drug therapy; Z89.411 Acquired absence of right great toe; Z89.422 Acquired absence of other left toe(s)

== ENCOUNTER → 2021-08-22 | Outpatient (CLI) | payer OTHER ==
[~2021-08-22] MED LIST changes: +HumaLOG INSULIN (NovoLOG) PER UNIT As Ordered ONE; +HumaLOG INSULIN (NovoLOG) PER UNIT SC ONE; +ISOVUE-300 61% 50ML VIAL As Ordered ONE; +LIDOCAINE 1% MDV 20ML VIAL As Ordered ONE; +MIDAZOLAM INJ 2MG/2ML VIAL (J2250 PER 1MG) As Ordered ONE; +NS 1,000 ML IV SCH; +PROMETHAZINE INJ 25 MG/ML VIAL (J2550) As Ordered ONE; +diphenhydrAMINE 50MG/ML VIAL (J1200) As Ordered ONE; +fentaNYL 100 MCG/2 ML INJECTION As Ordered ONE
[2021-08-22 15:45] VITALS: BP 162/84
== END ==
LOC: M IRPRO 06:52
PROVIDERS: ATTEND Radiology Diagnostic Radiology
DX: I70.249 Atherosclerosis of native arteries of left leg with ulceration of unspecified site (principal); L97.929 Non-pressure chronic ulcer of unspecified part of left lower leg with unspecified severity; Z79.4 Long term (current) use of insulin; Z79.82 Long term (current) use of aspirin
CPT/HCPCS: 37228; 75630; 75774; 99152; 99153; C1725; C1729; C1769; C1887; C1894; J1200; J1644; J2250; J3010; Q9967

== ENCOUNTER → 2021-10-01 | Outpatient (CLI) | payer OTHER ==
[~2021-10-01] MED LIST changes: -HumaLOG INSULIN (NovoLOG) PER UNIT As Ordered ONE; -HumaLOG INSULIN (NovoLOG) PER UNIT SC ONE; -ISOVUE-300 61% 50ML VIAL As Ordered ONE; -LIDOCAINE 1% MDV 20ML VIAL As Ordered ONE; -MIDAZOLAM INJ 2MG/2ML VIAL (J2250 PER 1MG) As Ordered ONE; -NS 1,000 ML IV SCH; -PROMETHAZINE INJ 25 MG/ML VIAL (J2550) As Ordered ONE; -diphenhydrAMINE 50MG/ML VIAL (J1200) As Ordered ONE; -fentaNYL 100 MCG/2 ML INJECTION As Ordered ONE
[2021-10-01 13:23] LABS: HEMATOCRIT 45.6 % (42.0-52.0); MEAN CORPUSCULAR HEMOGLOBIN 28.7 pg (27.0-33.0); MEAN CORPUSCULAR HGB CONC 32.9 g/dl (32.0-36.5); MEAN CORPUSCULAR VOLUME 87.4 fl (80.0-96.0); PLATELET COUNT, AUTOMATED 284 10^3/uL (150-450); RED BLOOD COUNT 5.22 10^6/uL (4.30-6.10); WHITE BLOOD COUNT 10.1 10^3/uL (4.0-10.0)
[2021-10-01 13:56] LABS: HEMOGLOBIN A1c 9.5 %
[2021-10-01 13:57] LABS: CREATININE FOR GFR 1.63 MG/DL (0.70-1.30); POTASSIUM SERUM 4.8 MEQ/L (3.5-5.1)
== END ==
LOC: M PLALAB 11:00
PROVIDERS: ATTEND Student in an Organized Health Care Education/Training Program
DX: M86.9 Osteomyelitis, unspecified (principal); E11.22 Type 2 diabetes mellitus with diabetic chronic kidney disease

== ENCOUNTER → 2021-10-01 | Outpatient (REF) | payer OTHER | LOC: M SFHCPLAZ 10:30 | PROVIDERS: ATTEND Family Medicine | DX: Z53.9 Procedure and treatment not carried out, unspecified reason (principal) ==

== ENCOUNTER → 2021-10-04 | Outpatient (REF) | payer OTHER | LOC: M LAB REF 15:41 | PROVIDERS: ATTEND Podiatrist | DX: M79.672 Pain in left foot (principal); E11.621 Type 2 diabetes mellitus with foot ulcer ==

== ENCOUNTER 2021-11-21 14:53 | Inpatient (IN) | payer OTHER ==
[~2021-11-21] VITALS: Ht 167.6 cm; Wt 111.5 kg
[2021-11-21] MEDS ORDERED: CLOP75TA2 PO (15:34)
[2021-11-21] MEDS ORDERED: METF10004 PO (15:36)
[2021-11-21] MEDS ORDERED: NS 1,000 ML IV ONE (17:00)
[2021-11-21 17:54] LABS: BASO % 0.3 % (0.0-1.0); EOS # 0.3 10^3/uL (0.0-0.5); EOS % 2.6 % (0.0-3.0); HEMATOCRIT 44.6 % (42.0-52.0); HEMOGLOBIN 14.6 g/dl (13.5-17.5); LYMPH # 1.7 10^3/uL (1.5-5.0); LYMPH % 13.7 % (24.0-44.0); MEAN CORPUSCULAR HEMOGLOBIN 27.6 pg (27.0-33.0); MEAN CORPUSCULAR HGB CONC 32.7 g/dl (32.0-36.5); MEAN CORPUSCULAR VOLUME 84.3 fl (80.0-96.0); MONO # 0.6 10^3/uL (0.0-0.8); NEUTROPHILS # 9.6 10^3/uL (1.5-8.5); PLATELET COUNT, AUTOMATED 377 10^3/uL (150-450); RED BLOOD COUNT 5.29 10^6/uL (4.30-6.10); WHITE BLOOD COUNT 12.3 10^3/uL (4.0-10.0)
[2021-11-21 18:09] LABS: INR 1.04
[2021-11-21 18:10] LABS: PARTIAL THROMBOPLASTIN TIME 34.8 SECONDS (25.9-37.0)
[2021-11-21 18:11] LABS: ALBUMIN 2.8 GM/DL (3.2-5.2); BILIRUBIN,DIRECT 0.3 MG/DL (0.0-0.2); BILIRUBIN,TOTAL 0.6 MG/DL (0.2-1.0); C REACTIVE PROTEIN QUANTITATIV 14.6 MG/DL (0.00-0.30); CALCIUM LEVEL 9.7 MG/DL (8.5-10.1); CREATININE FOR GFR 2.26 MG/DL (0.70-1.30); GLOMERULAR FILTRATION RATE 32.2 (>56); POTASSIUM SERUM 5.1 MEQ/L (3.5-5.1); TOTAL PROTEIN 8.2 GM/DL (6.4-8.2)
[2021-11-21 18:12] LABS: D-DIMER QUANT 3325.26 ng/ml (<500)
[2021-11-21 18:22] LABS: RSV AMPLIFICATION NEGATIVE (NEGATIVE)
[2021-11-21 18:33] LABS: ERYTHROCYTE SEDIMENTATION RATE 57 mm/hr (0-20)
[2021-11-21] MEDS ORDERED: VANCOMYCIN HCL 2,000 MG in IV FLUID PLACE HOLDER 1 EA IV ONE (18:50)
[2021-11-21] MEDS ORDERED: propofoL 200 MG/20 ML VIAL As Ordered ONE (19:35)
[2021-11-21] MEDS ORDERED: LIDOCAINE 2% 100MG/5ML SDV (FOR ANES.) As Ordered ONE (19:35)
[2021-11-21] MEDS ORDERED: fentaNYL 250 MCG/5 ML INJECTION As Ordered ONE (19:36)
[2021-11-21] MEDS ORDERED: MIDAZOLAM INJ 2MG/2ML VIAL (J2250 PER 1MG) As Ordered ONE (19:36)
[2021-11-21] MEDS ORDERED: TOBRAMYCIN 80MG/2ML VIAL As Ordered ONE ×2 (19:41→19:47)
[2021-11-21] MEDS ORDERED: LIDOCAINE 2% MDV 20ML VIAL As Ordered ONE (19:47)
[2021-11-21] MEDS ORDERED: BUPIVACAINE HCL 0.5% 30ML VIAL As Ordered ONE (19:47)
[2021-11-21] MEDS ORDERED: VANCOMYCIN HCL 1,000 MG, VIAL MATE ADAPTER 1 EACH in NS 250 ML IV ONE ×8 (20:00→23:00)
[2021-11-21] MEDS ORDERED: ONDANSETRON 4MG/2ML VIAL IV PRN (21:20)
[2021-11-21] MEDS ORDERED: oxyCODONE 5MG TAB PO PRN (21:20)
[2021-11-21] MEDS ORDERED: NS 1,000 ML IV SCH (21:20)
[2021-11-21] MEDS ORDERED: fentaNYL 100 MCG/2 ML INJECTION IV PRN (21:20)
[2021-11-21] MEDS ORDERED: DEXTROSE 50% 50 ML SYRINGE IV PRN (21:25)
[2021-11-21] MEDS ORDERED: GLUCAGON INJ 1MG VIAL SC PRN (21:25)
[2021-11-21] MEDS ORDERED: GLUCOSE 4GM CHEW TABLET PO PRN (21:25)
[2021-11-21] MEDS ORDERED: MORPHINE 2 MG/ML 1ML VIAL IV PRN (21:25)
[2021-11-21] MEDS ORDERED: ACETAMINOPHEN TAB 650MG DOSE (2X325MG) PO PRN (21:25)
[2021-11-21 21:35] VITALS: BP 121/75
[2021-11-21] MEDS: NS 1,000 ML IV SCH (21:50)
[2021-11-21 22:15] VITALS: BP 94/50
[2021-11-21 22:41] LABS: HEMOGLOBIN A1c 8.9 %
[2021-11-21 22:55] VITALS: BP 94/50
[2021-11-21 23:20] VITALS: BP 121/57
[2021-11-21] MEDS ORDERED: NS 500 ML IV ONE (23:30)
[2021-11-22] VITALS: BP 112/60
[2021-11-22 04:09] VITALS: BP 120/59
[2021-11-22 05:12] LABS: BASO % 0.4 % (0.0-1.0); EOS # 0.3 10^3/uL (0.0-0.5); EOS % 2.8 % (0.0-3.0); HEMATOCRIT 39.3 % (42.0-52.0); HEMOGLOBIN 12.8 g/dl (13.5-17.5); LYMPH # 1.6 10^3/uL (1.5-5.0); LYMPH % 17.2 % (24.0-44.0); MEAN CORPUSCULAR HEMOGLOBIN 28.1 pg (27.0-33.0); MEAN CORPUSCULAR HGB CONC 32.6 g/dl (32.0-36.5); MEAN CORPUSCULAR VOLUME 86.2 fl (80.0-96.0); MONO # 0.6 10^3/uL (0.0-0.8); MONO % 6.3 % (2.0-8.0); NEUTROPHILS # 6.6 10^3/uL (1.5-8.5); NEUTROPHILS % 72.9 % (36.0-66.0); PLATELET COUNT, AUTOMATED 315 10^3/uL (150-450); RED BLOOD COUNT 4.56 10^6/uL (4.30-6.10); WHITE BLOOD COUNT 9.1 10^3/uL (4.0-10.0)
[2021-11-22 05:41] LABS: C REACTIVE PROTEIN QUANTITATIV 11.5 MG/DL (0.00-0.30); CALCIUM LEVEL 8.4 MG/DL (8.5-10.1); CREATININE FOR GFR 1.74 MG/DL (0.70-1.30); GLOMERULAR FILTRATION RATE 43.6 (>56); POTASSIUM SERUM 4.1 MEQ/L (3.5-5.1)
[2021-11-22 06:30] LABS: ERYTHROCYTE SEDIMENTATION RATE 79 mm/hr (0-20)
[2021-11-22] MEDS: HEPARIN SOD (PORCINE) 5000UNITS/ML 1ML VIAL/SYRINGE SC SCH ×3 (06:39→21:27)
[2021-11-22] MEDS: INSULIN LISPRO (NovoLOG) PER UNIT SC SCH ×4 (07:30→20:45)
[2021-11-22 08:11] VITALS: BP 107/58
[2021-11-22] MEDS: VANCOMYCIN HCL 750 MG, VIAL MATE ADAPTER 1 EACH in NS 250 ML IV SCH ×2 (08:39→21:25)
[2021-11-22] MEDS: NS 1,000 ML IV SCH (08:39)
[2021-11-22] MEDS ORDERED: FLUBLOK(EGG FREE)(QUAD)INFLUENZA VACC 0.5ML SYRINGE 18YRS & OLDER IM ONE (09:00)
[2021-11-22 12:43] VITALS: BP 128/74
[2021-11-22] MEDS: PIPERACILLIN/TAZOBACTAM SOD 3.375 GM in D5W MINI-BAG PLUS 50 ML IV SCH ×2 (16:09→22:44)
[2021-11-22 16:12] VITALS: BP 133/68
[2021-11-22] MEDS: LEVEMIR (INSULIN DETEMIR) 1 UNITS/0.01ML SC SCH (21:27)
[2021-11-22 22:00] VITALS: BP 139/55
[2021-11-23] MEDS: PIPERACILLIN/TAZOBACTAM SOD 3.375 GM in D5W MINI-BAG PLUS 50 ML IV SCH ×4 (04:13→22:45)
[2021-11-23] MEDS: HEPARIN SOD (PORCINE) 5000UNITS/ML 1ML VIAL/SYRINGE SC SCH ×3 (05:38→21:11)
[2021-11-23 06:00] VITALS: BP 144/62
[2021-11-23 07:32] LABS: BASO % 0.4 % (0.0-1.0); EOS # 0.3 10^3/uL (0.0-0.5); EOS % 3.4 % (0.0-3.0); HEMATOCRIT 36.6 % (42.0-52.0); HEMOGLOBIN 11.7 g/dl (13.5-17.5); LYMPH # 1.5 10^3/uL (1.5-5.0); LYMPH % 18.1 % (24.0-44.0); MEAN CORPUSCULAR HEMOGLOBIN 27.9 pg (27.0-33.0); MEAN CORPUSCULAR VOLUME 87.1 fl (80.0-96.0); MONO # 0.5 10^3/uL (0.0-0.8); NEUTROPHILS # 5.9 10^3/uL (1.5-8.5); NEUTROPHILS % 71.7 % (36.0-66.0); PLATELET COUNT, AUTOMATED 276 10^3/uL (150-450); WHITE BLOOD COUNT 8.2 10^3/uL (4.0-10.0)
[2021-11-23 07:54] LABS: CREATININE FOR GFR 1.54 MG/DL (0.70-1.30); GLOMERULAR FILTRATION RATE 50.2 (>56); POTASSIUM SERUM 4.1 MEQ/L (3.5-5.1)
[2021-11-23] MEDS: INSULIN LISPRO (NovoLOG) PER UNIT SC SCH ×4 (08:06→21:00)
[2021-11-23] MEDS: LEVEMIR (INSULIN DETEMIR) 1 UNITS/0.01ML SC SCH ×2 (08:07→21:10)
[2021-11-23] MEDS: VANCOMYCIN HCL 750 MG, VIAL MATE ADAPTER 1 EACH in NS 250 ML IV SCH ×2 (09:37→21:10)
[2021-11-23 14:00] VITALS: BP 150/76
[2021-11-23] MEDS ORDERED: HOME MED LIST COMPLETE! XX SCH (15:50)
[2021-11-23 22:00] VITALS: BP 115/63
[2021-11-24] MEDS: PIPERACILLIN/TAZOBACTAM SOD 3.375 GM in D5W MINI-BAG PLUS 50 ML IV SCH ×4 (04:13→21:01)
[2021-11-24] MEDS: HEPARIN SOD (PORCINE) 5000UNITS/ML 1ML VIAL/SYRINGE SC SCH ×3 (05:19→21:01)
[2021-11-24 06:00] VITALS: BP 121/72
[2021-11-24 06:28] LABS: BASO % 0.6 % (0.0-1.0); EOS # 0.3 10^3/uL (0.0-0.5); EOS % 4.5 % (0.0-3.0); HEMATOCRIT 38.1 % (42.0-52.0); HEMOGLOBIN 12.4 g/dl (13.5-17.5); LYMPH # 1.3 10^3/uL (1.5-5.0); LYMPH % 19.1 % (24.0-44.0); MEAN CORPUSCULAR HEMOGLOBIN 27.9 pg (27.0-33.0); MEAN CORPUSCULAR HGB CONC 32.5 g/dl (32.0-36.5); MEAN CORPUSCULAR VOLUME 85.8 fl (80.0-96.0); MONO # 0.3 10^3/uL (0.0-0.8); MONO % 4.9 % (2.0-8.0); NEUTROPHILS # 4.7 10^3/uL (1.5-8.5); PLATELET COUNT, AUTOMATED 283 10^3/uL (150-450); RED BLOOD COUNT 4.44 10^6/uL (4.30-6.10); WHITE BLOOD COUNT 6.7 10^3/uL (4.0-10.0)
[2021-11-24 06:52] LABS: CALCIUM LEVEL 8.7 MG/DL (8.5-10.1); CREATININE FOR GFR 1.5 MG/DL (0.70-1.30); GLOMERULAR FILTRATION RATE 51.7 (>56); POTASSIUM SERUM 4.5 MEQ/L (3.5-5.1)
[2021-11-24] MEDS: INSULIN LISPRO (NovoLOG) PER UNIT SC SCH ×4 (07:46→21:01)
[2021-11-24 08:07] VITALS: BP 127/74
[2021-11-24] MEDS: VANCOMYCIN HCL 750 MG, VIAL MATE ADAPTER 1 EACH in NS 250 ML IV SCH (09:08)
[2021-11-24] MEDS: LEVEMIR (INSULIN DETEMIR) 1 UNITS/0.01ML SC SCH ×2 (10:50→21:02)
[2021-11-24 14:00] VITALS: BP 140/76
[2021-11-24 22:00] VITALS: BP 138/75
[2021-11-25] MEDS: PIPERACILLIN/TAZOBACTAM SOD 3.375 GM in D5W MINI-BAG PLUS 50 ML IV SCH ×4 (03:24→21:27)
[2021-11-25 06:00] VITALS: BP 140/77
[2021-11-25] MEDS: HEPARIN SOD (PORCINE) 5000UNITS/ML 1ML VIAL/SYRINGE SC SCH ×3 (06:12→21:27)
[2021-11-25] MEDS: INSULIN LISPRO (NovoLOG) PER UNIT SC SCH ×4 (07:33→20:25)
[2021-11-25] MEDS: LEVEMIR (INSULIN DETEMIR) 1 UNITS/0.01ML SC SCH (08:54)
[2021-11-25 14:00] VITALS: BP 115/66
[2021-11-25] MEDS ORDERED: LEVEMIR (INSULIN DETEMIR) 1 UNITS/0.01ML SC SCH (21:00)
[2021-11-25 21:56] VITALS: BP 143/81
[2021-11-26] MEDS: PIPERACILLIN/TAZOBACTAM SOD 3.375 GM in D5W MINI-BAG PLUS 50 ML IV SCH ×4 (03:35→23:00)
[2021-11-26] MEDS: HEPARIN SOD (PORCINE) 5000UNITS/ML 1ML VIAL/SYRINGE SC SCH ×3 (05:22→20:27)
[2021-11-26 05:52] LABS: HEMATOCRIT 36.7 % (42.0-52.0); HEMOGLOBIN 11.8 g/dl (13.5-17.5); MEAN CORPUSCULAR HEMOGLOBIN 28.1 pg (27.0-33.0); MEAN CORPUSCULAR HGB CONC 32.2 g/dl (32.0-36.5); MEAN CORPUSCULAR VOLUME 87.4 fl (80.0-96.0); PLATELET COUNT, AUTOMATED 292 10^3/uL (150-450); WHITE BLOOD COUNT 9.8 10^3/uL (4.0-10.0)
[2021-11-26 06:00] VITALS: BP 127/52
[2021-11-26 06:18] LABS: ALBUMIN 2.2 GM/DL (3.2-5.2); BILIRUBIN,TOTAL 0.2 MG/DL (0.2-1.0); CALCIUM LEVEL 9.1 MG/DL (8.5-10.1); CREATININE FOR GFR 1.69 MG/DL (0.70-1.30); GLOMERULAR FILTRATION RATE 45.1 (>56); POTASSIUM SERUM 4.5 MEQ/L (3.5-5.1); TOTAL PROTEIN 7.3 GM/DL (6.4-8.2)
[2021-11-26] MEDS: LEVEMIR (INSULIN DETEMIR) 1 UNITS/0.01ML SC SCH ×2 (08:28→20:28)
[2021-11-26] MEDS: INSULIN LISPRO (NovoLOG) PER UNIT SC SCH ×4 (08:29→20:29)
[2021-11-26 14:00] VITALS: BP 136/73
[2021-11-26 20:12] VITALS: BP 136/76
[2021-11-27] MEDS: PIPERACILLIN/TAZOBACTAM SOD 3.375 GM in D5W MINI-BAG PLUS 50 ML IV SCH ×4 (04:53→23:24)
[2021-11-27 05:44] VITALS: BP 162/80
[2021-11-27] MEDS: HEPARIN SOD (PORCINE) 5000UNITS/ML 1ML VIAL/SYRINGE SC SCH ×3 (05:52→21:23)
[2021-11-27 06:14] LABS: HEMATOCRIT 38.7 % (42.0-52.0); HEMOGLOBIN 12.4 g/dl (13.5-17.5); MEAN CORPUSCULAR HEMOGLOBIN 27.5 pg (27.0-33.0); MEAN CORPUSCULAR VOLUME 85.8 fl (80.0-96.0); PLATELET COUNT, AUTOMATED 272 10^3/uL (150-450); RED BLOOD COUNT 4.51 10^6/uL (4.30-6.10)
[2021-11-27 06:37] LABS: ALBUMIN 2.2 GM/DL (3.2-5.2); BILIRUBIN,TOTAL 0.2 MG/DL (0.2-1.0); C REACTIVE PROTEIN QUANTITATIV 2.92 MG/DL (0.00-0.30); CALCIUM LEVEL 9.1 MG/DL (8.5-10.1); CREATININE FOR GFR 1.7 MG/DL (0.70-1.30); GLOMERULAR FILTRATION RATE 44.8 (>56); POTASSIUM SERUM 4.3 MEQ/L (3.5-5.1); TOTAL PROTEIN 7.4 GM/DL (6.4-8.2)
[2021-11-27 08:20] VITALS: BP 110/64
[2021-11-27] MEDS: INSULIN LISPRO (NovoLOG) PER UNIT SC SCH ×4 (09:30→21:24)
[2021-11-27] MEDS: LEVEMIR (INSULIN DETEMIR) 1 UNITS/0.01ML SC SCH ×2 (10:05→21:23)
[2021-11-27 14:00] VITALS: BP 121/61
[2021-11-27 22:00] VITALS: BP 168/69
[2021-11-28] MEDS: PIPERACILLIN/TAZOBACTAM SOD 3.375 GM in D5W MINI-BAG PLUS 50 ML IV SCH ×4 (03:22→20:59)
[2021-11-28 06:00] VITALS: BP 139/77
[2021-11-28] MEDS: HEPARIN SOD (PORCINE) 5000UNITS/ML 1ML VIAL/SYRINGE SC SCH ×3 (06:24→20:59)
[2021-11-28 08:05] LABS: HEMATOCRIT 38.1 % (42.0-52.0); HEMOGLOBIN 12.6 g/dl (13.5-17.5); MEAN CORPUSCULAR HEMOGLOBIN 28.3 pg (27.0-33.0); MEAN CORPUSCULAR HGB CONC 33.1 g/dl (32.0-36.5); MEAN CORPUSCULAR VOLUME 85.4 fl (80.0-96.0); PLATELET COUNT, AUTOMATED 276 10^3/uL (150-450); RED BLOOD COUNT 4.46 10^6/uL (4.30-6.10); WHITE BLOOD COUNT 9.6 10^3/uL (4.0-10.0)
[2021-11-28] MEDS: LEVEMIR (INSULIN DETEMIR) 1 UNITS/0.01ML SC SCH ×2 (08:07→20:59)
[2021-11-28] MEDS: INSULIN LISPRO (NovoLOG) PER UNIT SC SCH ×4 (08:07→20:59)
[2021-11-28 08:43] LABS: ALBUMIN 2.3 GM/DL (3.2-5.2); BILIRUBIN,TOTAL 0.3 MG/DL (0.2-1.0); C REACTIVE PROTEIN QUANTITATIV 3.16 MG/DL (0.00-0.30); CALCIUM LEVEL 9.4 MG/DL (8.5-10.1); CREATININE FOR GFR 1.58 MG/DL (0.70-1.30); GLOMERULAR FILTRATION RATE 48.7 (>56); POTASSIUM SERUM 4.2 MEQ/L (3.5-5.1); TOTAL PROTEIN 8.3 GM/DL (6.4-8.2)
[2021-11-28 14:00] VITALS: BP 156/71
[2021-11-28 22:00] VITALS: BP 151/78
[2021-11-29] MEDS: PIPERACILLIN/TAZOBACTAM SOD 3.375 GM in D5W MINI-BAG PLUS 50 ML IV SCH ×4 (03:23→21:13)
[2021-11-29] MEDS: HEPARIN SOD (PORCINE) 5000UNITS/ML 1ML VIAL/SYRINGE SC SCH ×3 (05:13→21:13)
[2021-11-29 06:00] VITALS: BP 157/86
[2021-11-29] MEDS: LEVEMIR (INSULIN DETEMIR) 1 UNITS/0.01ML SC SCH ×2 (07:56→21:12)
[2021-11-29] MEDS: INSULIN LISPRO (NovoLOG) PER UNIT SC SCH ×4 (07:57→21:12)
[2021-11-29 14:00] VITALS: BP 163/85
[2021-11-29 22:00] VITALS: BP 160/79
[2021-11-30] MEDS: PIPERACILLIN/TAZOBACTAM SOD 3.375 GM in D5W MINI-BAG PLUS 50 ML IV SCH ×4 (03:44→21:07)
[2021-11-30] MEDS: HEPARIN SOD (PORCINE) 5000UNITS/ML 1ML VIAL/SYRINGE SC SCH ×3 (05:34→21:07)
[2021-11-30 06:00] VITALS: BP 135/60
[2021-11-30 08:52] LABS: HEMATOCRIT 40.3 % (42.0-52.0); HEMOGLOBIN 13.3 g/dl (13.5-17.5); MEAN CORPUSCULAR HEMOGLOBIN 28.7 pg (27.0-33.0); PLATELET COUNT, AUTOMATED 223 10^3/uL (150-450); RED BLOOD COUNT 4.63 10^6/uL (4.30-6.10); WHITE BLOOD COUNT 8.3 10^3/uL (4.0-10.0)
[2021-11-30 09:25] LABS: CALCIUM LEVEL 9.7 MG/DL (8.5-10.1); CREATININE FOR GFR 1.71 MG/DL (0.70-1.30); GLOMERULAR FILTRATION RATE 44.5 (>56); POTASSIUM SERUM 4.3 MEQ/L (3.5-5.1)
[2021-11-30] MEDS: INSULIN LISPRO (NovoLOG) PER UNIT SC SCH ×4 (09:33→21:06)
[2021-11-30] MEDS: LEVEMIR (INSULIN DETEMIR) 1 UNITS/0.01ML SC SCH ×2 (09:34→21:07)
[2021-11-30 14:00] VITALS: BP 143/72
[2021-11-30 21:29] VITALS: BP 111/73
[2021-12-01] MEDS: PIPERACILLIN/TAZOBACTAM SOD 3.375 GM in D5W MINI-BAG PLUS 50 ML IV SCH ×4 (03:43→21:20)
[2021-12-01] MEDS: HEPARIN SOD (PORCINE) 5000UNITS/ML 1ML VIAL/SYRINGE SC SCH ×3 (05:08→21:20)
[2021-12-01 06:00] VITALS: BP 127/64
[2021-12-01] MEDS: INSULIN LISPRO (NovoLOG) PER UNIT SC SCH ×4 (07:50→20:38)
[2021-12-01] MEDS: LEVEMIR (INSULIN DETEMIR) 1 UNITS/0.01ML SC SCH ×2 (07:51→20:37)
[2021-12-01 08:17] LABS: HEMATOCRIT 41.5 % (42.0-52.0); HEMOGLOBIN 13.6 g/dl (13.5-17.5); MEAN CORPUSCULAR HEMOGLOBIN 28.6 pg (27.0-33.0); MEAN CORPUSCULAR HGB CONC 32.8 g/dl (32.0-36.5); MEAN CORPUSCULAR VOLUME 87.2 fl (80.0-96.0); PLATELET COUNT, AUTOMATED 240 10^3/uL (150-450); RED BLOOD COUNT 4.76 10^6/uL (4.30-6.10); WHITE BLOOD COUNT 8.9 10^3/uL (4.0-10.0)
[2021-12-01 08:42] LABS: CALCIUM LEVEL 9.5 MG/DL (8.5-10.1); CREATININE FOR GFR 1.69 MG/DL (0.70-1.30); GLOMERULAR FILTRATION RATE 45.1 (>56); POTASSIUM SERUM 4.2 MEQ/L (3.5-5.1)
[2021-12-01 14:00] VITALS: BP 128/72
[2021-12-01 22:00] VITALS: BP 143/77
[2021-12-02] MEDS: PIPERACILLIN/TAZOBACTAM SOD 3.375 GM in D5W MINI-BAG PLUS 50 ML IV SCH ×4 (04:42→21:26)
[2021-12-02] MEDS: HEPARIN SOD (PORCINE) 5000UNITS/ML 1ML VIAL/SYRINGE SC SCH ×3 (05:44→21:26)
[2021-12-02 06:00] VITALS: BP 130/58
[2021-12-02 08:47] LABS: HEMATOCRIT 40.1 % (42.0-52.0); HEMOGLOBIN 13.1 g/dl (13.5-17.5); MEAN CORPUSCULAR HEMOGLOBIN 28.3 pg (27.0-33.0); MEAN CORPUSCULAR HGB CONC 32.7 g/dl (32.0-36.5); MEAN CORPUSCULAR VOLUME 86.6 fl (80.0-96.0); PLATELET COUNT, AUTOMATED 201 10^3/uL (150-450); RED BLOOD COUNT 4.63 10^6/uL (4.30-6.10); WHITE BLOOD COUNT 7.7 10^3/uL (4.0-10.0)
[2021-12-02 09:07] LABS: CREATININE FOR GFR 1.61 MG/DL (0.70-1.30); GLOMERULAR FILTRATION RATE 47.7 (>56); POTASSIUM SERUM 4.2 MEQ/L (3.5-5.1)
[2021-12-02] MEDS: LEVEMIR (INSULIN DETEMIR) 1 UNITS/0.01ML SC SCH ×2 (09:39→21:25)
[2021-12-02] MEDS: INSULIN LISPRO (NovoLOG) PER UNIT SC SCH ×4 (09:40→21:25)
[2021-12-02 14:00] VITALS: BP 144/63
[2021-12-02 22:00] VITALS: BP 155/70
[2021-12-03 04:51] VITALS: BP 158/74
[2021-12-03] MEDS: PIPERACILLIN/TAZOBACTAM SOD 3.375 GM in D5W MINI-BAG PLUS 50 ML IV SCH ×4 (04:54→22:40)
[2021-12-03] MEDS: HEPARIN SOD (PORCINE) 5000UNITS/ML 1ML VIAL/SYRINGE SC SCH ×3 (04:54→20:51)
[2021-12-03 07:01] LABS: HEMATOCRIT 41.1 % (42.0-52.0); HEMOGLOBIN 13.4 g/dl (13.5-17.5); MEAN CORPUSCULAR HEMOGLOBIN 27.8 pg (27.0-33.0); MEAN CORPUSCULAR HGB CONC 32.6 g/dl (32.0-36.5); MEAN CORPUSCULAR VOLUME 85.3 fl (80.0-96.0); PLATELET COUNT, AUTOMATED 184 10^3/uL (150-450); RED BLOOD COUNT 4.82 10^6/uL (4.30-6.10); WHITE BLOOD COUNT 6.8 10^3/uL (4.0-10.0)
[2021-12-03 07:26] LABS: CREATININE FOR GFR 1.68 MG/DL (0.70-1.30); GLOMERULAR FILTRATION RATE 45.4 (>56); POTASSIUM SERUM 3.9 MEQ/L (3.5-5.1)
[2021-12-03] MEDS: LEVEMIR (INSULIN DETEMIR) 1 UNITS/0.01ML SC SCH ×2 (08:14→20:50)
[2021-12-03] MEDS: INSULIN LISPRO (NovoLOG) PER UNIT SC SCH ×4 (08:15→20:50)
[2021-12-03 14:00] VITALS: BP 190/78
[2021-12-03 22:00] VITALS: BP 142/76
[2021-12-04] MEDS: PIPERACILLIN/TAZOBACTAM SOD 3.375 GM in D5W MINI-BAG PLUS 50 ML IV SCH ×4 (04:44→22:52)
[2021-12-04] MEDS: HEPARIN SOD (PORCINE) 5000UNITS/ML 1ML VIAL/SYRINGE SC SCH ×3 (05:45→21:10)
[2021-12-04 06:00] VITALS: BP 148/80
[2021-12-04 06:13] LABS: HEMOGLOBIN 13.2 g/dl (13.5-17.5); MEAN CORPUSCULAR HEMOGLOBIN 27.9 pg (27.0-33.0); MEAN CORPUSCULAR HGB CONC 32.2 g/dl (32.0-36.5); MEAN CORPUSCULAR VOLUME 86.7 fl (80.0-96.0); PLATELET COUNT, AUTOMATED 182 10^3/uL (150-450); RED BLOOD COUNT 4.73 10^6/uL (4.30-6.10); WHITE BLOOD COUNT 7.9 10^3/uL (4.0-10.0)
[2021-12-04 06:43] LABS: CALCIUM LEVEL 9.2 MG/DL (8.5-10.1); CREATININE FOR GFR 1.73 MG/DL (0.70-1.30); GLOMERULAR FILTRATION RATE 43.9 (>56); POTASSIUM SERUM 4.2 MEQ/L (3.5-5.1)
[2021-12-04] MEDS: LEVEMIR (INSULIN DETEMIR) 1 UNITS/0.01ML SC SCH ×2 (08:07→21:10)
[2021-12-04] MEDS: INSULIN LISPRO (NovoLOG) PER UNIT SC SCH ×4 (08:07→21:11)
[2021-12-04 14:00] VITALS: BP 132/68
[2021-12-04 22:00] VITALS: BP 113/35
[2021-12-05] MEDS: PIPERACILLIN/TAZOBACTAM SOD 3.375 GM in D5W MINI-BAG PLUS 50 ML IV SCH ×2 (04:29→10:00)
[2021-12-05] MEDS: HEPARIN SOD (PORCINE) 5000UNITS/ML 1ML VIAL/SYRINGE SC SCH (05:24)
[2021-12-05 06:00] VITALS: BP 146/86
[2021-12-05] MEDS ORDERED: LACTOBACILLUS ACIDOPHILUS CAP (BACID) PO SCH (08:00)
[2021-12-05] MEDS: LEVEMIR (INSULIN DETEMIR) 1 UNITS/0.01ML SC SCH (08:09)
[2021-12-05] MEDS: INSULIN LISPRO (NovoLOG) PER UNIT SC SCH ×2 (08:10→12:09)
[2021-12-05] MEDS ORDERED: AMOX875T2 PO (11:12)
[2021-12-05] MEDS ORDERED: BACITAB PO (11:14)
[2021-12-05] MEDS ORDERED: AUGMENTIN 875 MG TAB PO SCH (21:00)
== END 2021-12-05 13:35 | disposition home health service (06) | DRG 314 ==
LOC: M ED 14:53 → M SDC 19:08 → M PCU 21:36 → M SDC 22:43 → M PCU 22:44 → M MS5PR 11-22 16:46
PROVIDERS: ADMIT Family Medicine; ATTEND Internal Medicine
PROC: 0QBM0ZZ Excision of Left Tarsal, Open Approach (ICD-10-PCS; principal; 2021-11-21 19:04)
DX: E11.69 Type 2 diabetes mellitus with other specified complication (principal); A41.1 Sepsis due to other specified staphylococcus; M72.6 Necrotizing fasciitis; E11.621 Type 2 diabetes mellitus with foot ulcer; M86.9 Osteomyelitis, unspecified; N17.9 Acute kidney failure, unspecified; E87.2 Acidosis; B95.61 Methicillin susceptible Staphylococcus aureus infection as the cause of diseases classified elsewhere; I12.9 Hypertensive chronic kidney disease with stage 1 through stage 4 chronic kidney disease, or unspecified chronic kidney disease; E78.5 Hyperlipidemia, unspecified; I73.9 Peripheral vascular disease, unspecified; Z79.82 Long term (current) use of aspirin; Z79.4 Long term (current) use of insulin; E66.9 Obesity, unspecified; Z87.891 Personal history of nicotine dependence; Z89.422 Acquired absence of other left toe(s); Z20.822 Contact with and (suspected) exposure to COVID-19; Z89.411 Acquired absence of right great toe; Z89.412 Acquired absence of left great toe; Z79.84 Long term (current) use of oral hypoglycemic drugs; Z79.2 Long term (current) use of antibiotics; Z79.899 Other long term (current) drug therapy; N18.9 Chronic kidney disease, unspecified; E11.22 Type 2 diabetes mellitus with diabetic chronic kidney disease

== ENCOUNTER → 2021-12-14 | Outpatient (REF) | payer OTHER ==
[~2021-12-14] MED LIST changes: +AMOX875T2 PO; +BACITAB PO; +CLOP75TA2 PO; +METF10004 PO
[2021-12-14 15:28] LABS: MAU/CREAT RATIO 527.3 MCG/MG (0.0-30.0)
== END ==
LOC: M SHH 14:11
PROVIDERS: ATTEND Student in an Organized Health Care Education/Training Program
DX: N18.30 Chronic kidney disease, stage 3 unspecified (principal)

== ENCOUNTER → 2021-12-18 | Outpatient (REF) | payer OTHER ==
[2021-12-18 14:28] LABS: BASO % 0.5 % (0.0-1.0); EOS # 0.4 10^3/uL (0.0-0.5); EOS % 5.4 % (0.0-3.0); HEMATOCRIT 40.3 % (42.0-52.0); HEMOGLOBIN 12.3 g/dl (13.5-17.5); LYMPH # 1.5 10^3/uL (1.5-5.0); LYMPH % 18.2 % (24.0-44.0); MEAN CORPUSCULAR HGB CONC 30.5 g/dl (32.0-36.5); MEAN CORPUSCULAR VOLUME 88.4 fl (80.0-96.0); MONO # 0.6 10^3/uL (0.0-0.8); MONO % 7.2 % (2.0-8.0); NEUTROPHILS # 5.5 10^3/uL (1.5-8.5); NEUTROPHILS % 68.4 % (36.0-66.0); PLATELET COUNT, AUTOMATED 279 10^3/uL (150-450); RED BLOOD COUNT 4.56 10^6/uL (4.30-6.10)
[2021-12-18 15:03] LABS: ALBUMIN 2.6 GM/DL (3.2-5.2); BILIRUBIN,TOTAL 0.4 MG/DL (0.2-1.0); C REACTIVE PROTEIN QUANTITATIV 5.99 MG/DL (0.00-0.30); CALCIUM LEVEL 8.4 MG/DL (8.5-10.1); CREATININE FOR GFR 1.56 MG/DL (0.70-1.30); GLOMERULAR FILTRATION RATE 49.4 (>56); POTASSIUM SERUM 4.4 MEQ/L (3.5-5.1); TOTAL PROTEIN 7.1 GM/DL (6.4-8.2)
[2021-12-18 15:51] LABS: ERYTHROCYTE SEDIMENTATION RATE 126 mm/hr (0-20)
== END ==
LOC: M SHH 14:02
PROVIDERS: ATTEND Internal Medicine Infectious Disease
DX: M86.172 Other acute osteomyelitis, left ankle and foot (principal)

== ENCOUNTER → 2021-12-24 | Outpatient (REF) | payer OTHER ==
[2021-12-24 14:47] LABS: BASO % 0.5 % (0.0-1.0); EOS # 0.3 10^3/uL (0.0-0.5); EOS % 4.4 % (0.0-3.0); HEMATOCRIT 38.5 % (42.0-52.0); HEMOGLOBIN 12.1 g/dl (13.5-17.5); LYMPH # 1.4 10^3/uL (1.5-5.0); LYMPH % 18.7 % (24.0-44.0); MEAN CORPUSCULAR HEMOGLOBIN 27.7 pg (27.0-33.0); MEAN CORPUSCULAR HGB CONC 31.4 g/dl (32.0-36.5); MEAN CORPUSCULAR VOLUME 88.1 fl (80.0-96.0); MONO # 0.5 10^3/uL (0.0-0.8); MONO % 6.1 % (2.0-8.0); NEUTROPHILS # 5.2 10^3/uL (1.5-8.5); NEUTROPHILS % 69.9 % (36.0-66.0); PLATELET COUNT, AUTOMATED 287 10^3/uL (150-450); RED BLOOD COUNT 4.37 10^6/uL (4.30-6.10); WHITE BLOOD COUNT 7.5 10^3/uL (4.0-10.0)
[2021-12-24 15:10] LABS: ERYTHROCYTE SEDIMENTATION RATE 88 mm/hr (0-20)
[2021-12-24 15:20] LABS: ALBUMIN 2.3 GM/DL (3.2-5.2); BILIRUBIN,TOTAL 0.4 MG/DL (0.2-1.0); C REACTIVE PROTEIN QUANTITATIV 9.33 MG/DL (0.00-0.30); CALCIUM LEVEL 8.3 MG/DL (8.5-10.1); CREATININE FOR GFR 1.71 MG/DL (0.70-1.30); GLOMERULAR FILTRATION RATE 44.5 (>56); POTASSIUM SERUM 4.4 MEQ/L (3.5-5.1); TOTAL PROTEIN 6.6 GM/DL (6.4-8.2)
== END ==
LOC: M SHH 14:15
PROVIDERS: ATTEND Internal Medicine Infectious Disease
DX: M86.172 Other acute osteomyelitis, left ankle and foot (principal)

== ENCOUNTER → 2022-01-04 | Outpatient (REF) | payer OTHER ==
[2022-01-04 18:25] LABS: AMORPHOUS SEDIMENT SMALL (NEGATIVE); APPEARANCE, URINE HAZY (CLEAR); BACTERIA, URINE AUTO NEGATIVE (NEGATIVE); BILIRUBIN, URINE AUTO NEGATIVE (NEGATIVE); BLOOD, URINE BLOOD 3+ (NEGATIVE); COLOR, URINE YELLOW (YELLOW); GLUCOSE, URINE (UA) AUTO 1+ mg/dL (NEGATIVE); KETONE, URINE AUTO NEGATIVE (NEGATIVE); LEUKOCYTE ESTERASE, URINE AUTO NEGATIVE (NEGATIVE); MUCUS, URINE SMALL (NEGATIVE); NITRITE, URINE AUTO NEGATIVE (NEGATIVE); PROTEIN, URINE AUTO 2+ mg/dL (NEGATIVE); RBC, URINE AUTO 13 /HPF (0-3); SPECIFIC GRAVITY URINE AUTO 1.019 (1.002-1.035); SQUAMOUS EPITHELIAL CELL UR AU 3 /HPF (0-6); WBC, URINE AUTO 7 /HPF (0-3)
== END ==
LOC: M SMT 17:12
PROVIDERS: ATTEND Physician Assistant
DX: R31.9 Hematuria, unspecified (principal)

== ENCOUNTER → 2022-01-07 | Outpatient (REF) | payer OTHER ==
[2022-01-07 16:29] LABS: BASO % 0.5 % (0.0-1.0); EOS # 0.5 10^3/uL (0.0-0.5); EOS % 6.7 % (0.0-3.0); HEMATOCRIT 38.8 % (42.0-52.0); HEMOGLOBIN 11.8 g/dl (13.5-17.5); LYMPH # 1.2 10^3/uL (1.5-5.0); MEAN CORPUSCULAR HEMOGLOBIN 26.6 pg (27.0-33.0); MEAN CORPUSCULAR HGB CONC 30.4 g/dl (32.0-36.5); MEAN CORPUSCULAR VOLUME 87.4 fl (80.0-96.0); MONO # 0.5 10^3/uL (0.0-0.8); MONO % 6.4 % (2.0-8.0); NEUTROPHILS # 5.1 10^3/uL (1.5-8.5); NEUTROPHILS % 70.1 % (36.0-66.0); PLATELET COUNT, AUTOMATED 331 10^3/uL (150-450); RED BLOOD COUNT 4.44 10^6/uL (4.30-6.10); WHITE BLOOD COUNT 7.3 10^3/uL (4.0-10.0)
[2022-01-07 17:12] LABS: ALBUMIN 2.4 GM/DL (3.2-5.2); BILIRUBIN,TOTAL 0.2 MG/DL (0.2-1.0); C REACTIVE PROTEIN QUANTITATIV 7.82 MG/DL (0.00-0.30); CALCIUM LEVEL 8.4 MG/DL (8.5-10.1); CREATININE FOR GFR 1.6 MG/DL (0.70-1.30); POTASSIUM SERUM 4.9 MEQ/L (3.5-5.1)
[2022-01-07 18:52] LABS: ERYTHROCYTE SEDIMENTATION RATE 106 mm/hr (0-20)
== END ==
LOC: M SHH 15:50
PROVIDERS: ATTEND Internal Medicine Infectious Disease
DX: M86.172 Other acute osteomyelitis, left ankle and foot (principal)

== ENCOUNTER → 2022-01-14 | Outpatient (REF) | payer OTHER | LOC: M LAB REF 09:39 | PROVIDERS: ATTEND Podiatrist | DX: M86.172 Other acute osteomyelitis, left ankle and foot (principal); M79.672 Pain in left foot ==

== ENCOUNTER → 2022-01-15 | Outpatient (CLI) | payer OTHER | LOC: M RAD 07:49 | PROVIDERS: ATTEND Physician Assistant | DX: R31.21 Asymptomatic microscopic hematuria (principal) ==

== ENCOUNTER → 2022-02-04 | Outpatient (REF) | payer OTHER | LOC: M SFHCPLAZ 12:49 | PROVIDERS: ATTEND Internal Medicine Infectious Disease | DX: M86.172 Other acute osteomyelitis, left ankle and foot (principal) ==

== ENCOUNTER → 2022-02-08 | Outpatient (REF) | payer OTHER ==
[2022-02-08 12:19] LABS: BASO % 0.4 % (0.0-1.0); EOS # 0.5 10^3/uL (0.0-0.5); EOS % 7.3 % (0.0-3.0); HEMATOCRIT 39.3 % (42.0-52.0); HEMOGLOBIN 12.5 g/dl (13.5-17.5); LYMPH # 1.9 10^3/uL (1.5-5.0); LYMPH % 25.5 % (24.0-44.0); MEAN CORPUSCULAR HEMOGLOBIN 27.8 pg (27.0-33.0); MEAN CORPUSCULAR HGB CONC 31.8 g/dl (32.0-36.5); MEAN CORPUSCULAR VOLUME 87.5 fl (80.0-96.0); MONO # 0.5 10^3/uL (0.0-0.8); MONO % 6.4 % (2.0-8.0); NEUTROPHILS # 4.4 10^3/uL (1.5-8.5); PLATELET COUNT, AUTOMATED 224 10^3/uL (150-450); RED BLOOD COUNT 4.49 10^6/uL (4.30-6.10); WHITE BLOOD COUNT 7.4 10^3/uL (4.0-10.0)
[2022-02-08 12:46] LABS: ERYTHROCYTE SEDIMENTATION RATE 58 mm/hr (0-20)
[2022-02-08 13:16] LABS: C REACTIVE PROTEIN QUANTITATIV 3.85 MG/DL (0.00-0.30); CALCIUM LEVEL 8.8 MG/DL (8.5-10.1); CREATININE FOR GFR 1.83 MG/DL (0.70-1.30); GLOMERULAR FILTRATION RATE 41.1 (>56)
== END ==
LOC: M SHH 12:07
PROVIDERS: ATTEND Internal Medicine Infectious Disease
DX: M86.172 Other acute osteomyelitis, left ankle and foot (principal)

== ENCOUNTER → 2022-02-11 | Outpatient (REF) | payer OTHER ==
[2022-02-11 12:17] LABS: BASO # 0.1 10^3/uL (0.0-0.2); BASO % 0.6 % (0.0-1.0); EOS # 0.5 10^3/uL (0.0-0.5); EOS % 6.9 % (0.0-3.0); HEMATOCRIT 44.2 % (42.0-52.0); HEMOGLOBIN 13.2 g/dl (13.5-17.5); LYMPH # 1.8 10^3/uL (1.5-5.0); LYMPH % 22.8 % (24.0-44.0); MEAN CORPUSCULAR HEMOGLOBIN 26.5 pg (27.0-33.0); MEAN CORPUSCULAR HGB CONC 29.9 g/dl (32.0-36.5); MEAN CORPUSCULAR VOLUME 88.8 fl (80.0-96.0); MONO # 0.4 10^3/uL (0.0-0.8); MONO % 4.9 % (2.0-8.0); NEUTROPHILS % 64.5 % (36.0-66.0); PLATELET COUNT, AUTOMATED 277 10^3/uL (150-450); RED BLOOD COUNT 4.98 10^6/uL (4.30-6.10); WHITE BLOOD COUNT 7.8 10^3/uL (4.0-10.0)
[2022-02-11 12:37] LABS: ERYTHROCYTE SEDIMENTATION RATE 62 mm/hr (0-20)
[2022-02-11 13:09] LABS: C REACTIVE PROTEIN QUANTITATIV 3.72 MG/DL (0.00-0.30); CALCIUM LEVEL 9.2 MG/DL (8.5-10.1); CREATININE FOR GFR 1.93 MG/DL (0.70-1.30); GLOMERULAR FILTRATION RATE 38.7 (>56); POTASSIUM SERUM 4.6 MEQ/L (3.5-5.1)
== END ==
LOC: M SHH 12:07
PROVIDERS: ATTEND Internal Medicine Infectious Disease
DX: M86.172 Other acute osteomyelitis, left ankle and foot (principal)

== ENCOUNTER → 2022-02-13 | Outpatient (REF) | payer OTHER ==
[2022-02-13 17:16] LABS: APPEARANCE, URINE HAZY (CLEAR); BACTERIA, URINE AUTO NEGATIVE (NEGATIVE); BILIRUBIN, URINE AUTO NEGATIVE (NEGATIVE); BLOOD, URINE BLOOD 2+ (NEGATIVE); COLOR, URINE YELLOW (YELLOW); GLUCOSE, URINE (UA) AUTO NEGATIVE (NEGATIVE); KETONE, URINE AUTO NEGATIVE (NEGATIVE); LEUKOCYTE ESTERASE, URINE AUTO NEGATIVE (NEGATIVE); NITRITE, URINE AUTO NEGATIVE (NEGATIVE); PROTEIN, URINE AUTO 2+ mg/dL (NEGATIVE); RBC, URINE AUTO 0 /HPF (0-3); SPECIFIC GRAVITY URINE AUTO 1.019 (1.002-1.035); SQUAMOUS EPITHELIAL CELL UR AU 4 /HPF (0-6); UROBILINOGEN, URINE AUTO 0.2 mg/dL (0.0-2.0); WBC, URINE AUTO 3 /HPF (0-3)
== END ==
LOC: M SMT 16:41
PROVIDERS: ATTEND Urology
DX: R31.29 Other microscopic hematuria (principal)

== ENCOUNTER → 2022-03-22 | Outpatient (REF) | payer OTHER ==
[2022-03-22 15:03] LABS: BASO # 0.1 10^3/uL (0.0-0.2); BASO % 0.5 % (0.0-1.0); EOS # 0.3 10^3/uL (0.0-0.5); EOS % 3.4 % (0.0-3.0); HEMOGLOBIN 13.7 g/dl (13.5-17.5); LYMPH # 1.4 10^3/uL (1.5-5.0); LYMPH % 15.4 % (24.0-44.0); MEAN CORPUSCULAR HEMOGLOBIN 27.3 pg (27.0-33.0); MEAN CORPUSCULAR HGB CONC 31.9 g/dl (32.0-36.5); MEAN CORPUSCULAR VOLUME 85.8 fl (80.0-96.0); MONO # 0.5 10^3/uL (0.0-0.8); MONO % 4.9 % (2.0-8.0); NEUTROPHILS % 75.3 % (36.0-66.0); PLATELET COUNT, AUTOMATED 209 10^3/uL (150-450); RED BLOOD COUNT 5.01 10^6/uL (4.30-6.10); WHITE BLOOD COUNT 9.2 10^3/uL (4.0-10.0)
[2022-03-22 15:18] LABS: C REACTIVE PROTEIN QUANTITATIV 3.37 MG/DL (0.00-0.30); CREATININE FOR GFR 1.49 MG/DL (0.70-1.30); GLOMERULAR FILTRATION RATE 52.1 (>56); POTASSIUM SERUM 4.3 MEQ/L (3.5-5.1)
[2022-03-22 15:49] LABS: ERYTHROCYTE SEDIMENTATION RATE 23 mm/hr (0-20)
== END ==
LOC: M SHH 14:31
PROVIDERS: ATTEND Internal Medicine Infectious Disease
DX: M86.672 Other chronic osteomyelitis, left ankle and foot (principal)

== ENCOUNTER → 2022-04-05 | Outpatient (REF) | payer OTHER ==
[2022-04-05 15:38] LABS: ALBUMIN 3.3 GM/DL (3.2-5.2); BILIRUBIN,TOTAL 0.3 MG/DL (0.2-1.0); CALCIUM LEVEL 9.7 MG/DL (8.5-10.1); CHOLESTEROL RISK RATIO 6.571 (<5); CREATININE FOR GFR 1.43 MG/DL (0.70-1.30); GLOMERULAR FILTRATION RATE 54.7 (>56); POTASSIUM SERUM 4.6 MEQ/L (3.5-5.1); TOTAL PROTEIN 7.7 GM/DL (6.4-8.2)
== END ==
LOC: M SHH 14:24
PROVIDERS: ATTEND Student in an Organized Health Care Education/Training Program
DX: E11.59 Type 2 diabetes mellitus with other circulatory complications (principal); I10 Essential (primary) hypertension

== ENCOUNTER 2022-05-12 17:07 | Inpatient (IN) | payer OTHER ==
[~2022-05-12] VITALS: Ht 167.6 cm; Wt 105.3 kg
[2022-05-12] MEDS ORDERED: CLOP75TA2 PO (17:35)
[2022-05-12] MEDS ORDERED: LISI2.5T9 PO (17:35)
[2022-05-12 20:04] LABS: BASO % 0.4 % (0.0-1.0); EOS # 0.2 10^3/uL (0.0-0.5); EOS % 1.6 % (0.0-3.0); HEMATOCRIT 39.6 % (42.0-52.0); HEMOGLOBIN 12.6 g/dl (13.5-17.5); LYMPH # 1.3 10^3/uL (1.5-5.0); LYMPH % 14.5 % (24.0-44.0); MEAN CORPUSCULAR HEMOGLOBIN 26.8 pg (27.0-33.0); MEAN CORPUSCULAR HGB CONC 31.8 g/dl (32.0-36.5); MEAN CORPUSCULAR VOLUME 84.1 fl (80.0-96.0); MONO # 0.7 10^3/uL (0.0-0.8); NEUTROPHILS # 6.8 10^3/uL (1.5-8.5); NEUTROPHILS % 75.1 % (36.0-66.0); PLATELET COUNT, AUTOMATED 329 10^3/uL (150-450); RED BLOOD COUNT 4.71 10^6/uL (4.30-6.10); WHITE BLOOD COUNT 9.1 10^3/uL (4.0-10.0)
[2022-05-12 20:29] LABS: ERYTHROCYTE SEDIMENTATION RATE 71 mm/hr (0-20)
[2022-05-12] MEDS ORDERED: VANCOMYCIN HCL 2,000 MG in D5W 500 ML IV ONE (22:05)
[2022-05-12] MEDS ORDERED: CEFEPIME HCL 2 GM in D5W MINI-BAG PLUS 50 ML IV ONE (22:05)
[2022-05-12] MEDS ORDERED: cefTRIAXone SOD 2 GM in D5W MINI-BAG PLUS 50 ML IV ONE (22:05)
[2022-05-12] MEDS ORDERED: HOME MED LIST COMPLETE! XX SCH (22:15)
[2022-05-12 23:23] LABS: CALCIUM LEVEL 8.6 MG/DL (8.5-10.1); CREATININE FOR GFR 2.46 MG/DL (0.70-1.30); GLOMERULAR FILTRATION RATE 29.2 (>56); POTASSIUM SERUM 5.1 MEQ/L (3.5-5.1)
[2022-05-12] MEDS ORDERED: GLUCAGON INJ 1MG VIAL SC PRN (23:30)
[2022-05-12] MEDS: NS 1,000 ML IV SCH (23:30)
[2022-05-12] MEDS ORDERED: ONDANSETRON 4MG 2ML VIAL IV PRN (23:30)
[2022-05-12] MEDS ORDERED: DEXTROSE 50% 50 ML SYRINGE IV PRN (23:30)
[2022-05-12] MEDS ORDERED: ACETAMINOPHEN TAB 650MG DOSE (2X325MG) PO PRN (23:30)
[2022-05-12] MEDS ORDERED: GLUCOSE 4GM CHEW TABLET PO PRN (23:30)
[2022-05-13] VITALS (7 sets, daily range): BP systolic 104–140; BP diastolic 50–74
[2022-05-13] MEDS ORDERED: VANCOMYCIN HCL 1,000 MG, VIAL MATE ADAPTER 1 EACH in NS 250 ML IV ONE ×6
[2022-05-13 01:17] LABS: HEMOGLOBIN A1c 8.6 %
[2022-05-13] MEDS: INSULIN LISPRO (NovoLOG) PER UNIT SC SCH ×5 (06:00→20:45)
[2022-05-13 06:06] LABS: HEMATOCRIT 37.9 % (42.0-52.0); HEMOGLOBIN 12.3 g/dl (13.5-17.5); MEAN CORPUSCULAR HEMOGLOBIN 27.2 pg (27.0-33.0); MEAN CORPUSCULAR HGB CONC 32.5 g/dl (32.0-36.5); MEAN CORPUSCULAR VOLUME 83.8 fl (80.0-96.0); PLATELET COUNT, AUTOMATED 285 10^3/uL (150-450); RED BLOOD COUNT 4.52 10^6/uL (4.30-6.10); WHITE BLOOD COUNT 7.2 10^3/uL (4.0-10.0)
[2022-05-13 06:17] LABS: INR 1.05; PROTHROMBIN TIME 13.9 SECONDS (12.5-14.5)
[2022-05-13 06:18] LABS: PARTIAL THROMBOPLASTIN TIME 31.9 SECONDS (24.8-34.2)
[2022-05-13 06:47] LABS: ALBUMIN 2.4 GM/DL (3.2-5.2); BILIRUBIN,TOTAL 0.5 MG/DL (0.2-1.0); C REACTIVE PROTEIN QUANTITATIV 10.5 MG/DL (0.00-0.30); CALCIUM LEVEL 8.6 MG/DL (8.5-10.1); CREATININE FOR GFR 2.22 MG/DL (0.70-1.30); GLOMERULAR FILTRATION RATE 32.9 (>56); POTASSIUM SERUM 4.7 MEQ/L (3.5-5.1); TOTAL PROTEIN 7.4 GM/DL (6.4-8.2)
[2022-05-13 08:06] LABS: VANCOMYCIN RANDOM 15.7 UG/ML
[2022-05-13] MEDS: NICOTINE 21MG/24HR 1 EA TRANSDERMAL TD SCH (09:00)
[2022-05-13] MEDS ORDERED: CEFEPIME HCL 2 GM in D5W MINI-BAG PLUS 50 ML IV SCH (09:00)
[2022-05-13] MEDS: NS 1,000 ML IV SCH (09:35)
[2022-05-13] MEDS: ATORVASTATIN 20 MG TAB PO SCH (09:35)
[2022-05-13] MEDS: VANCOMYCIN HCL 750 MG, VIAL MATE ADAPTER 1 EACH in D5W 250 ML IV SCH ×2 (09:35→20:49)
[2022-05-13] MEDS ORDERED: CEFEPIME HCL 1 GM in D5W MINI-BAG PLUS 50 ML IV SCH (10:00)
[2022-05-13] MEDS: CEFEPIME HCL 2 GM in D5W MINI-BAG PLUS 50 ML IV SCH ×2 (11:17→22:58)
[2022-05-13] MEDS ORDERED: fentaNYL 100 MCG/2 ML INJECTION As Ordered ONE (16:30)
[2022-05-13] MEDS ORDERED: propofoL 500 MG/50 ML VIAL As Ordered ONE (16:30)
[2022-05-13] MEDS ORDERED: LIDOCAINE 2% 100MG/5ML SDV (FOR ANES.) As Ordered ONE (16:30)
[2022-05-13] MEDS ORDERED: MIDAZOLAM INJ 2MG/2ML VIAL (J2250 PER 1MG) As Ordered ONE (16:31)
[2022-05-13] MEDS ORDERED: LIDOCAINE 2% MDV 20ML VIAL As Ordered ONE (16:56)
[2022-05-13] MEDS ORDERED: BUPIVACAINE HCL 0.5% 30ML VIAL As Ordered ONE (16:56)
[2022-05-13] MEDS ORDERED: GENTAMICIN SULF 80MG/2ML VIAL As Ordered ONE (17:37)
[2022-05-13] MEDS ORDERED: LR 1,000 ML IV SCH (18:05)
[2022-05-13] MEDS ORDERED: HYDROMORPHONE HCL 0.5 MG/ 0.5 ML SYRINGE (J1170 PER 1) IV PRN (18:05)
[2022-05-13] MEDS ORDERED: oxyCODONE 5MG TAB PO PRN (18:05)
[2022-05-13] MEDS ORDERED: fentaNYL 100 MCG/2 ML INJECTION IV PRN (18:05)
[2022-05-13] MEDS ORDERED: ONDANSETRON 4MG 2ML VIAL IV PRN (18:05)
[2022-05-13] MEDS ORDERED: NORCO, ANEXSIA 5/325MG TABLET (HYDROcodone/ACETAMINOPHEN) PO PRN (18:55)
[2022-05-14 02:15] VITALS: BP 118/54
[2022-05-14 06:00] VITALS: BP 117/57
[2022-05-14 06:47] LABS: HEMATOCRIT 37.7 % (42.0-52.0); HEMOGLOBIN 11.9 g/dl (13.5-17.5); MEAN CORPUSCULAR HEMOGLOBIN 26.7 pg (27.0-33.0); MEAN CORPUSCULAR HGB CONC 31.6 g/dl (32.0-36.5); MEAN CORPUSCULAR VOLUME 84.5 fl (80.0-96.0); PLATELET COUNT, AUTOMATED 265 10^3/uL (150-450); RED BLOOD COUNT 4.46 10^6/uL (4.30-6.10); WHITE BLOOD COUNT 6.8 10^3/uL (4.0-10.0)
[2022-05-14 07:13] LABS: ALBUMIN 2.2 GM/DL (3.2-5.2); BILIRUBIN,TOTAL 0.4 MG/DL (0.2-1.0); CALCIUM LEVEL 8.3 MG/DL (8.5-10.1); CREATININE FOR GFR 1.67 MG/DL (0.70-1.30); GLOMERULAR FILTRATION RATE 45.7 (>56); TOTAL PROTEIN 7.1 GM/DL (6.4-8.2)
[2022-05-14] MEDS: CLOPIDOGREL 75 MG TAB PO SCH (08:49)
[2022-05-14] MEDS: ATORVASTATIN 20 MG TAB PO SCH (08:49)
[2022-05-14] MEDS: INSULIN LISPRO (NovoLOG) PER UNIT SC SCH ×5 (08:49→20:57)
[2022-05-14] MEDS: ASPIRIN 81MG ENTERIC TABLET PO SCH (08:49)
[2022-05-14] MEDS: CEFEPIME HCL 2 GM in D5W MINI-BAG PLUS 50 ML IV SCH ×2 (08:50→21:52)
[2022-05-14] MEDS: NICOTINE 21MG/24HR 1 EA TRANSDERMAL TD SCH (08:53)
[2022-05-14] MEDS ORDERED: FLUBLOK(EGG FREE)(QUAD)INFLUENZA VACC 0.5ML SYRINGE 18YRS & OLDER IM.IMMUN ONE (09:00)
[2022-05-14 14:00] VITALS: BP 126/69
[2022-05-14] MEDS: HEPARIN SOD (PORCINE) 5000UNITS/ML 1ML VIAL/SYRINGE SQ SCH ×2 (17:16→21:53)
[2022-05-14] MEDS: LISINOPRIL *2.5 MG* TAB PO SCH (17:22)
[2022-05-14 18:00] VITALS: BP 127/71
[2022-05-14 20:48] VITALS: BP 122/55
[2022-05-14] MEDS: LEVEMIR (INSULIN DETEMIR) 1 UNITS/0.01ML SC SCH (21:52)
[2022-05-15] MEDS: HEPARIN SOD (PORCINE) 5000UNITS/ML 1ML VIAL/SYRINGE SQ SCH ×3 (05:13→22:19)
[2022-05-15 06:41] VITALS: BP 94/53
[2022-05-15 09:15] LABS: HEMATOCRIT 41.6 % (42.0-52.0); HEMOGLOBIN 13.2 g/dl (13.5-17.5); MEAN CORPUSCULAR HEMOGLOBIN 26.9 pg (27.0-33.0); MEAN CORPUSCULAR HGB CONC 31.7 g/dl (32.0-36.5); MEAN CORPUSCULAR VOLUME 84.9 fl (80.0-96.0); PLATELET COUNT, AUTOMATED 318 10^3/uL (150-450); WHITE BLOOD COUNT 7.8 10^3/uL (4.0-10.0)
[2022-05-15 09:58] LABS: CALCIUM LEVEL 8.9 MG/DL (8.5-10.1); CREATININE FOR GFR 1.97 MG/DL (0.70-1.30); GLOMERULAR FILTRATION RATE 37.8 (>56); POTASSIUM SERUM 4.9 MEQ/L (3.5-5.1)
[2022-05-15] MEDS: ATORVASTATIN 20 MG TAB PO SCH (10:07)
[2022-05-15] MEDS: ASPIRIN 81MG ENTERIC TABLET PO SCH (10:07)
[2022-05-15] MEDS: CEFEPIME HCL 2 GM in D5W MINI-BAG PLUS 50 ML IV SCH (10:07)
[2022-05-15] MEDS: CLOPIDOGREL 75 MG TAB PO SCH (10:07)
[2022-05-15] MEDS: LEVEMIR (INSULIN DETEMIR) 1 UNITS/0.01ML SC SCH ×2 (10:08→22:19)
[2022-05-15] MEDS: INSULIN LISPRO (NovoLOG) PER UNIT SC SCH ×6 (10:08→22:20)
[2022-05-15] MEDS: NICOTINE 21MG/24HR 1 EA TRANSDERMAL TD SCH (10:12)
[2022-05-15] MEDS: LISINOPRIL *2.5 MG* TAB PO SCH (10:12)
[2022-05-15 14:00] VITALS: BP 105/57
[2022-05-15] MEDS ORDERED: LR 1,000 ML IV ONE (16:05)
[2022-05-15] MEDS ORDERED: INSULIN LISPRO (NovoLOG) PER UNIT SC SCH (17:30)
[2022-05-15 21:00] VITALS: BP 132/68
[2022-05-15] MEDS ORDERED: DOXYCYCLINE HYCLATE 100MG TABLET PO SCH (21:00)
[2022-05-15] MEDS: AUGMENTIN 875 MG TAB PO SCH (22:19)
[2022-05-15] MEDS: SILVER SULFADIAZINE 1% CR 50 GM JAR TOP SCH (22:20)
[2022-05-15] MEDS: LR 1,000 ML IV SCH (22:21)
[2022-05-15 23:00] VITALS: BP 132/68
[2022-05-16 05:38] VITALS: BP 159/73
[2022-05-16 06:03] LABS: HEMATOCRIT 36.7 % (42.0-52.0); HEMOGLOBIN 11.7 g/dl (13.5-17.5); MEAN CORPUSCULAR HEMOGLOBIN 26.9 pg (27.0-33.0); MEAN CORPUSCULAR HGB CONC 31.9 g/dl (32.0-36.5); MEAN CORPUSCULAR VOLUME 84.4 fl (80.0-96.0); PLATELET COUNT, AUTOMATED 229 10^3/uL (150-450); RED BLOOD COUNT 4.35 10^6/uL (4.30-6.10); WHITE BLOOD COUNT 4.9 10^3/uL (4.0-10.0)
[2022-05-16] MEDS: HEPARIN SOD (PORCINE) 5000UNITS/ML 1ML VIAL/SYRINGE SQ SCH (06:15)
[2022-05-16] MEDS: LR 1,000 ML IV SCH (06:15)
[2022-05-16 06:36] LABS: CALCIUM LEVEL 8.4 MG/DL (8.5-10.1); CREATININE FOR GFR 1.59 MG/DL (0.70-1.30); GLOMERULAR FILTRATION RATE 48.4 (>56); POTASSIUM SERUM 4.6 MEQ/L (3.5-5.1)
[2022-05-16] MEDS ORDERED: INSULIN LISPRO (NovoLOG) PER UNIT SC SCH (07:30)
[2022-05-16] MEDS: LEVEMIR (INSULIN DETEMIR) 1 UNITS/0.01ML SC SCH (08:49)
[2022-05-16] MEDS: INSULIN LISPRO (NovoLOG) PER UNIT SC SCH ×4 (08:50→12:04)
[2022-05-16] MEDS: ASPIRIN 81MG ENTERIC TABLET PO SCH (08:51)
[2022-05-16] MEDS: NICOTINE 21MG/24HR 1 EA TRANSDERMAL TD SCH (08:52)
[2022-05-16] MEDS: ATORVASTATIN 20 MG TAB PO SCH (08:52)
[2022-05-16] MEDS: AUGMENTIN 875 MG TAB PO SCH (08:52)
[2022-05-16] MEDS: CLOPIDOGREL 75 MG TAB PO SCH (08:52)
[2022-05-16 08:53] VITALS: BP 140/66
[2022-05-16] MEDS: LISINOPRIL *2.5 MG* TAB PO SCH (08:53)
[2022-05-16] MEDS ORDERED: NICO21PAT TD (09:40)
[2022-05-16] MEDS ORDERED: ACET1TAB55 PO (09:40)
[2022-05-16] MEDS ORDERED: AMOX875T2 PO (09:40)
[2022-05-16] MEDS ORDERED: SILV1CRE60 TOP (11:03)
[2022-05-16] MEDS: SILVER SULFADIAZINE 1% CR 50 GM JAR TOP SCH (11:17)
== END 2022-05-16 12:20 | disposition home health service (06) | DRG 314 ==
LOC: M ED 17:07 → M ED INP 23:28 → ENRESERV 05-13 14:51 → M MSPAV 05-13 15:27
PROVIDERS: ADMIT Internal Medicine; ATTEND Student in an Organized Health Care Education/Training Program
PROC: 0Y6S0Z0 Detachment at Left 2nd Toe, Complete, Open Approach (ICD-10-PCS; principal; 2022-05-13 16:30)
DX: E11.69 Type 2 diabetes mellitus with other specified complication (principal); E11.22 Type 2 diabetes mellitus with diabetic chronic kidney disease; N17.9 Acute kidney failure, unspecified; E11.610 Type 2 diabetes mellitus with diabetic neuropathic arthropathy; M86.9 Osteomyelitis, unspecified; E11.51 Type 2 diabetes mellitus with diabetic peripheral angiopathy without gangrene; E66.9 Obesity, unspecified; E78.5 Hyperlipidemia, unspecified; I12.9 Hypertensive chronic kidney disease with stage 1 through stage 4 chronic kidney disease, or unspecified chronic kidney disease; Z68.37 Body mass index [BMI] 37.0-37.9, adult; E11.621 Type 2 diabetes mellitus with foot ulcer; N18.30 Chronic kidney disease, stage 3 unspecified; L97.429 Non-pressure chronic ulcer of left heel and midfoot with unspecified severity; I73.9 Peripheral vascular disease, unspecified; Z89.429 Acquired absence of other toe(s), unspecified side; Z79.82 Long term (current) use of aspirin; Z79.84 Long term (current) use of oral hypoglycemic drugs; Z79.899 Other long term (current) drug therapy; Z79.4 Long term (current) use of insulin; Z20.822 Contact with and (suspected) exposure to COVID-19; F17.200 Nicotine dependence, unspecified, uncomplicated

== ENCOUNTER 2022-05-19 17:23 | Inpatient (IN) | payer OTHER ==
[~2022-05-19] VITALS: Ht 167.6 cm; Wt 105.0 kg
[~2022-05-19 17:23] MED LIST changes: +NICO21PAT TD
[2022-05-19] MEDS ORDERED: METOCLOPRAMIDE INJ 10MG/2ML VIAL (J2765 PER 1) IV ONE (18:10)
[2022-05-19 18:36] LABS: BASO % 0.5 % (0.0-1.0); EOS # 0.1 10^3/uL (0.0-0.5); EOS % 0.8 % (0.0-3.0); HEMATOCRIT 38.4 % (42.0-52.0); HEMOGLOBIN 12.2 g/dl (13.5-17.5); LYMPH % 12.7 % (24.0-44.0); MEAN CORPUSCULAR HEMOGLOBIN 26.7 pg (27.0-33.0); MEAN CORPUSCULAR HGB CONC 31.8 g/dl (32.0-36.5); MONO # 0.7 10^3/uL (0.0-0.8); NEUTROPHILS # 6.1 10^3/uL (1.5-8.5); NEUTROPHILS % 76.7 % (36.0-66.0); PLATELET COUNT, AUTOMATED 265 10^3/uL (150-450); RED BLOOD COUNT 4.57 10^6/uL (4.30-6.10); WHITE BLOOD COUNT 7.9 10^3/uL (4.0-10.0)
[2022-05-19 19:14] LABS: ALBUMIN 2.4 GM/DL (3.2-5.2); BILIRUBIN,DIRECT 0.2 MG/DL (0.0-0.2); BILIRUBIN,TOTAL 0.6 MG/DL (0.2-1.0); CALCIUM LEVEL 8.7 MG/DL (8.5-10.1); CREATININE FOR GFR 2.23 MG/DL (0.70-1.30); GLOMERULAR FILTRATION RATE 32.7 (>56); POTASSIUM SERUM 4.7 MEQ/L (3.5-5.1); TOTAL PROTEIN 7.9 GM/DL (6.4-8.2)
[2022-05-19] MEDS ORDERED: NS 500 ML IV ONE (19:35)
[2022-05-19] MEDS ORDERED: NS 1,000 ML IV SCH (19:35)
[2022-05-19] MEDS ORDERED: ACETAMINOPHEN TAB 650MG DOSE (2X325MG) PO PRN (21:20)
[2022-05-19] MEDS ORDERED: MOM 30ML SUSPENSION UDC PO PRN (21:20)
[2022-05-19] MEDS ORDERED: DEXTROSE 50% 50 ML SYRINGE IV PRN (21:25)
[2022-05-19] MEDS ORDERED: GLUCAGON INJ 1MG VIAL SC PRN (21:25)
[2022-05-19] MEDS ORDERED: GLUCOSE 4GM CHEW TABLET PO PRN (21:25)
[2022-05-19 22:53] LABS: RSV AMPLIFICATION NEGATIVE (NEGATIVE)
[2022-05-19] MEDS ORDERED: HOME MED LIST COMPLETE! XX SCH (23:10)
[2022-05-20 00:25] VITALS: BP 101/58
[2022-05-20] MEDS ORDERED: REMDESIVIR 200 MG in NS 250 ML IV ONE (01:00)
[2022-05-20] MEDS: NS 1,000 ML IV SCH ×2 (02:15→10:01)
[2022-05-20] MEDS ORDERED: SODIUM CHLORIDE 0.9% INJ 10 ML SYR IV ONE (03:00)
[2022-05-20 04:00] VITALS: BP 110/69
[2022-05-20 06:10] LABS: HEMATOCRIT 34.7 % (42.0-52.0); MEAN CORPUSCULAR HEMOGLOBIN 26.5 pg (27.0-33.0); MEAN CORPUSCULAR HGB CONC 31.7 g/dl (32.0-36.5); MEAN CORPUSCULAR VOLUME 83.6 fl (80.0-96.0); PLATELET COUNT, AUTOMATED 199 10^3/uL (150-450); RED BLOOD COUNT 4.15 10^6/uL (4.30-6.10)
[2022-05-20] MEDS: HEPARIN SOD (PORCINE) 5000UNITS/ML 1ML VIAL/SYRINGE SC SCH ×3 (06:36→22:20)
[2022-05-20 06:52] LABS: ALBUMIN 2.2 GM/DL (3.2-5.2); BILIRUBIN,DIRECT 0.1 MG/DL (0.0-0.2); BILIRUBIN,TOTAL 0.5 MG/DL (0.2-1.0); CALCIUM LEVEL 8.2 MG/DL (8.5-10.1); CREATININE FOR GFR 1.83 MG/DL (0.70-1.30); GLOMERULAR FILTRATION RATE 41.1 (>56); MAGNESIUM LEVEL 1.4 MG/DL (1.8-2.4); POTASSIUM SERUM 4.1 MEQ/L (3.5-5.1); TOTAL PROTEIN 7.5 GM/DL (6.4-8.2)
[2022-05-20] MEDS: INSULIN LISPRO (NovoLOG) PER UNIT SC SCH ×3 (07:30→17:16)
[2022-05-20 07:46] VITALS: BP 119/63
[2022-05-20] MEDS: ASPIRIN 81MG ENTERIC TABLET PO SCH (09:58)
[2022-05-20] MEDS: DOCUSATE SODIUM 100MG CAPSULE PO SCH ×2 (09:58→20:40)
[2022-05-20] MEDS: CLOPIDOGREL 75 MG TAB PO SCH (09:59)
[2022-05-20] MEDS: ATORVASTATIN 20 MG TAB PO SCH (09:59)
[2022-05-20 12:00] VITALS: BP 101/62
[2022-05-20] MEDS: AZITHROMYCIN 250MG TABLET PO SCH (15:32)
[2022-05-20 16:00] VITALS: BP 109/57
[2022-05-20 20:00] VITALS: BP 107/53
[2022-05-20] MEDS ORDERED: INSULIN LISPRO (NovoLOG) PER UNIT SC SCH (21:00)
[2022-05-20] MEDS ORDERED: REMDESIVIR 100 MG in NS 250 ML IV SCH (22:00)
[2022-05-20] MEDS ORDERED: SODIUM CHLORIDE 0.9% INJ 10 ML SYR IV SCH (23:00)
[2022-05-21] VITALS: BP 127/60
[2022-05-21 04:00] VITALS: BP 120/60
[2022-05-21] MEDS: HEPARIN SOD (PORCINE) 5000UNITS/ML 1ML VIAL/SYRINGE SC SCH ×2 (05:31→14:00)
[2022-05-21 06:47] LABS: BASO % 0.6 % (0.0-1.0); EOS # 0.2 10^3/uL (0.0-0.5); EOS % 5.1 % (0.0-3.0); HEMATOCRIT 34.9 % (42.0-52.0); HEMOGLOBIN 11.1 g/dl (13.5-17.5); LYMPH # 1.1 10^3/uL (1.5-5.0); LYMPH % 31.1 % (24.0-44.0); MEAN CORPUSCULAR HEMOGLOBIN 26.8 pg (27.0-33.0); MEAN CORPUSCULAR HGB CONC 31.8 g/dl (32.0-36.5); MEAN CORPUSCULAR VOLUME 84.3 fl (80.0-96.0); MONO # 0.5 10^3/uL (0.0-0.8); MONO % 14.3 % (2.0-8.0); NEUTROPHILS # 1.7 10^3/uL (1.5-8.5); NEUTROPHILS % 48.6 % (36.0-66.0); PLATELET COUNT, AUTOMATED 198 10^3/uL (150-450); RED BLOOD COUNT 4.14 10^6/uL (4.30-6.10); WHITE BLOOD COUNT 3.5 10^3/uL (4.0-10.0)
[2022-05-21 07:31] VITALS: BP 114/60
[2022-05-21 07:36] LABS: ALBUMIN 2.2 GM/DL (3.2-5.2); BILIRUBIN,TOTAL 0.3 MG/DL (0.2-1.0); CREATININE FOR GFR 1.64 MG/DL (0.70-1.30); GLOMERULAR FILTRATION RATE 46.7 (>56); MAGNESIUM LEVEL 1.6 MG/DL (1.8-2.4); POTASSIUM SERUM 4.3 MEQ/L (3.5-5.1); TOTAL PROTEIN 7.2 GM/DL (6.4-8.2)
[2022-05-21] MEDS ORDERED: MAG SULF 1GM/100ML (MAG RUN) 1 GM in IV 1 EA IV ONE (09:00)
[2022-05-21] MEDS: DOCUSATE SODIUM 100MG CAPSULE PO SCH (09:30)
[2022-05-21] MEDS: AZITHROMYCIN 250MG TABLET PO SCH (09:30)
[2022-05-21] MEDS: CLOPIDOGREL 75 MG TAB PO SCH (09:30)
[2022-05-21] MEDS: ASPIRIN 81MG ENTERIC TABLET PO SCH (09:30)
[2022-05-21] MEDS: ATORVASTATIN 20 MG TAB PO SCH (09:30)
[2022-05-21] MEDS: INSULIN LISPRO (NovoLOG) PER UNIT SC SCH ×2 (09:31→12:33)
[2022-05-21 11:55] VITALS: BP 86/53
[2022-05-21 12:54] VITALS: BP 126/61
[2022-05-21] MEDS ORDERED: REMDESIVIR 100 MG in NS 250 ML IV ONE (14:00)
[2022-05-21] MEDS ORDERED: SODIUM CHLORIDE 0.9% INJ 10 ML SYR IV ONE (15:00)
== END 2022-05-21 16:07 | disposition home or self-care (01) | DRG 137 ==
LOC: M ED 17:23 → M ED INP 21:16 → M PCU 05-20 00:23
PROVIDERS: ADMIT Family Medicine; ATTEND Family Medicine
PROC: XW033E5 Introduction of Remdesivir Anti-infective into Peripheral Vein, Percutaneous Approach, New Technology Group 5 (ICD-10-PCS; principal; 2022-05-20)
DX: U07.1 COVID-19 (principal); E11.51 Type 2 diabetes mellitus with diabetic peripheral angiopathy without gangrene; E11.22 Type 2 diabetes mellitus with diabetic chronic kidney disease; N17.9 Acute kidney failure, unspecified; E11.621 Type 2 diabetes mellitus with foot ulcer; I95.9 Hypotension, unspecified; N18.30 Chronic kidney disease, stage 3 unspecified; L97.529 Non-pressure chronic ulcer of other part of left foot with unspecified severity; I12.9 Hypertensive chronic kidney disease with stage 1 through stage 4 chronic kidney disease, or unspecified chronic kidney disease; E78.5 Hyperlipidemia, unspecified; E66.9 Obesity, unspecified; F17.200 Nicotine dependence, unspecified, uncomplicated; E86.0 Dehydration; I73.9 Peripheral vascular disease, unspecified; Z68.37 Body mass index [BMI] 37.0-37.9, adult; Z79.2 Long term (current) use of antibiotics; Z79.82 Long term (current) use of aspirin; Z79.4 Long term (current) use of insulin; Z79.84 Long term (current) use of oral hypoglycemic drugs; Z79.899 Other long term (current) drug therapy; K52.9 Noninfective gastroenteritis and colitis, unspecified; Z79.01 Long term (current) use of anticoagulants

== ENCOUNTER → 2022-09-25 | Outpatient (CLI) | payer OTHER ==
[~2022-09-25] MED LIST changes: +INSU100I6 SC; -LEVE1INJ5 SC
[2022-09-25 16:35] LABS: CREATININE, URINE 146.3 MG/DL
[2022-09-25 16:38] LABS: ALBUMIN 3.6 G/DL (3.2-5.2); BILIRUBIN,TOTAL 0.3 MG/DL (0.3-1.2); CALCIUM LEVEL 9.7 MG/DL (8.5-10.1); CHOLESTEROL RISK RATIO 6.69 (<5); CREATININE FOR GFR 1.67 MG/DL (0.70-1.30); GLOMERULAR FILTRATION RATE 45.5 (>56); HDL CHOLESTEROL 33.9 MG/DL (>40); LDL CHOLESTEROL 121.9 MG/DL (<100); NON-HDL-C 193.1 MG/DL; POTASSIUM SERUM 4.7 MMOL/L (3.5-5.1); TOTAL PROTEIN 7.5 G/DL (5.7-8.2)
[2022-09-25 16:54] LABS: MAU/CREAT RATIO 413.5 MCG/MG (0.0-30.0)
[2022-09-25 19:12] LABS: HEMOGLOBIN A1c 10.1 % (4.0-6.0)
== END ==
LOC: M PLALAB 12:38
PROVIDERS: ATTEND Student in an Organized Health Care Education/Training Program
DX: E11.40 Type 2 diabetes mellitus with diabetic neuropathy, unspecified (principal)

== ENCOUNTER → 2022-10-16 | Outpatient (CLI) | payer OTHER | LOC: M RAD 13:23 | PROVIDERS: ATTEND Surgery Vascular Surgery | DX: I70.245 Atherosclerosis of native arteries of left leg with ulceration of other part of foot (principal); A52.16 Charcot's arthropathy (tabetic); E11.40 Type 2 diabetes mellitus with diabetic neuropathy, unspecified ==

== ENCOUNTER 2022-12-11 15:46 | Inpatient (IN) | payer OTHER ==
[~2022-12-11] VITALS: Ht 167.6 cm; Wt 120.0 kg
[2022-12-11] MEDS ORDERED: ACETAMINOPHEN TAB 650MG DOSE (2X325MG) PO ONE ×2 (16:30→18:00)
[2022-12-11 16:46] LABS: BASO % 0.2 % (0.0-1.0); HEMOGLOBIN 14.1 g/dl (13.5-17.5); LYMPH # 0.5 10^3/uL (1.5-5.0); LYMPH % 5.2 % (24.0-44.0); MEAN CORPUSCULAR HGB CONC 32.8 g/dl (32.0-36.5); MEAN CORPUSCULAR VOLUME 88.3 fl (80.0-96.0); MONO # 0.6 10^3/uL (0.0-0.8); MONO % 6.9 % (2.0-8.0); NEUTROPHILS % 87.2 % (36.0-66.0); PLATELET COUNT, AUTOMATED 142 10^3/uL (150-450); RED BLOOD COUNT 4.87 10^6/uL (4.30-6.10); WHITE BLOOD COUNT 9.2 10^3/uL (4.0-10.0)
[2022-12-11 17:01] LABS: ALBUMIN 2.9 G/DL (3.2-5.2); BILIRUBIN,DIRECT 0.2 MG/DL (<0.4); BILIRUBIN,TOTAL 0.7 MG/DL (0.3-1.2); CALCIUM LEVEL 7.9 MG/DL (8.5-10.1); CREATININE FOR GFR 2.39 MG/DL (0.70-1.30); GLOMERULAR FILTRATION RATE 30.1 (>56); POTASSIUM SERUM 5.5 MMOL/L (3.5-5.1); TOTAL PROTEIN 6.9 G/DL (5.7-8.2)
[2022-12-11 17:36] LABS: INR 1.17; PROTHROMBIN TIME 15.1 SECONDS (12.5-14.5)
[2022-12-11 17:37] LABS: PARTIAL THROMBOPLASTIN TIME 27.4 SECONDS (24.8-34.2)
[2022-12-11] MEDS ORDERED: NS 1,000 ML IV ONE ×2 (17:55→22:25)
[2022-12-11 18:18] LABS: RSV AMPLIFICATION NEGATIVE (NEGATIVE)
[2022-12-11 19:36] LABS: AMPHETAMINES LEVEL URINE NEGATIVE (NEGATIVE); BARBITURATES URINE NEGATIVE (NEGATIVE); BENZODIAZEPINES URINE NEGATIVE (NEGATIVE); CANNABINOIDS URINE NEGATIVE (NEGATIVE); COCAINE METABOLITE URINE NEGATIVE (NEGATIVE); METHADONE URINE NEGATIVE (NEGATIVE); OPIATES URINE NEGATIVE (NEGATIVE); PHENCYCLIDINE URINE NEGATIVE (NEGATIVE)
[2022-12-11] MEDS ORDERED: HumuLIN R (REGULAR) INSULIN (NovoLIN R) **100U/ML** PER UNIT IV ONE (19:40)
[2022-12-11] MEDS ORDERED: PIPERACILLIN/TAZOBACTAM SOD 3.375 GM in D5W MINI-BAG PLUS 50 ML IV ONE (20:40)
[2022-12-11] MEDS ORDERED: CLINDAMYCIN 900 MG in IV 1 EA IV ONE (20:40)
[2022-12-11] MEDS ORDERED: VANCOMYCIN HCL 500 MG in D5W MINI-BAG PLUS 100 ML IV SCH (20:40)
[2022-12-11] MEDS ORDERED: GLUCOSE 4GM CHEW TABLET PO PRN (22:25)
[2022-12-11] MEDS ORDERED: ACETAMINOPHEN TAB 650MG DOSE (2X325MG) PO PRN (22:25)
[2022-12-11] MEDS ORDERED: DEXTROSE 50% 50ML SYRINGE IV PRN (22:25)
[2022-12-11] MEDS ORDERED: GLUCAGON INJ 1MG VIAL SC PRN (22:25)
[2022-12-11] MEDS ORDERED: VANCOMYCIN HCL 1,000 MG, VIAL MATE ADAPTER 1 EACH in D5W 250 ML IV SCH (22:25)
[2022-12-11] MEDS ORDERED: ONDANSETRON 4MG 2ML VIAL IV PRN (22:30)
[2022-12-11] MEDS ORDERED: propofoL 200 MG/20 ML VIAL As Ordered ONE (22:32)
[2022-12-11] MEDS ORDERED: fentaNYL 100 MCG/2 ML INJECTION As Ordered ONE (22:32)
[2022-12-11] MEDS ORDERED: MIDAZOLAM INJ 2MG/2ML VIAL As Ordered ONE (22:32)
[2022-12-11] MEDS ORDERED: LIDOCAINE 2% 100MG/5ML SDV (FOR ANES.) As Ordered ONE (22:32)
[2022-12-11] MEDS ORDERED: BUPIVACAINE HCL 0.5% 30ML VIAL As Ordered ONE (22:40)
[2022-12-11] MEDS ORDERED: LIDOCAINE 2% MDV 20ML VIAL As Ordered ONE (22:40)
[2022-12-11] MEDS ORDERED: GENTAMICIN SULF 80MG/2ML VIAL As Ordered ONE ×2 (22:40→23:04)
[2022-12-11] MEDS ORDERED: ADME100I2 SC (23:06)
[2022-12-11] MEDS ORDERED: LISI20TA33 PO (23:06)
[2022-12-11] MEDS ORDERED: HOME MED LIST COMPLETE! XX SCH (23:10)
[2022-12-11] MEDS ORDERED: CALCIUM CHLORIDE 10% 1 GM/10 ML SYR As Ordered ONE (23:16)
[2022-12-11] MEDS ORDERED: ACETAMINOPHEN 1000MG 100ML IV BAG As Ordered ONE (23:24)
[2022-12-11] MEDS ORDERED: METOCLOPRAMIDE INJ 10MG/2ML VIAL As Ordered ONE (23:31)
[2022-12-11] MEDS ORDERED: ONDANSETRON 4MG 2ML VIAL As Ordered ONE (23:31)
[2022-12-12] VITALS (12 sets, daily range): BP systolic 98–154; BP diastolic 55–74
[2022-12-12] MEDS ORDERED: INSULIN LISPRO (NovoLOG) PER UNIT SC SCH
[2022-12-12] MEDS ORDERED: VANCOMYCIN HCL 1,000 MG, VIAL MATE ADAPTER 1 EACH in D5W 250 ML IV ONE ×2 (00:30→01:30)
[2022-12-12] MEDS: NS 1,000 ML IV SCH ×3 (00:35→12:45)
[2022-12-12] MEDS: PIPERACILLIN/TAZOBACTAM SOD 3.375 GM in D5W MINI-BAG PLUS 50 ML IV SCH ×2 (03:01→08:32)
[2022-12-12 06:18] LABS: HEMATOCRIT 43.4 % (42.0-52.0); HEMOGLOBIN 13.8 g/dl (13.5-17.5); MEAN CORPUSCULAR HEMOGLOBIN 28.8 pg (27.0-33.0); MEAN CORPUSCULAR HGB CONC 31.8 g/dl (32.0-36.5); MEAN CORPUSCULAR VOLUME 90.6 fl (80.0-96.0); PLATELET COUNT, AUTOMATED 138 10^3/uL (150-450); RED BLOOD COUNT 4.79 10^6/uL (4.30-6.10); WHITE BLOOD COUNT 9.2 10^3/uL (4.0-10.0)
[2022-12-12 06:35] LABS: ALBUMIN 2.9 G/DL (3.2-5.2); BILIRUBIN,TOTAL 0.7 MG/DL (0.3-1.2); CALCIUM LEVEL 8.2 MG/DL (8.5-10.1); CREATININE FOR GFR 2.19 MG/DL (0.70-1.30); GLOMERULAR FILTRATION RATE 33.3 (>56); MAGNESIUM LEVEL 1.6 MG/DL (1.8-2.4); POTASSIUM SERUM 4.9 MMOL/L (3.5-5.1); TOTAL PROTEIN 6.8 G/DL (5.7-8.2)
[2022-12-12] MEDS: ATORVASTATIN 20 MG TAB PO SCH (08:33)
[2022-12-12] MEDS: INSULIN LISPRO (NovoLOG) PER UNIT SC SCH ×3 (08:33→17:25)
[2022-12-12] MEDS ORDERED: LEVEMIR (INSULIN DETEMIR) 1 UNITS/0.01ML SC SCH ×2 (09:00→21:00)
[2022-12-12 09:12] LABS: VANCOMYCIN RANDOM 24.4 UG/ML
[2022-12-12] MEDS: ASPIRIN 81MG ENTERIC TABLET PO SCH (12:53)
[2022-12-12] MEDS: CLOPIDOGREL 75 MG TAB PO SCH (12:53)
[2022-12-12] MEDS: CLINDAMYCIN 600 MG in IV 1 EA IV SCH ×2 (12:54→19:16)
[2022-12-12] MEDS ORDERED: VANCOMYCIN HCL 750 MG, VIAL MATE ADAPTER 1 EACH in D5W 250 ML IV SCH (13:00)
[2022-12-12] MEDS: MAG SULF 1GM/100ML (MAG RUN) 1 GM in IV 1 EA IV SCH ×2 (13:00→15:31)
[2022-12-12] MEDS: VANCOMYCIN HCL 500 MG in D5W MINI-BAG PLUS 100 ML IV SCH (14:23)
[2022-12-12] MEDS: HEPARIN SOD (PORCINE) 5000UNITS/ML 1ML VIAL/SYRINGE SQ SCH ×2 (14:23→22:02)
[2022-12-12] MEDS: PIPERACILLIN/TAZOBACTAM SOD 4.5 GM in D5W MINI-BAG PLUS 50 ML IV SCH ×2 (16:56→22:02)
[2022-12-12] MEDS ORDERED: MAG SULF 1GM/100ML (MAG RUN) 1 GM in IV 1 EA IV SCH (17:00)
[2022-12-13] MEDS: CLINDAMYCIN 600 MG in IV 1 EA IV SCH ×2 (00:41→06:10)
[2022-12-13] MEDS: VANCOMYCIN HCL 500 MG in D5W MINI-BAG PLUS 100 ML IV SCH (01:23)
[2022-12-13] MEDS: PIPERACILLIN/TAZOBACTAM SOD 4.5 GM in D5W MINI-BAG PLUS 50 ML IV SCH ×4 (03:57→21:22)
[2022-12-13 04:00] VITALS: BP 118/59
[2022-12-13 05:29] LABS: BASO % 0.4 % (0.0-1.0); EOS # 0.2 10^3/uL (0.0-0.5); HEMATOCRIT 36.5 % (42.0-52.0); LYMPH # 1.1 10^3/uL (1.5-5.0); LYMPH % 19.5 % (24.0-44.0); MEAN CORPUSCULAR HEMOGLOBIN 28.2 pg (27.0-33.0); MEAN CORPUSCULAR HGB CONC 32.1 g/dl (32.0-36.5); MONO # 0.6 10^3/uL (0.0-0.8); MONO % 11.4 % (2.0-8.0); NEUTROPHILS # 3.6 10^3/uL (1.5-8.5); NEUTROPHILS % 64.3 % (36.0-66.0); PLATELET COUNT, AUTOMATED 125 10^3/uL (150-450); RED BLOOD COUNT 4.15 10^6/uL (4.30-6.10); WHITE BLOOD COUNT 5.5 10^3/uL (4.0-10.0)
[2022-12-13 05:32] LABS: HEMOGLOBIN 11.7 g/dl (13.5-17.5)
[2022-12-13 05:53] LABS: C REACTIVE PROTEIN QUANTITATIV 12.4 MG/DL (<1.0)
[2022-12-13 05:54] LABS: CALCIUM LEVEL 7.2 MG/DL (8.5-10.1); CREATININE FOR GFR 2.09 MG/DL (0.70-1.30); GLOMERULAR FILTRATION RATE 35.1 (>56); MAGNESIUM LEVEL 1.8 MG/DL (1.8-2.4); PHOSPHORUS LEVEL 3.2 MG/DL (2.5-4.9); POTASSIUM SERUM 3.9 MMOL/L (3.5-5.1)
[2022-12-13] MEDS: HEPARIN SOD (PORCINE) 5000UNITS/ML 1ML VIAL/SYRINGE SQ SCH ×3 (06:11→21:23)
[2022-12-13] MEDS: INSULIN LISPRO (NovoLOG) PER UNIT SC SCH ×3 (07:30→17:29)
[2022-12-13 08:50] VITALS: BP 118/69
[2022-12-13] MEDS: CLOPIDOGREL 75 MG TAB PO SCH (08:58)
[2022-12-13] MEDS: ATORVASTATIN 20 MG TAB PO SCH (08:58)
[2022-12-13] MEDS: ASPIRIN 81MG ENTERIC TABLET PO SCH (08:58)
[2022-12-13] MEDS: LEVEMIR (INSULIN DETEMIR) 1 UNITS/0.01ML SC SCH ×2 (09:00→21:23)
[2022-12-13 12:40] VITALS: BP 92/51
[2022-12-13] MEDS: VANCOMYCIN HCL 750 MG, VIAL MATE ADAPTER 1 EACH in D5W 250 ML IV SCH (12:57)
[2022-12-13 19:56] VITALS: BP 121/60
[2022-12-14 00:57] VITALS: BP 138/79
[2022-12-14] MEDS: VANCOMYCIN HCL 750 MG, VIAL MATE ADAPTER 1 EACH in D5W 250 ML IV SCH ×3 (01:07→21:51)
[2022-12-14] MEDS: PIPERACILLIN/TAZOBACTAM SOD 4.5 GM in D5W MINI-BAG PLUS 50 ML IV SCH ×4 (02:59→20:36)
[2022-12-14] MEDS: HEPARIN SOD (PORCINE) 5000UNITS/ML 1ML VIAL/SYRINGE SQ SCH ×3 (05:17→21:52)
[2022-12-14 05:39] LABS: BASO % 0.8 % (0.0-1.0); EOS # 0.3 10^3/uL (0.0-0.5); EOS % 8.8 % (0.0-3.0); HEMATOCRIT 36.6 % (42.0-52.0); HEMOGLOBIN 11.8 g/dl (13.5-17.5); LYMPH # 0.8 10^3/uL (1.5-5.0); LYMPH % 22.3 % (24.0-44.0); MEAN CORPUSCULAR HEMOGLOBIN 28.2 pg (27.0-33.0); MEAN CORPUSCULAR HGB CONC 32.2 g/dl (32.0-36.5); MEAN CORPUSCULAR VOLUME 87.4 fl (80.0-96.0); MONO # 0.4 10^3/uL (0.0-0.8); MONO % 10.5 % (2.0-8.0); NEUTROPHILS # 2.1 10^3/uL (1.5-8.5); NEUTROPHILS % 57.3 % (36.0-66.0); PLATELET COUNT, AUTOMATED 111 10^3/uL (150-450); RED BLOOD COUNT 4.19 10^6/uL (4.30-6.10); WHITE BLOOD COUNT 3.7 10^3/uL (4.0-10.0)
[2022-12-14 06:00] VITALS: BP 131/75
[2022-12-14 06:06] LABS: CALCIUM LEVEL 7.9 MG/DL (8.5-10.1); CREATININE FOR GFR 1.75 MG/DL (0.70-1.30); GLOMERULAR FILTRATION RATE 43.1 (>56); MAGNESIUM LEVEL 1.8 MG/DL (1.8-2.4); PHOSPHORUS LEVEL 3.8 MG/DL (2.5-4.9); POTASSIUM SERUM 3.9 MMOL/L (3.5-5.1)
[2022-12-14] MEDS: INSULIN LISPRO (NovoLOG) PER UNIT SC SCH ×3 (09:23→18:22)
[2022-12-14] MEDS: CLOPIDOGREL 75 MG TAB PO SCH (09:24)
[2022-12-14] MEDS: ATORVASTATIN 20 MG TAB PO SCH (09:24)
[2022-12-14] MEDS: LEVEMIR (INSULIN DETEMIR) 1 UNITS/0.01ML SC SCH ×2 (09:24→20:37)
[2022-12-14] MEDS: ASPIRIN 81MG ENTERIC TABLET PO SCH (09:24)
[2022-12-14 10:00] VITALS: BP 127/68
[2022-12-14 14:00] VITALS: BP 139/72
[2022-12-14 18:00] VITALS: BP 128/78
[2022-12-14 21:00] VITALS: BP 139/73
[2022-12-15 02:00] VITALS: BP 139/73
[2022-12-15] MEDS: PIPERACILLIN/TAZOBACTAM SOD 4.5 GM in D5W MINI-BAG PLUS 50 ML IV SCH ×2 (02:56→08:51)
[2022-12-15] MEDS: HEPARIN SOD (PORCINE) 5000UNITS/ML 1ML VIAL/SYRINGE SQ SCH ×3 (05:35→21:45)
[2022-12-15 06:00] VITALS: BP 129/71
[2022-12-15 06:12] LABS: BASO % 0.7 % (0.0-1.0); EOS # 0.4 10^3/uL (0.0-0.5); EOS % 7.6 % (0.0-3.0); HEMATOCRIT 37.2 % (42.0-52.0); HEMOGLOBIN 11.8 g/dl (13.5-17.5); MEAN CORPUSCULAR HEMOGLOBIN 28.1 pg (27.0-33.0); MEAN CORPUSCULAR HGB CONC 31.7 g/dl (32.0-36.5); MEAN CORPUSCULAR VOLUME 88.6 fl (80.0-96.0); MONO # 0.3 10^3/uL (0.0-0.8); MONO % 7.2 % (2.0-8.0); NEUTROPHILS # 2.9 10^3/uL (1.5-8.5); NEUTROPHILS % 62.1 % (36.0-66.0); PLATELET COUNT, AUTOMATED 127 10^3/uL (150-450); WHITE BLOOD COUNT 4.6 10^3/uL (4.0-10.0)
[2022-12-15 06:32] LABS: C REACTIVE PROTEIN QUANTITATIV 3.7 MG/DL (<1.0)
[2022-12-15 06:34] LABS: CREATININE FOR GFR 1.7 MG/DL (0.70-1.30); GLOMERULAR FILTRATION RATE 44.6 (>56); MAGNESIUM LEVEL 1.8 MG/DL (1.8-2.4); PHOSPHORUS LEVEL 3.5 MG/DL (2.5-4.9); POTASSIUM SERUM 4.2 MMOL/L (3.5-5.1)
[2022-12-15] MEDS: LEVEMIR (INSULIN DETEMIR) 1 UNITS/0.01ML SC SCH ×2 (08:50→21:45)
[2022-12-15] MEDS: ASPIRIN 81MG ENTERIC TABLET PO SCH (08:51)
[2022-12-15] MEDS: CLOPIDOGREL 75 MG TAB PO SCH (08:51)
[2022-12-15] MEDS: INSULIN LISPRO (NovoLOG) PER UNIT SC SCH ×3 (08:51→16:51)
[2022-12-15] MEDS: ATORVASTATIN 20 MG TAB PO SCH (08:51)
[2022-12-15] MEDS: VANCOMYCIN HCL 750 MG, VIAL MATE ADAPTER 1 EACH in D5W 250 ML IV SCH ×2 (10:48→21:46)
[2022-12-15] MEDS ORDERED: cefTRIAXone SOD 2 GM in D5W MINI-BAG PLUS 50 ML IV SCH (12:00)
[2022-12-15 14:00] VITALS: BP 155/80
[2022-12-15 19:59] VITALS: BP_SYST 134; BP_SYST 143; BP_DIAS 67; BP_DIAS 93
[2022-12-16] MEDS: HEPARIN SOD (PORCINE) 5000UNITS/ML 1ML VIAL/SYRINGE SQ SCH ×3 (05:31→21:29)
[2022-12-16 06:00] VITALS: BP 139/72
[2022-12-16] MEDS: LEVEMIR (INSULIN DETEMIR) 1 UNITS/0.01ML SC SCH ×2 (08:43→21:29)
[2022-12-16] MEDS: INSULIN LISPRO (NovoLOG) PER UNIT SC SCH ×3 (08:43→16:51)
[2022-12-16] MEDS: ATORVASTATIN 20 MG TAB PO SCH (08:44)
[2022-12-16] MEDS: ASPIRIN 81MG ENTERIC TABLET PO SCH (08:44)
[2022-12-16] MEDS: CLOPIDOGREL 75 MG TAB PO SCH (08:44)
[2022-12-16] MEDS: VANCOMYCIN HCL 750 MG, VIAL MATE ADAPTER 1 EACH in D5W 250 ML IV SCH (09:09)
[2022-12-16] MEDS: LevoFLOXacin 500 MG TABLET PO SCH (11:22)
[2022-12-16] MEDS ORDERED: VANCOMYCIN HCL 500 MG in D5W MINI-BAG PLUS 100 ML IV ONE (12:00)
[2022-12-16 14:00] VITALS: BP 136/54
[2022-12-16] MEDS: VANCOMYCIN HCL 1,000 MG, VIAL MATE ADAPTER 1 EACH in D5W 250 ML IV SCH (21:30)
[2022-12-17 05:33] VITALS: BP 138/68
[2022-12-17] MEDS: LevoFLOXacin 500 MG TABLET PO SCH (06:28)
[2022-12-17] MEDS: HEPARIN SOD (PORCINE) 5000UNITS/ML 1ML VIAL/SYRINGE SQ SCH ×3 (06:28→22:23)
[2022-12-17 07:37] LABS: HEMOGLOBIN 12.5 g/dl (13.5-17.5); MEAN CORPUSCULAR HEMOGLOBIN 28.1 pg (27.0-33.0); MEAN CORPUSCULAR HGB CONC 32.1 g/dl (32.0-36.5); MEAN CORPUSCULAR VOLUME 87.6 fl (80.0-96.0); PLATELET COUNT, AUTOMATED 173 10^3/uL (150-450); RED BLOOD COUNT 4.45 10^6/uL (4.30-6.10); WHITE BLOOD COUNT 7.8 10^3/uL (4.0-10.0)
[2022-12-17] MEDS: INSULIN LISPRO (NovoLOG) PER UNIT SC SCH ×3 (07:53→17:05)
[2022-12-17 08:00] LABS: CALCIUM LEVEL 8.6 MG/DL (8.5-10.1); CREATININE FOR GFR 1.66 MG/DL (0.70-1.30); GLOMERULAR FILTRATION RATE 45.8 (>56); MAGNESIUM LEVEL 1.7 MG/DL (1.8-2.4); POTASSIUM SERUM 4.4 MMOL/L (3.5-5.1)
[2022-12-17] MEDS: ASPIRIN 81MG ENTERIC TABLET PO SCH (08:00)
[2022-12-17] MEDS: LEVEMIR (INSULIN DETEMIR) 1 UNITS/0.01ML SC SCH ×2 (08:00→22:24)
[2022-12-17] MEDS: CLOPIDOGREL 75 MG TAB PO SCH (08:00)
[2022-12-17] MEDS: ATORVASTATIN 20 MG TAB PO SCH (08:00)
[2022-12-17] MEDS: VANCOMYCIN HCL 1,000 MG, VIAL MATE ADAPTER 1 EACH in D5W 250 ML IV SCH ×2 (09:50→22:24)
[2022-12-17 13:30] VITALS: BP 146/73
[2022-12-17] MEDS ORDERED: LIDOCAINE 1% MDV 20ML VIAL As Ordered ONE (13:47)
[2022-12-17] MEDS ORDERED: SODIUM CHLORIDE 0.9% INJ 10 ML SYR IV PRN (15:05)
[2022-12-17] MEDS: SODIUM CHLORIDE 0.9% INJ 10 ML SYR IV SCH (17:07)
[2022-12-17 22:00] VITALS: BP 106/57
[2022-12-18] MEDS ORDERED: INSULIN LISPRO (NovoLOG) PER UNIT SC ONE ×3 (04:00→15:10)
[2022-12-18 05:44] VITALS: BP 160/79
[2022-12-18] MEDS: SODIUM CHLORIDE 0.9% INJ 10 ML SYR IV SCH (06:07)
[2022-12-18] MEDS: LevoFLOXacin 500 MG TABLET PO SCH (06:07)
[2022-12-18] MEDS: HEPARIN SOD (PORCINE) 5000UNITS/ML 1ML VIAL/SYRINGE SQ SCH ×2 (06:07→14:10)
[2022-12-18] MEDS: INSULIN LISPRO (NovoLOG) PER UNIT SC SCH ×2 (08:05→14:09)
[2022-12-18 08:11] LABS: HEMOGLOBIN A1c 9.2 % (4.0-6.0)
[2022-12-18] MEDS ORDERED: amLODIPine 5 MG TAB PO ONE (09:45)
[2022-12-18] MEDS ORDERED: LEVO1TAB39 PO (09:50)
[2022-12-18] MEDS ORDERED: AMLO1TAB24 PO (09:50)
[2022-12-18] MEDS ORDERED: PROBCAP14 PO (09:55)
[2022-12-18] MEDS: LEVEMIR (INSULIN DETEMIR) 1 UNITS/0.01ML SC SCH (10:45)
[2022-12-18] MEDS: ASPIRIN 81MG ENTERIC TABLET PO SCH (10:45)
[2022-12-18] MEDS: ATORVASTATIN 20 MG TAB PO SCH (10:46)
[2022-12-18 10:50] VITALS: BP 161/78
[2022-12-18] MEDS: VANCOMYCIN HCL 1,000 MG, VIAL MATE ADAPTER 1 EACH in D5W 250 ML IV SCH (10:51)
[2022-12-18] MEDS: CLOPIDOGREL 75 MG TAB PO SCH (10:51)
[2022-12-18 14:00] VITALS: BP 163/79
[2022-12-18 16:46] VITALS: BP 152/72
== END 2022-12-18 17:00 | disposition home health service (06) | DRG 710 ==
LOC: M ED 15:46 → EDBD 15:46 → M SDC 15:47 → M PCU 12-12 00:15 → M SDC 12-12 00:26 → M PCU 12-12 00:27 → M MSPAV 12-14 00:54
PROVIDERS: ADMIT Family Medicine; ATTEND Internal Medicine
PROC: 0YBN0ZZ Excision of Left Foot, Open Approach (ICD-10-PCS; principal; 2022-12-12)
PROC: 02HV33Z Insertion of Infusion Device into Superior Vena Cava, Percutaneous Approach (ICD-10-PCS; 2022-12-17)
DX: A41.9 Sepsis, unspecified organism (principal); E11.22 Type 2 diabetes mellitus with diabetic chronic kidney disease; E11.40 Type 2 diabetes mellitus with diabetic neuropathy, unspecified; N17.9 Acute kidney failure, unspecified; N18.30 Chronic kidney disease, stage 3 unspecified; E11.621 Type 2 diabetes mellitus with foot ulcer; E11.51 Type 2 diabetes mellitus with diabetic peripheral angiopathy without gangrene; E87.5 Hyperkalemia; E78.5 Hyperlipidemia, unspecified; F17.210 Nicotine dependence, cigarettes, uncomplicated; I12.9 Hypertensive chronic kidney disease with stage 1 through stage 4 chronic kidney disease, or unspecified chronic kidney disease; L02.612 Cutaneous abscess of left foot; Z79.4 Long term (current) use of insulin; Z79.899 Other long term (current) drug therapy; Z79.82 Long term (current) use of aspirin; B95.61 Methicillin susceptible Staphylococcus aureus infection as the cause of diseases classified elsewhere; B96.1 Klebsiella pneumoniae [K. pneumoniae] as the cause of diseases classified elsewhere; B95.5 Unspecified streptococcus as the cause of diseases classified elsewhere

== ENCOUNTER → 2022-12-23 | Outpatient (REF) | payer OTHER ==
[~2022-12-23] MED LIST changes: +LEVO1TAB39 PO; +LISI20TA33 PO; +PROBCAP14 PO
[2022-12-23 10:55] LABS: HEMATOCRIT 39.1 % (42.0-52.0); HEMOGLOBIN 12.4 g/dl (13.5-17.5); MEAN CORPUSCULAR HEMOGLOBIN 28.3 pg (27.0-33.0); MEAN CORPUSCULAR HGB CONC 31.7 g/dl (32.0-36.5); MEAN CORPUSCULAR VOLUME 89.3 fl (80.0-96.0); PLATELET COUNT, AUTOMATED 237 10^3/uL (150-450); RED BLOOD COUNT 4.38 10^6/uL (4.30-6.10)
[2022-12-23 10:57] LABS: VANCOMYCIN LEVEL TROUGH 23.4 UG/ML (10.0-20.0)
[2022-12-23 10:58] LABS: ALBUMIN 2.9 G/DL (3.2-5.2); BILIRUBIN,TOTAL 0.3 MG/DL (0.3-1.2); C REACTIVE PROTEIN QUANTITATIV 5.5 MG/DL (<1.0); CALCIUM LEVEL 8.1 MG/DL (8.5-10.1); CREATININE FOR GFR 2.42 MG/DL (0.70-1.30); GLOMERULAR FILTRATION RATE 29.7 (>56); POTASSIUM SERUM 4.9 MMOL/L (3.5-5.1); TOTAL PROTEIN 6.7 G/DL (5.7-8.2)
== END ==
LOC: M LAB REF 10:21
PROVIDERS: ATTEND Internal Medicine Infectious Disease
DX: Z51.81 Encounter for therapeutic drug level monitoring (principal)

== ENCOUNTER → 2022-12-26 | Outpatient (CLI) | payer OTHER ==
[2022-12-26 15:50] LABS: CALCIUM LEVEL 8.3 MG/DL (8.5-10.1); CREATININE FOR GFR 1.84 MG/DL (0.70-1.30); GLOMERULAR FILTRATION RATE 40.7 (>56); POTASSIUM SERUM 5.8 MMOL/L (3.5-5.1)
== END ==
LOC: M LAB 14:55
PROVIDERS: ATTEND Student in an Organized Health Care Education/Training Program
DX: M86.172 Other acute osteomyelitis, left ankle and foot (principal)

== ENCOUNTER → 2022-12-27 | Outpatient (CLI) | payer OTHER ==
[2022-12-27 12:54] LABS: CALCIUM LEVEL 8.6 MG/DL (8.5-10.1); CREATININE FOR GFR 1.82 MG/DL (0.70-1.30); GLOMERULAR FILTRATION RATE 41.2 (>56); POTASSIUM SERUM 5.4 MMOL/L (3.5-5.1)
== END ==
LOC: M LAB 11:59
PROVIDERS: ATTEND Student in an Organized Health Care Education/Training Program
DX: M86.172 Other acute osteomyelitis, left ankle and foot (principal)

== ENCOUNTER → 2022-12-30 | Outpatient (REF) | payer OTHER ==
[2022-12-30 11:20] LABS: HEMATOCRIT 41.7 % (42.0-52.0); HEMOGLOBIN 13.1 g/dl (13.5-17.5); MEAN CORPUSCULAR HEMOGLOBIN 27.8 pg (27.0-33.0); MEAN CORPUSCULAR HGB CONC 31.4 g/dl (32.0-36.5); MEAN CORPUSCULAR VOLUME 88.3 fl (80.0-96.0); PLATELET COUNT, AUTOMATED 207 10^3/uL (150-450); RED BLOOD COUNT 4.72 10^6/uL (4.30-6.10); WHITE BLOOD COUNT 5.8 10^3/uL (4.0-10.0)
[2022-12-30 11:42] LABS: VANCOMYCIN LEVEL TROUGH 16.8 UG/ML (10.0-20.0)
[2022-12-30 11:43] LABS: C REACTIVE PROTEIN QUANTITATIV 1.4 MG/DL (<1.0)
[2022-12-30 11:44] LABS: ALBUMIN 3.2 G/DL (3.2-5.2); BILIRUBIN,TOTAL 0.4 MG/DL (0.3-1.2); CALCIUM LEVEL 8.7 MG/DL (8.5-10.1); CREATININE FOR GFR 1.87 MG/DL (0.70-1.30); POTASSIUM SERUM 4.9 MMOL/L (3.5-5.1); TOTAL PROTEIN 6.8 G/DL (5.7-8.2)
== END ==
LOC: M SHH 10:24
DX: Z79.899 Other long term (current) drug therapy (principal)

== ENCOUNTER → 2023-01-07 | Outpatient (CLI) | payer OTHER ==
[2023-01-07 13:01] LABS: BASO % 0.6 % (0.0-1.0); EOS # 0.6 10^3/uL (0.0-0.5); EOS % 9.2 % (0.0-3.0); HEMATOCRIT 44.4 % (42.0-52.0); HEMOGLOBIN 14.1 g/dl (13.5-17.5); LYMPH # 1.3 10^3/uL (1.5-5.0); LYMPH % 18.5 % (24.0-44.0); MEAN CORPUSCULAR HGB CONC 31.8 g/dl (32.0-36.5); MEAN CORPUSCULAR VOLUME 88.3 fl (80.0-96.0); MONO # 0.4 10^3/uL (0.0-0.8); MONO % 6.4 % (2.0-8.0); NEUTROPHILS # 4.5 10^3/uL (1.5-8.5); NEUTROPHILS % 65.2 % (36.0-66.0); PLATELET COUNT, AUTOMATED 156 10^3/uL (150-450); RED BLOOD COUNT 5.03 10^6/uL (4.30-6.10); WHITE BLOOD COUNT 6.9 10^3/uL (4.0-10.0)
[2023-01-07 13:25] LABS: VANCOMYCIN RANDOM 13.3 UG/ML
[2023-01-07 13:27] LABS: C REACTIVE PROTEIN QUANTITATIV 2.7 MG/DL (<1.0)
[2023-01-07 13:28] LABS: CREATININE FOR GFR 1.95 MG/DL (0.70-1.30); GLOMERULAR FILTRATION RATE 38.1 (>56); POTASSIUM SERUM 4.4 MMOL/L (3.5-5.1)
[2023-01-07 13:44] LABS: ERYTHROCYTE SEDIMENTATION RATE 83 mm/hr (0-20)
== END ==
LOC: M PLALAB 10:08
PROVIDERS: ATTEND Internal Medicine Infectious Disease
DX: M86.172 Other acute osteomyelitis, left ankle and foot (principal)

== ENCOUNTER 2023-01-18 15:21 | Inpatient (IN) | payer OTHER ==
[~2023-01-18] VITALS: Ht 167.6 cm; Wt 115.0 kg
[2023-01-18] MEDS ORDERED: ONDA4TAB6 PO (17:39)
[2023-01-18] MEDS ORDERED: ONDANSETRON 4MG ORAL DISINTEGRATING TAB PO ONE (17:40)
[2023-01-18] MEDS ORDERED: NS 1,000 ML IV ONE (18:05)
[2023-01-18] MEDS ORDERED: LISI20TA33 PO (18:21)
[2023-01-18] MEDS ORDERED: LEVO1TAB40 PO (18:21)
[2023-01-18 18:42] LABS: BASO % 0.4 % (0.0-1.0); EOS # 0.5 10^3/uL (0.0-0.5); HEMATOCRIT 43.4 % (42.0-52.0); HEMOGLOBIN 14.2 g/dl (13.5-17.5); LYMPH # 2.1 10^3/uL (1.5-5.0); LYMPH % 21.4 % (24.0-44.0); MEAN CORPUSCULAR HEMOGLOBIN 28.5 pg (27.0-33.0); MEAN CORPUSCULAR HGB CONC 32.7 g/dl (32.0-36.5); MEAN CORPUSCULAR VOLUME 87.1 fl (80.0-96.0); MONO # 0.5 10^3/uL (0.0-0.8); NEUTROPHILS # 6.8 10^3/uL (1.5-8.5); NEUTROPHILS % 67.9 % (36.0-66.0); PLATELET COUNT, AUTOMATED 217 10^3/uL (150-450); RED BLOOD COUNT 4.98 10^6/uL (4.30-6.10)
[2023-01-18] MEDS ORDERED: DEXTROSE 50% 50ML SYRINGE IV PRN (19:00)
[2023-01-18] MEDS ORDERED: GLUCAGON INJ 1MG VIAL SC PRN (19:00)
[2023-01-18] MEDS ORDERED: GLUCOSE 4GM CHEW TABLET PO PRN (19:00)
[2023-01-18] MEDS ORDERED: ACETAMINOPHEN TAB 650MG DOSE (2X325MG) PO PRN (19:00)
[2023-01-18] MEDS ORDERED: PROCHLORPERAZINE 10MG 2ML VIAL IV PRN (19:00)
[2023-01-18 19:04] LABS: CALCIUM LEVEL 8.3 MG/DL (8.5-10.1); CREATININE FOR GFR 3.2 MG/DL (0.70-1.30); GLOMERULAR FILTRATION RATE 21.5 (>56); POTASSIUM SERUM 5.6 MMOL/L (3.5-5.1)
[2023-01-18 19:06] LABS: ACETONE/KETONE 0.3 MMOL/L (0.02-0.27)
[2023-01-18] MEDS ORDERED: DEXTROSE 50% 50ML SYRINGE IV STA (19:25)
[2023-01-18] MEDS ORDERED: HumuLIN R (REGULAR) INSULIN (NovoLIN R) **100U/ML** PER UNIT IV STA (19:25)
[2023-01-18 19:44] LABS: VENOUS BASE EXCESS -2.9 (-2.0-2.0); VENOUS HCO3 22.2 MMOL/L (23.0-27.0); VENOUS O2 SATURATION 98.6 % (60.0-80.0); VENOUS PARTIAL PRESSURE CO2 40.1 mmHg (38.0-50.0); VENOUS PARTIAL PRESSURE O2 165.1 mmHg (30.0-50.0); VENOUS PH 7.362 UNITS (7.330-7.430); VENOUS STANDARD HCO3 22.1 MMOL/L; VENOUS TOTAL CO2 23.5 MMOL/L (24.0-28.0)
[2023-01-18] MEDS ORDERED: HOME MED LIST COMPLETE! XX SCH (19:50)
[2023-01-18] MEDS ORDERED: CALCIUM GLUCONATE 1,000 MG in D5W MINI-BAG PLUS 100 ML IV ONE (20:00)
[2023-01-18 20:13] LABS: APPEARANCE, URINE HAZY (CLEAR); BACTERIA, URINE AUTO NEGATIVE (NEGATIVE); BILIRUBIN, URINE AUTO NEGATIVE (NEGATIVE); BLOOD, URINE BLOOD NEGATIVE (NEGATIVE); COLOR, URINE AMBER (YELLOW); GLUCOSE, URINE (UA) AUTO NEGATIVE (NEGATIVE); KETONE, URINE AUTO NEGATIVE (NEGATIVE); LEUKOCYTE ESTERASE, URINE AUTO NEGATIVE (NEGATIVE); NITRITE, URINE AUTO NEGATIVE (NEGATIVE); PROTEIN, URINE AUTO 2+ mg/dL (NEGATIVE); RBC, URINE AUTO 2 /HPF (0-3); SPECIFIC GRAVITY URINE AUTO 1.023 (1.002-1.035); SQUAMOUS EPITHELIAL CELL UR AU 5 /HPF (0-6); UROBILINOGEN, URINE AUTO 0.2 mg/dL (0.0-2.0); WBC, URINE AUTO 3 /HPF (0-3)
[2023-01-18 20:44] VITALS: BP 137/75; TEMP 97.9; O2SAT 97
[2023-01-18] MEDS: INSULIN LISPRO (NovoLOG) PER UNIT SC SCH (20:59)
[2023-01-18] MEDS: NS 1,000 ML IV SCH (21:07)
[2023-01-19 06:00] VITALS: BP 120/64; TEMP 97.7; O2SAT 96
[2023-01-19 06:01] LABS: HEMATOCRIT 39.3 % (42.0-52.0); HEMOGLOBIN 12.6 g/dl (13.5-17.5); MEAN CORPUSCULAR HEMOGLOBIN 28.4 pg (27.0-33.0); MEAN CORPUSCULAR HGB CONC 32.1 g/dl (32.0-36.5); MEAN CORPUSCULAR VOLUME 88.5 fl (80.0-96.0); PLATELET COUNT, AUTOMATED 167 10^3/uL (150-450); RED BLOOD COUNT 4.44 10^6/uL (4.30-6.10); WHITE BLOOD COUNT 6.5 10^3/uL (4.0-10.0)
[2023-01-19 06:19] LABS: ALBUMIN 2.9 G/DL (3.2-5.2); ALKALINE PHOSPHATASE 83 U/L (46-116); ALT/SGPT < 9 U/L (7.0-40); AST/SGOT 24 U/L (<34); BILIRUBIN,TOTAL 0.4 MG/DL (0.3-1.2); BLOOD UREA NITROGEN 40 MG/DL (9-23); CARBON DIOXIDE LEVEL 26 MMOL/L (20-31); CHLORIDE LEVEL 107 MMOL/L (98-107); CREATININE FOR GFR 2.85 MG/DL (0.70-1.30); GLOMERULAR FILTRATION RATE 24.6 (>56); GLUCOSE, FASTING 121 MG/DL (60-100); MAGNESIUM LEVEL 1.6 MG/DL (1.8-2.4); SODIUM LEVEL 140 MMOL/L (136-145); TOTAL PROTEIN 5.9 G/DL (5.7-8.2)
[2023-01-19] MEDS: HEPARIN SOD (PORCINE) 5000UNITS/ML 1ML VIAL/SYRINGE SC SCH ×3 (06:27→21:04)
[2023-01-19] MEDS: NS 1,000 ML IV SCH ×2 (06:28→17:06)
[2023-01-19] MEDS ORDERED: MAG SULF 1GM/100ML (MAG RUN) 1 GM in IV 1 EA IV ONE (08:25)
[2023-01-19] MEDS: ASPIRIN 81MG ENTERIC TABLET PO SCH (08:34)
[2023-01-19] MEDS: CLOPIDOGREL 75 MG TAB PO SCH (08:34)
[2023-01-19] MEDS: INSULIN LISPRO (NovoLOG) PER UNIT SC SCH ×4 (08:35→21:04)
[2023-01-19 14:00] VITALS: BP 113/57; TEMP 97.7; O2SAT 94
[2023-01-19] MEDS ORDERED: ONDANSETRON 4MG ORAL DISINTEGRATING TAB PO PRN (15:15)
[2023-01-19] MEDS: DIMETHICONE 2% OINTMENT(VANICREAM) 70GM TUBE TOP SCH (18:54)
[2023-01-19] MEDS: TRIAMCINOLONE ACET 0.1% CREAM 80GM TOP SCH (18:55)
[2023-01-19 20:33] VITALS: BP 128/67; TEMP 97.7; O2SAT 95
[2023-01-20] MEDS: NS 1,000 ML IV SCH ×3 (03:14→23:39)
[2023-01-20] MEDS: HEPARIN SOD (PORCINE) 5000UNITS/ML 1ML VIAL/SYRINGE SC SCH ×3 (05:44→21:02)
[2023-01-20 06:00] VITALS: BP 120/51; TEMP 97.9; O2SAT 96
[2023-01-20 06:29] LABS: HEMATOCRIT 38.6 % (42.0-52.0); HEMOGLOBIN 12.1 g/dl (13.5-17.5); MEAN CORPUSCULAR HEMOGLOBIN 27.9 pg (27.0-33.0); MEAN CORPUSCULAR HGB CONC 31.3 g/dl (32.0-36.5); MEAN CORPUSCULAR VOLUME 89.1 fl (80.0-96.0); PLATELET COUNT, AUTOMATED 128 10^3/uL (150-450); RED BLOOD COUNT 4.33 10^6/uL (4.30-6.10); WHITE BLOOD COUNT 4.3 10^3/uL (4.0-10.0)
[2023-01-20 07:05] LABS: ALBUMIN 2.9 G/DL (3.2-5.2); BILIRUBIN,TOTAL 0.2 MG/DL (0.3-1.2); CALCIUM LEVEL 7.9 MG/DL (8.5-10.1); CREATININE FOR GFR 2.22 MG/DL (0.70-1.30); GLOMERULAR FILTRATION RATE 32.8 (>56); POTASSIUM SERUM 4.7 MMOL/L (3.5-5.1); TOTAL PROTEIN 5.8 G/DL (5.7-8.2)
[2023-01-20] MEDS ORDERED: LevoFLOXacin IV 750 MG in IV 1 EA IV SCH (09:00)
[2023-01-20] MEDS: CLOPIDOGREL 75 MG TAB PO SCH (09:23)
[2023-01-20] MEDS: ASPIRIN 81MG ENTERIC TABLET PO SCH (09:23)
[2023-01-20] MEDS: DIMETHICONE 2% OINTMENT(VANICREAM) 70GM TUBE TOP SCH (09:24)
[2023-01-20] MEDS: TRIAMCINOLONE ACET 0.1% CREAM 80GM TOP SCH (09:24)
[2023-01-20] MEDS: INSULIN LISPRO (NovoLOG) PER UNIT SC SCH ×4 (09:24→21:02)
[2023-01-20 14:00] VITALS: BP 119/52; TEMP 97.7; O2SAT 97
[2023-01-20 17:01] LABS: C REACTIVE PROTEIN QUANTITATIV 0.4 MG/DL (<1.0)
[2023-01-20 20:57] VITALS: BP 141/60; TEMP 98.2; O2SAT 98
[2023-01-21 05:27] VITALS: BP 136/64; TEMP 98.2; O2SAT 100
[2023-01-21 06:16] LABS: HEMOGLOBIN 12.8 g/dl (13.5-17.5); MEAN CORPUSCULAR HEMOGLOBIN 28.2 pg (27.0-33.0); MEAN CORPUSCULAR VOLUME 88.1 fl (80.0-96.0); PLATELET COUNT, AUTOMATED 130 10^3/uL (150-450); RED BLOOD COUNT 4.54 10^6/uL (4.30-6.10); WHITE BLOOD COUNT 3.6 10^3/uL (4.0-10.0)
[2023-01-21] MEDS: HEPARIN SOD (PORCINE) 5000UNITS/ML 1ML VIAL/SYRINGE SC SCH (06:18)
[2023-01-21 06:45] LABS: BILIRUBIN,TOTAL 0.2 MG/DL (0.3-1.2); CALCIUM LEVEL 8.9 MG/DL (8.5-10.1); CREATININE FOR GFR 1.88 MG/DL (0.70-1.30); GLOMERULAR FILTRATION RATE 39.7 (>56); MAGNESIUM LEVEL 1.6 MG/DL (1.8-2.4); POTASSIUM SERUM 4.5 MMOL/L (3.5-5.1); TOTAL PROTEIN 6.3 G/DL (5.7-8.2)
[2023-01-21] MEDS: INSULIN LISPRO (NovoLOG) PER UNIT SC SCH ×2 (08:30→11:55)
[2023-01-21] MEDS: ASPIRIN 81MG ENTERIC TABLET PO SCH (08:30)
[2023-01-21] MEDS: CLOPIDOGREL 75 MG TAB PO SCH (08:30)
[2023-01-21] MEDS: TRIAMCINOLONE ACET 0.1% CREAM 80GM TOP SCH (08:31)
[2023-01-21] MEDS: DIMETHICONE 2% OINTMENT(VANICREAM) 70GM TUBE TOP SCH (08:32)
[2023-01-21] MEDS: NS 1,000 ML IV SCH (10:35)
[2023-01-21] MEDS ORDERED: AMLO1TAB24 PO (10:47)
[2023-01-21] MEDS ORDERED: RA M500C PO (16:25)
== END 2023-01-21 12:26 | disposition home health service (06) | DRG 469 ==
LOC: M ED 15:21 → M ED INP 18:56 → ENRESERV 19:35 → CANRESERV 19:35 → ENRESERV 19:50 → M MSPAV 20:44
PROVIDERS: ADMIT Internal Medicine; ATTEND Internal Medicine
DX: N17.9 Acute kidney failure, unspecified (principal); E11.22 Type 2 diabetes mellitus with diabetic chronic kidney disease; E11.51 Type 2 diabetes mellitus with diabetic peripheral angiopathy without gangrene; E83.42 Hypomagnesemia; M86.9 Osteomyelitis, unspecified; R74.01 Elevation of levels of liver transaminase levels; E11.621 Type 2 diabetes mellitus with foot ulcer; E11.69 Type 2 diabetes mellitus with other specified complication; N18.30 Chronic kidney disease, stage 3 unspecified; E87.5 Hyperkalemia; L97.529 Non-pressure chronic ulcer of other part of left foot with unspecified severity; E86.0 Dehydration; I12.9 Hypertensive chronic kidney disease with stage 1 through stage 4 chronic kidney disease, or unspecified chronic kidney disease; E78.5 Hyperlipidemia, unspecified; T36.8X5A Adverse effect of other systemic antibiotics, initial encounter; L08.9 Local infection of the skin and subcutaneous tissue, unspecified; Z79.82 Long term (current) use of aspirin; Z79.4 Long term (current) use of insulin; Z79.84 Long term (current) use of oral hypoglycemic drugs; Z79.899 Other long term (current) drug therapy; Z20.822 Contact with and (suspected) exposure to COVID-19; Z89.429 Acquired absence of other toe(s), unspecified side; Z79.02 Long term (current) use of antithrombotics/antiplatelets

== ENCOUNTER → 2023-01-31 | Outpatient (REF) | payer OTHER ==
[~2023-01-31] MED LIST changes: +LEVO1TAB40 PO; +ONDA4TAB6 PO; +RA M500C PO
[2023-01-31 10:56] LABS: BASO # 0.1 10^3/uL (0.0-0.2); BASO % 0.7 % (0.0-1.0); EOS # 0.5 10^3/uL (0.0-0.5); EOS % 7.6 % (0.0-3.0); HEMOGLOBIN 14.5 g/dl (13.5-17.5); LYMPH # 1.6 10^3/uL (1.5-5.0); LYMPH % 23.4 % (24.0-44.0); MEAN CORPUSCULAR HEMOGLOBIN 28.3 pg (27.0-33.0); MEAN CORPUSCULAR HGB CONC 32.2 g/dl (32.0-36.5); MEAN CORPUSCULAR VOLUME 87.9 fl (80.0-96.0); MONO # 0.4 10^3/uL (0.0-0.8); MONO % 6.2 % (2.0-8.0); NEUTROPHILS # 4.2 10^3/uL (1.5-8.5); NEUTROPHILS % 61.8 % (36.0-66.0); PLATELET COUNT, AUTOMATED 207 10^3/uL (150-450); RED BLOOD COUNT 5.12 10^6/uL (4.30-6.10); WHITE BLOOD COUNT 6.7 10^3/uL (4.0-10.0)
[2023-01-31 11:22] LABS: C REACTIVE PROTEIN QUANTITATIV 2.4 MG/DL (<1.0)
[2023-01-31 11:25] LABS: CALCIUM LEVEL 9.1 MG/DL (8.5-10.1); CREATININE FOR GFR 2.01 MG/DL (0.70-1.30); GLOMERULAR FILTRATION RATE 36.8 (>56); POTASSIUM SERUM 4.8 MMOL/L (3.5-5.1)
[2023-01-31 11:49] LABS: ERYTHROCYTE SEDIMENTATION RATE 78 mm/hr (0-20)
== END ==
LOC: M SFHCPLAZ 09:48
PROVIDERS: ATTEND Internal Medicine Infectious Disease
DX: M86.172 Other acute osteomyelitis, left ankle and foot (principal)

== ENCOUNTER → 2023-02-12 | Outpatient (REF) | payer OTHER | LOC: M LAB REF 12:48 | PROVIDERS: ATTEND Podiatrist | DX: E11.621 Type 2 diabetes mellitus with foot ulcer (principal); M86.672 Other chronic osteomyelitis, left ankle and foot ==

== ENCOUNTER → 2023-02-14 | Outpatient (CLI) | payer OTHER ==
[2023-02-14 17:55] LABS: BASO # 0.1 10^3/uL (0.0-0.2); BASO % 0.7 % (0.0-1.0); EOS # 0.4 10^3/uL (0.0-0.5); EOS % 4.8 % (0.0-3.0); HEMATOCRIT 41.4 % (42.0-52.0); HEMOGLOBIN 13.5 g/dl (13.5-17.5); LYMPH # 1.8 10^3/uL (1.5-5.0); LYMPH % 19.9 % (24.0-44.0); MEAN CORPUSCULAR HEMOGLOBIN 28.5 pg (27.0-33.0); MEAN CORPUSCULAR HGB CONC 32.6 g/dl (32.0-36.5); MEAN CORPUSCULAR VOLUME 87.3 fl (80.0-96.0); MONO # 0.5 10^3/uL (0.0-0.8); NEUTROPHILS % 68.3 % (36.0-66.0); PLATELET COUNT, AUTOMATED 194 10^3/uL (150-450); RED BLOOD COUNT 4.74 10^6/uL (4.30-6.10); WHITE BLOOD COUNT 8.8 10^3/uL (4.0-10.0)
[2023-02-14 18:04] LABS: ACETONE/KETONE 0.09 MMOL/L (0.02-0.27)
[2023-02-14 18:16] LABS: ALBUMIN 3.5 G/DL (3.2-5.2); BILIRUBIN,TOTAL 0.3 MG/DL (0.3-1.2); CALCIUM LEVEL 9.4 MG/DL (8.5-10.1); CREATININE FOR GFR 1.82 MG/DL (0.70-1.30); GLOMERULAR FILTRATION RATE 41.2 (>56); MAGNESIUM LEVEL 1.6 MG/DL (1.8-2.4); POTASSIUM SERUM 5.6 MMOL/L (3.5-5.1); TOTAL PROTEIN 7.4 G/DL (5.7-8.2)
== END ==
LOC: M PLALAB 15:17
PROVIDERS: ATTEND Student in an Organized Health Care Education/Training Program
DX: E83.42 Hypomagnesemia (principal); E11.22 Type 2 diabetes mellitus with diabetic chronic kidney disease; M86.472 Chronic osteomyelitis with draining sinus, left ankle and foot

== ENCOUNTER → 2023-02-14 | Outpatient (REF) | payer OTHER | LOC: M SFHCPLAZ 15:01 | PROVIDERS: ATTEND Family Medicine | DX: E83.42 Hypomagnesemia (principal); E11.22 Type 2 diabetes mellitus with diabetic chronic kidney disease; M86.472 Chronic osteomyelitis with draining sinus, left ankle and foot; Z53.9 Procedure and treatment not carried out, unspecified reason ==

== ENCOUNTER 2023-02-25 09:22 | Emergency (ER) | payer OTHER ==
[~2023-02-25] VITALS: Ht 167.6 cm; Wt 109.9 kg
[2023-02-25 11:21] LABS: BASO # 0.1 10^3/uL (0.0-0.2); BASO % 0.6 % (0.0-1.0); EOS # 0.5 10^3/uL (0.0-0.5); EOS % 4.8 % (0.0-3.0); HEMATOCRIT 43.6 % (42.0-52.0); HEMOGLOBIN 14.4 g/dl (13.5-17.5); LYMPH # 1.7 10^3/uL (1.5-5.0); LYMPH % 16.8 % (24.0-44.0); MEAN CORPUSCULAR HEMOGLOBIN 28.5 pg (27.0-33.0); MEAN CORPUSCULAR VOLUME 86.2 fl (80.0-96.0); MONO # 0.6 10^3/uL (0.0-0.8); MONO % 5.6 % (2.0-8.0); NEUTROPHILS # 7.1 10^3/uL (1.5-8.5); NEUTROPHILS % 71.9 % (36.0-66.0); PLATELET COUNT, AUTOMATED 231 10^3/uL (150-450); RED BLOOD COUNT 5.06 10^6/uL (4.30-6.10); WHITE BLOOD COUNT 9.9 10^3/uL (4.0-10.0)
[2023-02-25 11:42] LABS: ALBUMIN 3.4 G/DL (3.2-5.2); BILIRUBIN,DIRECT 0.1 MG/DL (<0.4); BILIRUBIN,TOTAL 0.4 MG/DL (0.3-1.2); CALCIUM LEVEL 9.3 MG/DL (8.5-10.1); CREATININE FOR GFR 1.81 MG/DL (0.70-1.30); GLOMERULAR FILTRATION RATE 41.5 (>56); POTASSIUM SERUM 5.1 MMOL/L (3.5-5.1); TOTAL PROTEIN 7.4 G/DL (5.7-8.2)
[2023-02-25 12:31] VITALS: BP 130/92; TEMP 98; O2SAT 95
[2023-02-26] MEDS ORDERED: DULA3PEN SC (23:08)
[2023-02-26] MEDS ORDERED: AMLO1TAB24 PO (23:08)
== END 2023-02-25 12:32 | disposition home or self-care (01) ==
LOC: M ED 09:22
DX: E11.65 Type 2 diabetes mellitus with hyperglycemia (principal); I12.9 Hypertensive chronic kidney disease with stage 1 through stage 4 chronic kidney disease, or unspecified chronic kidney disease; N18.9 Chronic kidney disease, unspecified; F17.200 Nicotine dependence, unspecified, uncomplicated; Z79.899 Other long term (current) drug therapy; Z79.82 Long term (current) use of aspirin; Z79.4 Long term (current) use of insulin; Z79.84 Long term (current) use of oral hypoglycemic drugs

== ENCOUNTER 2023-02-26 16:21 | Inpatient (IN) | payer OTHER ==
[~2023-02-26] VITALS: Ht 167.6 cm; Wt 107.0 kg
[2023-02-26] MEDS: NS 1,000 ML IV SCH (02:47)
[2023-02-26 18:03] LABS: BASO # 0.1 10^3/uL (0.0-0.2); BASO % 0.5 % (0.0-1.0); EOS # 0.4 10^3/uL (0.0-0.5); EOS % 3.4 % (0.0-3.0); HEMATOCRIT 44.6 % (42.0-52.0); HEMOGLOBIN 14.7 g/dl (13.5-17.5); LYMPH % 16.1 % (24.0-44.0); MEAN CORPUSCULAR HEMOGLOBIN 28.6 pg (27.0-33.0); MEAN CORPUSCULAR VOLUME 86.8 fl (80.0-96.0); MONO # 0.5 10^3/uL (0.0-0.8); MONO % 4.4 % (2.0-8.0); NEUTROPHILS # 9.4 10^3/uL (1.5-8.5); NEUTROPHILS % 75.4 % (36.0-66.0); PLATELET COUNT, AUTOMATED 268 10^3/uL (150-450); RED BLOOD COUNT 5.14 10^6/uL (4.30-6.10); WHITE BLOOD COUNT 12.4 10^3/uL (4.0-10.0)
[2023-02-26 18:28] LABS: ALBUMIN 3.6 G/DL (3.2-5.2); BILIRUBIN,DIRECT 0.1 MG/DL (<0.4); BILIRUBIN,TOTAL 0.5 MG/DL (0.3-1.2); CALCIUM LEVEL 9.1 MG/DL (8.5-10.1); CREATININE FOR GFR 2.86 MG/DL (0.70-1.30); GLOMERULAR FILTRATION RATE 24.5 (>56); POTASSIUM SERUM 5.2 MMOL/L (3.5-5.1); TOTAL PROTEIN 7.9 G/DL (5.7-8.2)
[2023-02-26] MEDS ORDERED: NS 1,000 ML IV ONE (19:00)
[2023-02-26] MEDS ORDERED: PROMETHAZINE 25MG/ML 1ML VIAL IV ONE (19:00)
[2023-02-26 19:29] LABS: VENOUS BASE EXCESS 3.6 (-2.0-2.0); VENOUS HCO3 29.2 MMOL/L (23.0-27.0); VENOUS O2 SATURATION 52.7 % (60.0-80.0); VENOUS PARTIAL PRESSURE CO2 47.3 mmHg (38.0-50.0); VENOUS PARTIAL PRESSURE O2 27.2 mmHg (30.0-50.0); VENOUS PH 7.408 UNITS (7.330-7.430); VENOUS STANDARD HCO3 26.4 MMOL/L; VENOUS TOTAL CO2 30.6 MMOL/L (24.0-28.0)
[2023-02-26 19:47] LABS: INR 1.12; PROTHROMBIN TIME 14.1 SECONDS (12.5-14.5)
[2023-02-26 19:48] LABS: PARTIAL THROMBOPLASTIN TIME 27.7 SECONDS (24.8-34.2)
[2023-02-26 19:59] LABS: CK-MB VALUE MASS 2.9 NG/ML (<3.6); MAGNESIUM LEVEL 2.6 MG/DL (1.8-2.4); MB/CK RELATIVE INDEX 1.77 (< OR =4); PHOSPHORUS LEVEL 4.4 MG/DL (2.5-4.9)
[2023-02-26 20:00] LABS: ACETONE/KETONE 0.28 MMOL/L (0.02-0.27)
[2023-02-26] MEDS ORDERED: GLUCAGON INJ 1MG VIAL SC PRN (21:45)
[2023-02-26] MEDS ORDERED: GLUCOSE 4GM CHEW TABLET PO PRN (21:45)
[2023-02-26] MEDS ORDERED: DEXTROSE 50% 50ML SYRINGE IV PRN (21:45)
[2023-02-26] MEDS ORDERED: MOM 30ML SUSPENSION UDC PO PRN (21:45)
[2023-02-26] MEDS ORDERED: ACETAMINOPHEN TAB 650MG DOSE (2X325MG) PO PRN (21:45)
[2023-02-26] MEDS ORDERED: DOCUSATE SODIUM 100MG CAPSULE PO PRN (21:45)
[2023-02-26] MEDS ORDERED: VANCOMYCIN HCL 1,000 MG, VIAL MATE ADAPTER 1 EACH in D5W 250 ML IV ONE (21:45)
[2023-02-26 22:36] VITALS: BP 123/68; TEMP 98.1
[2023-02-26] MEDS ORDERED: DULA3PEN SC (23:08)
[2023-02-26] MEDS ORDERED: AMLO1TAB24 PO (23:08)
[2023-02-26] MEDS ORDERED: HOME MED LIST COMPLETE! XX SCH (23:10)
[2023-02-26] MEDS: NYSTATIN 100,000 UNITS/GM TOPICAL PWD 15GM TOP SCH (23:15)
[2023-02-26] MEDS: PIPERACILLIN/TAZOBACTAM SOD 2.25 GM in D5W MINI-BAG PLUS 50 ML IV SCH (23:25)
[2023-02-26] MEDS ORDERED: ONDANSETRON 4MG 2ML VIAL IV PRN (23:50)
[2023-02-27] MEDS ORDERED: VANCOMYCIN HCL 1,000 MG, VIAL MATE ADAPTER 1 EACH in D5W 250 ML IV ONE ×4 (01:00)
[2023-02-27] MEDS: PIPERACILLIN/TAZOBACTAM SOD 2.25 GM in D5W MINI-BAG PLUS 50 ML IV SCH ×3 (05:50→16:57)
[2023-02-27] MEDS: HEPARIN SOD (PORCINE) 5000UNITS/ML 1ML VIAL/SYRINGE SC SCH ×3 (05:50→21:25)
[2023-02-27 06:16] VITALS: BP 151/76; TEMP 97.1; O2SAT 96
[2023-02-27 06:55] LABS: HEMATOCRIT 41.9 % (42.0-52.0); HEMOGLOBIN 13.6 g/dl (13.5-17.5); MEAN CORPUSCULAR HEMOGLOBIN 28.6 pg (27.0-33.0); MEAN CORPUSCULAR HGB CONC 32.5 g/dl (32.0-36.5); PLATELET COUNT, AUTOMATED 192 10^3/uL (150-450); RED BLOOD COUNT 4.76 10^6/uL (4.30-6.10); WHITE BLOOD COUNT 7.4 10^3/uL (4.0-10.0)
[2023-02-27 07:31] LABS: ALBUMIN 3.2 G/DL (3.2-5.2); BILIRUBIN,TOTAL 0.6 MG/DL (0.3-1.2); CALCIUM LEVEL 8.4 MG/DL (8.5-10.1); CREATININE FOR GFR 2.72 MG/DL (0.70-1.30); GLOMERULAR FILTRATION RATE 25.9 (>56); MAGNESIUM LEVEL 2.5 MG/DL (1.8-2.4); POTASSIUM SERUM 4.5 MMOL/L (3.5-5.1); TOTAL PROTEIN 6.8 G/DL (5.7-8.2)
[2023-02-27] MEDS: ASPIRIN 81MG ENTERIC TABLET PO SCH (08:06)
[2023-02-27] MEDS: CLOPIDOGREL 75 MG TAB PO SCH (08:06)
[2023-02-27] MEDS: NYSTATIN 100,000 UNITS/GM TOPICAL PWD 15GM TOP SCH ×2 (08:06→21:24)
[2023-02-27] MEDS: INSULIN LISPRO (NovoLOG) PER UNIT SC SCH ×7 (08:07→20:44)
[2023-02-27] MEDS: LEVEMIR (INSULIN DETEMIR) 1 UNITS/0.01ML SC SCH ×2 (08:07→21:25)
[2023-02-27] MEDS ORDERED: VANCOMYCIN HCL 750 MG, VIAL MATE ADAPTER 1 EACH in D5W 250 ML IV SCH (12:00)
[2023-02-27] MEDS ORDERED: VANCOMYCIN HCL 500 MG in D5W MINI-BAG PLUS 100 ML IV SCH (12:00)
[2023-02-27] MEDS: NS 1,000 ML IV SCH (12:14)
[2023-02-27 14:00] VITALS: BP 98/59; TEMP 97.7; O2SAT 91
[2023-02-27] MEDS: TRIAMCINOLONE ACET 0.1% OINTMENT 15GM EXT SCH (21:25)
[2023-02-28] MEDS: NS 1,000 ML IV SCH ×2 (02:59→14:02)
[2023-02-28 05:29] VITALS: BP 151/78; TEMP 97.7; O2SAT 95
[2023-02-28] MEDS: HEPARIN SOD (PORCINE) 5000UNITS/ML 1ML VIAL/SYRINGE SC SCH ×3 (06:22→21:16)
[2023-02-28 07:58] LABS: BASO % 0.8 % (0.0-1.0); EOS # 0.3 10^3/uL (0.0-0.5); EOS % 5.6 % (0.0-3.0); HEMATOCRIT 40.9 % (42.0-52.0); HEMOGLOBIN 13.1 g/dl (13.5-17.5); LYMPH # 1.1 10^3/uL (1.5-5.0); MEAN CORPUSCULAR HEMOGLOBIN 28.3 pg (27.0-33.0); MEAN CORPUSCULAR VOLUME 88.3 fl (80.0-96.0); MONO # 0.3 10^3/uL (0.0-0.8); MONO % 6.2 % (2.0-8.0); NEUTROPHILS # 3.4 10^3/uL (1.5-8.5); NEUTROPHILS % 65.8 % (36.0-66.0); PLATELET COUNT, AUTOMATED 178 10^3/uL (150-450); RED BLOOD COUNT 4.63 10^6/uL (4.30-6.10); WHITE BLOOD COUNT 5.1 10^3/uL (4.0-10.0)
[2023-02-28 08:07] LABS: ERYTHROCYTE SEDIMENTATION RATE 107 mm/hr (0-20)
[2023-02-28 08:18] LABS: C REACTIVE PROTEIN QUANTITATIV 2.3 MG/DL (<1.0)
[2023-02-28 08:20] LABS: CALCIUM LEVEL 8.2 MG/DL (8.5-10.1); CREATININE FOR GFR 2.06 MG/DL (0.70-1.30); GLOMERULAR FILTRATION RATE 35.7 (>56); POTASSIUM SERUM 4.5 MMOL/L (3.5-5.1)
[2023-02-28] MEDS: ASPIRIN 81MG ENTERIC TABLET PO SCH (08:24)
[2023-02-28] MEDS: CLOPIDOGREL 75 MG TAB PO SCH (08:24)
[2023-02-28] MEDS: LEVEMIR (INSULIN DETEMIR) 1 UNITS/0.01ML SC SCH ×2 (08:25→21:16)
[2023-02-28] MEDS: INSULIN LISPRO (NovoLOG) PER UNIT SC SCH ×7 (08:25→21:00)
[2023-02-28] MEDS: TRIAMCINOLONE ACET 0.1% OINTMENT 15GM EXT SCH ×2 (08:26→21:17)
[2023-02-28] MEDS: NYSTATIN 100,000 UNITS/GM TOPICAL PWD 15GM TOP SCH ×2 (08:26→21:17)
[2023-02-28 20:25] VITALS: BP 180/80; TEMP 98.8; O2SAT 96
[2023-03-01 01:14] VITALS: BP 152/62
[2023-03-01] MEDS: NS 1,000 ML IV SCH (03:23)
[2023-03-01] MEDS: HEPARIN SOD (PORCINE) 5000UNITS/ML 1ML VIAL/SYRINGE SC SCH (05:37)
[2023-03-01 06:22] VITALS: BP 120/55; TEMP 97.9; O2SAT 97
[2023-03-01 07:37] LABS: HEMATOCRIT 41.7 % (42.0-52.0); HEMOGLOBIN 13.3 g/dl (13.5-17.5); MEAN CORPUSCULAR HEMOGLOBIN 28.5 pg (27.0-33.0); MEAN CORPUSCULAR HGB CONC 31.9 g/dl (32.0-36.5); MEAN CORPUSCULAR VOLUME 89.3 fl (80.0-96.0); PLATELET COUNT, AUTOMATED 181 10^3/uL (150-450); RED BLOOD COUNT 4.67 10^6/uL (4.30-6.10); WHITE BLOOD COUNT 5.7 10^3/uL (4.0-10.0)
[2023-03-01 07:59] LABS: CALCIUM LEVEL 8.5 MG/DL (8.5-10.1); CREATININE FOR GFR 1.78 MG/DL (0.70-1.30); GLOMERULAR FILTRATION RATE 42.3 (>56); POTASSIUM SERUM 4.3 MMOL/L (3.5-5.1)
[2023-03-01] MEDS ORDERED: TRIA1OI EXT (08:37)
[2023-03-01] MEDS ORDERED: [UNRECOGNIZED DRUG - CODE] TOP (08:39)
[2023-03-01] MEDS: INSULIN LISPRO (NovoLOG) PER UNIT SC SCH ×4 (08:39→12:36)
[2023-03-01] MEDS: CLOPIDOGREL 75 MG TAB PO SCH (08:40)
[2023-03-01] MEDS: LEVEMIR (INSULIN DETEMIR) 1 UNITS/0.01ML SC SCH (08:40)
[2023-03-01] MEDS: ASPIRIN 81MG ENTERIC TABLET PO SCH (08:40)
[2023-03-01] MEDS: NYSTATIN 100,000 UNITS/GM TOPICAL PWD 15GM TOP SCH (08:41)
[2023-03-01] MEDS: TRIAMCINOLONE ACET 0.1% OINTMENT 15GM EXT SCH (08:52)
[2023-03-01] MEDS ORDERED: DIMETHICONE 2% OINTMENT(VANICREAM) 70GM TUBE TOP SCH (09:00)
== END 2023-03-01 12:55 | disposition home health service (06) | DRG 344 ==
LOC: M ED 16:21 → M ED INP 21:44 → M MS5PR 22:31
PROVIDERS: ADMIT Internal Medicine; ATTEND General Practice
PROC: 0JBR0ZZ Excision of Left Foot Subcutaneous Tissue and Fascia, Open Approach (ICD-10-PCS; principal; 2023-02-28)
DX: E11.621 Type 2 diabetes mellitus with foot ulcer (principal); E87.20 Acidosis, unspecified; E11.22 Type 2 diabetes mellitus with diabetic chronic kidney disease; M86.672 Other chronic osteomyelitis, left ankle and foot; N17.9 Acute kidney failure, unspecified; N18.32 Chronic kidney disease, stage 3b; E11.51 Type 2 diabetes mellitus with diabetic peripheral angiopathy without gangrene; E11.43 Type 2 diabetes mellitus with diabetic autonomic (poly)neuropathy; E87.5 Hyperkalemia; E83.41 Hypermagnesemia; E11.69 Type 2 diabetes mellitus with other specified complication; K76.0 Fatty (change of) liver, not elsewhere classified; I12.9 Hypertensive chronic kidney disease with stage 1 through stage 4 chronic kidney disease, or unspecified chronic kidney disease; F17.210 Nicotine dependence, cigarettes, uncomplicated; L97.529 Non-pressure chronic ulcer of other part of left foot with unspecified severity; L97.519 Non-pressure chronic ulcer of other part of right foot with unspecified severity; E86.0 Dehydration; L87.0 Keratosis follicularis et parafollicularis in cutem penetrans; E78.5 Hyperlipidemia, unspecified; E66.9 Obesity, unspecified; E86.1 Hypovolemia; D64.9 Anemia, unspecified; R11.2 Nausea with vomiting, unspecified; T36.95XA Adverse effect of unspecified systemic antibiotic, initial encounter; Z79.4 Long term (current) use of insulin; Z79.82 Long term (current) use of aspirin; Z89.411 Acquired absence of right great toe; Z79.02 Long term (current) use of antithrombotics/antiplatelets; Z89.412 Acquired absence of left great toe; Z89.422 Acquired absence of other left toe(s); Z68.38 Body mass index [BMI] 38.0-38.9, adult

== ENCOUNTER 2023-03-11 18:20 | Emergency (ER) | payer OTHER ==
[~2023-03-11] VITALS: Ht 167.6 cm; Wt 115.0 kg
[~2023-03-11 18:20] MED LIST changes: +DULA3PEN SC; +TRIA1OI EXT; +[UNRECOGNIZED DRUG - CODE] TOP
[2023-03-11 21:08] LABS: BASO # 0.1 10^3/uL (0.0-0.2); BASO % 0.4 % (0.0-1.0); EOS # 0.1 10^3/uL (0.0-0.5); EOS % 0.8 % (0.0-3.0); HEMATOCRIT 44.6 % (42.0-52.0); HEMOGLOBIN 14.4 g/dl (13.5-17.5); LYMPH # 0.5 10^3/uL (1.5-5.0); LYMPH % 4.2 % (24.0-44.0); MEAN CORPUSCULAR HEMOGLOBIN 28.3 pg (27.0-33.0); MEAN CORPUSCULAR HGB CONC 32.3 g/dl (32.0-36.5); MEAN CORPUSCULAR VOLUME 87.8 fl (80.0-96.0); MONO # 0.6 10^3/uL (0.0-0.8); MONO % 4.9 % (2.0-8.0); NEUTROPHILS % 89.3 % (36.0-66.0); PLATELET COUNT, AUTOMATED 223 10^3/uL (150-450); RED BLOOD COUNT 5.08 10^6/uL (4.30-6.10); WHITE BLOOD COUNT 12.3 10^3/uL (4.0-10.0)
[2023-03-11 21:32] LABS: ALBUMIN 3.5 G/DL (3.2-5.2); BILIRUBIN,DIRECT 0.3 MG/DL (<0.4); BILIRUBIN,TOTAL 0.8 MG/DL (0.3-1.2)
[2023-03-12] MEDS ORDERED: ONDANSETRON 4MG 2ML VIAL IV ONE (00:10)
[2023-03-12] MEDS ORDERED: ONDA4TAB6 PO ×2 (00:14→23:50)
[2023-03-12] MEDS ORDERED: ACETAMINOPHEN 500 MG TAB PO ONE (00:20)
[2023-03-12 00:22] VITALS: BP 140/73; TEMP 100.7; O2SAT 94
[2023-03-12] MEDS ORDERED: [UNRECOGNIZED DRUG - CODE] EXT (23:50)
[2023-03-12] MEDS ORDERED: MAGN400T2 PO (23:50)
[2023-03-12] MEDS ORDERED: TRIA1OI TOP (23:50)
== END 2023-03-12 00:31 | disposition home or self-care (01) ==
LOC: M ED 18:20
DX: R11.2 Nausea with vomiting, unspecified (principal); I12.9 Hypertensive chronic kidney disease with stage 1 through stage 4 chronic kidney disease, or unspecified chronic kidney disease; N18.30 Chronic kidney disease, stage 3 unspecified; E11.9 Type 2 diabetes mellitus without complications; E78.5 Hyperlipidemia, unspecified; F17.200 Nicotine dependence, unspecified, uncomplicated; Z79.4 Long term (current) use of insulin; Z79.82 Long term (current) use of aspirin; Z79.899 Other long term (current) drug therapy; Z79.84 Long term (current) use of oral hypoglycemic drugs

== ENCOUNTER 2023-03-12 01:32 | Emergency (ER) | payer OTHER ==
[~2023-03-12] VITALS: Ht 167.6 cm; Wt 116.0 kg
[2023-03-12 06:35] VITALS: BP 124/60; TEMP 99.4; O2SAT 99
[2023-03-12] MEDS ORDERED: ONDA4TAB6 PO (23:50)
[2023-03-12] MEDS ORDERED: [UNRECOGNIZED DRUG - CODE] EXT (23:50)
[2023-03-12] MEDS ORDERED: TRIA1OI TOP (23:50)
[2023-03-12] MEDS ORDERED: MAGN400T2 PO (23:50)
== END 2023-03-12 08:00 | disposition left against medical advice (07) ==
LOC: M ED 01:32
DX: Z53.21 Procedure and treatment not carried out due to patient leaving prior to being seen by health care provider (principal)

== ENCOUNTER 2023-03-12 15:25 | Inpatient (IN) | payer OTHER ==
[~2023-03-12] VITALS: Ht 170.2 cm; Wt 105.7 kg
[2023-03-12] MEDS ORDERED: ACETAMINOPHEN 325 MG TAB PO ONE (16:00)
[2023-03-12 16:23] LABS: BASO % 0.4 % (0.0-1.0); EOS % 0.4 % (0.0-3.0); HEMATOCRIT 41.3 % (42.0-52.0); HEMOGLOBIN 13.6 g/dl (13.5-17.5); LYMPH # 0.5 10^3/uL (1.5-5.0); LYMPH % 4.5 % (24.0-44.0); MEAN CORPUSCULAR HEMOGLOBIN 28.5 pg (27.0-33.0); MEAN CORPUSCULAR HGB CONC 32.9 g/dl (32.0-36.5); MEAN CORPUSCULAR VOLUME 86.6 fl (80.0-96.0); MONO # 0.7 10^3/uL (0.0-0.8); MONO % 6.2 % (2.0-8.0); NEUTROPHILS # 9.6 10^3/uL (1.5-8.5); NEUTROPHILS % 88.1 % (36.0-66.0); PLATELET COUNT, AUTOMATED 207 10^3/uL (150-450); RED BLOOD COUNT 4.77 10^6/uL (4.30-6.10); WHITE BLOOD COUNT 10.9 10^3/uL (4.0-10.0)
[2023-03-12 16:42] LABS: INR 1.24; PROTHROMBIN TIME 15.3 SECONDS (12.5-14.5)
[2023-03-12 16:43] LABS: PARTIAL THROMBOPLASTIN TIME 32.4 SECONDS (24.8-34.2)
[2023-03-12 16:51] LABS: ALBUMIN 3.4 G/DL (3.2-5.2); ALKALINE PHOSPHATASE 105 U/L (46-116); ALT/SGPT 26 U/L (7.0-40); AMYLASE 42 U/L (30-118); AST/SGOT 20 U/L (<34); BILIRUBIN,DIRECT 0.4 MG/DL (<0.4); TOTAL PROTEIN 7.9 G/DL (5.7-8.2)
[2023-03-12 17:03] LABS: PROCALCITONIN 0.91 ng/ml
[2023-03-12 17:05] LABS: C REACTIVE PROTEIN QUANTITATIV > 30.40 MG/DL (<1.0)
[2023-03-12] MEDS ORDERED: NS 1,000 ML IV ONE (17:05)
[2023-03-12] MEDS ORDERED: IBUPROFEN 600MG TAB PO ONE (17:15)
[2023-03-12] MEDS ORDERED: LIDOCAINE 2% 5ML JELLY UROJET TOP ONE (18:25)
[2023-03-12 18:29] LABS: LIPASE 34 U/L (12-53)
[2023-03-12] MEDS ORDERED: VANCOMYCIN HCL 2,000 MG in D5W 500 ML IV ONE (19:40)
[2023-03-12] MEDS ORDERED: NS 500 ML IV ONE (19:45)
[2023-03-12] MEDS ORDERED: VANCOMYCIN HCL 1,000 MG, VIAL MATE ADAPTER 1 EACH in D5W 250 ML IV ONE ×2 (20:00→21:00)
[2023-03-12] MEDS ORDERED: GLUCAGON INJ 1MG VIAL SC PRN (22:55)
[2023-03-12] MEDS ORDERED: GLUCOSE 4GM CHEW TABLET PO PRN (22:55)
[2023-03-12] MEDS ORDERED: DEXTROSE 50% 50ML SYRINGE IV PRN (22:55)
[2023-03-12] MEDS ORDERED: TRIA1OI TOP (23:50)
[2023-03-12] MEDS ORDERED: MAGN400T2 PO (23:50)
[2023-03-12] MEDS ORDERED: ONDA4TAB6 PO (23:50)
[2023-03-12] MEDS ORDERED: [UNRECOGNIZED DRUG - CODE] EXT (23:50)
[2023-03-13] VITALS (13 sets, daily range): BP systolic 106–166; BP diastolic 55–67; TEMP 98.3–104.2; O2SAT 93–95
[2023-03-13] MEDS ORDERED: HOME MED LIST COMPLETE! XX SCH
[2023-03-13] MEDS ORDERED: ACETAMINOPHEN 325 MG TAB PO ONE ×2 (00:40→16:00)
[2023-03-13] MEDS: NS 1,000 ML IV SCH ×2 (01:33→16:08)
[2023-03-13] MEDS ORDERED: ONDANSETRON 4MG 2ML VIAL IV PRN ×2 (01:40→20:40)
[2023-03-13] MEDS ORDERED: VANCOMYCIN HCL 2,000 MG in IV FLUID PLACE HOLDER 1 EA IV SCH (01:40)
[2023-03-13] MEDS: HEPARIN SOD (PORCINE) 5000UNITS/ML 1ML VIAL/SYRINGE SQ SCH ×3 (06:00→22:00)
[2023-03-13] MEDS ORDERED: NS 1,000 ML IV ONE (06:10)
[2023-03-13 06:36] LABS: CALCIUM LEVEL 7.8 MG/DL (8.5-10.1); CREATININE FOR GFR 2.86 MG/DL (0.70-1.30); GLOMERULAR FILTRATION RATE 24.5 (>56); POTASSIUM SERUM 4.7 MMOL/L (3.5-5.1)
[2023-03-13] MEDS: INSULIN LISPRO (NovoLOG) PER UNIT SC SCH ×4 (06:46→17:34)
[2023-03-13 07:37] LABS: BASO % 0.3 % (0.0-1.0); EOS % 0.1 % (0.0-3.0); HEMATOCRIT 38.1 % (42.0-52.0); HEMOGLOBIN 12.5 g/dl (13.5-17.5); LYMPH # 0.2 10^3/uL (1.5-5.0); LYMPH % 2.3 % (24.0-44.0); MEAN CORPUSCULAR HEMOGLOBIN 28.5 pg (27.0-33.0); MEAN CORPUSCULAR HGB CONC 32.8 g/dl (32.0-36.5); MONO # 0.2 10^3/uL (0.0-0.8); MONO % 2.3 % (2.0-8.0); NEUTROPHILS # 10.1 10^3/uL (1.5-8.5); NEUTROPHILS % 94.5 % (36.0-66.0); PLATELET COUNT, AUTOMATED 181 10^3/uL (150-450); RED BLOOD COUNT 4.38 10^6/uL (4.30-6.10); WHITE BLOOD COUNT 10.7 10^3/uL (4.0-10.0)
[2023-03-13 07:52] LABS: MAGNESIUM LEVEL 1.3 MG/DL (1.8-2.4)
[2023-03-13] MEDS ORDERED: ACETAMINOPHEN TAB 650MG DOSE (2X325MG) PO ONE (08:00)
[2023-03-13] MEDS ORDERED: ASPIRIN 300 MG SUPP PR SCH (09:00)
[2023-03-13] MEDS ORDERED: VANCOMYCIN HCL 1,000 MG, VIAL MATE ADAPTER 1 EACH in D5W 250 ML IV SCH (09:00)
[2023-03-13] MEDS: PIPERACILLIN/TAZOBACTAM SOD 3.375 GM in D5W MINI-BAG PLUS 50 ML IV SCH ×3 (09:49→22:37)
[2023-03-13] MEDS: VANCOMYCIN HCL 500 MG in D5W MINI-BAG PLUS 100 ML IV SCH (09:49)
[2023-03-13] MEDS: MAG SULF 1GM/100ML (MAG RUN) 1 GM in IV 1 EA IV SCH ×4 (11:03→15:50)
[2023-03-13] MEDS: CLOPIDOGREL 75 MG TAB PO SCH (11:03)
[2023-03-13] MEDS ORDERED: MAGNESIUM OXIDE 400MG TAB (MAG-OX) PO PRN (11:40)
[2023-03-13] MEDS: ASPIRIN 81MG ENTERIC TABLET PO SCH (13:37)
[2023-03-13] MEDS ORDERED: ACETAMINOPHEN *IV* 1,000 MG in IV 1 EA IV ONE (17:40)
[2023-03-13] MEDS ORDERED: LIDOCAINE 2% MDV 20ML VIAL As Ordered ONE (19:44)
[2023-03-13] MEDS ORDERED: GENTAMICIN SULF 80MG/2ML VIAL As Ordered ONE (19:44)
[2023-03-13] MEDS ORDERED: propofoL 200 MG/20 ML VIAL As Ordered ONE (20:15)
[2023-03-13] MEDS ORDERED: MIDAZOLAM INJ 2MG/2ML VIAL As Ordered ONE (20:15)
[2023-03-13] MEDS ORDERED: fentaNYL 100 MCG/2 ML INJECTION As Ordered ONE (20:15)
[2023-03-13] MEDS ORDERED: MORPHINE 2 MG/ML 1ML VIAL IV PRN (20:40)
[2023-03-13] MEDS ORDERED: oxyCODONE 5MG TAB PO PRN (20:40)
[2023-03-13] MEDS ORDERED: fentaNYL 100 MCG/2 ML INJECTION IV PRN (20:40)
[2023-03-14] VITALS (13 sets, daily range): BP systolic 98–156; BP diastolic 53–83; TEMP 98.1–106.4; O2SAT 92–98
[2023-03-14] MEDS: VANCOMYCIN HCL 500 MG in D5W MINI-BAG PLUS 100 ML IV SCH ×3 (00:21→21:07)
[2023-03-14] MEDS: ACETAMINOPHEN 325 MG TAB PO PRN ×2 (00:22→13:18)
[2023-03-14] MEDS ORDERED: ACETAMINOPHEN *IV* 1,000 MG in IV 1 EA IV STA (01:09)
[2023-03-14] MEDS: PIPERACILLIN/TAZOBACTAM SOD 3.375 GM in D5W MINI-BAG PLUS 50 ML IV SCH ×4 (02:00→21:07)
[2023-03-14] MEDS: HEPARIN SOD (PORCINE) 5000UNITS/ML 1ML VIAL/SYRINGE SQ SCH ×3 (05:46→21:18)
[2023-03-14] MEDS: INSULIN LISPRO (NovoLOG) PER UNIT SC SCH ×8 (05:48→18:06)
[2023-03-14] MEDS: NS 1,000 ML IV SCH ×2 (05:48→18:06)
[2023-03-14 07:15] LABS: BASO % 0.2 % (0.0-1.0); EOS % 0.2 % (0.0-3.0); HEMATOCRIT 33.7 % (42.0-52.0); LYMPH # 0.3 10^3/uL (1.5-5.0); LYMPH % 8.2 % (24.0-44.0); MEAN CORPUSCULAR HEMOGLOBIN 28.3 pg (27.0-33.0); MEAN CORPUSCULAR HGB CONC 32.6 g/dl (32.0-36.5); MEAN CORPUSCULAR VOLUME 86.6 fl (80.0-96.0); MONO # 0.2 10^3/uL (0.0-0.8); MONO % 4.8 % (2.0-8.0); NEUTROPHILS # 3.6 10^3/uL (1.5-8.5); NEUTROPHILS % 86.1 % (36.0-66.0); PLATELET COUNT, AUTOMATED 115 10^3/uL (150-450); RED BLOOD COUNT 3.89 10^6/uL (4.30-6.10); WHITE BLOOD COUNT 4.2 10^3/uL (4.0-10.0)
[2023-03-14 07:49] LABS: CALCIUM LEVEL 6.8 MG/DL (8.5-10.1); CREATININE FOR GFR 2.62 MG/DL (0.70-1.30); GLOMERULAR FILTRATION RATE 27.1 (>56); POTASSIUM SERUM 4.2 MMOL/L (3.5-5.1)
[2023-03-14] MEDS: ASPIRIN 81MG ENTERIC TABLET PO SCH (08:59)
[2023-03-14] MEDS: LEVEMIR (INSULIN DETEMIR) 1 UNITS/0.01ML SC SCH ×2 (08:59→21:08)
[2023-03-14] MEDS: CLOPIDOGREL 75 MG TAB PO SCH (08:59)
[2023-03-14] MEDS ORDERED: INSULIN LISPRO (NovoLOG) PER UNIT SC SCH (21:00)
[2023-03-15] VITALS (7 sets, daily range): BP systolic 104–135; BP diastolic 66–75; TEMP 98.6–103.4; O2SAT 95–98
[2023-03-15] MEDS: ACETAMINOPHEN 325 MG TAB PO PRN ×2 (00:07→15:06)
[2023-03-15] MEDS: PIPERACILLIN/TAZOBACTAM SOD 3.375 GM in D5W MINI-BAG PLUS 50 ML IV SCH ×3 (02:00→14:15)
[2023-03-15] MEDS: NS 1,000 ML IV SCH ×2 (05:34→18:08)
[2023-03-15] MEDS: HEPARIN SOD (PORCINE) 5000UNITS/ML 1ML VIAL/SYRINGE SQ SCH ×2 (05:34→20:28)
[2023-03-15] MEDS: LEVEMIR (INSULIN DETEMIR) 1 UNITS/0.01ML SC SCH ×2 (09:00→20:28)
[2023-03-15] MEDS: INSULIN LISPRO (NovoLOG) PER UNIT SC SCH ×6 (09:00→17:17)
[2023-03-15] MEDS: ASPIRIN 81MG ENTERIC TABLET PO SCH (09:22)
[2023-03-15] MEDS: CLOPIDOGREL 75 MG TAB PO SCH (09:22)
[2023-03-15 09:36] LABS: BASO % 0.3 % (0.0-1.0); EOS # 0.1 10^3/uL (0.0-0.5); EOS % 2.5 % (0.0-3.0); HEMATOCRIT 35.3 % (42.0-52.0); HEMOGLOBIN 11.5 g/dl (13.5-17.5); LYMPH # 0.6 10^3/uL (1.5-5.0); LYMPH % 17.2 % (24.0-44.0); MEAN CORPUSCULAR HEMOGLOBIN 28.1 pg (27.0-33.0); MEAN CORPUSCULAR HGB CONC 32.6 g/dl (32.0-36.5); MEAN CORPUSCULAR VOLUME 86.3 fl (80.0-96.0); MONO # 0.3 10^3/uL (0.0-0.8); NEUTROPHILS # 2.3 10^3/uL (1.5-8.5); NEUTROPHILS % 71.7 % (36.0-66.0); PLATELET COUNT, AUTOMATED 102 10^3/uL (150-450); RED BLOOD COUNT 4.09 10^6/uL (4.30-6.10); WHITE BLOOD COUNT 3.3 10^3/uL (4.0-10.0)
[2023-03-15 09:56] LABS: CALCIUM LEVEL 7.5 MG/DL (8.5-10.1); CREATININE FOR GFR 2.22 MG/DL (0.70-1.30); GLOMERULAR FILTRATION RATE 32.8 (>56); MAGNESIUM LEVEL 1.9 MG/DL (1.8-2.4); POTASSIUM SERUM 3.6 MMOL/L (3.5-5.1)
[2023-03-15 09:57] LABS: C REACTIVE PROTEIN QUANTITATIV 22.4 MG/DL (<1.0)
[2023-03-15] MEDS ORDERED: VANCOMYCIN HCL 750 MG, VIAL MATE ADAPTER 1 EACH in D5W 250 ML IV SCH (10:00)
[2023-03-15 10:04] LABS: PROCALCITONIN 16.44 ng/ml
[2023-03-15] MEDS: VANICREAM MOISTURIZING SKIN CREAM 113GM TUBE TOP SCH (10:42)
[2023-03-15] MEDS: metroNIDAZOLE 500 MG in IV 1 EA IV SCH (20:27)
[2023-03-15] MEDS: ceFAZolin SOD 1 GM in D5W MINI-BAG PLUS 50 ML IV SCH (20:27)
[2023-03-16] MEDS: ceFAZolin SOD 1 GM in D5W MINI-BAG PLUS 50 ML IV SCH (04:00)
[2023-03-16] MEDS: metroNIDAZOLE 500 MG in IV 1 EA IV SCH ×3 (04:42→20:52)
[2023-03-16 05:20] VITALS: BP 131/67; TEMP 98.2; O2SAT 96
[2023-03-16 06:06] LABS: BASO % 0.3 % (0.0-1.0); EOS # 0.1 10^3/uL (0.0-0.5); EOS % 2.6 % (0.0-3.0); HEMATOCRIT 31.6 % (42.0-52.0); HEMOGLOBIN 10.4 g/dl (13.5-17.5); LYMPH # 0.6 10^3/uL (1.5-5.0); LYMPH % 17.6 % (24.0-44.0); MEAN CORPUSCULAR HEMOGLOBIN 28.2 pg (27.0-33.0); MEAN CORPUSCULAR HGB CONC 32.9 g/dl (32.0-36.5); MEAN CORPUSCULAR VOLUME 85.6 fl (80.0-96.0); MONO # 0.3 10^3/uL (0.0-0.8); MONO % 8.2 % (2.0-8.0); NEUTROPHILS # 2.4 10^3/uL (1.5-8.5); PLATELET COUNT, AUTOMATED 101 10^3/uL (150-450); RED BLOOD COUNT 3.69 10^6/uL (4.30-6.10); WHITE BLOOD COUNT 3.4 10^3/uL (4.0-10.0)
[2023-03-16 06:31] LABS: C REACTIVE PROTEIN QUANTITATIV 12.4 MG/DL (<1.0)
[2023-03-16 06:32] LABS: CALCIUM LEVEL 7.2 MG/DL (8.5-10.1); CREATININE FOR GFR 1.67 MG/DL (0.70-1.30); GLOMERULAR FILTRATION RATE 45.5 (>56); MAGNESIUM LEVEL 1.4 MG/DL (1.8-2.4); POTASSIUM SERUM 3.7 MMOL/L (3.5-5.1)
[2023-03-16] MEDS: NS 1,000 ML IV SCH ×2 (06:38→16:57)
[2023-03-16 06:51] LABS: ERYTHROCYTE SEDIMENTATION RATE 77 mm/hr (0-20)
[2023-03-16] MEDS: CLOPIDOGREL 75 MG TAB PO SCH (08:10)
[2023-03-16] MEDS: ASPIRIN 81MG ENTERIC TABLET PO SCH (08:10)
[2023-03-16] MEDS: ceFAZolin SOD 2 GM in IV 1 EA IV SCH ×2 (08:10→16:56)
[2023-03-16] MEDS: HEPARIN SOD (PORCINE) 5000UNITS/ML 1ML VIAL/SYRINGE SQ SCH ×2 (08:11→20:52)
[2023-03-16] MEDS: INSULIN LISPRO (NovoLOG) PER UNIT SC SCH ×6 (08:11→16:56)
[2023-03-16] MEDS: VANICREAM MOISTURIZING SKIN CREAM 113GM TUBE TOP SCH (08:13)
[2023-03-16] MEDS: LEVEMIR (INSULIN DETEMIR) 1 UNITS/0.01ML SC SCH ×2 (08:13→20:27)
[2023-03-16] MEDS: TRIAMCINOLONE ACET 0.1% CREAM 80GM TOP SCH ×2 (09:00→20:52)
[2023-03-16] MEDS: MAG SULF 1GM/100ML (MAG RUN) 1 GM in IV 1 EA IV SCH ×2 (12:00→13:24)
[2023-03-16 14:00] VITALS: BP 148/84; TEMP 98.1; O2SAT 98
[2023-03-16 20:29] VITALS: BP 139/62; TEMP 98.1; O2SAT 98
[2023-03-16] MEDS: MAGNESIUM OXIDE 400MG TAB (MAG-OX) PO SCH (20:51)
[2023-03-17] MEDS: metroNIDAZOLE 500 MG in IV 1 EA IV SCH ×2 (05:00→13:53)
[2023-03-17 05:56] VITALS: BP 140/61; TEMP 98.2; O2SAT 99
[2023-03-17 06:20] LABS: HEMATOCRIT 32.5 % (42.0-52.0); HEMOGLOBIN 10.4 g/dl (13.5-17.5); MEAN CORPUSCULAR HEMOGLOBIN 27.7 pg (27.0-33.0); MEAN CORPUSCULAR VOLUME 86.4 fl (80.0-96.0); RED BLOOD COUNT 3.76 10^6/uL (4.30-6.10); WHITE BLOOD COUNT 3.6 10^3/uL (4.0-10.0)
[2023-03-17 06:36] LABS: ERYTHROCYTE SEDIMENTATION RATE 90 mm/hr (0-20)
[2023-03-17 06:50] LABS: C REACTIVE PROTEIN QUANTITATIV 7.9 MG/DL (<1.0); CALCIUM LEVEL 7.4 MG/DL (8.5-10.1); CREATININE FOR GFR 1.43 MG/DL (0.70-1.30); GLOMERULAR FILTRATION RATE 54.5 (>56); MAGNESIUM LEVEL 1.7 MG/DL (1.8-2.4); POTASSIUM SERUM 3.8 MMOL/L (3.5-5.1)
[2023-03-17 06:51] LABS: PLATELET COUNT, AUTOMATED 93 10^3/uL (150-450)
[2023-03-17] MEDS: INSULIN LISPRO (NovoLOG) PER UNIT SC SCH ×6 (07:30→17:28)
[2023-03-17] MEDS: ASPIRIN 81MG ENTERIC TABLET PO SCH (08:49)
[2023-03-17] MEDS: ceFAZolin SOD 2 GM in IV 1 EA IV SCH ×4 (08:49→17:27)
[2023-03-17] MEDS: HEPARIN SOD (PORCINE) 5000UNITS/ML 1ML VIAL/SYRINGE SQ SCH ×2 (08:50→22:41)
[2023-03-17] MEDS: ATORVASTATIN 20 MG TAB PO SCH (08:50)
[2023-03-17] MEDS: CLOPIDOGREL 75 MG TAB PO SCH (08:51)
[2023-03-17] MEDS: MAGNESIUM OXIDE 400MG TAB (MAG-OX) PO SCH ×2 (08:51→22:08)
[2023-03-17] MEDS: LEVEMIR (INSULIN DETEMIR) 1 UNITS/0.01ML SC SCH ×2 (08:52→22:07)
[2023-03-17] MEDS: VANICREAM MOISTURIZING SKIN CREAM 113GM TUBE TOP SCH (08:53)
[2023-03-17] MEDS: TRIAMCINOLONE ACET 0.1% CREAM 80GM TOP SCH ×2 (08:53→22:08)
[2023-03-17 08:54] LABS: ATYPICAL LYMPH 11 % (0-5); EOSINOPHILS 5 % (0-3); LYMPHOCYTES 19 % (16-44); MONOCYTES 3 % (0-5); NEUTROPHILS 62 % (28-66); PLATELET ESTIMATE DECREASED (NORMAL)
[2023-03-17] MEDS: MAG SULF 1GM/100ML (MAG RUN) 1 GM in IV 1 EA IV SCH ×2 (09:03→10:09)
[2023-03-17] MEDS: amLODIPine 5 MG TAB PO SCH (10:09)
[2023-03-17] MEDS: NS 1,000 ML IV SCH (13:53)
[2023-03-17 14:00] VITALS: BP 143/62; TEMP 97.7; O2SAT 98
[2023-03-17 22:00] VITALS: BP 160/81; TEMP 98.1; O2SAT 98
[2023-03-18] MEDS: ceFAZolin SOD 2 GM in IV 1 EA IV SCH ×3 (00:43→16:36)
[2023-03-18 06:07] LABS: HEMATOCRIT 30.8 % (42.0-52.0); MEAN CORPUSCULAR HEMOGLOBIN 28.2 pg (27.0-33.0); MEAN CORPUSCULAR HGB CONC 32.5 g/dl (32.0-36.5); MEAN CORPUSCULAR VOLUME 86.8 fl (80.0-96.0); PLATELET COUNT, AUTOMATED 109 10^3/uL (150-450); RED BLOOD COUNT 3.55 10^6/uL (4.30-6.10); WHITE BLOOD COUNT 3.7 10^3/uL (4.0-10.0)
[2023-03-18 06:16] LABS: ERYTHROCYTE SEDIMENTATION RATE 70 mm/hr (0-20)
[2023-03-18 06:18] VITALS: BP 163/80; TEMP 98.1; O2SAT 98
[2023-03-18 06:38] LABS: C REACTIVE PROTEIN QUANTITATIV 4.6 MG/DL (<1.0); CALCIUM LEVEL 7.5 MG/DL (8.5-10.1); CREATININE FOR GFR 1.39 MG/DL (0.70-1.30); GLOMERULAR FILTRATION RATE 56.3 (>56); MAGNESIUM LEVEL 1.8 MG/DL (1.8-2.4); POTASSIUM SERUM 3.8 MMOL/L (3.5-5.1)
[2023-03-18 07:09] LABS: EOSINOPHILS 5 % (0-3); LYMPHOCYTES 27 % (16-44); MONOCYTES 7 % (0-5); NEUTROPHILS 60 % (28-66); PLATELET ESTIMATE NORMAL (NORMAL)
[2023-03-18] MEDS: CLOPIDOGREL 75 MG TAB PO SCH (08:28)
[2023-03-18] MEDS: ATORVASTATIN 20 MG TAB PO SCH (08:28)
[2023-03-18] MEDS: ASPIRIN 81MG ENTERIC TABLET PO SCH (08:28)
[2023-03-18] MEDS: amLODIPine 5 MG TAB PO SCH (08:29)
[2023-03-18] MEDS: LEVEMIR (INSULIN DETEMIR) 1 UNITS/0.01ML SC SCH ×2 (08:29→20:31)
[2023-03-18] MEDS: INSULIN LISPRO (NovoLOG) PER UNIT SC SCH ×7 (08:29→20:31)
[2023-03-18] MEDS: HEPARIN SOD (PORCINE) 5000UNITS/ML 1ML VIAL/SYRINGE SQ SCH ×2 (08:30→20:30)
[2023-03-18] MEDS: TRIAMCINOLONE ACET 0.1% CREAM 80GM TOP SCH ×2 (08:31→20:31)
[2023-03-18] MEDS: VANICREAM MOISTURIZING SKIN CREAM 113GM TUBE TOP SCH (08:31)
[2023-03-18] MEDS: MAGNESIUM OXIDE 400MG TAB (MAG-OX) PO SCH ×2 (08:35→20:31)
[2023-03-18] MEDS: NS 1,000 ML IV SCH (18:27)
[2023-03-18 20:02] VITALS: BP 163/78; TEMP 98.1; O2SAT 98
[2023-03-19] VITALS (11 sets, daily range): BP systolic 146–164; BP diastolic 69–90; TEMP 97.5–98.2; O2SAT 92–98
[2023-03-19] MEDS: ceFAZolin SOD 2 GM in IV 1 EA IV SCH ×3 (00:15→16:30)
[2023-03-19 06:20] LABS: BASO % 0.5 % (0.0-1.0); EOS # 0.3 10^3/uL (0.0-0.5); HEMATOCRIT 31.8 % (42.0-52.0); HEMOGLOBIN 10.3 g/dl (13.5-17.5); LYMPH # 1.3 10^3/uL (1.5-5.0); LYMPH % 22.5 % (24.0-44.0); MEAN CORPUSCULAR HEMOGLOBIN 28.2 pg (27.0-33.0); MEAN CORPUSCULAR HGB CONC 32.4 g/dl (32.0-36.5); MEAN CORPUSCULAR VOLUME 87.1 fl (80.0-96.0); MONO # 0.4 10^3/uL (0.0-0.8); MONO % 6.7 % (2.0-8.0); NEUTROPHILS # 3.6 10^3/uL (1.5-8.5); NEUTROPHILS % 64.2 % (36.0-66.0); PLATELET COUNT, AUTOMATED 164 10^3/uL (150-450); RED BLOOD COUNT 3.65 10^6/uL (4.30-6.10); WHITE BLOOD COUNT 5.6 10^3/uL (4.0-10.0)
[2023-03-19 06:41] LABS: BLOOD UREA NITROGEN 19 MG/DL (9-23); CALCIUM LEVEL 7.6 MG/DL (8.5-10.1); CARBON DIOXIDE LEVEL 25 MMOL/L (20-31); CHLORIDE LEVEL 106 MMOL/L (98-107); CREATININE FOR GFR 1.31 MG/DL (0.70-1.30); GLOMERULAR FILTRATION RATE > 60.0 (>56); GLUCOSE, FASTING 261 MG/DL (60-100); MAGNESIUM LEVEL 1.6 MG/DL (1.8-2.4); POTASSIUM SERUM 4.4 MMOL/L (3.5-5.1); SODIUM LEVEL 139 MMOL/L (136-145)
[2023-03-19 07:07] LABS: ERYTHROCYTE SEDIMENTATION RATE 90 mm/hr (0-20)
[2023-03-19 07:45] LABS: HEMOGLOBIN A1c 8.8 % (4.0-6.0)
[2023-03-19] MEDS: HEPARIN SOD (PORCINE) 5000UNITS/ML 1ML VIAL/SYRINGE SQ SCH ×2 (08:08→22:06)
[2023-03-19] MEDS: INSULIN LISPRO (NovoLOG) PER UNIT SC SCH ×7 (08:26→22:07)
[2023-03-19] MEDS: LEVEMIR (INSULIN DETEMIR) 1 UNITS/0.01ML SC SCH ×2 (08:26→22:07)
[2023-03-19] MEDS: MAGNESIUM OXIDE 400MG TAB (MAG-OX) PO SCH ×2 (08:27→22:06)
[2023-03-19] MEDS: ATORVASTATIN 20 MG TAB PO SCH (08:27)
[2023-03-19] MEDS: ASPIRIN 81MG ENTERIC TABLET PO SCH (08:27)
[2023-03-19] MEDS: CLOPIDOGREL 75 MG TAB PO SCH (08:27)
[2023-03-19] MEDS: TRIAMCINOLONE ACET 0.1% CREAM 80GM TOP SCH ×2 (08:30→22:08)
[2023-03-19] MEDS: VANICREAM MOISTURIZING SKIN CREAM 113GM TUBE TOP SCH (08:30)
[2023-03-19] MEDS: MAG SULF 1GM/100ML (MAG RUN) 1 GM in IV 1 EA IV SCH ×2 (09:00→09:47)
[2023-03-19] MEDS ORDERED: fentaNYL 100 MCG/2 ML INJECTION As Ordered ONE (10:19)
[2023-03-19] MEDS ORDERED: LIDOCAINE 1% MDV 20ML VIAL As Ordered ONE ×2 (10:20→10:23)
[2023-03-19] MEDS ORDERED: HEPARIN 1,000UNITS/ML 10ML VIAL (FOR RADIOLOGY & DIALYSIS ONLY) As Ordered ONE (10:20)
[2023-03-19] MEDS ORDERED: ISOVUE-300 61% 100ML VIAL As Ordered ONE (10:20)
[2023-03-19] MEDS ORDERED: MIDAZOLAM INJ 2MG/2ML VIAL As Ordered ONE (10:20)
[2023-03-19] MEDS: NS 1,000 ML IV SCH (10:40)
[2023-03-19] MEDS ORDERED: SODIUM CHLORIDE 0.9% INJ 10 ML SYR IV PRN ×2 (14:35→14:45)
[2023-03-19] MEDS ORDERED: MAG SULF 1GM/100ML (MAG RUN) 1 GM in IV 1 EA IV SCH (15:05)
[2023-03-19] MEDS ORDERED: ONDANSETRON 4MG 2ML VIAL IV PRN (15:25)
[2023-03-19] MEDS: SODIUM CHLORIDE 0.9% INJ 10 ML SYR IV SCH (17:49)
[2023-03-19] MEDS ORDERED: SODIUM CHLORIDE 0.9% INJ 10 ML SYR IV SCH (18:00)
[2023-03-20] MEDS: ceFAZolin SOD 2 GM in IV 1 EA IV SCH ×2 (00:15→08:09)
[2023-03-20 06:00] VITALS: BP 160/86; TEMP 98.1; O2SAT 97
[2023-03-20] MEDS: SODIUM CHLORIDE 0.9% INJ 10 ML SYR IV SCH ×2 (06:00→16:17)
[2023-03-20 06:47] LABS: BASO % 0.3 % (0.0-1.0); EOS # 0.3 10^3/uL (0.0-0.5); EOS % 4.2 % (0.0-3.0); HEMATOCRIT 31.6 % (42.0-52.0); HEMOGLOBIN 10.2 g/dl (13.5-17.5); LYMPH # 1.1 10^3/uL (1.5-5.0); LYMPH % 16.5 % (24.0-44.0); MEAN CORPUSCULAR HGB CONC 32.3 g/dl (32.0-36.5); MEAN CORPUSCULAR VOLUME 86.8 fl (80.0-96.0); MONO # 0.4 10^3/uL (0.0-0.8); MONO % 6.3 % (2.0-8.0); NEUTROPHILS # 4.8 10^3/uL (1.5-8.5); NEUTROPHILS % 71.8 % (36.0-66.0); PLATELET COUNT, AUTOMATED 204 10^3/uL (150-450); RED BLOOD COUNT 3.64 10^6/uL (4.30-6.10); WHITE BLOOD COUNT 6.7 10^3/uL (4.0-10.0)
[2023-03-20 07:12] LABS: BLOOD UREA NITROGEN 17 MG/DL (9-23); CALCIUM LEVEL 7.7 MG/DL (8.5-10.1); CARBON DIOXIDE LEVEL 26 MMOL/L (20-31); CHLORIDE LEVEL 105 MMOL/L (98-107); CREATININE FOR GFR 1.21 MG/DL (0.70-1.30); GLOMERULAR FILTRATION RATE > 60.0 (>56); GLUCOSE, FASTING 260 MG/DL (60-100); MAGNESIUM LEVEL 1.6 MG/DL (1.8-2.4); POTASSIUM SERUM 4.1 MMOL/L (3.5-5.1); SODIUM LEVEL 139 MMOL/L (136-145)
[2023-03-20] MEDS: INSULIN LISPRO (NovoLOG) PER UNIT SC SCH ×6 (08:09→17:18)
[2023-03-20] MEDS: HEPARIN SOD (PORCINE) 5000UNITS/ML 1ML VIAL/SYRINGE SQ SCH (08:11)
[2023-03-20] MEDS: ASPIRIN 81MG ENTERIC TABLET PO SCH (08:11)
[2023-03-20] MEDS: MAGNESIUM OXIDE 400MG TAB (MAG-OX) PO SCH (08:11)
[2023-03-20] MEDS: CLOPIDOGREL 75 MG TAB PO SCH (08:12)
[2023-03-20] MEDS: ATORVASTATIN 20 MG TAB PO SCH (08:12)
[2023-03-20] MEDS: TRIAMCINOLONE ACET 0.1% CREAM 80GM TOP SCH (08:12)
[2023-03-20] MEDS: VANICREAM MOISTURIZING SKIN CREAM 113GM TUBE TOP SCH (08:12)
[2023-03-20 08:16] VITALS: BP 157/87
[2023-03-20 08:18] VITALS: BP 157/87
[2023-03-20] MEDS ORDERED: LEVEMIR (INSULIN DETEMIR) 1 UNITS/0.01ML SC SCH (09:00)
[2023-03-20] MEDS ORDERED: LOSARTAN 25 MG TAB PO SCH (09:00)
[2023-03-20] MEDS: MAG SULF 1GM/100ML (MAG RUN) 1 GM in IV 1 EA IV SCH ×2 (09:32→10:40)
[2023-03-20] MEDS ORDERED: cefTRIAXone SOD 2 GM in D5W MINI-BAG PLUS 50 ML IV SCH (12:00)
[2023-03-20 13:08] VITALS: BP 136/72; TEMP 97.9; O2SAT 97
[2023-03-20] MEDS ORDERED: CEFTINJ2 IV ×2 (13:48→13:58)
[2023-03-20] MEDS ORDERED: MAGN400T2 PO (13:48)
[2023-03-20] MEDS ORDERED: COZA1TAB PO (13:48)
[2023-03-20] MEDS ORDERED: ATOR40TA75 PO (13:48)
[2023-03-20] MEDS ORDERED: AMLO10TA PO (13:48)
== END 2023-03-20 17:45 | disposition home health service (06) | DRG 710 ==
LOC: M ED 15:25 → M ED INP 20:22 → M PCU 03-13 04:03 → M MSPAV 03-14 18:39
PROVIDERS: ADMIT Internal Medicine; ATTEND Internal Medicine
PROC: 0QBM0ZZ Excision of Left Tarsal, Open Approach (ICD-10-PCS; 2023-03-13)
PROC: B246ZZZ Ultrasonography of Right and Left Heart (ICD-10-PCS; 2023-03-15)
PROC: 047 Lower Arteries, Dilation (ICD-10-PCS; 2023-03-19)
PROC: 02HV33Z Insertion of Infusion Device into Superior Vena Cava, Percutaneous Approach (ICD-10-PCS; principal; 2023-03-19 11:01)
DX: A41.9 Sepsis, unspecified organism (principal); G93.41 Metabolic encephalopathy; D61.818 Other pancytopenia; N17.9 Acute kidney failure, unspecified; K86.1 Other chronic pancreatitis; E11.22 Type 2 diabetes mellitus with diabetic chronic kidney disease; E11.42 Type 2 diabetes mellitus with diabetic polyneuropathy; A52.16 Charcot's arthropathy (tabetic); N18.30 Chronic kidney disease, stage 3 unspecified; E11.621 Type 2 diabetes mellitus with foot ulcer; E11.69 Type 2 diabetes mellitus with other specified complication; E11.51 Type 2 diabetes mellitus with diabetic peripheral angiopathy without gangrene; I48.92 Unspecified atrial flutter; L97.529 Non-pressure chronic ulcer of other part of left foot with unspecified severity; L97.519 Non-pressure chronic ulcer of other part of right foot with unspecified severity; L03.116 Cellulitis of left lower limb; K76.0 Fatty (change of) liver, not elsewhere classified; M86.9 Osteomyelitis, unspecified; I12.9 Hypertensive chronic kidney disease with stage 1 through stage 4 chronic kidney disease, or unspecified chronic kidney disease; E78.5 Hyperlipidemia, unspecified; I73.9 Peripheral vascular disease, unspecified; F17.210 Nicotine dependence, cigarettes, uncomplicated; K21.9 Gastro-esophageal reflux disease without esophagitis; Z79.4 Long term (current) use of insulin; Z79.82 Long term (current) use of aspirin; Z79.84 Long term (current) use of oral hypoglycemic drugs; Z20.822 Contact with and (suspected) exposure to COVID-19; Z79.899 Other long term (current) drug therapy; R21 Rash and other nonspecific skin eruption; S00.93XA Contusion of unspecified part of head, initial encounter; W10.8XXA Fall (on) (from) other stairs and steps, initial encounter; Y92.009 Unspecified place in unspecified non-institutional (private) residence as the place of occurrence of the external cause

== ENCOUNTER → 2023-03-25 | Outpatient (REF) | payer OTHER ==
[~2023-03-25] MED LIST changes: +AMLO10TA PO; +ATOR40TA75 PO; +CEFTINJ2 IV; +EZET10TA58 PO; +LOSA-527 PO; +MAGN400T2 PO; +TRIA1OI TOP; -ZETI10TA16 PO; +[UNRECOGNIZED DRUG - CODE] EXT
[2023-03-25 15:35] LABS: BASO % 0.5 % (0.0-1.0); EOS # 0.2 10^3/uL (0.0-0.5); EOS % 3.1 % (0.0-3.0); HEMATOCRIT 33.7 % (42.0-52.0); HEMOGLOBIN 10.6 g/dl (13.5-17.5); LYMPH # 1.5 10^3/uL (1.5-5.0); LYMPH % 19.6 % (24.0-44.0); MEAN CORPUSCULAR HEMOGLOBIN 28.3 pg (27.0-33.0); MEAN CORPUSCULAR HGB CONC 31.5 g/dl (32.0-36.5); MEAN CORPUSCULAR VOLUME 89.9 fl (80.0-96.0); MONO # 0.6 10^3/uL (0.0-0.8); NEUTROPHILS # 5.1 10^3/uL (1.5-8.5); NEUTROPHILS % 68.4 % (36.0-66.0); PLATELET COUNT, AUTOMATED 277 10^3/uL (150-450); RED BLOOD COUNT 3.75 10^6/uL (4.30-6.10); WHITE BLOOD COUNT 7.4 10^3/uL (4.0-10.0)
[2023-03-25 15:50] LABS: HEMOGLOBIN A1c 9.1 % (4.0-6.0)
[2023-03-25 15:56] LABS: CREATININE FOR GFR 1.62 MG/DL (0.70-1.30); GLOMERULAR FILTRATION RATE 47.2 (>56); POTASSIUM SERUM 4.8 MMOL/L (3.5-5.1)
== END ==
LOC: M SHH 14:42
PROVIDERS: ATTEND Student in an Organized Health Care Education/Training Program
DX: M86.172 Other acute osteomyelitis, left ankle and foot (principal); E11.22 Type 2 diabetes mellitus with diabetic chronic kidney disease

== ENCOUNTER → 2023-03-31 | Outpatient (REF) | payer OTHER ==
[2023-03-31 12:54] LABS: ERYTHROCYTE SEDIMENTATION RATE 111 mm/hr (0-20)
[2023-03-31 12:56] LABS: BASO # 0.1 10^3/uL (0.0-0.2); BASO % 1.3 % (0.0-1.0); EOS # 0.3 10^3/uL (0.0-0.5); EOS % 4.9 % (0.0-3.0); HEMATOCRIT 36.5 % (42.0-52.0); HEMOGLOBIN 11.3 g/dl (13.5-17.5); LYMPH # 1.4 10^3/uL (1.5-5.0); LYMPH % 24.9 % (24.0-44.0); MEAN CORPUSCULAR HEMOGLOBIN 27.8 pg (27.0-33.0); MEAN CORPUSCULAR VOLUME 89.9 fl (80.0-96.0); MONO # 0.2 10^3/uL (0.0-0.8); MONO % 4.4 % (2.0-8.0); NEUTROPHILS # 3.6 10^3/uL (1.5-8.5); NEUTROPHILS % 64.3 % (36.0-66.0); PLATELET COUNT, AUTOMATED 272 10^3/uL (150-450); RED BLOOD COUNT 4.06 10^6/uL (4.30-6.10); WHITE BLOOD COUNT 5.5 10^3/uL (4.0-10.0)
[2023-04-01 01:45] LABS: C REACTIVE PROTEIN QUANTITATIV 3.2 MG/DL (<1.0)
[2023-04-01 01:46] LABS: ALBUMIN 2.6 G/DL (3.2-5.2); BILIRUBIN,TOTAL 0.3 MG/DL (0.3-1.2); CALCIUM LEVEL 9.1 MG/DL (8.5-10.1); CREATININE FOR GFR 1.73 MG/DL (0.70-1.30); GLOMERULAR FILTRATION RATE 43.7 (>56); POTASSIUM SERUM 4.8 MMOL/L (3.5-5.1); TOTAL PROTEIN 6.9 G/DL (5.7-8.2)
== END ==
LOC: M LAB REF 10:04
PROVIDERS: ATTEND Internal Medicine Infectious Disease
DX: M86.271 Subacute osteomyelitis, right ankle and foot (principal)

== ENCOUNTER → 2023-04-07 | Outpatient (REF) | payer OTHER ==
[2023-04-07 10:35] LABS: BASO # 0.1 10^3/uL (0.0-0.2); EOS # 0.4 10^3/uL (0.0-0.5); EOS % 8.4 % (0.0-3.0); HEMATOCRIT 36.2 % (42.0-52.0); HEMOGLOBIN 11.3 g/dl (13.5-17.5); LYMPH # 1.2 10^3/uL (1.5-5.0); LYMPH % 23.8 % (24.0-44.0); MEAN CORPUSCULAR HEMOGLOBIN 27.9 pg (27.0-33.0); MEAN CORPUSCULAR HGB CONC 31.2 g/dl (32.0-36.5); MEAN CORPUSCULAR VOLUME 89.4 fl (80.0-96.0); MONO # 0.4 10^3/uL (0.0-0.8); MONO % 7.2 % (2.0-8.0); NEUTROPHILS % 59.2 % (36.0-66.0); PLATELET COUNT, AUTOMATED 223 10^3/uL (150-450); RED BLOOD COUNT 4.05 10^6/uL (4.30-6.10); WHITE BLOOD COUNT 5.1 10^3/uL (4.0-10.0)
[2023-04-07 10:55] LABS: C REACTIVE PROTEIN QUANTITATIV 2.3 MG/DL (<1.0)
[2023-04-07 10:57] LABS: BILIRUBIN,TOTAL 0.2 MG/DL (0.3-1.2); CALCIUM LEVEL 8.2 MG/DL (8.5-10.1); CREATININE FOR GFR 1.59 MG/DL (0.70-1.30); GLOMERULAR FILTRATION RATE 48.2 (>56); POTASSIUM SERUM 4.3 MMOL/L (3.5-5.1); TOTAL PROTEIN 7.1 G/DL (5.7-8.2)
[2023-04-07 12:31] LABS: ERYTHROCYTE SEDIMENTATION RATE 110 mm/hr (0-20)
== END ==
LOC: M LAB REF 10:13
PROVIDERS: ATTEND Internal Medicine Infectious Disease
DX: M86.271 Subacute osteomyelitis, right ankle and foot (principal)

== ENCOUNTER → 2023-05-16 | Outpatient (REF) | payer OTHER ==
[~2023-05-16] MED LIST changes: +CEFD300C42 PO; +GLIP5TAB17; +GLIP5TAB17 PO; -GLIP5TAB8; -GLIP5TAB8 PO
[2023-05-16 14:14] LABS: BASO # 0.1 10^3/uL (0.0-0.2); BASO % 0.7 % (0.0-1.0); EOS # 0.4 10^3/uL (0.0-0.5); EOS % 4.9 % (0.0-3.0); HEMOGLOBIN 13.9 g/dl (13.5-17.5); LYMPH # 1.7 10^3/uL (1.5-5.0); MEAN CORPUSCULAR HEMOGLOBIN 27.2 pg (27.0-33.0); MEAN CORPUSCULAR HGB CONC 31.6 g/dl (32.0-36.5); MEAN CORPUSCULAR VOLUME 86.1 fl (80.0-96.0); MONO # 0.4 10^3/uL (0.0-0.8); MONO % 5.8 % (2.0-8.0); NEUTROPHILS # 4.8 10^3/uL (1.5-8.5); NEUTROPHILS % 65.5 % (36.0-66.0); PLATELET COUNT, AUTOMATED 224 10^3/uL (150-450); RED BLOOD COUNT 5.11 10^6/uL (4.30-6.10); WHITE BLOOD COUNT 7.3 10^3/uL (4.0-10.0)
[2023-05-16 14:31] LABS: ERYTHROCYTE SEDIMENTATION RATE 67 mm/hr (0-20)
[2023-05-16 14:37] LABS: C REACTIVE PROTEIN QUANTITATIV 0.6 MG/DL (<1.0)
[2023-05-16 14:38] LABS: CALCIUM LEVEL 8.9 MG/DL (8.5-10.1); CREATININE FOR GFR 1.79 MG/DL (0.70-1.30); POTASSIUM SERUM 5.2 MMOL/L (3.5-5.1)
== END ==
LOC: M SHH 12:13
PROVIDERS: ATTEND Internal Medicine Infectious Disease
DX: M86.672 Other chronic osteomyelitis, left ankle and foot (principal)

== ENCOUNTER 2023-10-07 20:22 | Emergency (ER) | payer OTHER ==
[~2023-10-07] VITALS: Ht 167.6 cm; Wt 109.7 kg
[~2023-10-07 20:22] MED LIST changes: +CEFD1CAP9 PO; -CEFD300C42 PO
[2023-10-07 21:00] LABS: BASO # 0.1 10^3/uL (0.0-0.2); BASO % 0.7 % (0.0-1.0); EOS # 0.3 10^3/uL (0.0-0.5); EOS % 2.9 % (0.0-3.0); HEMATOCRIT 39.3 % (42.0-52.0); HEMOGLOBIN 12.8 g/dl (13.5-17.5); LYMPH # 2.2 10^3/uL (1.5-5.0); LYMPH % 21.3 % (24.0-44.0); MEAN CORPUSCULAR HEMOGLOBIN 28.2 pg (27.0-33.0); MEAN CORPUSCULAR HGB CONC 32.6 g/dl (32.0-36.5); MEAN CORPUSCULAR VOLUME 86.6 fl (80.0-96.0); MONO # 0.6 10^3/uL (0.0-0.8); MONO % 5.4 % (2.0-8.0); NEUTROPHILS # 7.1 10^3/uL (1.5-8.5); NEUTROPHILS % 69.4 % (36.0-66.0); PLATELET COUNT, AUTOMATED 224 10^3/uL (150-450); RED BLOOD COUNT 4.54 10^6/uL (4.30-6.10); WHITE BLOOD COUNT 10.2 10^3/uL (4.0-10.0)
[2023-10-07 21:17] LABS: INR 1.03; PARTIAL THROMBOPLASTIN TIME 26.5 SECONDS (24.8-34.2); PROTHROMBIN TIME 13.2 SECONDS (12.5-14.5)
[2023-10-07 21:26] LABS: CK-MB VALUE MASS 3.7 NG/ML (<3.6)
[2023-10-07 21:27] LABS: CALCIUM LEVEL 8.6 MG/DL (8.5-10.1); CREATININE FOR GFR 2.17 MG/DL (0.70-1.30); GLOMERULAR FILTRATION RATE 33.5 (>56)
[2023-10-07 21:42] LABS: MB/CK RELATIVE INDEX 2.72 (< OR =4)
[2023-10-08] MEDS: NS 500 ML IV ONE (08:00)
[2023-10-08 09:35] VITALS: BP 138/77; TEMP 98.2; O2SAT 97
[2023-10-08] MEDS ORDERED: ATOR40TA75 PO (09:40)
[2023-10-08] MEDS ORDERED: AMLO1TAB25 PO (09:40)
[2023-10-08] MEDS ORDERED: SENN-23 PO (09:41)
[2023-10-08] MEDS ORDERED: VALS1TAB66 PO (09:41)
[2023-10-08] MEDS ORDERED: MIRA3350 PO (09:41)
[2023-10-08] MEDS ORDERED: HOME MED LIST COMPLETE! XX SCH (09:45)
== END 2023-10-08 09:47 | disposition home or self-care (01) ==
LOC: M ED 20:22
DX: R42 Dizziness and giddiness (principal); I67.82 Cerebral ischemia; G31.1 Senile degeneration of brain, not elsewhere classified; J32.9 Chronic sinusitis, unspecified; R93.7 Abnormal findings on diagnostic imaging of other parts of musculoskeletal system; I45.10 Unspecified right bundle-branch block; E11.9 Type 2 diabetes mellitus without complications; I10 Essential (primary) hypertension; M19.072 Primary osteoarthritis, left ankle and foot; F17.200 Nicotine dependence, unspecified, uncomplicated

== ENCOUNTER 2023-10-15 20:39 | Inpatient (IN) | payer OTHER ==
[~2023-10-15] VITALS: Ht 167.6 cm; Wt 106.5 kg
[~2023-10-15 20:39] MED LIST changes: +AMLO1TAB25 PO; +MIRA3350 PO; +SENN-23 PO; +VALS1TAB66 PO
[2023-10-16 00:07] LABS: INR 1.08; PROTHROMBIN TIME 13.7 SECONDS (12.5-14.5)
[2023-10-16 00:10] LABS: BASO # 0.1 10^3/uL (0.0-0.2); BASO % 0.7 % (0.0-1.0); EOS # 0.4 10^3/uL (0.0-0.5); HEMATOCRIT 38.3 % (42.0-52.0); HEMOGLOBIN 12.5 g/dl (13.5-17.5); LYMPH % 17.4 % (24.0-44.0); MEAN CORPUSCULAR HGB CONC 32.6 g/dl (32.0-36.5); MEAN CORPUSCULAR VOLUME 85.9 fl (80.0-96.0); MONO # 0.8 10^3/uL (0.0-0.8); NEUTROPHILS # 8.2 10^3/uL (1.5-8.5); PLATELET COUNT, AUTOMATED 216 10^3/uL (150-450); RED BLOOD COUNT 4.46 10^6/uL (4.30-6.10); WHITE BLOOD COUNT 11.6 10^3/uL (4.0-10.0)
[2023-10-16 00:17] LABS: C REACTIVE PROTEIN QUANTITATIV 6.3 MG/DL (<1.0)
[2023-10-16 00:19] LABS: BILIRUBIN,DIRECT 0.2 MG/DL (<0.4); BILIRUBIN,TOTAL 0.4 MG/DL (0.3-1.2); CALCIUM LEVEL 8.5 MG/DL (8.5-10.1); CREATININE FOR GFR 1.79 MG/DL (0.70-1.30); GLOMERULAR FILTRATION RATE 41.9 (>56); POTASSIUM SERUM 4.3 MMOL/L (3.5-5.1); TOTAL PROTEIN 6.9 G/DL (5.7-8.2)
[2023-10-16 00:24] LABS: PROCALCITONIN 0.09 ng/ml
[2023-10-16] MEDS: PIPERACILLIN/TAZOBACTAM SOD 3.375 GM in D5W MINI-BAG PLUS 50 ML IV ONE (01:43)
[2023-10-16] MEDS ORDERED: DEXTROSE 50% 50ML SYRINGE IV PRN (02:15)
[2023-10-16] MEDS ORDERED: GLUCOSE 4GM CHEW TABLET PO PRN (02:15)
[2023-10-16] MEDS ORDERED: ONDANSETRON 4MG 2ML VIAL IV PRN (02:15)
[2023-10-16] MEDS ORDERED: GLUCAGON INJ 1MG VIAL SC PRN (02:15)
[2023-10-16] MEDS ORDERED: GLUC1CHW PO (02:43)
[2023-10-16] MEDS ORDERED: MILKSUS3 PO (02:43)
[2023-10-16] MEDS ORDERED: AMMO12CR7 TOP (02:43)
[2023-10-16] MEDS ORDERED: HOME MED LIST COMPLETE! XX SCH (02:45)
[2023-10-16] MEDS: VANCOMYCIN HCL 1,000 MG, VIAL MATE ADAPTER 1 EACH in D5W 250 ML IV ONE ×2 (03:01→03:53)
[2023-10-16] MEDS: NS 1,000 ML IV SCH (03:01)
[2023-10-16 05:13] LABS: HEMOGLOBIN A1c 8.1 % (4.0-6.0)
[2023-10-16] MEDS: INSULIN LISPRO (NovoLOG) PER UNIT SC SCH ×3 (06:41→21:00)
[2023-10-16] MEDS: PANTOPRAZOLE 40MG VIAL IV SCH (08:23)
[2023-10-16] MEDS: PIPERACILLIN/TAZOBACTAM SOD 3.375 GM in D5W MINI-BAG PLUS 50 ML IV SCH (08:24)
[2023-10-16] MEDS ORDERED: VANCOMYCIN HCL 750 MG, VIAL MATE ADAPTER 1 EACH in NS 250 ML IV SCH (15:00)
[2023-10-16 16:00] VITALS: BP 146/82; TEMP 97.7; O2SAT 99
[2023-10-16] MEDS: VANCOMYCIN HCL 750 MG, VIAL MATE ADAPTER 1 EACH in NS 250 ML IV SCH (17:36)
[2023-10-16] MEDS: LEVEMIR (INSULIN DETEMIR) 1 UNITS/0.01ML SC SCH (21:12)
[2023-10-16] MEDS: HEPARIN SOD (PORCINE) 5000UNITS/ML 1ML VIAL/SYRINGE SC SCH (21:12)
[2023-10-16 22:09] VITALS: BP 123/68; TEMP 97.9; O2SAT 95
[2023-10-17 06:09] LABS: BASO % 0.6 % (0.0-1.0); EOS # 0.3 10^3/uL (0.0-0.5); EOS % 4.3 % (0.0-3.0); HEMATOCRIT 36.2 % (42.0-52.0); HEMOGLOBIN 11.5 g/dl (13.5-17.5); LYMPH # 1.2 10^3/uL (1.5-5.0); LYMPH % 17.3 % (24.0-44.0); MEAN CORPUSCULAR HEMOGLOBIN 27.5 pg (27.0-33.0); MEAN CORPUSCULAR HGB CONC 31.8 g/dl (32.0-36.5); MEAN CORPUSCULAR VOLUME 86.6 fl (80.0-96.0); MONO # 0.4 10^3/uL (0.0-0.8); MONO % 5.6 % (2.0-8.0); NEUTROPHILS # 4.9 10^3/uL (1.5-8.5); NEUTROPHILS % 72.1 % (36.0-66.0); PLATELET COUNT, AUTOMATED 186 10^3/uL (150-450); RED BLOOD COUNT 4.18 10^6/uL (4.30-6.10); WHITE BLOOD COUNT 6.8 10^3/uL (4.0-10.0)
[2023-10-17 06:10] VITALS: BP 123/65; TEMP 97.7; O2SAT 98
[2023-10-17 06:32] LABS: C REACTIVE PROTEIN QUANTITATIV 4.4 MG/DL (<1.0)
[2023-10-17 06:34] LABS: CALCIUM LEVEL 7.8 MG/DL (8.5-10.1); CREATININE FOR GFR 1.75 MG/DL (0.70-1.30); POTASSIUM SERUM 4.3 MMOL/L (3.5-5.1)
[2023-10-17 14:00] VITALS: BP 118/68; TEMP 98.4; O2SAT 96
[2023-10-17 20:13] VITALS: BP 118/64; TEMP 98.4; O2SAT 96
[2023-10-18 06:24] VITALS: BP 140/56; TEMP 97.3; O2SAT 97
[2023-10-18] MEDS: LEVEMIR (INSULIN DETEMIR) 1 UNITS/0.01ML SC SCH (09:39)
[2023-10-18 14:00] VITALS: BP 139/76; TEMP 97.3; O2SAT 97
[2023-10-18 16:34] LABS: VANCOMYCIN LEVEL TROUGH 13.7 UG/ML (10.0-20.0)
[2023-10-18 17:43] LABS: CALCIUM LEVEL 7.9 MG/DL (8.5-10.1); CREATININE FOR GFR 1.67 MG/DL (0.70-1.30); GLOMERULAR FILTRATION RATE 45.4 (>56); POTASSIUM SERUM 4.7 MMOL/L (3.5-5.1)
[2023-10-18 21:30] VITALS: BP 142/73; TEMP 97.7; O2SAT 98
[2023-10-19 05:18] VITALS: BP 148/71; TEMP 97.3; O2SAT 96
[2023-10-19 06:48] LABS: BASO # 0.1 10^3/uL (0.0-0.2); BASO % 0.8 % (0.0-1.0); EOS # 0.2 10^3/uL (0.0-0.5); EOS % 3.7 % (0.0-3.0); HEMATOCRIT 41.1 % (42.0-52.0); HEMOGLOBIN 13.2 g/dl (13.5-17.5); LYMPH # 1.1 10^3/uL (1.5-5.0); LYMPH % 19.3 % (24.0-44.0); MEAN CORPUSCULAR HEMOGLOBIN 27.9 pg (27.0-33.0); MEAN CORPUSCULAR HGB CONC 32.1 g/dl (32.0-36.5); MEAN CORPUSCULAR VOLUME 86.9 fl (80.0-96.0); MONO # 0.3 10^3/uL (0.0-0.8); MONO % 4.6 % (2.0-8.0); NEUTROPHILS # 4.2 10^3/uL (1.5-8.5); NEUTROPHILS % 71.1 % (36.0-66.0); PLATELET COUNT, AUTOMATED 208 10^3/uL (150-450); RED BLOOD COUNT 4.73 10^6/uL (4.30-6.10); WHITE BLOOD COUNT 5.9 10^3/uL (4.0-10.0)
[2023-10-19 07:11] LABS: CALCIUM LEVEL 8.3 MG/DL (8.5-10.1); CREATININE FOR GFR 1.63 MG/DL (0.70-1.30); GLOMERULAR FILTRATION RATE 46.7 (>56); POTASSIUM SERUM 4.1 MMOL/L (3.5-5.1)
[2023-10-19 14:00] VITALS: BP 140/68; TEMP 97.7; O2SAT 96
[2023-10-19 20:00] VITALS: BP 131/72; TEMP 97.9; O2SAT 94
[2023-10-20 05:44] VITALS: BP 128/68; TEMP 97.7; O2SAT 95
[2023-10-20 06:02] LABS: WHITE BLOOD COUNT 6.5 10^3/uL (4.0-10.0)
[2023-10-20 06:03] LABS: EOS % 5.7 % (0.0-3.0); HEMOGLOBIN 11.5 g/dl (13.5-17.5); LYMPH % 22.8 % (24.0-44.0); MEAN CORPUSCULAR HGB CONC 32.9 g/dl (32.0-36.5); MEAN CORPUSCULAR VOLUME 85.2 fl (80.0-96.0); MONO % 6.2 % (2.0-8.0); NEUTROPHILS % 63.8 % (36.0-66.0); PLATELET COUNT, AUTOMATED 179 10^3/uL (150-450); RED BLOOD COUNT 4.11 10^6/uL (4.30-6.10)
[2023-10-20 06:04] LABS: BASO % 0.6 % (0.0-1.0); EOS # 0.4 10^3/uL (0.0-0.5); LYMPH # 1.5 10^3/uL (1.5-5.0); MONO # 0.4 10^3/uL (0.0-0.8); NEUTROPHILS # 4.1 10^3/uL (1.5-8.5)
[2023-10-20 06:30] LABS: CALCIUM LEVEL 8.4 MG/DL (8.5-10.1); CREATININE FOR GFR 1.77 MG/DL (0.70-1.30); GLOMERULAR FILTRATION RATE 42.4 (>56); POTASSIUM SERUM 4.2 MMOL/L (3.5-5.1)
[2023-10-20] MEDS ORDERED: DOXY100T PO (10:18)
== END 2023-10-20 12:41 | disposition home or self-care (01) | DRG 361 ==
LOC: M ED 20:39 → M ED INP 10-16 02:14 → ENRESERV 10-16 14:37 → M MSPAV 10-16 15:59
PROVIDERS: ADMIT Internal Medicine; ATTEND Internal Medicine Nephrology
PROC: 0JBQ0ZZ Excision of Right Foot Subcutaneous Tissue and Fascia, Open Approach (ICD-10-PCS; principal; 2023-10-17)
PROC: 0HBNXZZ Excision of Left Foot Skin, External Approach (ICD-10-PCS; 2023-10-17)
DX: E11.621 Type 2 diabetes mellitus with foot ulcer (principal); E11.22 Type 2 diabetes mellitus with diabetic chronic kidney disease; L97.529 Non-pressure chronic ulcer of other part of left foot with unspecified severity; E11.51 Type 2 diabetes mellitus with diabetic peripheral angiopathy without gangrene; Z68.41 Body mass index [BMI] 40.0-44.9, adult; N18.30 Chronic kidney disease, stage 3 unspecified; I73.9 Peripheral vascular disease, unspecified; I12.9 Hypertensive chronic kidney disease with stage 1 through stage 4 chronic kidney disease, or unspecified chronic kidney disease; E78.5 Hyperlipidemia, unspecified; M14.672 Charcot's joint, left ankle and foot; E66.9 Obesity, unspecified; K59.09 Other constipation; F17.210 Nicotine dependence, cigarettes, uncomplicated; N40.0 Benign prostatic hyperplasia without lower urinary tract symptoms; Z89.411 Acquired absence of right great toe; Z89.412 Acquired absence of left great toe; Z89.421 Acquired absence of other right toe(s); Z89.422 Acquired absence of other left toe(s); Z79.82 Long term (current) use of aspirin; Z79.4 Long term (current) use of insulin; Z79.84 Long term (current) use of oral hypoglycemic drugs; Z79.899 Other long term (current) drug therapy; Z11.52 Encounter for screening for COVID-19; Z89.021 Acquired absence of right finger(s); Z89.022 Acquired absence of left finger(s); L97.519 Non-pressure chronic ulcer of other part of right foot with unspecified severity

== ENCOUNTER → 2023-10-28 | Outpatient (CLI) | payer OTHER, MEDICAID ==
[~2023-10-28] MED LIST changes: +AMMO12CR7 TOP; +DOXY100T PO; +GLUC1CHW PO; +MILKSUS3 PO
[2023-10-28 13:10] LABS: HEMOGLOBIN A1c 8.3 % (4.0-6.0)
[2023-10-28 13:23] LABS: MAU/CREAT RATIO 344.8 MCG/MG (0.0-30.0)
== END ==
LOC: M PLALAB 11:02
PROVIDERS: ATTEND Student in an Organized Health Care Education/Training Program
DX: E11.22 Type 2 diabetes mellitus with diabetic chronic kidney disease (principal); N18.9 Chronic kidney disease, unspecified

== ENCOUNTER 2023-12-01 14:06 | Inpatient (IN) | payer OTHER ==
[~2023-12-01] VITALS: Ht 167.6 cm; Wt 111.4 kg
[2023-12-01 15:31] LABS: VENOUS BASE EXCESS -3.1 (-2.0-2.0); VENOUS HCO3 22.5 MMOL/L (23.0-27.0); VENOUS O2 SATURATION 44.1 % (60.0-80.0); VENOUS PARTIAL PRESSURE CO2 42.4 mmHg (38.0-50.0); VENOUS PARTIAL PRESSURE O2 26.6 mmHg (30.0-50.0); VENOUS PH 7.343 UNITS (7.330-7.430); VENOUS STANDARD HCO3 20.6 MMOL/L; VENOUS TOTAL CO2 23.8 MMOL/L (24.0-28.0)
[2023-12-01] MEDS: NS 1,000 ML IV ONE ×2 (15:38→17:36)
[2023-12-01 15:40] LABS: BASO % 0.4 % (0.0-1.0); EOS % 0.1 % (0.0-3.0); HEMATOCRIT 45.2 % (42.0-52.0); HEMOGLOBIN 14.9 g/dl (13.5-17.5); LYMPH # 0.5 10^3/uL (1.5-5.0); LYMPH % 4.7 % (24.0-44.0); MEAN CORPUSCULAR HEMOGLOBIN 28.2 pg (27.0-33.0); MEAN CORPUSCULAR VOLUME 85.4 fl (80.0-96.0); MONO # 0.6 10^3/uL (0.0-0.8); MONO % 5.8 % (2.0-8.0); NEUTROPHILS # 8.7 10^3/uL (1.5-8.5); NEUTROPHILS % 88.7 % (36.0-66.0); PLATELET COUNT, AUTOMATED 244 10^3/uL (150-450); RED BLOOD COUNT 5.29 10^6/uL (4.30-6.10); WHITE BLOOD COUNT 9.8 10^3/uL (4.0-10.0)
[2023-12-01 15:55] LABS: HEMOGLOBIN A1c 8.5 % (4.0-6.0)
[2023-12-01 15:59] LABS: TOTAL PROTEIN,RANDOM URINE 85.9 MG/DL (0.0-14.0)
[2023-12-01 16:03] LABS: C REACTIVE PROTEIN QUANTITATIV 23.4 MG/DL (<1.0)
[2023-12-01 16:04] LABS: CREATININE,RANDOM URINE 87.2 MG/DL
[2023-12-01 16:07] LABS: ACETONE/KETONE 1.56 MMOL/L (0.02-0.27)
[2023-12-01 16:12] LABS: PROCALCITONIN 0.4 ng/ml
[2023-12-01 16:18] LABS: ALBUMIN 3.3 G/DL (3.2-5.2); BILIRUBIN,DIRECT 0.4 MG/DL (<0.4); BILIRUBIN,TOTAL 0.9 MG/DL (0.3-1.2); CREATININE FOR GFR 2.72 MG/DL (0.70-1.30); GLOMERULAR FILTRATION RATE 25.8 (>56); PHOSPHORUS LEVEL 2.5 MG/DL (2.5-4.9); POTASSIUM SERUM 5.5 MMOL/L (3.5-5.1); TOTAL PROTEIN 8.2 G/DL (5.7-8.2)
[2023-12-01] MEDS: INSULIN LISPRO (NovoLOG) PER UNIT SC ONE (16:50)
[2023-12-01] MEDS ORDERED: VANCOMYCIN HCL 1,000 MG, VIAL MATE ADAPTER 1 EACH in D5W 250 ML IV ONE (18:25)
[2023-12-01] MEDS: CEFEPIME HCL 1 GM in D5W MINI-BAG PLUS 50 ML IV ONE (18:49)
[2023-12-01] MEDS: ACETAMINOPHEN TAB 650MG DOSE (2X325MG) PO ONE (18:49)
[2023-12-01] MEDS: AZITHROMYCIN INJ 500 MG, VIAL MATE ADAPTER 1 EACH in NS 250 ML IV ONE (19:33)
[2023-12-01] MEDS ORDERED: DEXTROSE 50% 50ML SYRINGE IV PRN (19:40)
[2023-12-01] MEDS ORDERED: GLUCOSE 4 GM CHEW PO PRN (19:40)
[2023-12-01] MEDS ORDERED: GLUCAGON INJ 1MG VIAL SC PRN (19:40)
[2023-12-01] MEDS ORDERED: HOME MED LIST COMPLETE! XX SCH (20:05)
[2023-12-01] MEDS: INSULIN LISPRO (NovoLOG) PER UNIT SC SCH (20:45)
[2023-12-01] MEDS: NS 1,000 ML IV SCH (20:46)
[2023-12-01 21:37] LABS: INR 1.3; PARTIAL THROMBOPLASTIN TIME 30.8 SECONDS (24.8-34.2); PROTHROMBIN TIME 15.8 SECONDS (12.5-14.5)
[2023-12-01 21:52] LABS: ACETONE/KETONE 0.28 MMOL/L (0.02-0.27)
[2023-12-01 22:08] LABS: CALCIUM LEVEL 8.1 MG/DL (8.5-10.1); CREATININE FOR GFR 2.6 MG/DL (0.70-1.30); GLOMERULAR FILTRATION RATE 27.2 (>56); MAGNESIUM LEVEL 2.1 MG/DL (1.8-2.4); POTASSIUM SERUM 4.3 MMOL/L (3.5-5.1)
[2023-12-01 22:57] VITALS: BP 126/98; TEMP 97.7; O2SAT 99
[2023-12-01] MEDS: ACETAMINOPHEN TAB 650MG DOSE (2X325MG) PO PRN (23:49)
[2023-12-01] MEDS: HEPARIN SOD (PORCINE) 5000UNITS/ML 1ML VIAL/SYRINGE SC SCH (23:49)
[2023-12-01] MEDS: DOCUSATE SODIUM 100MG CAPSULE PO SCH (23:49)
[2023-12-01] MEDS: VANCOMYCIN HCL 1,000 MG, VIAL MATE ADAPTER 1 EACH in D5W 250 ML IV ONE (23:49)
[2023-12-02] MEDS: VANCOMYCIN HCL 1,000 MG, VIAL MATE ADAPTER 1 EACH in D5W 250 ML IV ONE (01:16)
[2023-12-02 01:38] LABS: CALCIUM LEVEL 7.9 MG/DL (8.5-10.1); CREATININE FOR GFR 2.45 MG/DL (0.70-1.30); GLOMERULAR FILTRATION RATE 29.2 (>56); POTASSIUM SERUM 4.1 MMOL/L (3.5-5.1)
[2023-12-02] MEDS: metroNIDAZOLE 500 MG in IV 1 EA IV SCH (02:41)
[2023-12-02 05:45] LABS: BASO % 0.3 % (0.0-1.0); EOS # 0.1 10^3/uL (0.0-0.5); EOS % 1.3 % (0.0-3.0); HEMATOCRIT 41.9 % (42.0-52.0); HEMOGLOBIN 13.6 g/dl (13.5-17.5); LYMPH # 0.4 10^3/uL (1.5-5.0); LYMPH % 7.2 % (24.0-44.0); MEAN CORPUSCULAR HEMOGLOBIN 27.8 pg (27.0-33.0); MEAN CORPUSCULAR HGB CONC 32.5 g/dl (32.0-36.5); MEAN CORPUSCULAR VOLUME 85.7 fl (80.0-96.0); MONO # 0.3 10^3/uL (0.0-0.8); MONO % 5.4 % (2.0-8.0); NEUTROPHILS # 5.1 10^3/uL (1.5-8.5); NEUTROPHILS % 85.5 % (36.0-66.0); PLATELET COUNT, AUTOMATED 187 10^3/uL (150-450); RED BLOOD COUNT 4.89 10^6/uL (4.30-6.10)
[2023-12-02 06:00] LABS: ERYTHROCYTE SEDIMENTATION RATE 122 mm/hr (0-20)
[2023-12-02 06:03] LABS: C REACTIVE PROTEIN QUANTITATIV 17.9 MG/DL (<1.0)
[2023-12-02 06:06] LABS: ACETONE/KETONE 1.02 MMOL/L (0.02-0.27)
[2023-12-02 06:13] LABS: PROCALCITONIN 0.51 ng/ml
[2023-12-02 06:17] LABS: ALBUMIN 2.7 G/DL (3.2-5.2); BILIRUBIN,TOTAL 0.7 MG/DL (0.3-1.2); CALCIUM LEVEL 7.9 MG/DL (8.5-10.1); CREATININE FOR GFR 2.33 MG/DL (0.70-1.30); GLOMERULAR FILTRATION RATE 30.9 (>56); MAGNESIUM LEVEL 1.8 MG/DL (1.8-2.4); PHOSPHORUS LEVEL 3.4 MG/DL (2.5-4.9); POTASSIUM SERUM 4.8 MMOL/L (3.5-5.1); TOTAL PROTEIN 6.8 G/DL (5.7-8.2)
[2023-12-02 06:37] VITALS: BP 124/98; TEMP 101.8; O2SAT 99
[2023-12-02] MEDS: CEFEPIME HCL 2 GM in D5W 50 ML IV SCH (06:40)
[2023-12-02] MEDS: INSULIN LISPRO (NovoLOG) PER UNIT SC SCH ×2 (08:00→08:30)
[2023-12-02] MEDS ORDERED: FARX1TAB5 PO (08:08)
[2023-12-02] MEDS ORDERED: HOME MED LIST COMPLETE! XX SCH (08:10)
[2023-12-02] MEDS ORDERED: SENOKOT S TAB PO PRN (12:35)
[2023-12-02] MEDS ORDERED: ONDANSETRON 4MG ORAL DISINTEGRATING TAB PO PRN (12:35)
[2023-12-02 12:38] LABS: CALCIUM LEVEL 7.8 MG/DL (8.5-10.1); CREATININE FOR GFR 2.36 MG/DL (0.70-1.30); GLOMERULAR FILTRATION RATE 30.4 (>56); POTASSIUM SERUM 4.7 MMOL/L (3.5-5.1)
[2023-12-02] MEDS ORDERED: HYDROMORPHONE HCL 0.5 MG/ 0.5 ML SYRINGE IV PRN (12:40)
[2023-12-02] MEDS ORDERED: ACETAMINOPHEN TAB 650MG DOSE (2X325MG) PO PRN (12:40)
[2023-12-02] MEDS: ATORVASTATIN 20 MG TAB PO SCH (12:50)
[2023-12-02] MEDS: CLOPIDOGREL 75 MG TAB PO SCH (12:50)
[2023-12-02] MEDS: ASPIRIN 81MG ENTERIC TABLET PO SCH (12:50)
[2023-12-02] MEDS: VANCOMYCIN HCL 750 MG, VIAL MATE ADAPTER 1 EACH in D5W 250 ML IV SCH (13:22)
[2023-12-02] MEDS: VANCOMYCIN HCL 500 MG in D5W MINI-BAG PLUS 100 ML IV SCH (13:22)
[2023-12-02 14:00] VITALS: BP 112/57; TEMP 97.9; O2SAT 95
[2023-12-02] MEDS: PERCOCET 5MG/325MG TAB PO PRN (15:30)
[2023-12-02] MEDS ORDERED: VANCOMYCIN HCL 1,000 MG, VIAL MATE ADAPTER 1 EACH in D5W 250 ML IV SCH (16:00)
[2023-12-02] MEDS ORDERED: MIRALAX *UNIT DOSE* 17GM PACKET PO SCH (21:00)
[2023-12-02 21:59] VITALS: BP 149/77; TEMP 100.4; O2SAT 98
[2023-12-02 22:48] VITALS: BP 146/74; TEMP 99.4
[2023-12-02] MEDS: MIRALAX *UNIT DOSE* 17GM PACKET PO SCH (22:48)
[2023-12-03] VITALS (10 sets, daily range): BP systolic 108–122; BP diastolic 57–69; TEMP 96.8–97.7; O2SAT 92–100
[2023-12-03 06:04] LABS: MEAN CORPUSCULAR HEMOGLOBIN 28.3 pg (27.0-33.0); MEAN CORPUSCULAR HGB CONC 33.2 g/dl (32.0-36.5); PLATELET COUNT, AUTOMATED 148 10^3/uL (150-450)
[2023-12-03 06:15] LABS: HEMOGLOBIN 11.3 g/dl (13.5-17.5)
[2023-12-03 06:36] LABS: ALBUMIN 2.2 G/DL (3.2-5.2); CALCIUM LEVEL 7.7 MG/DL (8.5-10.1); CREATININE FOR GFR 2.19 MG/DL (0.70-1.30); GLOMERULAR FILTRATION RATE 33.2 (>56); PHOSPHORUS LEVEL 2.9 MG/DL (2.5-4.9); POTASSIUM SERUM 4.7 MMOL/L (3.5-5.1)
[2023-12-03] MEDS: VANCOMYCIN HCL 750 MG, VIAL MATE ADAPTER 1 EACH in D5W 250 ML IV SCH (13:49)
[2023-12-03] MEDS ORDERED: ACETAMINOPHEN 1000MG 100ML IV BAG As Ordered ONE (16:20)
[2023-12-03] MEDS ORDERED: LIDOCAINE 2% 100MG/5ML SDV (FOR ANES.) As Ordered ONE (16:20)
[2023-12-03] MEDS ORDERED: ONDANSETRON 4MG 2ML VIAL As Ordered ONE (16:20)
[2023-12-03] MEDS ORDERED: propofoL 200 MG/20 ML VIAL As Ordered ONE (16:20)
[2023-12-03] MEDS ORDERED: fentaNYL 100 MCG/2 ML INJECTION As Ordered ONE (16:20)
[2023-12-03] MEDS ORDERED: MIDAZOLAM INJ 2MG/2ML VIAL As Ordered ONE (16:20)
[2023-12-03] MEDS: LIDOCAINE 2% MDV 20ML VIAL As Ordered ONE (16:27)
[2023-12-03] MEDS: INSULIN LISPRO (NovoLOG) PER UNIT SC STA (16:36)
[2023-12-03] MEDS ORDERED: DEXTROSE 50% 50ML SYRINGE IV PRN (16:40)
[2023-12-03] MEDS ORDERED: GLUCOSE 4 GM CHEW PO PRN (16:40)
[2023-12-03] MEDS ORDERED: GLUCAGON INJ 1MG VIAL SC PRN (16:40)
[2023-12-03] MEDS: TOBRAMYCIN SULF 1.2GM VIAL As Ordered ONE (16:41)
[2023-12-03] MEDS: GENTAMICIN SULF 80MG/2ML VIAL As Ordered ONE (16:42)
[2023-12-03] MEDS ORDERED: fentaNYL 100 MCG/2 ML INJECTION IV PRN (17:10)
[2023-12-03] MEDS ORDERED: oxyCODONE 5MG TAB PO PRN (17:10)
[2023-12-03] MEDS ORDERED: ONDANSETRON 4MG 2ML VIAL IV PRN (17:10)
[2023-12-04] VITALS (7 sets, daily range): BP systolic 108–138; BP diastolic 60–69; TEMP 97.2–97.5; O2SAT 96–98
[2023-12-04 06:11] LABS: HEMATOCRIT 33.9 % (42.0-52.0); HEMOGLOBIN 11.3 g/dl (13.5-17.5); MEAN CORPUSCULAR HEMOGLOBIN 28.5 pg (27.0-33.0); MEAN CORPUSCULAR HGB CONC 33.3 g/dl (32.0-36.5); MEAN CORPUSCULAR VOLUME 85.4 fl (80.0-96.0); PLATELET COUNT, AUTOMATED 143 10^3/uL (150-450); RED BLOOD COUNT 3.97 10^6/uL (4.30-6.10); WHITE BLOOD COUNT 4.4 10^3/uL (4.0-10.0)
[2023-12-04 06:37] LABS: ALBUMIN 1.3 G/DL (3.2-5.2); CALCIUM LEVEL 7.7 MG/DL (8.5-10.1); CREATININE FOR GFR 2.05 MG/DL (0.70-1.30); GLOMERULAR FILTRATION RATE 35.8 (>56); PHOSPHORUS LEVEL 3.4 MG/DL (2.5-4.9)
[2023-12-04] MEDS: LEVEMIR (INSULIN DETEMIR) 1 UNITS/0.01ML SC SCH (20:10)
[2023-12-04] MEDS: HEPARIN SOD (PORCINE) 5000UNITS/ML 1ML VIAL/SYRINGE SC SCH (20:12)
[2023-12-05 05:56] VITALS: BP 123/66; TEMP 97.3; O2SAT 96
[2023-12-05 06:53] LABS: HEMATOCRIT 34.8 % (42.0-52.0); HEMOGLOBIN 11.4 g/dl (13.5-17.5); MEAN CORPUSCULAR HEMOGLOBIN 28.2 pg (27.0-33.0); MEAN CORPUSCULAR HGB CONC 32.8 g/dl (32.0-36.5); MEAN CORPUSCULAR VOLUME 86.1 fl (80.0-96.0); PLATELET COUNT, AUTOMATED 150 10^3/uL (150-450); RED BLOOD COUNT 4.04 10^6/uL (4.30-6.10); WHITE BLOOD COUNT 5.1 10^3/uL (4.0-10.0)
[2023-12-05 07:26] LABS: ALBUMIN 2.3 G/DL (3.2-5.2); CALCIUM LEVEL 8.2 MG/DL (8.5-10.1); CREATININE FOR GFR 1.7 MG/DL (0.70-1.30); GLOMERULAR FILTRATION RATE 44.4 (>56); PHOSPHORUS LEVEL 3.1 MG/DL (2.5-4.9); POTASSIUM SERUM 4.6 MMOL/L (3.5-5.1)
[2023-12-05] MEDS: LEVEMIR (INSULIN DETEMIR) 1 UNITS/0.01ML SC SCH ×2 (08:09→20:14)
[2023-12-05 12:31] LABS: C REACTIVE PROTEIN QUANTITATIV 5.9 MG/DL (<1.0)
[2023-12-05] MEDS: LINEZOLID 600MG TABLET (ZYVOX) PO SCH (12:36)
[2023-12-05 14:00] VITALS: BP 108/43; TEMP 97.3; O2SAT 96
[2023-12-05] MEDS ORDERED: LINE1TAB6 PO (16:17)
[2023-12-05] MEDS: INSULIN LISPRO (NovoLOG) PER UNIT SC SCH (17:14)
[2023-12-05 20:12] VITALS: BP 118/52; TEMP 97.5; O2SAT 99
[2023-12-05] MEDS ORDERED: LEVEMIR (INSULIN DETEMIR) 1 UNITS/0.01ML SC SCH (21:00)
[2023-12-06 05:46] VITALS: BP 140/73; TEMP 97.2; O2SAT 98
[2023-12-06 06:24] LABS: HEMATOCRIT 36.1 % (42.0-52.0); HEMOGLOBIN 11.9 g/dl (13.5-17.5); MEAN CORPUSCULAR HEMOGLOBIN 28.4 pg (27.0-33.0); MEAN CORPUSCULAR VOLUME 86.2 fl (80.0-96.0); PLATELET COUNT, AUTOMATED 176 10^3/uL (150-450); RED BLOOD COUNT 4.19 10^6/uL (4.30-6.10); WHITE BLOOD COUNT 6.1 10^3/uL (4.0-10.0)
[2023-12-06 06:51] LABS: ALBUMIN 2.4 G/DL (3.2-5.2); CALCIUM LEVEL 8.3 MG/DL (8.5-10.1); CREATININE FOR GFR 1.7 MG/DL (0.70-1.30); GLOMERULAR FILTRATION RATE 44.4 (>56); PHOSPHORUS LEVEL 2.5 MG/DL (2.5-4.9)
[2023-12-06] MEDS: LEVEMIR (INSULIN DETEMIR) 1 UNITS/0.01ML SC SCH (08:24)
[2023-12-06] MEDS: INSULIN LISPRO (NovoLOG) PER UNIT SC SCH (08:24)
[2023-12-06] MEDS ORDERED: TOUJ1.2I SC (09:36)
== END 2023-12-06 13:58 | disposition home or self-care (01) | DRG 710 ==
LOC: EDBD 14:06 → M ED 14:06 → M ED INP 19:40 → M MSPAV 22:47
PROVIDERS: ADMIT Family Medicine; ATTEND Preventive Medicine Undersea and Hyperbaric Medicine
PROC: 0HBMXZZ Excision of Right Foot Skin, External Approach (ICD-10-PCS; 2023-12-03)
PROC: 0Y6M0Z4 Detachment at Right Foot, Complete 1st Ray, Open Approach (ICD-10-PCS; principal; 2023-12-03 15:00)
DX: A41.01 Sepsis due to Methicillin susceptible Staphylococcus aureus (principal); E11.22 Type 2 diabetes mellitus with diabetic chronic kidney disease; N17.9 Acute kidney failure, unspecified; M86.171 Other acute osteomyelitis, right ankle and foot; E11.51 Type 2 diabetes mellitus with diabetic peripheral angiopathy without gangrene; N18.30 Chronic kidney disease, stage 3 unspecified; E11.621 Type 2 diabetes mellitus with foot ulcer; E11.69 Type 2 diabetes mellitus with other specified complication; L97.519 Non-pressure chronic ulcer of other part of right foot with unspecified severity; E11.65 Type 2 diabetes mellitus with hyperglycemia; L97.529 Non-pressure chronic ulcer of other part of left foot with unspecified severity; I73.9 Peripheral vascular disease, unspecified; I12.9 Hypertensive chronic kidney disease with stage 1 through stage 4 chronic kidney disease, or unspecified chronic kidney disease; E66.9 Obesity, unspecified; K59.09 Other constipation; F17.210 Nicotine dependence, cigarettes, uncomplicated; N40.0 Benign prostatic hyperplasia without lower urinary tract symptoms; Z89.412 Acquired absence of left great toe; E78.5 Hyperlipidemia, unspecified; Z89.422 Acquired absence of other left toe(s); Z89.021 Acquired absence of right finger(s); Z89.411 Acquired absence of right great toe; Z79.82 Long term (current) use of aspirin; Z79.4 Long term (current) use of insulin; Z79.84 Long term (current) use of oral hypoglycemic drugs; Z79.899 Other long term (current) drug therapy; Z79.01 Long term (current) use of anticoagulants; S40.011A Contusion of right shoulder, initial encounter; W01.0XXA Fall on same level from slipping, tripping and stumbling without subsequent striking against object, initial encounter; Y92.000 Kitchen of unspecified non-institutional (private) residence as the place of occurrence of the external cause; Y93.9 Activity, unspecified

== ENCOUNTER → 2024-01-08 | Outpatient (CLI) | payer OTHER ==
[~2024-01-08] MED LIST changes: +FARX1TAB5 PO; +LINE1TAB6 PO; +ONDA-282 PO; -ONDA4TAB6 PO
[2024-01-08 14:49] LABS: BASO # 0.1 10^3/uL (0.0-0.2); BASO % 0.6 % (0.0-1.0); EOS # 0.3 10^3/uL (0.0-0.5); EOS % 3.6 % (0.0-3.0); HEMATOCRIT 41.5 % (42.0-52.0); HEMOGLOBIN 12.9 g/dl (13.5-17.5); LYMPH # 1.9 10^3/uL (1.5-5.0); LYMPH % 21.1 % (24.0-44.0); MEAN CORPUSCULAR HEMOGLOBIN 27.7 pg (27.0-33.0); MEAN CORPUSCULAR HGB CONC 31.1 g/dl (32.0-36.5); MEAN CORPUSCULAR VOLUME 89.2 fl (80.0-96.0); MONO # 0.5 10^3/uL (0.0-0.8); MONO % 5.4 % (2.0-8.0); NEUTROPHILS # 6.1 10^3/uL (1.5-8.5); PLATELET COUNT, AUTOMATED 261 10^3/uL (150-450); RED BLOOD COUNT 4.65 10^6/uL (4.30-6.10); WHITE BLOOD COUNT 8.9 10^3/uL (4.0-10.0)
[2024-01-08 14:56] LABS: ERYTHROCYTE SEDIMENTATION RATE 66 mm/hr (0-20)
[2024-01-08 15:15] LABS: ALBUMIN 3.2 G/DL (3.2-5.2); BILIRUBIN,TOTAL 0.4 MG/DL (0.3-1.2); CREATININE FOR GFR 1.84 MG/DL (0.70-1.30); GLOMERULAR FILTRATION RATE 40.6 (>56); POTASSIUM SERUM 5.4 MMOL/L (3.5-5.1); TOTAL PROTEIN 6.6 G/DL (5.7-8.2)
== END ==
LOC: M PLALAB 10:32
PROVIDERS: ATTEND Internal Medicine Infectious Disease
DX: M86.171 Other acute osteomyelitis, right ankle and foot (principal)

== ENCOUNTER → 2024-04-15 | Outpatient (CLI) | payer OTHER ==
[2024-04-15 19:01] LABS: BASO # 0.1 10^3/uL (0.0-0.2); BASO % 0.6 % (0.0-1.0); EOS # 0.4 10^3/uL (0.0-0.5); EOS % 3.7 % (0.0-3.0); HEMATOCRIT 46.9 % (42.0-52.0); HEMOGLOBIN 14.9 g/dl (13.5-17.5); LYMPH # 2.6 10^3/uL (1.5-5.0); LYMPH % 26.3 % (24.0-44.0); MEAN CORPUSCULAR HEMOGLOBIN 27.4 pg (27.0-33.0); MEAN CORPUSCULAR HGB CONC 31.8 g/dl (32.0-36.5); MEAN CORPUSCULAR VOLUME 86.2 fl (80.0-96.0); MONO # 0.5 10^3/uL (0.0-0.8); MONO % 5.4 % (2.0-8.0); NEUTROPHILS # 6.3 10^3/uL (1.5-8.5); NEUTROPHILS % 63.8 % (36.0-66.0); PLATELET COUNT, AUTOMATED 221 10^3/uL (150-450); RED BLOOD COUNT 5.44 10^6/uL (4.30-6.10)
[2024-04-15 19:10] LABS: HEMOGLOBIN A1c 8.2 % (4.0-6.0)
[2024-04-15 19:28] LABS: BLOOD UREA NITROGEN 35 MG/DL (9-23); CALCIUM LEVEL 9.2 MG/DL (8.5-10.1); CARBON DIOXIDE LEVEL 24 MMOL/L (20-31); CHLORIDE LEVEL 107 MMOL/L (98-107); CHOLESTEROL LEVEL 133 MG/DL (<200); CREATININE FOR GFR 2.02 MG/DL (0.70-1.30); GLOMERULAR FILTRATION RATE 36.4 (>56); GLUCOSE, FASTING 270 MG/DL (60-100); HDL CHOLESTEROL 27.1 MG/DL (>40); MAGNESIUM LEVEL 1.9 MG/DL (1.8-2.4); NON-HDL-C 105.9 MG/DL; POTASSIUM SERUM 5.1 MMOL/L (3.5-5.1); SODIUM LEVEL 134 MMOL/L (136-145); TRIGLYCERIDES LEVEL 548 MG/DL (<150)
[2024-04-16 14:17] LABS: VITAMIN B12 LEVEL 328 PG/ML (211-911)
== END ==
LOC: M PLALAB 15:01
PROVIDERS: ATTEND Student in an Organized Health Care Education/Training Program
DX: Z00.00 Encounter for general adult medical examination without abnormal findings (principal); E11.22 Type 2 diabetes mellitus with diabetic chronic kidney disease

== ENCOUNTER → 2024-05-10 | Outpatient (REF) | payer OTHER | LOC: M LAB REF 09:39 | PROVIDERS: ATTEND Podiatrist | DX: L03.039 Cellulitis of unspecified toe (principal) ==

== ENCOUNTER 2024-06-07 20:13 | Emergency (ER) | payer OTHER ==
[~2024-06-07] VITALS: Ht 167.6 cm; Wt 105.0 kg
[2024-06-07] MEDS: ACETAMINOPHEN *IV* 1,000 MG in IV 1 EA IV ONE (21:13)
[2024-06-07] MEDS: ONDANSETRON 4MG 2ML VIAL IV ONE (21:13)
[2024-06-07 21:21] LABS: BASO # 0.1 10^3/uL (0.0-0.2); BASO % 0.5 % (0.0-1.0); EOS % 0.4 % (0.0-3.0); HEMATOCRIT 47.3 % (42.0-52.0); HEMOGLOBIN 15.3 g/dl (13.5-17.5); LYMPH # 0.5 10^3/uL (1.5-5.0); MEAN CORPUSCULAR HEMOGLOBIN 26.8 pg (27.0-33.0); MEAN CORPUSCULAR HGB CONC 32.3 g/dl (32.0-36.5); MEAN CORPUSCULAR VOLUME 82.8 fl (80.0-96.0); MONO # 0.5 10^3/uL (0.0-0.8); MONO % 4.7 % (2.0-8.0); NEUTROPHILS # 8.8 10^3/uL (1.5-8.5); PLATELET COUNT, AUTOMATED 142 10^3/uL (150-450); RED BLOOD COUNT 5.71 10^6/uL (4.30-6.10); WHITE BLOOD COUNT 9.9 10^3/uL (4.0-10.0)
[2024-06-07 21:43] LABS: ALBUMIN 3.4 G/DL (3.2-5.2); BILIRUBIN,DIRECT 0.2 MG/DL (<0.4); BILIRUBIN,TOTAL 0.6 MG/DL (0.3-1.2); CREATININE FOR GFR 1.8 MG/DL (0.70-1.30); GLOMERULAR FILTRATION RATE 41.6 (>56); POTASSIUM SERUM 4.3 MMOL/L (3.5-5.1); TOTAL PROTEIN 7.4 G/DL (5.7-8.2)
[2024-06-07 21:49] LABS: PROCALCITONIN 0.23 ng/ml
[2024-06-07] MEDS ORDERED: ISOVUE-370 76% 100ML VIAL As Ordered ONE (21:50)
[2024-06-07] MEDS: NS 1,000 ML IV ONE (22:06)
[2024-06-08 01:22] VITALS: BP 116/56; O2SAT 94
[2024-06-08 02:32] VITALS: TEMP 97.2
[2024-06-08] MEDS: METOCLOPRAMIDE INJ 10MG/2ML VIAL IV ONE (03:41)
[2024-06-08] MEDS ORDERED: ONDA-282 PO (04:27)
[2024-06-08] MEDS ORDERED: REGL10TA6 PO (04:27)
[2024-06-08] MEDS ORDERED: FARX1TAB3 PO (22:20)
[2024-06-08] MEDS ORDERED: VALS40TA9 PO (22:20)
== END 2024-06-08 05:33 | disposition home or self-care (01) ==
LOC: M ED 20:13
DX: A08.4 Viral intestinal infection, unspecified (principal); E11.9 Type 2 diabetes mellitus without complications; Z79.4 Long term (current) use of insulin; I12.9 Hypertensive chronic kidney disease with stage 1 through stage 4 chronic kidney disease, or unspecified chronic kidney disease; N18.9 Chronic kidney disease, unspecified; N28.1 Cyst of kidney, acquired; E27.9 Disorder of adrenal gland, unspecified; K76.0 Fatty (change of) liver, not elsewhere classified; R94.31 Abnormal electrocardiogram [ECG] [EKG]; Z79.899 Other long term (current) drug therapy
CPT/HCPCS: 74177; 80048; 80076; 81001; 83605; 83690; 83930; 84145; 85025; 87040; 87077; 87154; 87186; 87486; 87581; 87633; 87798; 93005; 93041; 96365; 96366; 96375; 99284; J0131; J2405; J2765; Q9967

== ENCOUNTER 2024-06-08 17:11 | Inpatient (IN) | payer OTHER ==
[~2024-06-08] VITALS: Ht 167.6 cm; Wt 103.0 kg
[~2024-06-08 17:11] MED LIST changes: +REGL10TA6 PO
[2024-06-08 18:11] LABS: HEMATOCRIT 45.7 % (42.0-52.0); HEMOGLOBIN 14.4 g/dl (13.5-17.5); MEAN CORPUSCULAR HEMOGLOBIN 26.1 pg (27.0-33.0); MEAN CORPUSCULAR HGB CONC 31.5 g/dl (32.0-36.5); MEAN CORPUSCULAR VOLUME 82.9 fl (80.0-96.0); PLATELET COUNT, AUTOMATED 147 10^3/uL (150-450); RED BLOOD COUNT 5.51 10^6/uL (4.30-6.10); WHITE BLOOD COUNT 6.9 10^3/uL (4.0-10.0)
[2024-06-08 18:26] LABS: CALCIUM LEVEL 8.5 MG/DL (8.5-10.1); CREATININE FOR GFR 2.05 MG/DL (0.70-1.30); GLOMERULAR FILTRATION RATE 35.8 (>56); POTASSIUM SERUM 4.2 MMOL/L (3.5-5.1)
[2024-06-08] MEDS ORDERED: VANCOMYCIN/WATER FOR INJ (PEG) 2,000 MG in IV 1 EA IV ONE (21:00)
[2024-06-08 21:11] LABS: C REACTIVE PROTEIN QUANTITATIV 7.5 MG/DL (<1.0)
[2024-06-08 21:16] LABS: ERYTHROCYTE SEDIMENTATION RATE 66 mm/hr (0-20)
[2024-06-08] MEDS: ceFAZolin SOD 2 GM in IV 1 EA IV SCH (21:57)
[2024-06-08] MEDS ORDERED: FARX1TAB3 PO (22:20)
[2024-06-08] MEDS ORDERED: VALS40TA9 PO (22:20)
[2024-06-08] MEDS ORDERED: HOME MED LIST COMPLETE! XX SCH ×3 (22:20→22:30)
[2024-06-08] MEDS ORDERED: MAALOX 30 ML SUSP *UDC PO PRN (22:45)
[2024-06-09] MEDS: DOCUSATE SODIUM 100MG CAPSULE PO SCH (00:48)
[2024-06-09] MEDS ORDERED: DEXTROSE 50% 50ML SYRINGE IV PRN (02:40)
[2024-06-09] MEDS ORDERED: GLUCAGON INJ 1MG VIAL SC PRN (02:40)
[2024-06-09] MEDS ORDERED: GLUCOSE 4 GM CHEW PO PRN (02:40)
[2024-06-09 06:13] LABS: HEMATOCRIT 45.1 % (42.0-52.0); HEMOGLOBIN 14.7 g/dl (13.5-17.5); MEAN CORPUSCULAR HEMOGLOBIN 26.7 pg (27.0-33.0); MEAN CORPUSCULAR HGB CONC 32.6 g/dl (32.0-36.5); MEAN CORPUSCULAR VOLUME 81.9 fl (80.0-96.0); PLATELET COUNT, AUTOMATED 116 10^3/uL (150-450); RED BLOOD COUNT 5.51 10^6/uL (4.30-6.10); WHITE BLOOD COUNT 7.2 10^3/uL (4.0-10.0)
[2024-06-09 06:41] LABS: ALBUMIN 3.2 G/DL (3.2-5.2); BILIRUBIN,TOTAL 0.7 MG/DL (0.3-1.2); CALCIUM LEVEL 8.5 MG/DL (8.5-10.1); CREATININE FOR GFR 2.03 MG/DL (0.70-1.30); GLOMERULAR FILTRATION RATE 36.2 (>56); MAGNESIUM LEVEL 1.8 MG/DL (1.8-2.4); POTASSIUM SERUM 4.1 MMOL/L (3.5-5.1); TOTAL PROTEIN 7.3 G/DL (5.7-8.2)
[2024-06-09] MEDS: ONDANSETRON 4MG 2ML VIAL IV ONE (07:27)
[2024-06-09] MEDS: ACETAMINOPHEN 325 MG TAB PO PRN (07:27)
[2024-06-09] MEDS: INSULIN LISPRO (NovoLOG) PER UNIT SC SCH ×2 (08:05→22:00)
[2024-06-09] MEDS: VALSARTAN 40MG TABLET (DIOVAN) PO SCH (09:00)
[2024-06-09] MEDS: amLODIPine 5 MG TAB PO SCH (09:00)
[2024-06-09] MEDS: ENOXAPARIN 40MG/0.4ML SYRINGE (J1650 PER 10MG) SC SCH (09:36)
[2024-06-09] MEDS: ATORVASTATIN 20 MG TAB PO SCH (09:37)
[2024-06-09] MEDS: ASPIRIN 81MG ENTERIC TABLET PO SCH (11:45)
[2024-06-09] MEDS: NS 1,000 ML IV ONE (12:16)
[2024-06-09 14:19] VITALS: BP 139/76; TEMP 97.5; O2SAT 96
[2024-06-09] MEDS: NS 1,000 ML IV SCH (14:45)
[2024-06-09 20:30] VITALS: BP 142/63; TEMP 98.1; O2SAT 96
[2024-06-09 23:40] VITALS: BP 106/50; TEMP 97.3; O2SAT 93
[2024-06-10] VITALS (8 sets, daily range): BP systolic 85–138; BP diastolic 38–88; TEMP 96.6–97.5; O2SAT 94–97
[2024-06-10 07:16] LABS: C REACTIVE PROTEIN QUANTITATIV 7.4 MG/DL (<1.0)
[2024-06-10 07:43] LABS: CALCIUM LEVEL 7.9 MG/DL (8.5-10.1); CREATININE FOR GFR 1.94 MG/DL (0.70-1.30); GLOMERULAR FILTRATION RATE 38.2 (>56); POTASSIUM SERUM 4.2 MMOL/L (3.5-5.1)
[2024-06-10 08:36] LABS: HEMATOCRIT 38.9 % (42.0-52.0); HEMOGLOBIN 12.8 g/dl (13.5-17.5); MEAN CORPUSCULAR HEMOGLOBIN 26.9 pg (27.0-33.0); MEAN CORPUSCULAR HGB CONC 32.9 g/dl (32.0-36.5); MEAN CORPUSCULAR VOLUME 81.7 fl (80.0-96.0); RED BLOOD COUNT 4.76 10^6/uL (4.30-6.10); WHITE BLOOD COUNT 5.1 10^3/uL (4.0-10.0)
[2024-06-10 08:37] LABS: PLATELET COUNT, AUTOMATED 93 10^3/uL (150-450)
[2024-06-10] MEDS: MOM 30ML SUSPENSION UDC PO PRN (08:39)
[2024-06-10] MEDS: NS 1,000 ML IV SCH (14:18)
[2024-06-10] MEDS: LACTIC ACID 12% LOTION 225 GM BTL TOP SCH (17:01)
[2024-06-11 04:00] VITALS: BP 125/69; TEMP 97.3; O2SAT 96
[2024-06-11 05:29] LABS: HEMATOCRIT 38.4 % (42.0-52.0); HEMOGLOBIN 12.3 g/dl (13.5-17.5); MEAN CORPUSCULAR HEMOGLOBIN 26.3 pg (27.0-33.0); MEAN CORPUSCULAR VOLUME 82.2 fl (80.0-96.0); RED BLOOD COUNT 4.67 10^6/uL (4.30-6.10); WHITE BLOOD COUNT 4.4 10^3/uL (4.0-10.0)
[2024-06-11 05:30] LABS: PLATELET COUNT, AUTOMATED 93 10^3/uL (150-450)
[2024-06-11 05:52] LABS: CALCIUM LEVEL 7.9 MG/DL (8.5-10.1); CREATININE FOR GFR 1.73 MG/DL (0.70-1.30); GLOMERULAR FILTRATION RATE 43.6 (>56)
[2024-06-11 08:00] VITALS: BP 138/80; TEMP 97.2; O2SAT 96
[2024-06-11 12:00] VITALS: BP 132/72; TEMP 97.2; O2SAT 97
[2024-06-11 16:00] VITALS: BP 132/71; TEMP 97; O2SAT 97
[2024-06-12] VITALS: BP 122/50; TEMP 97.7; O2SAT 93
[2024-06-12 04:00] VITALS: BP 120/50; TEMP 97.3; O2SAT 97
[2024-06-12 06:24] LABS: CALCIUM LEVEL 8.3 MG/DL (8.5-10.1); CREATININE FOR GFR 1.46 MG/DL (0.70-1.30); HEMATOCRIT 38.7 % (42.0-52.0); HEMOGLOBIN 12.3 g/dl (13.5-17.5); MEAN CORPUSCULAR HEMOGLOBIN 26.7 pg (27.0-33.0); MEAN CORPUSCULAR HGB CONC 31.8 g/dl (32.0-36.5); MEAN CORPUSCULAR VOLUME 84.1 fl (80.0-96.0); POTASSIUM SERUM 3.9 MMOL/L (3.5-5.1); WHITE BLOOD COUNT 4.8 10^3/uL (4.0-10.0)
[2024-06-12 06:25] LABS: PLATELET COUNT, AUTOMATED 95 10^3/uL (150-450)
[2024-06-12 08:00] VITALS: BP 137/76; TEMP 97; O2SAT 98
[2024-06-12 12:00] VITALS: BP 135/72; TEMP 97.7; O2SAT 97
[2024-06-12 16:00] VITALS: BP 138/76; TEMP 97.9; O2SAT 98
[2024-06-12 20:00] VITALS: BP 141/65; TEMP 97.3; O2SAT 96
[2024-06-13 00:01] VITALS: BP 149/81; TEMP 97.3; O2SAT 95
[2024-06-13 04:11] VITALS: BP 131/75; TEMP 97.7; O2SAT 95
[2024-06-13 06:47] LABS: HEMATOCRIT 39.2 % (42.0-52.0); HEMOGLOBIN 12.7 g/dl (13.5-17.5); MEAN CORPUSCULAR HEMOGLOBIN 26.8 pg (27.0-33.0); MEAN CORPUSCULAR HGB CONC 32.4 g/dl (32.0-36.5); MEAN CORPUSCULAR VOLUME 82.9 fl (80.0-96.0); PLATELET COUNT, AUTOMATED 119 10^3/uL (150-450); RED BLOOD COUNT 4.73 10^6/uL (4.30-6.10); WHITE BLOOD COUNT 8.7 10^3/uL (4.0-10.0)
[2024-06-13 07:07] LABS: CALCIUM LEVEL 8.5 MG/DL (8.5-10.1); CREATININE FOR GFR 1.4 MG/DL (0.70-1.30); GLOMERULAR FILTRATION RATE 55.6 (>56); MAGNESIUM LEVEL 1.6 MG/DL (1.8-2.4); POTASSIUM SERUM 4.2 MMOL/L (3.5-5.1)
[2024-06-13 08:00] VITALS: BP 138/78; TEMP 97.9; O2SAT 96
[2024-06-13 12:00] VITALS: BP 124/66; TEMP 97.2; O2SAT 96
[2024-06-13 16:00] VITALS: BP 126/70; TEMP 97.3; O2SAT 96
[2024-06-13 20:07] VITALS: BP 129/70; TEMP 97.7; O2SAT 100
[2024-06-14] VITALS (8 sets, daily range): BP systolic 124–133; BP diastolic 65–74; TEMP 97–97.7; O2SAT 96–98
[2024-06-14 06:09] LABS: HEMATOCRIT 39.9 % (42.0-52.0); HEMOGLOBIN 12.5 g/dl (13.5-17.5); MEAN CORPUSCULAR HEMOGLOBIN 26.2 pg (27.0-33.0); MEAN CORPUSCULAR HGB CONC 31.3 g/dl (32.0-36.5); MEAN CORPUSCULAR VOLUME 83.6 fl (80.0-96.0); PLATELET COUNT, AUTOMATED 140 10^3/uL (150-450); RED BLOOD COUNT 4.77 10^6/uL (4.30-6.10); WHITE BLOOD COUNT 10.1 10^3/uL (4.0-10.0)
[2024-06-14 12:36] LABS: CALCIUM LEVEL 8.6 MG/DL (8.5-10.1); CREATININE FOR GFR 1.54 MG/DL (0.70-1.30); GLOMERULAR FILTRATION RATE 49.8 (>56); POTASSIUM SERUM 4.6 MMOL/L (3.5-5.1)
[2024-06-15 00:01] VITALS: BP 130/70; TEMP 97.5; O2SAT 97
[2024-06-15 04:00] VITALS: BP 136/72; TEMP 97.3; O2SAT 96
[2024-06-15 05:57] LABS: BASO # 0.1 10^3/uL (0.0-0.2); BASO % 0.6 % (0.0-1.0); EOS # 0.4 10^3/uL (0.0-0.5); EOS % 3.9 % (0.0-3.0); HEMATOCRIT 38.7 % (42.0-52.0); HEMOGLOBIN 12.5 g/dl (13.5-17.5); LYMPH # 1.8 10^3/uL (1.5-5.0); LYMPH % 20.3 % (24.0-44.0); MEAN CORPUSCULAR HEMOGLOBIN 26.7 pg (27.0-33.0); MEAN CORPUSCULAR HGB CONC 32.3 g/dl (32.0-36.5); MEAN CORPUSCULAR VOLUME 82.7 fl (80.0-96.0); MONO # 0.5 10^3/uL (0.0-0.8); NEUTROPHILS # 6.3 10^3/uL (1.5-8.5); NEUTROPHILS % 69.6 % (36.0-66.0); PLATELET COUNT, AUTOMATED 159 10^3/uL (150-450); RED BLOOD COUNT 4.68 10^6/uL (4.30-6.10); WHITE BLOOD COUNT 9.1 10^3/uL (4.0-10.0)
[2024-06-15 06:24] LABS: CALCIUM LEVEL 8.7 MG/DL (8.5-10.1); CREATININE FOR GFR 1.44 MG/DL (0.70-1.30); GLOMERULAR FILTRATION RATE 53.8 (>56); POTASSIUM SERUM 4.1 MMOL/L (3.5-5.1)
[2024-06-15 08:00] VITALS: BP 116/62; TEMP 97; O2SAT 97
[2024-06-15 08:46] VITALS: BP 119/62
[2024-06-15 11:53] VITALS: BP 123/90; TEMP 97.3; O2SAT 98
== END 2024-06-15 14:10 | disposition home health service (06) | DRG 720 ==
LOC: M ED 17:11 → M ED INP 22:43 → M MSPAV 06-09 13:51
PROVIDERS: ADMIT Student in an Organized Health Care Education/Training Program; ATTEND Student in an Organized Health Care Education/Training Program
PROC: B246ZZZ Ultrasonography of Right and Left Heart (ICD-10-PCS; principal; 2024-06-12)
DX: A41.9 Sepsis, unspecified organism (principal); E11.51 Type 2 diabetes mellitus with diabetic peripheral angiopathy without gangrene; E11.22 Type 2 diabetes mellitus with diabetic chronic kidney disease; N17.9 Acute kidney failure, unspecified; E11.618 Type 2 diabetes mellitus with other diabetic arthropathy; I95.9 Hypotension, unspecified; N18.30 Chronic kidney disease, stage 3 unspecified; E11.69 Type 2 diabetes mellitus with other specified complication; E11.621 Type 2 diabetes mellitus with foot ulcer; L97.529 Non-pressure chronic ulcer of other part of left foot with unspecified severity; I73.9 Peripheral vascular disease, unspecified; L03.116 Cellulitis of left lower limb; M86.8X7 Other osteomyelitis, ankle and foot; I12.9 Hypertensive chronic kidney disease with stage 1 through stage 4 chronic kidney disease, or unspecified chronic kidney disease; E78.5 Hyperlipidemia, unspecified; K59.09 Other constipation; N40.0 Benign prostatic hyperplasia without lower urinary tract symptoms; F17.210 Nicotine dependence, cigarettes, uncomplicated; Z89.412 Acquired absence of left great toe; Z89.422 Acquired absence of other left toe(s); Z89.411 Acquired absence of right great toe; Z89.021 Acquired absence of right finger(s); Z79.82 Long term (current) use of aspirin; Z79.4 Long term (current) use of insulin; Z79.84 Long term (current) use of oral hypoglycemic drugs; Z79.899 Other long term (current) drug therapy

== ENCOUNTER 2024-06-15 14:22 | Outpatient (CLI) | payer OTHER ==
[~2024-06-15] VITALS: Ht 167.6 cm; Wt 103.2 kg
[~2024-06-15 14:22] MED LIST changes: +FARX1TAB3 PO; +VALS40TA9 PO
[2024-06-15 14:36] VITALS: BP 149/72; O2SAT 98
[2024-06-15] MEDS: DALBAVANCIN 1,500 MG in D5W 250 ML IV ONE (15:07)
[2024-06-15 15:52] VITALS: BP 146/77; O2SAT 97
== END 2024-06-15 15:50 ==
LOC: M INFU 14:22
PROVIDERS: ATTEND Internal Medicine
DX: B95.61 Methicillin susceptible Staphylococcus aureus infection as the cause of diseases classified elsewhere (principal); R78.81 Bacteremia; N18.30 Chronic kidney disease, stage 3 unspecified
CPT/HCPCS: 96365; J0875

== ENCOUNTER → 2024-06-21 | Outpatient (REF) | payer OTHER ==
[2024-06-21 11:43] LABS: HEMATOCRIT 47.7 % (42.0-52.0); HEMOGLOBIN 14.9 g/dl (13.5-17.5); MEAN CORPUSCULAR HEMOGLOBIN 26.6 pg (27.0-33.0); MEAN CORPUSCULAR HGB CONC 31.2 g/dl (32.0-36.5); PLATELET COUNT, AUTOMATED 248 10^3/uL (150-450); RED BLOOD COUNT 5.61 10^6/uL (4.30-6.10); WHITE BLOOD COUNT 10.1 10^3/uL (4.0-10.0)
[2024-06-21 12:05] LABS: C REACTIVE PROTEIN QUANTITATIV < 0.40 MG/DL (<1.0)
[2024-06-21 12:06] LABS: BLOOD UREA NITROGEN 41 MG/DL (9-23); CALCIUM LEVEL 9.5 MG/DL (8.5-10.1); CARBON DIOXIDE LEVEL 26 MMOL/L (20-31); CHLORIDE LEVEL 107 MMOL/L (98-107); CREATININE FOR GFR 1.92 MG/DL (0.70-1.30); GLOMERULAR FILTRATION RATE 38.6 (>56); GLUCOSE, FASTING 238 MG/DL (60-100); SODIUM LEVEL 139 MMOL/L (136-145)
== END ==
LOC: M LAB REF 10:44
PROVIDERS: ATTEND Internal Medicine Infectious Disease
DX: N18.9 Chronic kidney disease, unspecified (principal); Z79.2 Long term (current) use of antibiotics

== ENCOUNTER 2024-06-23 16:26 | Outpatient (CLI) | payer OTHER ==
[~2024-06-23] VITALS: Ht 167.6 cm; Wt 97.0 kg
[2024-06-23 16:40] VITALS: BP 125/62; O2SAT 99
[2024-06-23 16:57] LABS: HEMOGLOBIN 13.7 g/dl (13.5-17.5); MEAN CORPUSCULAR HEMOGLOBIN 26.6 pg (27.0-33.0); MEAN CORPUSCULAR HGB CONC 31.1 g/dl (32.0-36.5); MEAN CORPUSCULAR VOLUME 85.4 fl (80.0-96.0); PLATELET COUNT, AUTOMATED 212 10^3/uL (150-450); RED BLOOD COUNT 5.15 10^6/uL (4.30-6.10); WHITE BLOOD COUNT 8.9 10^3/uL (4.0-10.0)
[2024-06-23 17:17] LABS: C REACTIVE PROTEIN QUANTITATIV 0.59 MG/DL (<1.0); CALCIUM LEVEL 9.4 MG/DL (8.5-10.1); CREATININE FOR GFR 1.8 MG/DL (0.70-1.30); GLOMERULAR FILTRATION RATE 41.6 (>56); POTASSIUM SERUM 4.9 MMOL/L (3.5-5.1)
[2024-06-23] MEDS: DALBAVANCIN 1,500 MG in D5W 250 ML IV ONE (17:31)
[2024-06-23 18:10] VITALS: BP 115/66; O2SAT 100
== END 2024-06-23 18:10 | disposition home or self-care (01) ==
LOC: M INFU 16:26
PROVIDERS: ATTEND Internal Medicine
DX: N18.30 Chronic kidney disease, stage 3 unspecified (principal); B95.61 Methicillin susceptible Staphylococcus aureus infection as the cause of diseases classified elsewhere; R78.81 Bacteremia
CPT/HCPCS: 36592; 80048; 85027; 86140; 96365; J0875

== ENCOUNTER → 2024-06-25 | Outpatient (REF) | payer OTHER ==
[2024-06-25 13:01] LABS: HEMATOCRIT 46.8 % (42.0-52.0); HEMOGLOBIN 14.3 g/dl (13.5-17.5); MEAN CORPUSCULAR HEMOGLOBIN 26.1 pg (27.0-33.0); MEAN CORPUSCULAR HGB CONC 30.6 g/dl (32.0-36.5); MEAN CORPUSCULAR VOLUME 85.4 fl (80.0-96.0); PLATELET COUNT, AUTOMATED 213 10^3/uL (150-450); RED BLOOD COUNT 5.48 10^6/uL (4.30-6.10); WHITE BLOOD COUNT 7.4 10^3/uL (4.0-10.0)
[2024-06-25 13:24] LABS: C REACTIVE PROTEIN QUANTITATIV < 0.50 MG/DL (<1.0)
[2024-06-25 13:27] LABS: BLOOD UREA NITROGEN 31 MG/DL (9-23); CALCIUM LEVEL 9.2 MG/DL (8.5-10.1); CARBON DIOXIDE LEVEL 25 MMOL/L (20-31); CHLORIDE LEVEL 107 MMOL/L (98-107); CREATININE FOR GFR 1.87 MG/DL (0.70-1.30); GLOMERULAR FILTRATION RATE 39.8 (>56); GLUCOSE, FASTING 95 MG/DL (60-100); POTASSIUM SERUM 5.1 MMOL/L (3.5-5.1); SODIUM LEVEL 141 MMOL/L (136-145)
== END ==
LOC: M LAB REF 10:42
PROVIDERS: ATTEND Internal Medicine
DX: N17.9 Acute kidney failure, unspecified (principal); N18.9 Chronic kidney disease, unspecified; Z79.2 Long term (current) use of antibiotics

== ENCOUNTER → 2024-06-28 | Outpatient (REF) | payer OTHER ==
[2024-06-28 13:53] LABS: HEMATOCRIT 49.7 % (42.0-52.0); HEMOGLOBIN 15.3 g/dl (13.5-17.5); MEAN CORPUSCULAR HEMOGLOBIN 26.9 pg (27.0-33.0); MEAN CORPUSCULAR HGB CONC 30.8 g/dl (32.0-36.5); MEAN CORPUSCULAR VOLUME 87.3 fl (80.0-96.0); PLATELET COUNT, AUTOMATED 212 10^3/uL (150-450); RED BLOOD COUNT 5.69 10^6/uL (4.30-6.10); WHITE BLOOD COUNT 8.7 10^3/uL (4.0-10.0)
[2024-06-28 14:11] LABS: C REACTIVE PROTEIN QUANTITATIV < 0.50 MG/DL (<1.0)
[2024-06-28 14:12] LABS: BLOOD UREA NITROGEN 32 MG/DL (9-23); CALCIUM LEVEL 10.5 MG/DL (8.5-10.1); CARBON DIOXIDE LEVEL 26 MMOL/L (20-31); CHLORIDE LEVEL 106 MMOL/L (98-107); CREATININE FOR GFR 1.63 MG/DL (0.70-1.30); GLOMERULAR FILTRATION RATE 46.5 (>56); GLUCOSE, FASTING 157 MG/DL (60-100); POTASSIUM SERUM 5.6 MMOL/L (3.5-5.1); SODIUM LEVEL 141 MMOL/L (136-145)
== END ==
LOC: M LAB REF 11:50
PROVIDERS: ATTEND Internal Medicine
DX: N17.9 Acute kidney failure, unspecified (principal); N18.9 Chronic kidney disease, unspecified

== ENCOUNTER → 2024-10-01 | Outpatient (REF) | payer OTHER ==
[2024-10-01 19:15] LABS: HEMOGLOBIN A1c 9.1 % (4.0-6.0)
== END ==
LOC: M PLALAB 17:00
PROVIDERS: ATTEND Student in an Organized Health Care Education/Training Program
DX: E11.22 Type 2 diabetes mellitus with diabetic chronic kidney disease (principal)

== ENCOUNTER → 2024-10-05 | Outpatient (CLI) | payer OTHER | LOC: M RAD 06:46 | PROVIDERS: ATTEND Student in an Organized Health Care Education/Training Program | DX: F17.219 Nicotine dependence, cigarettes, with unspecified nicotine-induced disorders (principal) ==

== ENCOUNTER → 2025-01-26 | Outpatient (REF) | payer OTHER ==
[~2025-01-26] MED LIST changes: +AMLO-751 PO; -AMLO10TA PO; +AMMO12CR4 TOP; -AMMO12CR7 TOP; +DULA4.5P INJ; +PROB250C PO
== END ==
LOC: M LAB REF 11:52
PROVIDERS: ATTEND Podiatrist
DX: L03.119 Cellulitis of unspecified part of limb (principal)

== ENCOUNTER → 2025-04-07 | Outpatient (REF) | payer OTHER | LOC: M LAB REF 17:13 | PROVIDERS: ATTEND Podiatrist | DX: L03.119 Cellulitis of unspecified part of limb (principal) ==

== ENCOUNTER → 2025-04-08 | Outpatient (REF) | payer OTHER ==
[2025-04-08 14:06] LABS: PLATELET COUNT, AUTOMATED 218 10^3/uL (150-450)
[2025-04-08 14:32] LABS: CALCIUM LEVEL 8.6 MG/DL (8.5-10.1); CARBON DIOXIDE LEVEL 26 MMOL/L (20-31); CHLORIDE LEVEL 105 MMOL/L (98-107); CHOLESTEROL LEVEL 148 MG/DL (<200); CHOLESTEROL RISK RATIO 6.19 (<5); CREATININE FOR GFR 1.87 MG/DL (0.70-1.30); GLOMERULAR FILTRATION RATE 41.2 (>56); NON-HDL-C 124.1 MG/DL; POTASSIUM SERUM 5.1 MMOL/L (3.5-5.1); SODIUM LEVEL 139 MMOL/L (136-145); TRIGLYCERIDES LEVEL 455 MG/DL (<150)
[2025-04-08 14:54] LABS: ESTIMATED AVERAGE GLUCOSE 249.0 MG/DL (60-110)
== END ==
LOC: M LAB REF 13:25
PROVIDERS: ATTEND Student in an Organized Health Care Education/Training Program
DX: Z00.00 Encounter for general adult medical examination without abnormal findings (principal); E11.22 Type 2 diabetes mellitus with diabetic chronic kidney disease; E78.2 Mixed hyperlipidemia; I10 Essential (primary) hypertension; I73.9 Peripheral vascular disease, unspecified; L24.9 Irritant contact dermatitis, unspecified cause; Z23 Encounter for immunization

== ENCOUNTER → 2025-05-03 | Outpatient (CLI) | payer OTHER | LOC: M RAD 13:16 | PROVIDERS: ATTEND Surgery | DX: I73.9 Peripheral vascular disease, unspecified (principal) ==

== ENCOUNTER 2025-05-18 01:01 | Inpatient (IN) | payer OTHER ==
[~2025-05-18] VITALS: Ht 167.6 cm; Wt 99.4 kg
[2025-05-18 01:27] LABS: VENOUS BASE EXCESS -0.4 (-2.0-2.0); VENOUS HCO3 22.9 MMOL/L (23.0-27.0); VENOUS O2 SATURATION 92.7 % (60.0-80.0); VENOUS PARTIAL PRESSURE CO2 34.3 mmHg (38.0-50.0); VENOUS PARTIAL PRESSURE O2 64.8 mmHg (30.0-50.0); VENOUS PH 7.443 UNITS (7.330-7.430); VENOUS STANDARD HCO3 24.0 MMOL/L; VENOUS TOTAL CO2 24.0 MMOL/L (24.0-28.0)
[2025-05-18 01:34] LABS: BASO # 0.1 10^3/uL (0.0-0.2); BASO % 0.3 % (0.0-1.0); EOS # 0.2 10^3/uL (0.0-0.5); EOS % 1.0 % (0.0-3.0); LYMPH # 0.8 10^3/uL (1.5-5.0); LYMPH % 5.4 % (24.0-44.0); MONO # 0.9 10^3/uL (0.0-0.8); MONO % 6.0 % (2.0-8.0); NEUTROPHILS # 13.2 10^3/uL (1.5-8.5); NEUTROPHILS % 87.0 % (36.0-66.0); PLATELET COUNT, AUTOMATED 175 10^3/uL (150-450)
[2025-05-18] MEDS: NS (Normal Saline) 0.9% 1,000 ML IV ONE ×2 (01:42→03:27)
[2025-05-18] MEDS: ACETAMINOPHEN *IV* 1,000 MG in IV 1 EA IV ONE ×2 (01:45→10:40)
[2025-05-18 01:55] LABS: ESTIMATED AVERAGE GLUCOSE 240.0 MG/DL (60-110)
[2025-05-18 01:56] LABS: ACETONE/KETONE 0.38 MMOL/L (0.02-0.27); ALT/SGPT 16.0 U/L (7.0-40); AST/SGOT 16.0 U/L (<34)
[2025-05-18] MEDS ORDERED: ISOVUE-370 76% 100 ML VIAL As Ordered ONE (02:09)
[2025-05-18 02:16] LABS: CALCIUM LEVEL 8.3 MG/DL (8.5-10.1); CARBON DIOXIDE LEVEL 24.0 MMOL/L (20-31); CHLORIDE LEVEL 104.0 MMOL/L (98-107); CREATININE FOR GFR 1.79 MG/DL (0.70-1.30); GLOMERULAR FILTRATION RATE 43.4 (>56); POTASSIUM SERUM 3.7 MMOL/L (3.5-5.1); SODIUM LEVEL 140.0 MMOL/L (136-145)
[2025-05-18 03:00] LABS: OSMOLALITY SERUM 302.0 MOSM/KG (275-295)
[2025-05-18 04:55] LABS: KETONE, URINE AUTO RFX NEGATIVE (NEGATIVE); LEUKOCYTE ESTERASE UR AUTO RFX NEGATIVE (NEGATIVE); MUCUS, URINE RFX SMALL (NEGATIVE); NITRITE, URINE AUTO RFX NEGATIVE (NEGATIVE); RBC, URINE AUTO RFX 5 /HPF (0-3); SQUAM EPITHELIAL CELL UR AURFX 0 /HPF (0-6); WBC, URINE AUTO RFX 0 /HPF (0-3)
[2025-05-18] MEDS: cefTRIAXone SOD 2 GM in DEXTROSE 5% (D5W) ADV/MINI-BAG 50 ML IV ONE (06:51)
[2025-05-18] MEDS ORDERED: METF-838 PO (08:22)
[2025-05-18] MEDS ORDERED: VANCOMYCIN HCL 1,000 MG in IV FLUID PLACE HOLDER 1 EA IV SCH (08:30)
[2025-05-18] MEDS ORDERED: GLUCOSE 4 GM CHEW PO PRN (08:35)
[2025-05-18] MEDS ORDERED: DEXTROSE 50% 50 ML SYRINGE IV PRN (08:35)
[2025-05-18] MEDS ORDERED: HOME MED LIST COMPLETE! XX SCH (08:35)
[2025-05-18] MEDS ORDERED: GLUCAGON INJ 1 MG VIAL SC PRN (08:35)
[2025-05-18 09:15] LABS: C REACTIVE PROTEIN QUANTITATIV 9.37 MG/DL (<1.0)
[2025-05-18] MEDS: VANCOMYCIN HCL 2,000 MG, VIAL MATE ADAPTER 1 EACH in NS 500 ML IV ONE (10:39)
[2025-05-18] MEDS: ASPIRIN 81 MG ENTERIC TABLET PO SCH (12:43)
[2025-05-18] MEDS: CLOPIDOGREL 75 MG TAB PO SCH (12:43)
[2025-05-18] MEDS: ATORVASTATIN 20 MG TAB PO SCH (12:44)
[2025-05-18] MEDS: DAPAGLIFLOZIN PROPANEDIOL 10 MG TABLET PO SCH (12:44)
[2025-05-18] MEDS: HEPARIN SOD 5000 UNITS/ML 1 ML VIAL/SYRINGE SC SCH (12:44)
[2025-05-18] MEDS: NS (Normal Saline) 0.9% 1,000 ML IV SCH (13:19)
[2025-05-18] MEDS: INSULIN LISPRO (NovoLOG) PER UNIT SC SCH ×2 (13:19→21:00)
[2025-05-18 15:05] VITALS: BP 116/61; TEMP 97.5; O2SAT 94
[2025-05-18] MEDS: ACETAMINOPHEN 325 MG TAB PO PRN (17:24)
[2025-05-18] MEDS: LevoFLOXacin IV 750 MG in IV 1 EA IV SCH (17:32)
[2025-05-18 18:00] VITALS: BP 142/88; TEMP 106; O2SAT 94
[2025-05-18 18:19] VITALS: BP 171/79; O2SAT 97
[2025-05-18] MEDS: ACETAMINOPHEN *IV* 1,000 MG in IV 1 EA IV SCH (18:32)
[2025-05-18] MEDS: ONDANSETRON 4MG/2ML VIAL IV PRN (18:54)
[2025-05-18 20:00] VITALS: BP 109/65; TEMP 97.2; O2SAT 98
[2025-05-18] MEDS: VANCOMYCIN HCL 500 MG in DEXTROSE 5% (D5W) MINI-BAG PLU 100 ML IV SCH (21:16)
[2025-05-18] MEDS: LanTUS (INSULIN GLARGINE INJ) 1 UNITS/0.01 ML SC SCH (21:21)
[2025-05-18] MEDS ORDERED: ACETAMINOPHEN *IV* 1,000 MG in IV 1 EA IV SCH (22:00)
[2025-05-18 22:10] VITALS: TEMP 100.4
[2025-05-18 23:19] VITALS: TEMP 97.7
[2025-05-19 02:30] VITALS: TEMP 97.7
[2025-05-19 03:55] VITALS: BP 151/82; TEMP 97.9; O2SAT 96
[2025-05-19 06:52] LABS: BASO % 0.5 % (0.0-1.0); EOS # 0.0 10^3/uL (0.0-0.5); EOS % 0.3 % (0.0-3.0); LYMPH # 0.4 10^3/uL (1.5-5.0); LYMPH % 6.9 % (24.0-44.0); MONO # 0.4 10^3/uL (0.0-0.8); MONO % 6.9 % (2.0-8.0); NEUTROPHILS # 5.1 10^3/uL (1.5-8.5); NEUTROPHILS % 85.1 % (36.0-66.0); PLATELET COUNT, AUTOMATED 123 10^3/uL (150-450)
[2025-05-19 06:53] LABS: BASO # 0.0 10^3/uL (0.0-0.2)
[2025-05-19 07:22] LABS: CALCIUM LEVEL 7.7 MG/DL (8.5-10.1); CARBON DIOXIDE LEVEL 26.0 MMOL/L (20-31); CHLORIDE LEVEL 103.0 MMOL/L (98-107); CREATININE FOR GFR 1.96 MG/DL (0.70-1.30); GLOMERULAR FILTRATION RATE 38.9 (>56); POTASSIUM SERUM 4.6 MMOL/L (3.5-5.1); SODIUM LEVEL 139.0 MMOL/L (136-145)
[2025-05-19] MEDS ORDERED: ACETAMINOPHEN *IV* 1,000 MG in IV 1 EA IV PRN (08:15)
[2025-05-19] MEDS: VANCOMYCIN HCL 1,250 MG, VIAL MATE ADAPTER 1 EACH in NS 250 ML IV SCH (08:32)
[2025-05-19 09:00] VITALS: O2SAT 97
[2025-05-19 10:16] VITALS: TEMP 98.8
[2025-05-19 11:49] VITALS: BP 127/67; TEMP 98; O2SAT 97
[2025-05-19] MEDS: ceFAZolin SODIUM 2 GM in DEXTROSE 5% (D5W) ADV/MINI-BAG 50 ML IV SCH (17:13)
[2025-05-19 20:14] VITALS: BP 123/72; TEMP 98.9; O2SAT 90
[2025-05-19] MEDS: LACTIC ACID 12% LOTION 225 GM BTL TOP SCH (21:45)
[2025-05-20 05:55] VITALS: BP 127/73; TEMP 98.1; O2SAT 95
[2025-05-20 06:30] LABS: BASO # 0.0 10^3/uL (0.0-0.2); BASO % 0.7 % (0.0-1.0); EOS # 0.1 10^3/uL (0.0-0.5); EOS % 2.9 % (0.0-3.0); LYMPH # 0.9 10^3/uL (1.5-5.0); LYMPH % 19.0 % (24.0-44.0); MONO # 0.5 10^3/uL (0.0-0.8); MONO % 9.9 % (2.0-8.0); NEUTROPHILS # 3.0 10^3/uL (1.5-8.5); NEUTROPHILS % 67.1 % (36.0-66.0); PLATELET COUNT, AUTOMATED 127 10^3/uL (150-450)
[2025-05-20 06:51] LABS: CALCIUM LEVEL 8.1 MG/DL (8.5-10.1); CARBON DIOXIDE LEVEL 25.0 MMOL/L (20-31); CHLORIDE LEVEL 104.0 MMOL/L (98-107); CREATININE FOR GFR 1.82 MG/DL (0.70-1.30); GLOMERULAR FILTRATION RATE 42.5 (>56); POTASSIUM SERUM 3.8 MMOL/L (3.5-5.1); SODIUM LEVEL 139.0 MMOL/L (136-145)
[2025-05-20 06:52] LABS: C REACTIVE PROTEIN QUANTITATIV 10.82 MG/DL (<1.0)
[2025-05-20 11:27] VITALS: BP 124/71; TEMP 98.6; O2SAT 95
[2025-05-20 20:12] VITALS: BP 122/68; TEMP 98.2; O2SAT 95
[2025-05-21 03:55] VITALS: BP 131/73; TEMP 97.3; O2SAT 98
[2025-05-21 06:34] LABS: BASO # 0.0 10^3/uL (0.0-0.2); BASO % 0.8 % (0.0-1.0); EOS # 0.2 10^3/uL (0.0-0.5); EOS % 6.0 % (0.0-3.0); LYMPH # 1.1 10^3/uL (1.5-5.0); LYMPH % 27.3 % (24.0-44.0); MONO # 0.4 10^3/uL (0.0-0.8); MONO % 10.4 % (2.0-8.0); NEUTROPHILS # 2.1 10^3/uL (1.5-8.5); NEUTROPHILS % 55.2 % (36.0-66.0); PLATELET COUNT, AUTOMATED 125 10^3/uL (150-450)
[2025-05-21 07:00] LABS: CALCIUM LEVEL 8.2 MG/DL (8.5-10.1); CARBON DIOXIDE LEVEL 24.0 MMOL/L (20-31); CHLORIDE LEVEL 108.0 MMOL/L (98-107); CREATININE FOR GFR 1.68 MG/DL (0.70-1.30); GLOMERULAR FILTRATION RATE 46.8 (>56); POTASSIUM SERUM 3.9 MMOL/L (3.5-5.1); SODIUM LEVEL 142.0 MMOL/L (136-145)
[2025-05-21 12:00] VITALS: BP 138/76; TEMP 96.8; O2SAT 92
[2025-05-21 20:44] VITALS: BP 117/54; TEMP 97.3; O2SAT 100
[2025-05-22 04:42] VITALS: BP 135/68; TEMP 97.3; O2SAT 99
[2025-05-22 06:23] LABS: BASO # 0.0 10^3/uL (0.0-0.2); BASO % 0.6 % (0.0-1.0); EOS # 0.3 10^3/uL (0.0-0.5); EOS % 6.0 % (0.0-3.0); LYMPH # 1.3 10^3/uL (1.5-5.0); LYMPH % 24.8 % (24.0-44.0); MONO # 0.4 10^3/uL (0.0-0.8); MONO % 7.7 % (2.0-8.0); NEUTROPHILS # 3.1 10^3/uL (1.5-8.5); NEUTROPHILS % 60.7 % (36.0-66.0); PLATELET COUNT, AUTOMATED 143 10^3/uL (150-450)
[2025-05-22 06:54] LABS: CALCIUM LEVEL 8.4 MG/DL (8.5-10.1); CARBON DIOXIDE LEVEL 24.0 MMOL/L (20-31); CHLORIDE LEVEL 108.0 MMOL/L (98-107); CREATININE FOR GFR 1.59 MG/DL (0.70-1.30); GLOMERULAR FILTRATION RATE 50.0 (>56); POTASSIUM SERUM 4.1 MMOL/L (3.5-5.1); SODIUM LEVEL 144.0 MMOL/L (136-145)
[2025-05-22 12:00] VITALS: BP 136/68; TEMP 97.1; O2SAT 100
[2025-05-22 20:40] VITALS: BP 136/68; TEMP 97.2
[2025-05-22 21:03] VITALS: O2SAT 95
[2025-05-23 04:11] VITALS: BP 137/69; TEMP 97.2; O2SAT 97
[2025-05-23 06:27] LABS: BASO # 0.0 10^3/uL (0.0-0.2); BASO % 0.6 % (0.0-1.0); EOS # 0.3 10^3/uL (0.0-0.5); EOS % 4.6 % (0.0-3.0); LYMPH # 1.5 10^3/uL (1.5-5.0); LYMPH % 22.9 % (24.0-44.0); MONO # 0.5 10^3/uL (0.0-0.8); MONO % 7.1 % (2.0-8.0); NEUTROPHILS # 4.2 10^3/uL (1.5-8.5); NEUTROPHILS % 64.5 % (36.0-66.0); PLATELET COUNT, AUTOMATED 158 10^3/uL (150-450)
[2025-05-23 06:54] LABS: CALCIUM LEVEL 8.3 MG/DL (8.5-10.1); CARBON DIOXIDE LEVEL 23.0 MMOL/L (20-31); CHLORIDE LEVEL 106.0 MMOL/L (98-107); CREATININE FOR GFR 1.55 MG/DL (0.70-1.30); GLOMERULAR FILTRATION RATE 51.6 (>56); POTASSIUM SERUM 3.9 MMOL/L (3.5-5.1); SODIUM LEVEL 141.0 MMOL/L (136-145)
[2025-05-23 12:00] VITALS: BP 140/69; TEMP 97; O2SAT 98
[2025-05-23] MEDS ORDERED: LEVO75TAB PO (12:20)
== END 2025-05-23 14:19 | disposition home health service (06) | DRG 720 ==
LOC: M ED 01:01 → M ED INP 08:34 → M MSPAV 14:57
PROVIDERS: ADMIT Internal Medicine Nephrology; ATTEND Internal Medicine
PROC: B246ZZZ Ultrasonography of Right and Left Heart (ICD-10-PCS; principal; 2025-05-19)
PROC: 0HBNXZZ Excision of Left Foot Skin, External Approach (ICD-10-PCS; 2025-05-20)
DX: A41.01 Sepsis due to Methicillin susceptible Staphylococcus aureus (principal); E11.22 Type 2 diabetes mellitus with diabetic chronic kidney disease; E11.42 Type 2 diabetes mellitus with diabetic polyneuropathy; E11.621 Type 2 diabetes mellitus with foot ulcer; E11.51 Type 2 diabetes mellitus with diabetic peripheral angiopathy without gangrene; L97.529 Non-pressure chronic ulcer of other part of left foot with unspecified severity; N18.30 Chronic kidney disease, stage 3 unspecified; I73.9 Peripheral vascular disease, unspecified; I12.9 Hypertensive chronic kidney disease with stage 1 through stage 4 chronic kidney disease, or unspecified chronic kidney disease; E78.5 Hyperlipidemia, unspecified; E66.9 Obesity, unspecified; K59.09 Other constipation; F17.200 Nicotine dependence, unspecified, uncomplicated; N40.0 Benign prostatic hyperplasia without lower urinary tract symptoms; Z89.412 Acquired absence of left great toe; Z89.422 Acquired absence of other left toe(s); Z89.021 Acquired absence of right finger(s); Z89.411 Acquired absence of right great toe; R33.9 Retention of urine, unspecified; Z79.82 Long term (current) use of aspirin; Z79.4 Long term (current) use of insulin; Z79.84 Long term (current) use of oral hypoglycemic drugs; Z79.899 Other long term (current) drug therapy

== ENCOUNTER 2025-05-23 14:21 | Outpatient (CLI) | payer OTHER ==
[~2025-05-23 14:21] MED LIST changes: +LEVO75TAB PO; +METF-838 PO
[2025-05-23] MEDS: DALBAVANCIN 1,500 MG in D5W 250 ML IV ONE (14:33)
== END 2025-05-23 15:50 | disposition home health service (06) ==
LOC: M OPCLI4PV 14:21 → M MSPAV 14:22 → M OPCLI4PV 15:50
PROVIDERS: ATTEND Internal Medicine
DX: A41.01 Sepsis due to Methicillin susceptible Staphylococcus aureus (principal)

== ENCOUNTER 2025-05-31 16:19 | Outpatient (CLI) | payer OTHER ==
[~2025-05-31] VITALS: Ht 172.7 cm; Wt 104.5 kg
[2025-05-31 16:30] VITALS: BP 138/66; O2SAT 96
[2025-05-31] MEDS: DALBAVANCIN 1,500 MG in D5W 250 ML IV ONE (17:18)
[2025-05-31 17:52] VITALS: BP 137/68; O2SAT 95
== END 2025-05-31 17:54 ==
LOC: M INFU 16:19
PROVIDERS: ATTEND Internal Medicine
DX: A41.01 Sepsis due to Methicillin susceptible Staphylococcus aureus (principal)
CPT/HCPCS: 96365; J0875

== ENCOUNTER → 2025-06-07 | Outpatient (CLI) | payer OTHER ==
[~2025-06-07] MED LIST changes: -BACTDSTA PO; +SULF-8 PO
[2025-06-07 14:35] LABS: BASO # 0.1 10^3/uL (0.0-0.2); BASO % 0.9 % (0.0-1.0); EOS # 0.3 10^3/uL (0.0-0.5); EOS % 2.8 % (0.0-3.0); LYMPH # 2.1 10^3/uL (1.5-5.0); LYMPH % 23.1 % (24.0-44.0); MONO # 0.5 10^3/uL (0.0-0.8); MONO % 5.6 % (2.0-8.0); NEUTROPHILS # 6.1 10^3/uL (1.5-8.5); NEUTROPHILS % 67.4 % (36.0-66.0); PLATELET COUNT, AUTOMATED 209 10^3/uL (150-450)
[2025-06-07 14:45] LABS: ESTIMATED AVERAGE GLUCOSE 252.0 MG/DL (60-110)
[2025-06-07 15:04] LABS: C REACTIVE PROTEIN QUANTITATIV 0.54 MG/DL (<1.0)
[2025-06-07 15:08] LABS: ALT/SGPT 29.0 U/L (7.0-40); AST/SGOT 23.0 U/L (<34); CALCIUM LEVEL 9.5 MG/DL (8.5-10.1); CARBON DIOXIDE LEVEL 26.0 MMOL/L (20-31); CHLORIDE LEVEL 104.0 MMOL/L (98-107); CREATININE FOR GFR 1.72 MG/DL (0.70-1.30); GLOMERULAR FILTRATION RATE 45.5 (>56); POTASSIUM SERUM 4.8 MMOL/L (3.5-5.1); SODIUM LEVEL 140.0 MMOL/L (136-145)
== END ==
LOC: M PLALAB 11:12
PROVIDERS: ATTEND Family Medicine
DX: E11.621 Type 2 diabetes mellitus with foot ulcer (principal); L97.513 Non-pressure chronic ulcer of other part of right foot with necrosis of muscle